=== PATIENT | male | born 1995 | race Hispanic/Latino ===

== ENCOUNTER 2017-11-24 17:28 | Inpatient (IN) | payer SELFPAY ==
[2017-11-24] MEDS ORDERED: ONDANSETRON 4 MG/2 ML VIAL ONE (18:11)
[2017-11-24] MEDS ORDERED: PANTOPRAZOLE 40 MG INJ ONE (18:11)
[2017-11-24] MEDS ORDERED: NA CHLORIDE 0.9% 1,000 ML ONE ×2 (18:11→19:49)
[2017-11-24 18:27] LABS: Absolute Lymphocytes (CBC) 1.6 K/uL (0.7-4.9); Absolute Monocytes 0.4 K/uL (0.1-1.3); Absolute Neutrophil 12.6 K/uL (1.8-8.0); Basophils % 0.6 % (0-1.3); Eosinophils % 0.2 % (0-4.4); Hematocrit 54.1 % (39.6-49.0); Lymphocytes % 10.9 % (15.3-44.8); MCH 31.4 pg (27.0-35.0); MCV 95.5 fL (80-100); MPV 8.4 fL (7.6-11.3); Monocytes % 2.6 % (3.3-12.3); RBC Red Blood Cell Count 5.66 M/uL (4.33-5.43)
[2017-11-24 18:34] LABS: Protime INR 1.03
--- NOTE | 2017-11-24 19:01 | RAD REPORT ---
EXAM DESCRIPTION: CT - Head C Spine Mpr Wo Con - 11/24/2017 6:38 pm CLINICAL HISTORY: Seizure. Head and neck injury status post fall. Head and neck pain COMPARISON: 2016 TECHNIQUE: Computed axial tomography of the head and cervical spine was obtained. Sagittal and coronal reconstruction was performed. All CT scans are performed using dose optimization technique as appropriate and may include automated exposure control or mA/KV adjustment according to patient size. FINDINGS: A left frontal scalp hematoma is present. An underlying skull fracture is not seen. An intracranial bleed is not seen. The ventricles are normal in caliber. An extra-axial fluid collect ion is not noted.Fluid within the visualized sinuses and mastoids is not seen A cervical fracture is not visualized. No dislocation is noted. IMPRESSION: No acute intracranial abnormality is seen. A cervical fracture is not visualized. If the patient continues to have symptoms to suggest intracra nial /spinal cord pathology then MRI would be recommended
[2017-11-24 19:08] LABS: ALT/SGPT 118 U/L (12-78); AST/SGOT 52 U/L (15-37); Albumin 4.8 g/dL (3.4-5.0); Alcohol Serum/Plasma 10 mg/dL (0-3); Alkaline Phosphatase 106 U/L (45-117); BUN Blood Urea Nitrogen 9 mg/dL (7-18); Bicarbonate 24 mmol/L (21-32); Bilirubin Direct 0.3 mg/dL (0-0.2); Bilirubin Total 1.3 mg/dL (0.2-1.0); Glucose Level 187 mg/dL (74-106); Lipase 157 U/L (73-393); Protein, Total 9.6 g/dL (6.4-8.2); Sodium Level 138 mmol/L (136-145)
[2017-11-24 19:34] LABS: Blood Morphology Comment NOT SEEN (NOT SEEN); Platelet Estimate ADEQ; Urine White Blood Cell Casts OK
[2017-11-24] MEDS ORDERED: MULTIVITAMINS 10 ML VIAL (INJ) IV ONE (19:48)
[2017-11-24] MEDS ORDERED: THIAMINE 200 MG/2 ML INJ ONE (19:48)
[2017-11-24] MEDS ORDERED: FOLIC ACID 5 MG/ML VIAL ONE (19:49)
[2017-11-24] MEDS ORDERED: LORazepam 2 MG/ML VIAL ONE (20:59)
--- NOTE | 2017-11-24 21:07 | EDPHYS ---
Physician Documentation [facility] Name: Roger Peralta Age: 22 yrs Sex: Male : 1995 Arrival Date: 11/24/2017 Time: 17:29 Bed 24 Private MD: None, None ED Physician Chandler Turner HPI: 11/24 18:00 This 22 yrs old Male presents to ER via Ambulatory with complaints of Head cp Injury With LOC-Adult, Alcohol Withdrawal. 18:00 The patient presents after having a single isolated seizure, that lasted an unknown cp period of time. 18:00 Character of seizure(s): Loss of consciousness: the patient experienced loss of cp consciousness, Motor activity: generalized, shaking all over, Incontinence: none. Seizure onset: at 16:30. Context: occurred at home, Contributing factors: recently quit drinking beer with last use 3 days ago. 18:00 Associated injury: Head/face: top of head and forehead, abrasion, contusion. cp 18:00 Current symptoms: Currently, the patient is not experiencing any symptoms. cp Historical: - Allergies: 17:32 No Known Allergies; sg - Home Meds: 17:32 None [Active]; sg - PMHx: 17:32 None; sg - PSHx: 17:32 None; sg - Immunization history:: Adult Immunizations up to date, Last tetanus immunization: unknown. - Immunization history: Last tetanus immunization: - up to date. - Social history:: Smoking status: Patient uses tobacco products, denies chronic smoking, but will smoke occasionally, Patient uses alcohol, on a daily basis. but has not had any alcohol in the last two days. - Ebola Screening: : Patient negative for fever greater than or equal to 101.5 degrees Fahrenheit, and additional compatible Ebola Virus Disease symptoms Patient denies exposure to infectious person Patient denies travel to an Ebola-affected area in the 21 days before illness onset No symptoms or risks identified at this time. ROS: 18:05 Constitutional: Negative for body aches, chills, fever, poor PO intake. cp 18:05 Eyes: Negative for injury, pain, redness, and discharge. cp 18:05 ENT: Negative for drainage from ear(s), ear pain, sore throat, difficulty swallowing, difficulty handling secretions. 18:05 Cardiovascular: Negative for chest pain, edema. 18:05 Respiratory: Negative for cough, shortness of breath, wheezing. 18:05 Abdomen/GI: Negative for abdominal pain, nausea, vomiting, and diarrhea, black/tarry stool, rectal bleeding. 18:05 Back: Negative for pain at rest, pain with movement. 18:05 Skin: Negative for cellulitis, rash. 18:05 Neuro: Positive for loss of consciousness, history of seizure, Negative for altered mental status, weakness. 18:05 All other systems are negative. Exam: 17:48 ECG was reviewed by the Attending Physician. cp 18:08 Constitutional: The patient appears in no acute distress, alert, awake, cp non-diaphoretic, non-toxic, well developed, well nourished. 18:08 Head/face: Noted is abrasion(s), that are moderate, of the left upper forehead, cp swelling, that is mild, tenderness, that is mild, Sinus tenderness, is not appreciated. 18:08 Eyes: Periorbital structures: appear normal, Pupils: equal, round, and reactive to light and accomodation, Extraocular movements: intact throughout, Conjunctiva: normal, no exudate, no injection, Sclera: no appreciated abnormality, Lids and lashes: appear normal, bilaterally. 18:08 ENT: External ear(s): are unremarkable, Ear canal(s): are normal, clear, TM's: dullness, bilaterally, Nose: is normal, Mouth: Lips: moist, Oral mucosa: pink and intact, moist, Tongue: superficial lacerations noted bilateral sides of tongue, Posterior pharynx: is normal, airway is patent, no erythema, no exudate, Dental exam: normal, Voice: is normal. 18:08 Neck: C-spine: C-collar placed in ED, vertebral tenderness, that is mild, crepitus, is not appreciated. 18:08 Chest/axilla: Inspection: normal, Palpation: is normal, no crepitus, no tenderness. 18:08 Cardiovascular: Rate: tachycardic, Rhythm: regular, Pulses: Pulses are 2+ in right radial artery and left radial artery. Edema: is not appreciated, JVD: is not appreciated. 18:08 Respiratory: the patient does not display signs of respiratory distress, Respirations: normal, no use of accessory muscles, no retractions, no splinting, no tachypnea, labored breathing, is not present, Breath sounds: are clear throughout, no decreased breath sounds, no stridor, no wheezing. 18:08 Abdomen/GI: Inspection: abdomen appears normal, Bowel sounds: active, all quadrants, Palpation: abdomen is soft and non-tender, in all quadrants, rebound tenderness, is not appreciated, voluntary guarding, is not appreciated, involuntary guarding, is not appreciated. 18:08 Back: pain, is absent, ROM is normal. Vital Signs: 17:32 BP 121 / 103; Pulse 120; Resp 17 S; Temp 97.7; Pulse Ox 98% on R/A; Pain 9/10; sg 19:00 BP 134 / 96; Pulse 104; Resp 16; Pulse Ox 97% on R/A; mb3 21:53 BP 136 / 95; Pulse 101; Resp 22; Pulse Ox 94% on R/A; mb3 [place] Coma Score: 17:32 Eye Response: spontaneous(4). Verbal Response: oriented(5). Motor Response: obeys sg commands(6). Total: 15. Trauma Score (Adult): 17:32 Eye Response: spontaneous(1); Verbal Response: oriented(1); Motor Response: obeys sg commands(2); Systolic BP: > 89 mm Hg(4); Respiratory Rate: 10 to 29 per min(4); [place] Score: 15; Trauma Score: 12 MDM: 17:37 Patient medically screened. 21:00 Data reviewed: vital signs, nurses notes, lab test result(s), EKG, radiologic studies, cp CT scan. Test interpretation: by ED physician or midlevel provider: ECG. 21:05 Physician consultation: Autumn Moore MD was contacted at 21:03, regarding admission, cp to the ICU, patient's condition. 11/24 18:03 Order name: Acetaminophen; Complete Time: 20:51 11/24 18: Order name: Basic Metabolic Panel; Complete Time: 20:51 11/24 20:52 Interpretation: Normal except: GLUC 187; CRE 1.70; GFR 50. 11/24 18:03 Order name: CBC with Diff; Complete Time: 20:51 11/24 20:52 Interpretation: Normal except: WBC 14.7; RBC 5.66; HCT 54.1; SHAYLEE% 85.7; LYM% 10.9; MN% cp 2.6; NEUT A 12.6. 11/24 18:03 Order name: ETOH Level; Complete Time: 20:51 cp 11/24 18:03 Order name: Hepatic Function; Complete Time: 20:51 11/24 20:52 Interpretation: Normal except: AST 52; ALT 118; BILIT 1.3; BILID 0.3; TP 9.6; GLOB 4.8; cp A/G 1.0. 11/24 18:03 Order name: PT-INR; Complete Time: 19:05 11/24 18:03 Order name: Ptt, Activated; Complete Time: 19:05 11/24 18:03 Order name: Salicylate; Complete Time: 19:05 11/24 18:03 Order name: Urine Drug Screen 11/24 18:03 Order name: Lipase; Complete Time: 20:51 11/24 18:03 Order name: CT Head C Spine; Complete Time: 19:05 11/24 18:31 Order name: CBC Smear Scan; Complete Time: 20:51 EDMS 11/24 23:00 Order name: Urine Dipstick--Ancillary (enter results) 11/24 17:38 Order name: Seizure Precautions; Complete Time: 17:44 11/24 17:38 Order name: EKG; Complete Time: 17:38 11/24 17:38 Order name: EKG - Nurse/Tech; Complete Time: 17:44 11/24 18:03 Order name: IV Saline Lock; Complete Time: 18:22 11/24 18:03 Order name: Labs collected and sent; Complete Time: 18:22 11/24 18:03 Order name: Urine Dipstick-Ancillary (obtain specimen) 11/24 20:57 Order name: Cath cp EC:48 Rate is 100 beats/min. Rhythm is regular. SD interval is normal. QRS interval is cp normal. QT interval is normal. No ST changes noted. Interpreted by me. Administered Medications: 18:15 Drug: NS 0.9% 1000 ml Route: IV; Rate: 1 bolus; Site: right antecubital; mb3 23:23 Follow up: Response: No adverse reaction; IV Status: Completed infusion; IV Intake: mb3 1000ml 18:15 Drug: Zofran 4 mg Route: IVP; Site: right antecubital; mb3 23:22 Follow up: Response: No adverse reaction mb3 18:15 Drug: ProTONIX 40 mg Route: IVP; Site: right antecubital; mb3 23:21 Follow up: Response: No adverse reaction mb3 23:22 Follow up: Response: No adverse reaction mb3 20:10 Drug: Banana Bag - (NS 0.9% 1000 ml, foLIC Acid 1 mg, Thiamine 100 mg, Multivitamin 1 mb3 amp) Route: IV; Rate: 250 ml/hr; Site: right antecubital; 23:20 Follow up: Response: No adverse reaction; IV Status: Infusion continued upon admission; mb3 IV Intake: 400ml 20:59 Drug: Ativan 1 mg Route: IVP; Site: right antecubital; kr2 23:19 Follow up: Response: No adverse reaction mb3 21:10 Drug: Ativan 1 mg Route: IVP; Site: right antecubital; mb3 23:19 Follow up: Response: No adverse reaction mb3 Disposition: 23:45 Chart complete. 11/25 07:02 Co-signature as Attending Physician, Chandler Turner MD. rn Disposition: 11/24/17 21:06 Hospitalization ordered by Autumn Moore for Inpatient Admission. Preliminary diagnosis are Seizure, Alcohol dependence with withdrawal. - Bed requested for Intensive Care Unit. - Status is Inpatient Admission. mb3 - Condition is Serious. - Problem is new. - Symptoms have improved. UTI on Admission? No Signatures: Dispatcher [employer] EDFlora Rubio RN RN kl Gay, Steven, RN RN sg Nieto, Roman, MD MD rn Page, Corey, PA PA Sadie Jones RN RN kr2 Mima Lange Mark, RN RN mb3 Corrections: (The following items were deleted from the chart) 11/24 21:08 21:06 Hospitalization Ordered by Autumn Moore MD for Inpatient Admission. Preliminary eb diagnosis is Seizure; Alcohol dependence with withdrawal. Bed requested for Telemetry/MedSurg (Inpatient). Status is Inpatient Admission. Condition is Serious. Problem is new. Symptoms have improved. UTI on Admission? No. cp 21:43 21:08 11/24/2017 21:06 Hospitalization Ordered by Autumn Moore MD for Inpatient kl Admission. Preliminary diagnosis is Seizure; Alcohol dependence with withdrawal. Bed requested for Telemetry/MedSurg (Inpatient). Status is Inpatient Admission. Condition is Serious. Problem is new. Symptoms have improved. UTI on Admission? No. eb 23:18 21:43 11/24/2017 21:06 Hospitalization Ordered by Autumn Moore MD for Inpatient mb3 Admission. Preliminary diagnosis is Seizure; Alcohol dependence with withdrawal. Bed requested for Intensive Care Unit. Status is Inpatient Admission. Condition is Serious. Problem is new. Symptoms have improved. UTI on Admission? No. kl 11/25 16:02 11/24 21:00 Physician consultation: Autumn Moore MD was called at 21:03, was cp contacted at 21:04, regarding admission, to the ICU, patient's condition, cp
--- NOTE | 2017-11-24 21:07 | ER ---
Nurse's Notes [facility] Name: Roger Peralta Age: 22 yrs Sex: Male : 1995 Arrival Date: 11/24/2017 Time: 17: Bed 24 Private MD: None, None Diagnosis: Seizure;Alcohol dependence with withdrawal Presentation: 11/24 17:34 Presenting complaint: Patient states: Radha stopped drinking for about 2 days now, i sg usually drink malt liqour every other day,but radha stopped drinking, I think that this is the same thing that happened to me last time when i stopped drinking, I just passed out while sitting down in the chair at my mom's house, and my body locked up and I dont really remember what happend. Care prior to arrival: None. Mechanism of Injury: No Mechanism of Injury. 17:34 Method Of Arrival: Ambulatory sg 17:34 Trauma event details: Injury occurred in the [facility]. sg 17:34 Presenting complaint: Patient states: report positive LOC, abraision noted to Left side sg of forehead, swelling noted. 17:34 Acuity: LAVON 2 sg 17:34 Transition of care: patient was not received from another setting of care. Onset of sg symptoms was November 24, 2017. Initial Sepsis Screen: Does the patient meet any 2 criteria? No. Patient's initial sepsis screen is negative. Does the patient have a suspected source of infection? No. Patient's initial sepsis screen is negative. 17:34 Risk Assessment: Do you want to hurt yourself or someone else? Patient reports no sg desire to harm self or others. Trauma Activation: Alert Physician: ED Physician; Name: ; Notified At: ; Arrived At: Physician: General Surgeon; Name: ; Notified At: ; Arrived At: Physician: Radiology; Name: ; Notified At: ; Arrived At: Physician: Respiratory; Name: ; Notified At: ; Arrived At: Physician: Lab; Name: ; Notified At: ; Arrived At: Historical: - Allergies: 17:32 No Known Allergies; sg - Home Meds: 17:32 None [Active]; sg - PMHx: 17:32 None; sg - PSHx: 17:32 None; sg - Immunization history:: Adult Immunizations up to date, Last tetanus immunization: unknown. - Immunization history: Last tetanus immunization: - up to date. - Social history:: Smoking status: Patient uses tobacco products, denies chronic smoking, but will smoke occasionally, Patient uses alcohol, on a daily basis. but has not had any alcohol in the last two days. - Ebola Screening: : Patient negative for fever greater than or equal to 101.5 degrees Fahrenheit, and additional compatible Ebola Virus Disease symptoms Patient denies exposure to infectious person Patient denies travel to an Ebola-affected area in the 21 days before illness onset No symptoms or risks identified at this time. Screenin:34 Abuse screen: Denies threats or abuse. Denies injuries from another. Tuberculosis sg screening: No symptoms or risk factors identified. Never had TB. 21:20 Fall Risk Fall in past 12 months (25 points). Secondary diagnosis (15 points) IV access mb3 (20 points). Ambulatory Aid- None/Bed Rest/Nurse Assist (0 pts). Gait- Normal/Bed Rest/Wheelchair (0 pts) Mental Status- Oriented to own ability (0 pts). Total [place] Fall Scale indicates High Risk Score (45 or more points). Fall prevention measures have been instituted. Side Rails Up X 2 Placed Close to Nursing Station Frequent Obs/Assessments Occuring As available patient and family educated on Fall Prevention Program and Strategies. 21:23 Nutritional screening: No deficits noted. mb3 Primary Survey: 17:43 A: Airway: patent. Breathing/Chest: Respiratory pattern: regular, Respiratory effort: sg spontaneous, unlabored, Breath sounds: clear, Chest inspection: symmetrical rise and fall of the chest. Circulation: Heart tones present. Pulses: palpable right radial artery, right brachial artery, left radial artery and left brachial artery. Skin temperature: warm. Disability Alert. 21:19 Reassessment Breathing/Chest Respiratory pattern Regular Respiratory effort Spontaneous mb3 Unlabored Breath sounds Clear. Secondary Survey: 17:44 HEENT: Head Other abrasion noted to left side of forehead, swelling noted Face No sg injury/deformity Eyes: No injury or deformity noted. Ears: clear Nose: clear Throat: No injury or deformity noted. is clear. Gastrointestinal: No deficits noted. : No signs and/or symptoms were reported regarding the genitourinary system. Musculoskeletal: Circulation, motion, and sensation intact. Range of motion: intact in all extremities, Swelling present in forehead. Injury Description: Abrasion sustained to forehead is bleeding, was sustained 30-60 minutes ago. Assessment: 17:34 General: Appears in no apparent distress. unkempt, well developed, well nourished, sg Behavior is cooperative, appropriate for age, quiet. Derm: Skin is moist, Skin is normal, Skin temperature is warm. 20:18 Reassessment: After starting banana bag at 250 ml/hr. Friend that was in the room was mb3 asking how long it would take to infuse, I told pt that it would take 4 hours to infuse bag. The friend that was in the room that keeps telling everyone that he is a neurologist, but never gives his name. The friend had made a comment about the IV won't take that long if he has anything to do with it as I left the room earlier. The iv pump was alarming, when I went into the room to check the pump the rate had been changed to 350 ml/hr and it was beeping because who ever had changed it did not hit the start button on the pump. I advised the friend that if he changed the pump again we would have to ask him to leave the patients room. 20:55 Neuro: seizure observed. Seizure activity Type of seizure: tonic-clonic seizure. mb3 Seizure lasted approximately 1 minutes. Patient is post-ictal at this time. Pt stiffened up for aprox 20 seconds, then started jerking lasted 23 seconds. Went still for about 10 seconds then opened eyes and looked panicked, reoriented and reassured pt. 21:15 Pain: Denies pain. mb3 21:53 Reassessment: Patient and/or family updated on plan of care and expected duration. Pain mb3 level reassessed. Patient is alert, oriented x 3, equal unlabored respirations, skin warm/dry/pink. Patient states symptoms have improved. Vital Signs: 17:32 BP 121 / 103; Pulse 120; Resp 17 S; Temp 97.7; Pulse Ox 98% on R/A; Pain 9/10; sg 19:00 BP 134 / 96; Pulse 104; Resp 16; Pulse Ox 97% on R/A; mb3 21:53 BP 136 / 95; Pulse 101; Resp 22; Pulse Ox 94% on R/A; mb3 [place] Coma Score: 17:32 Eye Response: spontaneous(4). Verbal Response: oriented(5). Motor Response: obeys sg commands(6). Total: 15. Trauma Score (Adult): 17:32 Eye Response: spontaneous(1); Verbal Response: oriented(1); Motor Response: obeys sg commands(2); Systolic BP: > 89 mm Hg(4); Respiratory Rate: 10 to 29 per min(4); [place] Score: 15; Trauma Score: 12 ED Course: 17:29 Patient arrived in ED. sb2 17:29 None, None is Private Physician. sb2 17:35 Triage completed. sg 17:37 Davey Luke PA is PHCP. cp 17:37 Chandler Turner MD is Attending Physician. cp 17:44 Valdemar Estevez, RONI is Primary Nurse. mb3 17:51 EKG done, by hemodialysis technician. reviewed by hCandler Turner MD. sm3 17:51 Patient has correct armband on for positive identification. electronic device monitor on. Pulse sg ox on. NIBP on. 18:15 Inserted saline lock: 20 gauge in right antecubital area, using aseptic technique. mb3 Blood collected. 18:[address] sj 18:38 CT completed. Patient moved back from CT. vm2 18:38 CT Head C Spine In Process Unspecified. EDMS 21:04 Autumn Moore MD is Hospitalizing Provider. cp 21:18 No provider procedures requiring assistance completed. mb3 21:23 Patient maintains SpO2 saturation greater than 95% on room air. mb3 21:23 Arm band placed on right wrist. mb3 21:24 Thermoregulation: warm blanket given to patient. mb3 22:45 Patient admitted, IV remains in place. mb3 Administered Medications: 18:15 Drug: NS 0.9% 1000 ml Route: IV; Rate: 1 bolus; Site: right antecubital; mb3 23:23 Follow up: Response: No adverse reaction; IV Status: Completed infusion; IV Intake: mb3 1000ml 18:15 Drug: Zofran 4 mg Route: IVP; Site: right antecubital; mb3 23:22 Follow up: Response: No adverse reaction mb3 18:15 Drug: ProTONIX 40 mg Route: IVP; Site: right antecubital; mb3 23:21 Follow up: Response: No adverse reaction mb3 23:22 Follow up: Response: No adverse reaction mb3 20:10 Drug: Banana Bag - (NS 0.9% 1000 ml, foLIC Acid 1 mg, Thiamine 100 mg, Multivitamin 1 mb3 amp) Route: IV; Rate: 250 ml/hr; Site: right antecubital; 23:20 Follow up: Response: No adverse reaction; IV Status: Infusion continued upon admission; mb3 IV Intake: 400ml 20:59 Drug: Ativan 1 mg Route: IVP; Site: right antecubital; kr2 23:19 Follow up: Response: No adverse reaction mb3 21:10 Drug: Ativan 1 mg Route: IVP; Site: right antecubital; mb3 23:19 Follow up: Response: No adverse reaction mb3 Intake: 21:22 IV: 1000ml (IV Fluid); Total: 1000ml. mb3 23:20 IV: 400ml; Total: 1400ml. mb3 23:23 IV: 1000ml; Total: 2400ml. mb3 Outcome: 21:06 Decision to Hospitalize by Provider. cp 22:43 Admitted to ICU accompanied by nurse, accompanied by tech, family with patient, via mb3 stretcher, room icu 2, on monitor, with chart, Report called to Gladys White RN 22:43 Condition: stable 22:43 Instructed on the need for admit. 22:43 Patient's length of stay was extended due to no available ICU beds in the hospital. 23:18 Patient left the ED. mb3 Signatures: Dispatcher [employer] EDMS Jonathan Linares RN RN sg Jones, Susan sj Page, Corey, PA PA cp McGuire, Victoria 2 Sadie Jones RN RN 2 Heide Huff2 Valdemar Estevez RN RN mb3 Rosalie He 3 Corrections: (The following items were deleted from the chart) 17:49 17:34 Acuity: LAVON 3 sg sg 21:53 19:00 BP 136 / 95; Pulse 101bpm; Resp 22bpm; Pulse Ox 94% RA; mb3 mb3
--- NOTE | 2017-11-24 21:42 | P.HP ---
Certification for Inpatient Patient admitted to: Inpatient With expected LOS: >2 Midnights Practitioner: I am a practitioner with admitting privileges, knowledge of patient current condition, hospital course, and medical plan of care. Services: Services provided to patient in accordance with Admission requirements found in Title 42 Section 412.3 of the Code of Federal Regulations Patient History Date of Service: 11/24/17 Reason for admission: seizure episodes History of Present Illness: Mr Peralta is a 22 years old male, with history of alcohol abuse, who has decided to stop drinking alcohol. Last time he drank was 2 days ago. Today, he was at home when suddenly had a seizure episode, around 16:30. The patient then was transferred to ED, where he had another seizure episode. He has bitten his tongue. He hit his head leading with a left forehead laceration. He denied any fever, chills, headache, chest pain or SOB prior the seizure. About 1 years ago , he had a similar episode, when he stop drinking for 1 week. At my encounter, he was alert and oriented in non-distress. Allergies No Known Allergies Allergy (Unverified 12/28/15 04:02) Home medications list reviewed: Yes - Past Medical/Surgical History -: alcohol abuse Past Surgical History: Reviewed- Non-Contributory - Family History Family History: Reviewed- Non-Contributory - Social History Smoking Status: Current every day smoker Counseled patient to stop smoking for: less than 10 minutes Alcohol use: Yes CD- Drugs: Yes Place of Residence: Home Review of Systems 10-point ROS is otherwise unremarkable Physical Examination - Physical Exam General: Alert, In no apparent distress HEENT: PERRLA, Mucous membr. moist/pink, Other (Head traumatic: left forehead superficial laceration.), EOMI, Sclerae nonicteric Neck: Supple, 2+ carotid pulse no bruit, No LAD, Without JVD or thyroid abnormality Respiratory: Clear to auscultation bilaterally, Normal air movement Cardiovascular: Regular rate/rhythm, Normal S1 S2 Gastrointestinal: Normal bowel sounds, No tenderness Musculoskeletal: No tenderness Integumentary: No rashes Neurological: Normal speech, Normal strength at 5/5 x4 extr, Normal tone, Normal affect Lymphatics: No axilla or inguinal lymphadenopathy - Studies Laboratory Data (last 24 hrs) 11/24/17 18:13: PT 12.2, INR 1.03, APTT 24.8 11/24/17 18:13: WBC 14.7 H, Hgb 17.8, Hct 54.1 H, Plt Count 366 11/24/17 18:13: Sodium 138, Potassium 4.0, BUN 9, Creatinine 1.70 H, Glucose 187 H, Total Bilirubin 1.3 H, AST 52 H, ALT 118 H, Alkaline Phosphatase 106, Lipase 157 Assessment and Plan - Problems (Diagnosis) (1) Alcohol abuse Current Visit: Yes Status: Acute (2) Alcohol withdrawal seizure Current Visit: Yes Status: Acute Qualifiers: Complication of substance-induced condition: uncomplicated Qualified Code(s ): F10.230 - Alcohol dependence with withdrawal, uncomplicated - Plan Mr Peralta will be admitted to the hospital due to seizure episode, most likely due to alcohol withdrawal. CT head shows no acute intracranial abnormalities. Will order brain MRI, EEG, consult Neurology. Will start librium, order lorazepam PRN, seizure precautions. - Advance Directives Does patient have a Living Will: No Does patient have a Durable POA for Healthcare: No - Code Status/Comfort Care Code Status Assessed: Yes Code Status: Full Code
[2017-11-24] MEDS ORDERED: ONDANSETRON 4 MG/2 ML VIAL IV PRN (22:38)
[2017-11-24] MEDS ORDERED: LORazepam 2 MG/ML VIAL IV PRN (22:38)
--- NOTE | 2017-11-24 23:00 | EKG ---
Test Date: 2017-11-24 Test Time: 17:42:31 Hand Stapler: ERIKA MEASUREMENT RESULTS: Intervals: Rate: 100 TN: 136 QRSD: 76 QT: 342 QTc: 441 [place]: P: 62 TN: 136 QRS: 60 T: 24 INTERPRETIVE STATEMENTS: Normal sinus rhythm Normal ECG Compared to ECG 12/28/2015 03:21:07 Sinus bradycardia no longer present Electronically Signed On 11-24-17 23:00:19 CDT by Tony Perry
[2017-11-24 23:36] LABS: Urine Blood TRACE (NEG); Urine Glucose NEGATIVE (NEG); Urine Protein 2+ (NEG); Urine pH 5.5 (5.0-7.0)
[2017-11-25] MEDS: chlordiazePOXIDE HCl 25 MG CAP PO SCH ×4 (00:49→17:34)
[2017-11-25 00:50] LABS: Barbiturates NEGATIVE (NEGATIVE); Benzodiazepines POSITIVE (NEGATIVE); Cocaine POSITIVE (NEGATIVE); METHAMPHETAM NEGATIVE (NEGATIVE); Methadone NEGATIVE (NEGATIVE); Opiates NEGATIVE (NEGATIVE); Phencyclidine NEGATIVE (NEGATIVE); THC Cannibis POSITIVE (NEGATIVE)
[2017-11-25 05:44] LABS: Absolute Lymphocytes (CBC) 3.1 K/uL (0.7-4.9); Absolute Neutrophil 11.3 K/uL (1.8-8.0); Basophils % 0.7 % (0-1.3); Lymphocytes % 19.8 % (15.3-44.8); MCH 31.5 pg (27.0-35.0); MCV 96.2 fL (80-100); MPV 8.4 fL (7.6-11.3); Monocytes % 6.2 % (3.3-12.3); RBC Red Blood Cell Count 4.68 M/uL (4.33-5.43)
[2017-11-25 06:17] LABS: Albumin 3.6 g/dL (3.4-5.0); Bilirubin Total 1.5 mg/dL (0.2-1.0); Magnesium 2.5 mg/dL (1.8-2.4); Potassium 3.4 mmol/L (3.5-5.1); Protein, Total 7.1 g/dL (6.4-8.2)
[2017-11-25] MEDS ORDERED: POTASSIUM CL SA 10 MEQ TAB PO ONE (08:11)
[2017-11-25] MEDS: FOLIC ACID 1 MG, MULTIVITAMINS INJ 10 ML, THIAMINE HCL 100 MG in NA CHLORIDE 0.9% 1,000 ML IV SCH (09:10)
--- NOTE | 2017-11-25 12:16 | PN ---
Date of Progress Note: 11/25/2017 Subjective: The patient is seen and examined. Chart reviewed and case discussed with RN. The patie nt states that he feels better. No active signs of withdrawal. Do not receive any Ativan p.r.n. las t night. No further seizure episodes. Review of Systems: Negative except as above. Medications: Reviewed. Physical Examination: Vital Signs: Temperature 99.1, heart rate 101, blood pressure 120/84, respirations 26, O2 100% on ro om air. General: Awake, alert, oriented x3. Some mild distress. CV: S1 and S2. Sinus tachycardia. No murmurs. Respiratory: Clear to auscultation bilaterally. No wheezing. No stridor. Gastrointestinal: Abdomen is soft, nontender, nondistended. Positive bowel sounds. Extremities: No clubbing, cyanosis, or edema. Neurologic: Nonfocal. Laboratory Data: Sodium 142, potassium 3.4, chloride 107, CO2 25, BUN 8, creatinine 1.3, glucose 91, calcium 8.3, magnesium 2.5, AST 38, ALT 81. WBC 15.7, H and H 14.7 and 45, platelets 281. Assessment And Plan: A 22-year-old male with: 1.Acute alcohol withdrawal seizure. 2.Seizure episode secondary to above. 3.Alcohol dependence. 4.Polysubstance abuse including cocaine, marijuana. 5.Hypokalemia. We will replace and monitor. 6.Acute kidney injury, resolved. 7.Elevated liver enzymes. 8.Gastrointestinal and deep venous thrombosis prophylaxis with PPI and Lovenox. Plan: Continue to monitor for signs of withdrawal seizure precautions. Continue CIWA protocol for w ithdrawal. We will continue with Librium taper. We will likely need AA or rehab upon discharge. SA/MODL Voice ID: [id number] Report ID: [id number]
--- NOTE | 2017-11-25 16:28 | CON ---
Date of Consultation: 11/25/2017 Time: 1410. Reason: Seizure. History: A 22-year-old gentleman with a history of ldjdmicw-cz-cshlc alcohol use. He admits to stormy olivo 6 pack daily. We suspect it may be a little more and smoking marijuana on a daily basis. State s he quit drinking Monday or Monday. Yesterday, he was in his usual state of health. He was outside . The patient had generalized tonic-clonic seizure, brought to the emergency department. Trauma dena l unremarkable. CT unremarkable. Given lorazepam and thiamine, and has had no further seizures. He is back to baseline presently. The patient had a similar episode a year ago also experiencing after abruptly stopping drinking. CT scan of the brain was normal. CT scan C-spine was normal. Consulta tion was requested. Past Medical History: None. Allergies: NONE. Social History: He is a student. Not currently working. Normally independent activities of daily l iving. Denies tobacco use. Admits to marijuana and alcohol use. Review of Systems: General: Good health. Eyes: Negative. Ears, nose, Throat: Negative. Cardiovascular: Negative. Pulmonary: Negative. GI: Negative. : Negative. Musculoskeletal: Arthralgias and some leg pain improving now. Neurologic: As noted. Psychiatric: Negative. Endocrine: Negative. Hematologic: Negative. Physical Examination: Vital Signs: On exam; 98.1, 83, 23, and 123/77. General: He is awake, alert, oriented to time, person, place, situation. Heart: Sinus rhythm. Lungs: Clear. HEENT: Pupils reactive. Ocular motion full. Ramirez full. Laceration on the left side of the tongu e. Neck: Supple. Neurologic: Face symmetric. Soft palate elevates bilaterally. Extremity strength full. Sensation intact. Reflexes 2/4 symmetric. Toes are downgoing. Cerebellar exam demonstrates no ataxia. Gait not tested. The patient does have a very slight tremor. Pertinent Laboratory Data: White count 15,000. Hemoglobin and hematocrit are normal. Platelets nor mal. Creatinine 1.7 down to 1.3. Sodium normal. ALT 81, AST 38. Alcohol level was 10 in the emerg ency department. Drug screen positive for benzodiazepines, cocaine and THC. Impression: Generalized seizure. Plan: Agree with a workup. Brain MRI and EEG. We would not empirically start an anticonvulsant, bu t we do need to determine if this is a situational seizure, i.e., simple alcohol withdrawal or if he is at risk for having additional events moving forward. We would continue the Librium for DT prevent ion and lorazepam as needed and I think he can safely come out of the intensive care unit later on th is afternoon. Thank you for the consult. We will continue to follow. JACQUI Voice ID: [id number] Report ID: [id number]
[2017-11-26] MEDS: chlordiazePOXIDE HCl 25 MG CAP PO SCH ×4 (00:18→17:35)
[2017-11-26 07:23] LABS: Absolute Lymphocytes (CBC) 3.4 K/uL (0.7-4.9); Absolute Monocytes 0.7 K/uL (0.1-1.3); Absolute Neutrophil 6.5 K/uL (1.8-8.0); Basophils % 0.7 % (0-1.3); Eosinophils % 3.4 % (0-4.4); Lymphocytes % 30.7 % (15.3-44.8); MCH 32.3 pg (27.0-35.0); MCV 94.9 fL (80-100); MPV 8.5 fL (7.6-11.3); Monocytes % 6.2 % (3.3-12.3); RBC Red Blood Cell Count 4.74 M/uL (4.33-5.43)
[2017-11-26 07:41] LABS: Albumin 3.6 g/dL (3.4-5.0); Bilirubin Total 1.3 mg/dL (0.2-1.0); Magnesium 2.6 mg/dL (1.8-2.4); Potassium 3.7 mmol/L (3.5-5.1); Protein, Total 7.4 g/dL (6.4-8.2)
[2017-11-26] MEDS ORDERED: POTASSIUM 25 MEQ EFFERV TAB PO ONE (09:00)
[2017-11-26] MEDS: FOLIC ACID 1 MG, MULTIVITAMINS INJ 10 ML, THIAMINE HCL 100 MG in NA CHLORIDE 0.9% 1,000 ML IV SCH (10:38)
--- NOTE | 2017-11-26 15:41 | PN ---
Date of Progress Note: 11/26/2017 History Of Present Illness: Patient seen and examined. Chart reviewed and case discussed with RN. The patient denies any acute events overnight. He was seen by Dr. Cerrato; will go for MRI of brain in the morning. Review of Systems: Negative except as above. Medications: List reviewed. Objective: Vital signs: Temperature 98.5, heart rate 82, blood pressure 140/82, respirations 18, O2 99% on room air. General: Awake, alert, oriented x3, not in any acute distress. Obese male. BMI 30. CV: S1, S2. No murmurs. Regular rate and rhythm. Peripheral pulses present. Respiratory: Clear to auscultation bilaterally. No wheezing. No stridor. Gastrointestinal: Abdomen is soft, nontender, nondistended. Positive bowel sounds. Extremities: No clubbing, cyanosis, or edema. Neurologic: Nonfocal. Laboratory Data: Sodium 140, potassium 3.7, chloride 105, CO2 30, BUN 6, creatinine 1.20, glucose 89 , calcium 8.9, magnesium 2.6, total bilirubin 1.3, AST 48, ALT 78. WBC 11, H and H 15.3 and 45, plat elets 250. Assessment: A 22-year-old male with: 1.Acute alcohol withdrawal seizure. We will continue to monitor. Continue seizure precautions. Ap preciate Dr. Cerrato's input. Not started on anticonvulsants due to the etiology of his seizure. 2.Alcohol dependence, on Librium detox protocol, and had some episodes of withdrawal symptoms. We w ill continue with Ativan p.r.n. Continue thiamine and folate. 3.Polysubstance abuse including cocaine, marijuana. Counseled. 4.Hypokalemia. Replace and monitor. 5.Acute kidney injury, resolved. 6.Elevated liver enzymes, may have some liver disease, improving. 7.Gastrointestinal and deep venous thrombosis prophylaxis with PPI and Lovenox. Plan: Continue to be on Librium. Follow up with MRI brain in a.m., unable to be done on the weekend . SA/MODL Voice ID: [id number] Report ID: [id number]
[2017-11-26] MEDS: THIAMINE HCL 100 MG TABLET PO SCH (17:36)
[2017-11-26] MEDS: FOLIC ACID 1 MG TABLET PO SCH (17:36)
[2017-11-26] MEDS: TRAMADOL HCL 50 MG TAB PO PRN (21:03)
[2017-11-27] MEDS: chlordiazePOXIDE HCl 25 MG CAP PO SCH ×2 (00:24→08:58)
[2017-11-27 04:41] LABS: Absolute Lymphocytes (CBC) 3.2 K/uL (0.7-4.9); Absolute Monocytes 0.7 K/uL (0.1-1.3); Absolute Neutrophil 8.7 K/uL (1.8-8.0); Basophils % 0.8 % (0-1.3); Hematocrit 45.7 % (39.6-49.0); Lymphocytes % 24.1 % (15.3-44.8); MCH 31.9 pg (27.0-35.0); MCV 96.1 fL (80-100); MPV 8.4 fL (7.6-11.3); Monocytes % 5.2 % (3.3-12.3); RBC Red Blood Cell Count 4.76 M/uL (4.33-5.43)
[2017-11-27 04:55] LABS: Albumin 3.7 g/dL (3.4-5.0); Potassium 3.7 mmol/L (3.5-5.1); Protein, Total 7.4 g/dL (6.4-8.2)
[2017-11-27] MEDS ORDERED: POTASSIUM 25 MEQ EFFERV TAB PO ONE (05:10)
[2017-11-27] MEDS: FOLIC ACID 1 MG TABLET PO SCH (08:57)
[2017-11-27] MEDS: THIAMINE HCL 100 MG TABLET PO SCH (08:58)
--- NOTE | 2017-11-27 09:08 | RAD REPORT ---
EXAM DESCRIPTION: MRI - Brain Wo Cont - 11/27/2017 8:32 am CLINICAL HISTORY: Seizure, syncope COMPARISON: CT head November 24 TECHNIQUE: Sagittal T1-weighted images were obtained along with axial PD, heavily T2-weighted and T2 -FLAIR images. Axial DWI and ADC mapping sequences were also obtained along with coronal heavily T2-w eighted images. FINDINGS: No intracranial hemorrhage, mass or acute infarction. There is no edema or shift of midlin e structures. No extra-axial fluid collections. Chauhan-matter/white matter junction is preserved. Signa l voids are seen as a normal finding in the major intracranial vessels. A 10 millimeter left-side cho roid plexus cyst present as an incidental finding. No sella or supra sella abnormality. No tonsillar ectopia. The no medial temporal lobe asymmetry appreciated on this examination. No globe or orbital c ontent abnormality. Mastoid air cells and paranasal sinuses are clear. Motion degrades the examination somewhat. Examination is still considered diagnostic. IMPRESSION: Negative non-contrast MRI of the Brain.
[2017-11-27] MEDS: TRAMADOL HCL 50 MG TAB PO PRN ×3 (10:05→22:36)
--- NOTE | 2017-11-27 17:57 | PN ---
Date of Progress Note: 11/27/2017 Subjective: The patient is seen and examined. Chart reviewed and case discussed with RN. The patie nt is doing well. No signs of alcohol withdrawal. The patient, otherwise does not have any complain ts, tolerating his diet. Review of Systems: Negative except as above. Medications: List reviewed. Physical Examination: Vital Signs: Temperature 98.3, heart rate 88, blood pressure 125/86, respirations 16, O2 99% on room air, General: Awake, alert, oriented x3, in no acute distress, obese male. BMI 30. CV: S1, S2. No murmurs. Regular rate and rhythm. Peripheral pulses present. Respiratory: Clear to auscultation bilaterally. No wheezing. Gastrointestinal: Abdomen is soft, nontender, nondistended. Positive bowel sounds. Extremities: No clubbing, cyanosis, edema. Neurologic: Nonfocal. Laboratory Data: Sodium 140, potassium 3.7, chloride 103, CO2 27, BUN 5, creatinine 1.2, glucose 88, calcium 8.8, AST 63, ALT 98. WBC 13.2, H and H 15.2 and 45.7, platelets 258. Brain MRI shows negat grecia noncontrast MRI of the brain. Assessment: A 22-year-old male with: 1.Acute alcohol withdrawal seizure. Continue seizure precautions. Dr. Cerrato on-board. No anticonv ulsants as seizures secondary to alcohol withdrawal. No further recurrence. 2.Alcohol dependence, on Librium detox protocol. Continue Ativan p.r.n., thiamine, and folate, swit ch to p.o. 3.Polysubstance abuse including cocaine, marijuana, counseled. 4.Hypokalemia. We will replace and monitor. 5.Elevated liver enzymes, likely secondary to liver disease from alcohol. 6.Acute kidney injury, resolved. 7.Gastrointestinal and deep venous thrombosis prophylaxis with PPI and Lovenox. Plan: Continue tapering Librium. Likely discharge in a.m. if does not have any further signs or sym ptoms of alcohol withdrawal. The patient does wish to go to AA Meetings in [place]. SA/MODL Voice ID: [id number] Report ID: [id number]
[2017-11-27] MEDS ORDERED: chlordiazePOXIDE HCl 25 MG CAP PO SCH (21:00)
[2017-11-28 04:45] LABS: Absolute Lymphocytes (CBC) 2.1 K/uL (0.7-4.9); Absolute Monocytes 0.7 K/uL (0.1-1.3); Absolute Neutrophil 9.3 K/uL (1.8-8.0); Basophils % 0.9 % (0-1.3); Eosinophils % 3.7 % (0-4.4); Hematocrit 47.1 % (39.6-49.0); Lymphocytes % 16.6 % (15.3-44.8); MCH 32.1 pg (27.0-35.0); MCV 94.6 fL (80-100); MPV 8.3 fL (7.6-11.3); Monocytes % 5.4 % (3.3-12.3); RBC Red Blood Cell Count 4.98 M/uL (4.33-5.43)
[2017-11-28 05:07] LABS: Albumin 3.8 g/dL (3.4-5.0); Bilirubin Total 1.1 mg/dL (0.2-1.0); Potassium 3.8 mmol/L (3.5-5.1); Protein, Total 7.9 g/dL (6.4-8.2)
[2017-11-28] MEDS ORDERED: POTASSIUM CL SA 10 MEQ TAB PO ONE (05:21)
--- NOTE | 2017-11-28 07:48 | EEG ---
CHART: [id number] TEST ID#: [id number] DATE OF STUDY: 11/27/2017 THE EEG WAS RECORDED PORTABLE IN THE PATIENTS ROOM ON A 17 CHANNEL MACHINE. ELECTRODES WERE APPLIED IN THE USUAL MANNER USING THE INTERNATIONAL 10-20 SYSTEM. THE WAKING BACKGROUND RHYTHM IN THIS RECORD CONSISTS OF VERY WELL DEVELOPED AND WELL ORGANIZED WAVES OF 10 HZ., MAXIMAL IN THE POSTERIOR HEAD REGIONS WHICH ATTENUATE NORMALLY WITH EYE OPENING. IN DROWSINESS THE BACKGROIUND DROPS TO 9 HZ. ABUNDANT LOW AMPLITUDE FAST ACTIVITY IF 25-30 HZ IS NOTED. THERE ARE NO FOCAL OR LATERALIZING FEATURES. NO EPILEPTIFORM ACTIVITY APPEARS. SLEEP DID NOT OCCUR. HYPERVENTILATION WAS NOT PERFORMED. PHOTIC STIMULATION PRODUCED FAIR DRIVING BILATERALLY. IMPRESSION: NORMAL EEG FOR THE AGE OF THE PATIENT IN WAKE AND DROWSINESS.
[2017-11-28] MEDS ORDERED: chlordiazePOXIDE HCl 25 MG CAP PO SCH (09:00)
[2017-11-28] MEDS: THIAMINE HCL 100 MG TABLET PO SCH (09:12)
[2017-11-28] MEDS: FOLIC ACID 1 MG TABLET PO SCH (09:13)
--- NOTE | 2017-11-29 04:32 | DS ---
Date of Discharge: 11/28/2017 Consultants: Dr. Cerrato with Neurology. Admitting Diagnoses: 1.Alcohol abuse. 2.Alcohol withdrawal seizure. Discharge Diagnoses: 1.Alcohol withdrawal seizure. 2.Alcohol dependence, status post Librium detox. 3.Polysubstance abuse including cocaine, marijuana. 4.Hypokalemia, replaced. 5.Elevated liver enzymes, likely secondary to liver disease from alcohol. 6.Acute kidney injury, resolved. Hospital Course: The patient is a 22-year-old male who has a history of alcohol abuse, comes in with a seizure-type episode. The patient has had a drink 2 days prior to the episode. He had some tongu e biting, forehead laceration due to fall. The patient was started on IV Ativan and Librium for his alcohol to prevent withdrawal. He was not started on any anticonvulsants as this was likely related to alcohol withdrawal seizure. The patient was also seen by Dr. Cerrato with Neurology. MRI of the br ain was done which did not show any acute CVA, did show a 10-mm left-sided choroid plexus cyst as an incidental finding. Upon admission, the patient did have traumagram with head CT and cervical spine, which did not show any acute fractures or changes other than a left frontal scalp hematoma. [facility] also had EEG done which was normal; therefore, no plans for anticonvulsants. The patient tolera pinky the Librium detox well. He had plans for attending AA once he was out of the hospital. Did not have any further seizure episodes. The patient's potassium was replaced. He was counseled regarding his substance abuse and alcohol abuse. He voiced understanding. The patient was then discharged in a stable condition to home. Activity: As tolerated. Medications: As per medication reconciliation list. Followup: Follow up with primary care physician in 2-3 days at an AA meeting. Return to ER for wors ening condition. Diet: Regular. Medications: As per medication reconciliation list. Physical Examination: General: Awake, alert, oriented, no acute distress. CV: S1, S2. No murmurs. Respiratory: Moving air well bilaterally. Abdomen: Abdomen is soft, nontender, nondistended. Positive bowel sounds. Extremities: No clubbing, cyanosis, edema. Neurologic: Nonfocal. Total time spent discharging the patient was 41 minutes. SA/MODL Voice ID: [id number] Report ID: [id number]
== END 2017-11-28 10:38 | disposition home or self-care (01) | DRG 897 ==
LOC: ER 17:28 → ERHOLD 21:14 → 3RD-ICU 22:31 → 4TH 11-25 20:30
PROVIDERS: ADMIT Internal Medicine; ATTEND Family Medicine
DX: F10.231 Alcohol dependence with withdrawal delirium (principal); N17.9 Acute kidney failure, unspecified; F14.10 Cocaine abuse, uncomplicated; F12.10 Cannabis abuse, uncomplicated; E87.6 Hypokalemia; K70.9 Alcoholic liver disease, unspecified; F17.200 Nicotine dependence, unspecified, uncomplicated; S01.512A Laceration without foreign body of oral cavity, initial encounter; S01.81XA Laceration without foreign body of other part of head, initial encounter; W18.30XA Fall on same level, unspecified, initial encounter; Y92.238 Other place in hospital as the place of occurrence of the external cause
CPT/HCPCS: 36415; 70450; 70551; 72125; 80048; 80053; 80076; 80307; 80320; 80329; 81003; 83690; 83735; 85025; 85610; 85730; 93005; 94760; 95816; 96361; 96365; 96366; 96375; 99285; C9113; J2405; J3411; J7030

== ENCOUNTER 2019-04-17 13:28 | Emergency (ER) | payer SELFPAY ==
--- OUTSIDE RECORDS SUMMARY | 2019-04-17 13:31 | XMS REPORT ---
:1995 [facility] [address] [place] [address] Care Team Providers Name Role Phone MRAY WINCHESTER Unavailable Unavailable Problems This patient has no known problems. Allergies, Adverse Reactions, Alerts This patient has no known allergies or adverse reactions. Medications This patient has no known medications. Results Test Description Test Time Test Comments Text Results Atomic Results Result Comments POCT-GLUCOSE METER 2018-02-19 12:43:00 Test Item Value Reference Range Comments POC-GLUCOSE METER (BEAKER) (test 88 mg/dL 70-110 TESTED AT [address] xdtp=1264) [facility] [address] BASIC METABOLIC [id number] 09:10:00 Test Item Value Reference Range Comments SODIUM (BEAKER) (test 139 meq/L 136-145 vsuq=311) POTASSIUM (BEAKER) (test 3.9 meq/L 3.5-5.1 bzwv=976) CHLORIDE (BEAKER) (test 105 meq/L 98-107 vcdz=193) CO2 (BEAKER) (test 24 meq/L 22-29 iyji=935) BLOOD UREA NITROGEN 7 mg/dL 7-21 (BEAKER) (test rzru=981) CREATININE (BEAKER) (test 1.07 mg/dL 0.57-1.25 bhvs=285) GLUCOSE RANDOM (BEAKER) 94 mg/dL 70-105 (test theu=547) CALCIUM (BEAKER) (test 9.4 mg/dL 8.4-10.2 evkq=981) EGFR (BEAKER) (test 85 mL/min/1.73 sq m ESTIMATED GFR IS NOT vyor=0621) ACCURATE CREATININE CLEARANCE IN PREDICTING GLOMERULAR FILTRATION RATE. ESTIMATED GFR IS NOT APPLICABLE FOR DIALYSIS PATIENTS. POCT-GLUCOSE [id number] 05:26:00 Test Item Value Reference Range Comments POC-GLUCOSE METER (BEAKER) 87 mg/dL 70-110 TESTED AT [facility] [employer] (test iqrp=3659) [facility] [address] [id number] 04:43:00 Test Item Value Reference Range Comments PHOSPHORUS (BEAKER) (test kzmp=615) 3.5 mg/dL 2.3-4.7 [id number] 04:43:00 Test Item Value Reference Range Comments MAGNESIUM (BEAKER) (test ywup=584) 2.1 mg/dL 1.6-2.6 CBC W/PLT COUNT & AUTO [id number] 04:13:00 Test Item Value Reference Range Comments WHITE BLOOD CELL COUNT (BEAKER) (test inyb=967) 9.7 K/ L 3.5-10.5 RED BLOOD CELL COUNT (BEAKER) (test dzwh=920) 4.57 M/ L 4.63-6.08 HEMOGLOBIN (BEAKER) (test atcd=321) 14.4 GM/DL 13.7-17.5 HEMATOCRIT (BEAKER) (test ljjl=919) 43.5 % 40.1-51.0 MEAN CORPUSCULAR VOLUME (BEAKER) (test izul=933) 95.2 fL 79.0-92.2 MEAN CORPUSCULAR HEMOGLOBIN (BEAKER) (test 31.5 pg 25.7-32.2 iurt=701) MEAN CORPUSCULAR HEMOGLOBIN CONC (BEAKER) (test 33.1 GM/DL 32.3-36.5 jiky=608) RED CELL DISTRIBUTION WIDTH (BEAKER) (test 13.2 % 11.6-14.4 mkeo=733) PLATELET COUNT (BEAKER) (test avxd=509) 248 K/CU MM 150-450 MEAN PLATELET VOLUME (BEAKER) (test wutm=425) 9.7 fL 9.4-12.4 NUCLEATED RED BLOOD CELLS (BEAKER) (test 0 /100 WBC 0-0 esyv=985) NEUTROPHILS RELATIVE PERCENT (BEAKER) (test 53 % mord=089) LYMPHOCYTES RELATIVE PERCENT (BEAKER) (test 36 % atkj=909) MONOCYTES RELATIVE PERCENT (BEAKER) (test 6 % dnjp=240) EOSINOPHILS RELATIVE PERCENT (BEAKER) (test 3 % uubo=537) BASOPHILS RELATIVE PERCENT (BEAKER) (test 1 % vycl=683) NEUTROPHILS ABSOLUTE COUNT (BEAKER) (test 5.11 K/ L 1.78-5.38 shik=846) LYMPHOCYTES ABSOLUTE COUNT (BEAKER) (test 3.52 K/ L 1.32-3.57 wttc=854) MONOCYTES ABSOLUTE COUNT (BEAKER) (test 0.60 K/ L 0.30-0.82 orgk=918) EOSINOPHILS ABSOLUTE COUNT (BEAKER) (test 0.33 K/ L 0.04-0.54 hzfr=247) BASOPHILS ABSOLUTE COUNT (BEAKER) (test 0.09 K/ L 0.01-0.08 gyuw=072) IMMATURE GRANULOCYTES-RELATIVE PERCENT (BEAKER) 0 % 0-1 (test ctvu=0926) POCT-GLUCOSE [id number] 01:04:00 Test Item Value Reference Range Comments POC-GLUCOSE METER (BEAKER) 94 mg/dL 70-110 TESTED AT [address] (test opco=7257) [place] [address] POCT-GLUCOSE [id number] 17:19:00 Test Item Value Reference Range Comments POC-GLUCOSE METER (BEAKER) 89 mg/dL 70-110 TESTED AT [address] (test rmbi=1239) [place] [address] [id number] 12:13:00 Test Item Value Reference Range Comments PHOSPHORUS (BEAKER) (test hmbz=368) 2.6 mg/dL 2.3-4.7 POCT-GLUCOSE [id number] 11:47:00 Test Item Value Reference Range Comments POC-GLUCOSE METER (BEAKER) 107 mg/dL 70-110 TESTED AT [address] (test icnu=6308) [place] [address] CBC W/PLT COUNT & AUTO [id number] 06:53:00 Test Item Value Reference Range Comments WHITE BLOOD CELL COUNT (BEAKER) (test hgbz=040) 13.2 K/ L 3.5-10.5 RED BLOOD CELL COUNT (BEAKER) (test ggei=614) 4.72 M/ L 4.63-6.08 HEMOGLOBIN (BEAKER) (test twcn=850) 14.9 GM/DL 13.7-17.5 HEMATOCRIT (BEAKER) (test urwe=797) 45.3 % 40.1-51.0 MEAN CORPUSCULAR VOLUME (BEAKER) (test eipk=671) 96.0 fL 79.0-92.2 MEAN CORPUSCULAR HEMOGLOBIN (BEAKER) (test 31.6 pg 25.7-32.2 gijm=806) MEAN CORPUSCULAR HEMOGLOBIN CONC (BEAKER) (test 32.9 GM/DL 32.3-36.5 vxhm=889) RED CELL DISTRIBUTION WIDTH (BEAKER) (test 13.5 % 11.6-14.4 ezlj=596) PLATELET COUNT (BEAKER) (test zzdf=738) 268 K/CU MM 150-450 MEAN PLATELET VOLUME (BEAKER) (test rjtk=812) 9.6 fL 9.4-12.4 NUCLEATED RED BLOOD CELLS (BEAKER) (test 0 /100 WBC 0-0 ewjw=415) NEUTROPHILS RELATIVE PERCENT (BEAKER) (test 69 % vsaf=613) LYMPHOCYTES RELATIVE PERCENT (BEAKER) (test 23 % ggck=000) MONOCYTES RELATIVE PERCENT (BEAKER) (test 6 % uadj=856) EOSINOPHILS RELATIVE PERCENT (BEAKER) (test 2 % ffxy=813) BASOPHILS RELATIVE PERCENT (BEAKER) (test 1 % xhwz=442) NEUTROPHILS ABSOLUTE COUNT (BEAKER) (test 9.01 K/ L 1.78-5.38 juxo=034) LYMPHOCYTES ABSOLUTE COUNT (BEAKER) (test 3.02 K/ L 1.32-3.57 pykk=078) MONOCYTES ABSOLUTE COUNT (BEAKER) (test 0.83 K/ L 0.30-0.82 kfuf=188) EOSINOPHILS ABSOLUTE COUNT (BEAKER) (test 0.20 K/ L 0.04-0.54 bbgu=043) BASOPHILS ABSOLUTE COUNT (BEAKER) (test 0.08 K/ L 0.01-0.08 lfjs=494) IMMATURE GRANULOCYTES-RELATIVE PERCENT (BEAKER) 0 % 0-1 (test cyen=4820) [id number] 06:49:00 Test Item Value Reference Range Comments PHOSPHORUS (BEAKER) (test uzql=723) 3.5 mg/dL 2.3-4.7 [id number] 06:49:00 Test Item Value Reference Range Comments MAGNESIUM (BEAKER) (test dmqw=234) 2.3 mg/dL 1.6-2.6 COMPREHENSIVE METABOLIC [id number] 06:49:00 Test Item Value Reference Range Comments TOTAL PROTEIN (BEAKER) 6.8 gm/dL 6.0-8.3 (test rsac=711) ALBUMIN (BEAKER) (test 3.8 g/dL 3.5-5.0 nnqd=6446) ALKALINE PHOSPHATASE 79 U/L 40-150 (BEAKER) (test hlwh=999) BILIRUBIN TOTAL (BEAKER) 1.4 mg/dL 0.2-1.2 (test rjaw=564) SODIUM (BEAKER) (test 138 meq/L 136-145 mind=316) POTASSIUM (BEAKER) (test 4.5 meq/L 3.5-5.1 lewq=200) CHLORIDE (BEAKER) (test 106 meq/L 98-107 chod=606) CO2 (BEAKER) (test 24 meq/L 22-29 xekn=680) BLOOD UREA NITROGEN 4 mg/dL 7-21 (BEAKER) (test pnph=124) CREATININE (BEAKER) (test 0.99 mg/dL 0.57-1.25 yjat=600) GLUCOSE RANDOM (BEAKER) 103 mg/dL 70-105 (test nwwa=412) CALCIUM (BEAKER) (test 9.0 mg/dL 8.4-10.2 exsg=517) AST (SGOT) (BEAKER) (test 60 U/L 5-34 ueea=845) ALT (SGPT) (BEAKER) (test 86 U/L 6-55 vczh=370) EGFR (BEAKER) (test 93 mL/min/1.73 sq m ESTIMATED GFR IS NOT waum=6429) ACCURATE CREATININE CLEARANCE IN PREDICTING GLOMERULAR FILTRATION RATE. ESTIMATED GFR IS NOT APPLICABLE FOR DIALYSIS PATIENTS. POCT-GLUCOSE [id number] 00:36:00 Test Item Value Reference Range Comments POC-GLUCOSE METER (BEAKER) 123 mg/dL 70-110 TESTED AT [facility] [address] [facility] (test shvf=0410) [facility] [address] CBC W/PLT COUNT & AUTO [id number] 00:14:00 Test Item Value Reference Range Comments WHITE BLOOD CELL COUNT (BEAKER) (test wrft=582) 16.1 K/ L 3.5-10.5 RED BLOOD CELL COUNT (BEAKER) (test dudm=767) 4.84 M/ L 4.63-6.08 HEMOGLOBIN (BEAKER) (test yktr=486) 15.3 GM/DL 13.7-17.5 HEMATOCRIT (BEAKER) (test jzvz=253) 46.1 % 40.1-51.0 MEAN CORPUSCULAR VOLUME (BEAKER) (test ucvw=921) 95.2 fL 79.0-92.2 MEAN CORPUSCULAR HEMOGLOBIN (BEAKER) (test 31.6 pg 25.7-32.2 udpl=263) MEAN CORPUSCULAR HEMOGLOBIN CONC (BEAKER) (test 33.2 GM/DL 32.3-36.5 xsul=872) RED CELL DISTRIBUTION WIDTH (BEAKER) (test 13.5 % 11.6-14.4 xoci=649) PLATELET COUNT (BEAKER) (test jrwq=012) 278 K/CU MM 150-450 MEAN PLATELET VOLUME (BEAKER) (test mhqo=120) 9.8 fL 9.4-12.4 NUCLEATED RED BLOOD CELLS (BEAKER) (test 0 /100 WBC 0-0 btoc=682) NEUTROPHILS RELATIVE PERCENT (BEAKER) (test 76 % kakw=961) LYMPHOCYTES RELATIVE PERCENT (BEAKER) (test 16 % sfop=291) MONOCYTES RELATIVE PERCENT (BEAKER) (test 7 % oiwc=702) EOSINOPHILS RELATIVE PERCENT (BEAKER) (test 0 % edvg=310) BASOPHILS RELATIVE PERCENT (BEAKER) (test 0 % jfde=611) NEUTROPHILS ABSOLUTE COUNT (BEAKER) (test 12.21 K/ L 1.78-5.38 voif=627) LYMPHOCYTES ABSOLUTE COUNT (BEAKER) (test 2.52 K/ L 1.32-3.57 nuej=993) MONOCYTES ABSOLUTE COUNT (BEAKER) (test 1.20 K/ L 0.30-0.82 aufw=599) EOSINOPHILS ABSOLUTE COUNT (BEAKER) (test 0.04 K/ L 0.04-0.54 tjve=746) BASOPHILS ABSOLUTE COUNT (BEAKER) (test 0.07 K/ L 0.01-0.08 sjye=613) IMMATURE GRANULOCYTES-RELATIVE PERCENT (BEAKER) 0 % 0-1 (test wswe=3672) [id number] 00:11:00 Test Item Value Reference Range Comments PHOSPHORUS (BEAKER) (test klnw=694) 1.8 mg/dL 2.3-4.7 [id number] 00:11:00 Test Item Value Reference Range Comments MAGNESIUM (BEAKER) (test xvig=120) 2.5 mg/dL 1.6-2.6 COMPREHENSIVE METABOLIC [id number] 00:11:00 Test Item Value Reference Range Comments TOTAL PROTEIN (BEAKER) 7.4 gm/dL 6.0-8.3 (test jzzi=087) ALBUMIN (BEAKER) (test 4.2 g/dL 3.5-5.0 vnev=8607) ALKALINE PHOSPHATASE 87 U/L 40-150 (BEAKER) (test ctzh=105) BILIRUBIN TOTAL (BEAKER) 1.2 mg/dL 0.2-1.2 (test jhzb=954) SODIUM (BEAKER) (test 141 meq/L 136-145 pakh=995) POTASSIUM (BEAKER) (test 3.2 meq/L 3.5-5.1 cayv=423) CHLORIDE (BEAKER) (test 108 meq/L 98-107 hofh=737) CO2 (BEAKER) (test 24 meq/L 22-29 aemi=319) BLOOD UREA NITROGEN 4 mg/dL 7-21 (BEAKER) (test nvsb=055) CREATININE (BEAKER) (test 1.09 mg/dL 0.57-1.25 ismn=756) GLUCOSE RANDOM (BEAKER) 118 mg/dL 70-105 (test tllw=837) CALCIUM (BEAKER) (test 9.0 mg/dL 8.4-10.2 ffkb=093) AST (SGOT) (BEAKER) (test 62 U/L 5-34 ebnq=631) ALT (SGPT) (BEAKER) (test 89 U/L 6-55 itup=377) EGFR (BEAKER) (test 83 mL/min/1.73 sq m ESTIMATED GFR IS NOT ofpu=3590) ACCURATE CREATININE CLEARANCE IN PREDICTING GLOMERULAR FILTRATION RATE. ESTIMATED GFR IS NOT APPLICABLE FOR DIALYSIS PATIENTS. CREATINE KINASE (CK)2018-02-18 00:11:00 Test Item Value Reference Range Comments CREATINE KINASE TOTAL (BEAKER) (test ummr=046) 235 U/L 29-200 PROTHROMBIN [id number] 23:57:00 Test Item Value Reference Range Comments PROTIME (BEAKER) (test dyiu=331) 14.5 seconds 11.7-14.7 INR (BEAKER) (test hcvm=676) 1.1 <=5.9 RECOMMENDED COUMADIN/WARFARIN INR THERAPY RANGESSTANDARD DOSE: 2.0 - 3.0 Includes: PROPHYLAXIS forvenous thrombosis, systemic embolization; TREATMENT for venous thrombosis and/or pulmonary embolus.HIGH RISK: Target INR is 2.5-3.5 for patients with mechanical heart valves.
[2019-04-17] MEDS ORDERED: DIAZEPAM 10 MG/2 ML INJ SYRINGE ONE (16:21)
[2019-04-17] MEDS ORDERED: ONDANSETRON 4 MG/2 ML VIAL ONE (16:21)
[2019-04-17] MEDS ORDERED: NA CHLORIDE 0.9% 1,000 ML ONE (16:21)
[2019-04-17 16:25] LABS: Absolute Lymphocytes (CBC) 1.9 K/uL (0.7-4.9); Hematocrit 52.9 % (39.6-49.0); MPV 7.9 fL (7.6-11.3); RBC Red Blood Cell Count 5.55 M/uL (4.33-5.43)
[2019-04-17 16:44] LABS: Albumin 4.8 g/dL (3.4-5.0); Bilirubin Direct 0.2 mg/dL (0-0.2); Bilirubin Total 0.8 mg/dL (0.2-1.0); Potassium 4.1 mmol/L (3.5-5.1); Protein, Total 9.3 g/dL (6.4-8.2)
[2019-04-17 16:49] LABS: Urine Blood NEGATIVE (NEG); Urine Glucose NEGATIVE (NEG); Urine Protein NEGATIVE (NEG); Urine Specific Gravity 1.015 (1.005-1.030)
--- NOTE | 2019-04-17 17:46 | ER ---
Nurse's Notes [facility] Name: Roger Peralta Age: 23 yrs Sex: Male : 1995 Arrival Date: 04/17/2019 Time: 13:30 Bed 18 Private MD: Diagnosis: Vomiting;Alcohol abuse Presentation: 04/17 13:48 Presenting complaint: Patient states: "The past couple days I've been drinking aj1 (alcohol) excessively and not eating or drinking. This morning I woke up really dehydrated" Patient states that he eats once a day at night, but he doesn't like to eat during the day when he's drinking. Reports drinking 6-8 beers per day. Patient also reports that he has been taking Benzos as well, but he has been trying to taper himself off. Patient reports chest pain. Transition of care: patient was not received from another setting of care. Onset of symptoms was April 17, 2019. Risk Assessment: Do you want to hurt yourself or someone else? Patient reports no desire to harm self or others. Initial Sepsis Screen: Does the patient meet any 2 criteria? HR > 90 bpm. No. Patient's initial sepsis screen is negative. Does the patient have a suspected source of infection? No. Patient's initial sepsis screen is negative. Care prior to arrival: None. 13:48 Method Of Arrival: Ambulatory aj1 13:48 Acuity: LAVON 3 aj1 Triage Assessment: 13:50 General: Appears in no apparent distress. uncomfortable, Behavior is calm, cooperative, aj1 appropriate for age. Neuro: Level of Consciousness is awake, alert, obeys commands. 13:51 Pain: Complains of pain in chest Pain currently is 5 out of 10 on a pain scale. Quality aj1 of pain is described as tightness. Cardiovascular: Patient's skin is warm and dry. Respiratory: Airway is patent Respiratory effort is even, unlabored, Respiratory pattern is regular, symmetrical. GI: Reports nausea, vomiting. Historical: - Allergies: 13:50 No Known Allergies; aj1 - Home Meds: 13:50 None [Active]; aj1 - PMHx: 13:50 None; aj1 - PSHx: 13:50 None; aj1 - Immunization history:: Flu vaccine is not up to date. - Social history:: Smoking status: Patient/guardian denies using tobacco, Patient uses alcohol, on a daily basis. street drugs, marijuana. - Ebola Screening: : Patient denies travel to an Ebola-affected area in the 21 days before illness onset. Screenin:00 Abuse screen: Denies threats or abuse. Denies injuries from another. Nutritional hb screening: No deficits noted. Tuberculosis screening: No symptoms or risk factors identified. Fall Risk None identified. Assessment: 15:30 General: Appears in no apparent distress. Behavior is calm, cooperative. Pain: Denies hb pain. Neuro: Level of Consciousness is awake, alert, obeys commands, Oriented to person, place, time, situation. Cardiovascular: Capillary refill < 3 seconds Patient's skin is warm and dry. Respiratory: Airway is patent Respiratory effort is even, unlabored, Respiratory pattern is regular, symmetrical, Breath sounds are clear bilaterally. GI: Reports nausea. GI: : No signs and/or symptoms were reported regarding the genitourinary system. EENT: No signs and/or symptoms were reported regarding the EENT system. Derm: Skin is pink, warm \\T\\ dry. Musculoskeletal: No signs and/or symptoms reported regarding the musculoskeletal system. 16:30 Reassessment: Patient appears in no apparent distress at this time. Patient and/or hb family updated on plan of care and expected duration. Pain level reassessed. Patient is alert, oriented x 3, equal unlabored respirations, skin warm/dry/pink. 17:30 Reassessment: Patient appears in no apparent distress at this time. Patient and/or hb family updated on plan of care and expected duration. Pain level reassessed. Patient is alert, oriented x 3, equal unlabored respirations, skin warm/dry/pink. Vital Signs: 13:51 BP 138 / 98; Pulse 124; Resp 20; Temp 97.7; Pulse Ox 98% on R/A; Weight 81.65 kg (R); aj1 Height 5 ft. 6 in. (167.64 cm) (R); 15:00 BP 132 / 88; Pulse 112; Resp 22; Pulse Ox 98% on R/A; hb 16:30 BP 135 / 97; Pulse 107; Resp 20; Pulse Ox 98% ; hb 17:30 BP 139 / 80; Pulse 100; Resp 17; Pulse Ox 100% on R/A; hb 13:51 Body Mass Index 29.05 (81.65 kg, 167.64 cm) aj1 ED Course: 13:30 Patient arrived in ED. as 13:50 Triage completed. aj1 13:51 Arm band placed on Patient placed in waiting room, Patient notified of wait time. EKG aj1 completed in triage. Results shown to MD. 15:07 Mukund Sofia PA is PHCP. [facility] 15:08 Antoine Ibrahim MD is Attending Physician. [facility] 15:27 Jaelyn Michaels, RN is Primary Nurse. hb 16:00 Patient has correct armband on for positive identification. Bed in low position. Call hb light in reach. Side rails up X 1. 16:08 Initial lab(s) drawn, by me, sent to lab. Inserted saline lock: 20 gauge in right dh3 antecubital area, using aseptic technique. Blood collected. 18:09 No provider procedures requiring assistance completed. IV discontinued, intact, hb bleeding controlled, No redness/swelling at site. Pressure dressing applied. Administered Medications: 16:22 Drug: NS 0.9% 1000 ml Route: IV; Rate: 1 bolus; Site: right antecubital; hb 16:22 Drug: Zofran 4 mg Route: IVP; Site: right antecubital; hb 16:22 Drug: Valium 5 mg Route: IVP; Site: right antecubital; hb Outcome: 17:46 Discharge ordered by MD. [facility] 18:09 Discharged to home ambulatory. hb 18:09 Condition: stable 18:09 Discharge instructions given to patient, Instructed on discharge instructions, follow up and referral plans. medication usage, Demonstrated understanding of instructions, follow-up care, medications, Prescriptions given X 2. 18:14 Patient left the ED. hb Signatures: Yojana Grayson RN RN aj1 Mukund Sofia PA PA jmm Martinez, Amelia as Jaelyn Michaels RN RN Janny Alonzo [facility] Corrections: (The following items were deleted from the chart) 13:51 13:48 Presenting complaint: Patient states: "The past couple days I've been drinking aj1 (alcohol) excessively and not eating or drinking. This morning I woke up really dehydrated" Patient states that he eats once a day at night, but he doesn't like to eat during the day when he's drinking. Reports drinking 6-8 beers per day aj1 16:32 16:22 Valium 5 mg IVP in right antecubital hb hb
--- NOTE | 2019-04-17 17:47 | EDPHYS ---
Physician Documentation [facility] Name: Roger Peralta Age: 23 yrs Sex: Male : 1995 Arrival Date: 04/17/2019 Time: 13:30 Bed 18 Private MD: ED Physician Antoine Ibrahim HPI: 04/17 15:30 This 23 yrs old Male presents to ER via Ambulatory with complaints of Nausea, jmm Dehydration. 15:30 The patient presents to the emergency department with nausea, vomiting. Onset: The jmm symptoms/episode began/occurred this morning. Possible causes: alcohol. The symptoms are aggravated by nothing. The symptoms are alleviated by nothing. Associated signs and symptoms: Pertinent negatives: abdominal pain. This is a 23 year old male with a history of alcoholism that presents to the ED with complaints of vomiting after heavy drinking last night. Patient denies abdominal pain currently. Denies recent seizure. . Historical: - Allergies: 13:50 No Known Allergies; aj1 - Home Meds: 13:50 None [Active]; aj1 - PMHx: 13:50 None; aj1 - PSHx: 13:50 None; aj1 - Immunization history:: Flu vaccine is not up to date. - Social history:: Smoking status: Patient/guardian denies using tobacco, Patient uses alcohol, on a daily basis. street drugs, marijuana. - Ebola Screening: : Patient denies travel to an Ebola-affected area in the 21 days before illness onset. ROS: 15:30 Constitutional: Negative for fever, chills, and weight loss, Cardiovascular: Negative jmm for chest pain, palpitations, and edema, Respiratory: Negative for shortness of breath, cough, wheezing, and pleuritic chest pain. 15:30 Abdomen/GI: Positive for vomiting. 15:30 All other systems are negative. Exam: 15:30 Head/Face: atraumatic. Eyes: EOMI, no conjunctival erythema appreciated ENT: Moist jmm Mucus Membranes Neck: Trachea midline, Supple Chest/axilla: Normal chest wall appearance and motion. 15:30 Constitutional: The patient appears in no acute distress, alert, awake. 15:30 Cardiovascular: Rate: normal, Rhythm: regular, Pulses: no pulse deficits are appreciated. 15:30 Respiratory: the patient does not display signs of respiratory distress, Respirations: normal, Breath sounds: are clear throughout. 15:30 Abdomen/GI: Inspection: abdomen appears normal, Bowel sounds: normal, Palpation: abdomen is soft and non-tender, in all quadrants. 15:30 Back: pain, is absent. 15:30 Musculoskeletal/extremity: ROM: intact in all extremities. 15:30 Skin: Appearance: Color: normal in color. 15:30 Neuro: Orientation: is normal, Mentation: is normal, Memory: is normal. 15:30 Psych: Behavior/mood is pleasant, cooperative. Vital Signs: 13:51 BP 138 / 98; Pulse 124; Resp 20; Temp 97.7; Pulse Ox 98% on R/A; Weight 81.65 kg (R); aj1 Height 5 ft. 6 in. (167.64 cm) (R); 15:00 BP 132 / 88; Pulse 112; Resp 22; Pulse Ox 98% on R/A; hb 16:30 BP 135 / 97; Pulse 107; Resp 20; Pulse Ox 98% ; hb 17:30 BP 139 / 80; Pulse 100; Resp 17; Pulse Ox 100% on R/A; hb 13:51 Body Mass Index 29.05 (81.65 kg, 167.64 cm) aj1 MDM: 15:27 Patient medically screened. [facility] 17:43 Data reviewed: vital signs, nurses notes. Counseling: I had a detailed discussion with garret the patient and/or guardian regarding: the historical points, exam findings, and any diagnostic results supporting the discharge/admit diagnosis, lab results, the need for outpatient follow up, to return to the emergency department if symptoms worsen or persist or if there are any questions or concerns that arise at home. ED course: Patient is alert and non toxic in appearance in the ED. Patient states feeling much better. No abdominal pain on reevaluation. I do not suspect an acute intraabdominal process. Patient states wanting to detox from ETOH. Patient is given f/u info. Patient otherwise given strict return precautions. Patient understood and agrees with the plan of care. . 04/17 15:27 Order name: Basic Metabolic Panel; Complete Time: 16:57 [facility] 04/17 15:27 Order name: CBC with Diff; Complete Time: 16:29 [facility] 04/17 15: Order name: Creatinine for Radiology; Complete Time: 16:43 [facility] 11/20 15:27 Order name: Hepatic Function; Complete Time: 16:57 [facility] 04/17 15:27 Order name: Lipase; Complete Time: 16:57 [facility] 04/17 15:27 Order name: ETOH Level; Complete Time: 16:57 [facility] 04/17 15:16 Order name: EKG Electrocardiogram; Complete Time: 16:10 [facility] 04/17 15:27 Order name: IV Saline Lock; Complete Time: 15:56 [facility] 04/17 15:27 Order name: Labs collected and sent; Complete Time: 16:13 [facility] 04/17 16:47 Order name: Urine Dipstick--Ancillary (enter results); Complete Time: 16:57 bd Administered Medications: 16:22 Drug: NS 0.9% 1000 ml Route: IV; Rate: 1 bolus; Site: right antecubital; hb 16:22 Drug: Zofran 4 mg Route: IVP; Site: right antecubital; hb 16:22 Drug: Valium 5 mg Route: IVP; Site: right antecubital; hb Disposition: 04/17/19 17:46 Discharged to Home. Impression: Vomiting, Alcohol abuse. - Condition is Stable. - Discharge Instructions: Nausea and Vomiting, Adult, Alcohol Abuse and Nutrition. - Prescriptions for Zofran ODT 4 mg Oral tablet,disintegrating - place 1 tablet by TRANSLINGUAL route every 4-6 hours; 20 tablet. Valium 5 mg Oral Tablet - take 1 tablet by ORAL route every 8 hours As needed; 20 tablet. - Medication Reconciliation Form, Thank You Letter, Antibiotic Education, Prescription Opioid Use form. - Follow up: Private Physician; When: 2 - 3 days; Reason: Recheck today's complaints, Continuance of care, Re-evaluation by your physician. Signatures: Dispatcher [employer] Yojana Castillo RN RN aj1 Mukund Sofia PA PA jmm Baxter, Heather, RN RN hb Corrections: (The following items were deleted from the chart) 18:14 17:46 04/17/2019 17:46 Discharged to Home. Impression: Vomiting; Alcohol abuse. hb Condition is Stable. Forms are Medication Reconciliation Form, Thank You Letter, Antibiotic Education, Prescription Opioid Use. Follow up: Private Physician; When: 2 - 3 days; Reason: Recheck today's complaints, Continuance of care, Re-evaluation by your physician. garret
--- NOTE | 2019-04-17 18:35 | EKG ---
Test Date: 2019-04-17 Test Time: 13:53:08 Business Specialist: EVARISTO MEASUREMENT RESULTS: Intervals: Rate: 119 TX: 134 QRSD: 74 QT: 304 QTc: 427 Mayer: P: 51 TX: 134 QRS: 68 T: 14 INTERPRETIVE STATEMENTS: Sinus tachycardia Otherwise normal ECG Compared to ECG 02/17/2018 17:11:46 No significant changes Electronically Signed On 04-17-19 18:33:19 FITNESS PROFESSIONAL by Jn Holt
[2019-04-17 19:12] VITALS: TEMP 97.7
[2019-04-17 19:19] VITALS: BP 139/80; O2SAT 100
== END 2019-04-17 18:14 | disposition home or self-care (01) ==
LOC: ER 13:28
DX: F10.10 Alcohol abuse, uncomplicated (principal)
CPT/HCPCS: 36415; 80048; 80076; 80320; 81003; 83690; 85025; 93005; 96374; 96375; 99284; J2405; J3360; J7030

== ENCOUNTER 2019-11-15 15:28 | Emergency (ER) | payer OTHER, SELFPAY ==
[2019-11-15] MEDS ORDERED: FENTANYL CITR 100 MCG/2 ML ONE (16:30)
[2019-11-15] MEDS ORDERED: ONDANSETRON 4 MG/2 ML VIAL ONE (16:30)
--- NOTE | 2019-11-15 16:36 | RAD REPORT ---
EXAM DESCRIPTION: RAD - Elbow Left 2 View - 11/15/2019 4:29 pm CLINICAL HISTORY: Pain;Deformity COMPARISON: No comparisons FINDINGS: Elbow dislocation is evident. Small bony fragment is seen adjacent to the olecranon.
--- OUTSIDE RECORDS SUMMARY | 2019-11-15 16:58 | XMS REPORT | Clinical Summary ---
:1995 Author Organization [facility] Address [address] [place] [address] Care Team Providers Name Role Phone Pcp, No Primary Care Provider Unavailable Allergies No Known Allergies Medications Medication Sig Dispensed Refills Start Date End Date Status folic acid (FOLVITE) 1 Take 1 tablet 30 tablet 2 02/20/2018 MG tablet (1 mg total) by mouth daily. multivitamin Take 1 tablet 30 tablet 2 02/20/2018 02/20/2019 E xpired (THERAGRAN) tablet by mouth daily. thiamine 100 MG tablet Take 1 tablet 30 tablet 2 02/19/2018 (100 mg total) by mouth daily. Active Problems Problem Noted Date Generalized seizure 02/18/2018 Benzodiazepine withdrawal with complication 02/18/2018 Alcohol withdrawal 02/17/2018 Social History Tobacco Use Types Packs/Day Years Used Date Never Smoker Smokeless Tobacco: Never Used Alcohol Use Drinks/Week oz/Week Comments Yes 56 Cans of beer 33.6 Sex Assigned at Date Recorded Not on file Job Start Date Occupation Industry Not on file Not on file Not on file Travel History Travel Start Travel End No recent travel history available. Last Filed Vital Signs Not on file Plan of Treatment Not on file Results Not on fileafter 11/14/2018 Insurance Payer Benefit Plan / Group Subscriber ID Type Phone Monty RODGERS xxxxxxxxxxx Advance Directives For more information, please contact:[place] [id number] [place], [place] [phone] Code Status Date Activated Date Inactivated Comments Full Code 02/17/2018 11:14 PM 02/19/2018 5:41 PM This code status was determined by: Patient
--- OUTSIDE RECORDS SUMMARY | 2019-11-15 16:59 | XMS REPORT | Continuity of Care Document ---
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 Social History Social Habit Start Date Stop Date Quantity Comments Source Sex Assigned At [facility] Smoking Status Start Date Stop Date Source Never smoker [facility] Medications Ordered Filled Start Stop Current Ordering Indication Dosage Frequency Signature Comments Components Source Medication Medication Date Date Medication? Clinician (SIG) Name Name folic acid 2019- No 1mg QD Take [address] [facility] (FOLVITE) 1 02-20 tablet (1 Ana kes - MG tablet 00:00: 23:59 mg total) Me dical 00 :00 by mouth Center daily. multivitami 2019- No 1{tbl} QD Take [address] [facility] 02-20 tablet [facility] - (THERAGRAN) 00:00: 23:59 mouth Medi bill tablet 00 :00 daily. Center thiamine 2019- No 100mg QD Take 1 [facility] 02-19 tablet [facility] - tablet 00:00: 23:59 (100 mg Medical 00 :00 total) by Center mouth daily. Procedures This patient has no known procedures. Results Test Description Test Time Test Comments Results Result Comments Source POCT-GLUCOSE METER 2018-02-19 12:43:00 Test Item Value Reference Range Interpretation Comme nts POC-GLUCOSE METER (BEAKER) (test 88 mg/dL 70-110 TESTED AT [facility] [address] code = 1538) [facility] 7703 0 BASIC METABOLIC [id number] 09:10:00 Test Item Value Reference Range Interpretation Comments SODIUM (BEAKER) 139 meq/L 136-145 (test code = 381) POTASSIUM (BEAKER) 3.9 meq/L 3.5-5.1 (test code = 379) CHLORIDE (BEAKER) 105 meq/L 98-107 (test code = 382) CO2 (BEAKER) (test 24 meq/L 22-29 code = 355) BLOOD UREA NITROGEN 7 mg/dL 7-21 (BEAKER) (test code = 354) CREATININE (BEAKER) 1.07 mg/dL 0.57-1.25 (test code = 358) GLUCOSE RANDOM 94 mg/dL 70-105 (BEAKER) (test code = 652) CALCIUM (BEAKER) 9.4 mg/dL 8.4-10.2 (test code = 697) EGFR (BEAKER) (test 85 mL/min/1.73 ESTIMA NANCY GFR IS code = 1092) sq m NOT ACCURATE CREATININE CLEARANCE IN PREDICTING GLOMERULAR FILTRATION RATE . ESTIMATED GFR I S NOT APPLICABLE FOR DIALYSIS PATIEN TS. POCT-GLUCOSE [id number] 05:26:00 Test Item Value Reference Range Interpretation Comments POC-GLUCOSE METER 87 mg/dL 70-110 TESTED AT [facility] [address] (BEAKER) (test code = [place] [facility] [address] 1538) [id number] 04:43:00 Test Item Value Reference Range Interpretation Comments PHOSPHORUS (BEAKER) (test code = 3.5 mg/dL 2.3-4.7 604) [id number] 04:43:00 Test Item Value Reference Range Interpretation Comments MAGNESIUM (BEAKER) (test code = 2.1 mg/dL 1.6-2.6 627) CBC W/PLT COUNT & AUTO [id number] 04:13:00 Test Item Value Reference Range Interpretation Comments WHITE BLOOD CELL COUNT (BEAKER) 9.7 K/ L 3.5-10.5 (test code = 775) RED BLOOD CELL COUNT (BEAKER) 4.57 M/ L 4.63-6.08 L (test code = 761) HEMOGLOBIN (BEAKER) (test code = 14.4 GM/DL 13.7-17.5 410) HEMATOCRIT (BEAKER) (test code = 43.5 % 40.1-51.0 411) MEAN CORPUSCULAR VOLUME (BEAKER) 95.2 fL 79.0-92.2 H (test code = 753) MEAN CORPUSCULAR HEMOGLOBIN 31.5 pg 25.7-32.2 (BEAKER) (test code = 751) MEAN CORPUSCULAR HEMOGLOBIN CONC 33.1 GM/DL 32.3-36.5 (BEAKER) (test code = 752) RED CELL DISTRIBUTION WIDTH 13.2 % 11.6-14.4 (BEAKER) (test code = 412) PLATELET COUNT (BEAKER) (test 248 K/CU MM 150-450 code = 756) MEAN PLATELET VOLUME (BEAKER) 9.7 fL 9.4-12.4 (test code = 754) NUCLEATED RED BLOOD CELLS 0 /100 WBC 0-0 (BEAKER) (test code = 413) NEUTROPHILS RELATIVE PERCENT 53 % (BEAKER) (test code = 429) LYMPHOCYTES RELATIVE PERCENT 36 % (BEAKER) (test code = 430) MONOCYTES RELATIVE PERCENT 6 % (BEAKER) (test code = 431) EOSINOPHILS RELATIVE PERCENT 3 % (BEAKER) (test code = 432) BASOPHILS RELATIVE PERCENT 1 % (BEAKER) (test code = 437) NEUTROPHILS ABSOLUTE COUNT 5.11 K/ L 1.78-5.38 (BEAKER) (test code = 670) LYMPHOCYTES ABSOLUTE COUNT 3.52 K/ L 1.32-3.57 (BEAKER) (test code = 414) MONOCYTES ABSOLUTE COUNT (BEAKER) 0.60 K/ L 0.30-0.82 (test code = 415) EOSINOPHILS ABSOLUTE COUNT 0.33 K/ L 0.04-0.54 (BEAKER) (test code = 416) BASOPHILS ABSOLUTE COUNT (BEAKER) 0.09 K/ L 0.01-0.08 H (test code = 417) IMMATURE GRANULOCYTES-RELATIVE 0 % 0-1 PERCENT (AKER) (test code = 2801) POCT-GLUCOSE [id number] 01:04:00 Test Item Value Reference Range Interpretation Comments POC-GLUCOSE METER 94 mg/dL 70-110 TESTED AT [place] [address] ([facility]) (test code = [place] [facility] [address] 1538) POCT-GLUCOSE [id number] 17:19:00 Test Item Value Reference Range Interpretation Comments POC-GLUCOSE METER 89 mg/dL 70-110 TESTED AT [place] [address] ([facility]) (test code = [facility] [address] 1538) [id number] 12:13:00 Test Item Value Reference Range Interpretation Comments PHOSPHORUS ([facility]) (test code = 2.6 mg/dL 2.3-4.7 604) POCT-GLUCOSE [id number] 11:47:00 Test Item Value Reference Range Interpretation Comments POC-GLUCOSE METER 107 mg/dL 70-110 TESTED AT [place] [address] ([facility]) (test code = [facility] 1538) [id number] CBC W/PLT COUNT & AUTO [id number] 06:53:00 Test Item Value Reference Range Interpretation Comments WHITE BLOOD CELL COUNT (BEAKER) 13.2 K/ L 3.5-10.5 H (test code = 775) RED BLOOD CELL COUNT (BEAKER) 4.72 M/ L 4.63-6.08 (test code = 761) HEMOGLOBIN (BEAKER) (test code = 14.9 GM/DL 13.7-17.5 410) HEMATOCRIT (BEAKER) (test code = 45.3 % 40.1-51.0 411) MEAN CORPUSCULAR VOLUME (BEAKER) 96.0 fL 79.0-92.2 H (test code = 753) MEAN CORPUSCULAR HEMOGLOBIN 31.6 pg 25.7-32.2 (BEAKER) (test code = 751) MEAN CORPUSCULAR HEMOGLOBIN CONC 32.9 GM/DL 32.3-36.5 (BEAKER) (test code = 752) RED CELL DISTRIBUTION WIDTH 13.5 % 11.6-14.4 (BEAKER) (test code = 412) PLATELET COUNT (BEAKER) (test 268 K/CU MM 150-450 code = 756) MEAN PLATELET VOLUME (BEAKER) 9.6 fL 9.4-12.4 (test code = 754) NUCLEATED RED BLOOD CELLS 0 /100 WBC 0-0 (BEAKER) (test code = 413) NEUTROPHILS RELATIVE PERCENT 69 % (BEAKER) (test code = 429) LYMPHOCYTES RELATIVE PERCENT 23 % (BEAKER) (test code = 430) MONOCYTES RELATIVE PERCENT 6 % (BEAKER) (test code = 431) EOSINOPHILS RELATIVE PERCENT 2 % (BEAKER) (test code = 432) BASOPHILS RELATIVE PERCENT 1 % (BEAKER) (test code = 437) NEUTROPHILS ABSOLUTE COUNT 9.01 K/ L 1.78-5.38 H (BEAKER) (test code = 670) LYMPHOCYTES ABSOLUTE COUNT 3.02 K/ L 1.32-3.57 (BEAKER) (test code = 414) MONOCYTES ABSOLUTE COUNT (BEAKER) 0.83 K/ L 0.30-0.82 H (test code = 415) EOSINOPHILS ABSOLUTE COUNT 0.20 K/ L 0.04-0.54 (BEAKER) (test code = 416) BASOPHILS ABSOLUTE COUNT (BEAKER) 0.08 K/ L 0.01-0.08 (test code = 417) IMMATURE GRANULOCYTES-RELATIVE 0 % 0-1 PERCENT (BEAKER) (test code = 2801) [id number] 06:49:00 Test Item Value Reference Range Interpretation Comments PHOSPHORUS (BEAKER) (test code = 3.5 mg/dL 2.3-4.7 604) [id number] 06:49:00 Test Item Value Reference Range Interpretation Comments MAGNESIUM (BEAKER) (test code = 2.3 mg/dL 1.6-2.6 627) COMPREHENSIVE METABOLIC [id number] 06:49:00 Test Item Value Reference Range Interpretation Comments TOTAL PROTEIN 6.8 gm/dL 6.0-8.3 (BEAKER) (test code = 770) ALBUMIN (BEAKER) 3.8 g/dL 3.5-5.0 (test code = 1145) ALKALINE PHOSPHATASE 79 U/L 40-150 (BEAKER) (test code = 346) BILIRUBIN TOTAL 1.4 mg/dL 0.2-1.2 H (BEAKER) (test code = 377) SODIUM (BEAKER) (test 138 meq/L 136-145 code = 381) POTASSIUM (BEAKER) 4.5 meq/L 3.5-5.1 (test code = 379) CHLORIDE (BEAKER) 106 meq/L 98-107 (test code = 382) CO2 (BEAKER) (test 24 meq/L 22-29 code = 355) BLOOD UREA NITROGEN 4 mg/dL 7-21 L (BEAKER) (test code = 354) CREATININE (BEAKER) 0.99 mg/dL 0.57-1.25 (test code = 358) GLUCOSE RANDOM 103 mg/dL 70-105 (BEAKER) (test code = 652) CALCIUM (BEAKER) 9.0 mg/dL 8.4-10.2 (test code = 697) AST (SGOT) (BEAKER) 60 U/L 5-34 H (test code = 353) ALT (SGPT) (BEAKER) 86 U/L 6-55 H (test code = 347) EGFR (BEAKER) (test 93 mL/min/1.73 ESTIMA NANCY GFR IS code = 1092) sq m NOT ACCURATE CREATININE CLEARANCE IN PREDICTING GLOMERULAR FILTRATION RATE . ESTIMATED GFR I S NOT APPLICABLE FOR DIALYSIS PATIEN TS. POCT-GLUCOSE [id number] 00:36:00 Test Item Value Reference Range Interpretation Comments POC-GLUCOSE METER 123 mg/dL 70-110 H TESTED AT [facility] 67[address] ([facility] (test code = [place] [address]) [address] CBC W/PLT COUNT & AUTO [id number] 00:14:00 Test Item Value Reference Range Interpretation Comments WHITE BLOOD CELL COUNT (BEAKER) 16.1 K/ L 3.5-10.5 H (test code = 775) RED BLOOD CELL COUNT (BEAKER) 4.84 M/ L 4.63-6.08 (test code = 761) HEMOGLOBIN (BEAKER) (test code = 15.3 GM/DL 13.7-17.5 410) HEMATOCRIT (BEAKER) (test code = 46.1 % 40.1-51.0 411) MEAN CORPUSCULAR VOLUME (BEAKER) 95.2 fL 79.0-92.2 H (test code = 753) MEAN CORPUSCULAR HEMOGLOBIN 31.6 pg 25.7-32.2 (BEAKER) (test code = 751) MEAN CORPUSCULAR HEMOGLOBIN CONC 33.2 GM/DL 32.3-36.5 (BEAKER) (test code = 752) RED CELL DISTRIBUTION WIDTH 13.5 % 11.6-14.4 (BEAKER) (test code = 412) PLATELET COUNT (BEAKER) (test 278 K/CU MM 150-450 code = 756) MEAN PLATELET VOLUME (BEAKER) 9.8 fL 9.4-12.4 (test code = 754) NUCLEATED RED BLOOD CELLS 0 /100 WBC 0-0 (BEAKER) (test code = 413) NEUTROPHILS RELATIVE PERCENT 76 % (BEAKER) (test code = 429) LYMPHOCYTES RELATIVE PERCENT 16 % (BEAKER) (test code = 430) MONOCYTES RELATIVE PERCENT 7 % (BEAKER) (test code = 431) EOSINOPHILS RELATIVE PERCENT 0 % (BEAKER) (test code = 432) BASOPHILS RELATIVE PERCENT 0 % (BEAKER) (test code = 437) NEUTROPHILS ABSOLUTE COUNT 12.21 K/ L 1.78-5.38 H (BEAKER) (test code = 670) LYMPHOCYTES ABSOLUTE COUNT 2.52 K/ L 1.32-3.57 (BEAKER) (test code = 414) MONOCYTES ABSOLUTE COUNT (BEAKER) 1.20 K/ L 0.30-0.82 H (test code = 415) EOSINOPHILS ABSOLUTE COUNT 0.04 K/ L 0.04-0.54 (BEAKER) (test code = 416) BASOPHILS ABSOLUTE COUNT (BEAKER) 0.07 K/ L 0.01-0.08 (test code = 417) IMMATURE GRANULOCYTES-RELATIVE 0 % 0-1 PERCENT (BEAKER) (test code = 2801) [id number] 00:11:00 Test Item Value Reference Range Interpretation Comments PHOSPHORUS (BEAKER) (test code = 1.8 mg/dL 2.3-4.7 L 604) [id number] 00:11:00 Test Item Value Reference Range Interpretation Comments MAGNESIUM (BEAKER) (test code = 2.5 mg/dL 1.6-2.6 627) COMPREHENSIVE METABOLIC [id number] 00:11:00 Test Item Value Reference Range Interpretation Comments TOTAL PROTEIN 7.4 gm/dL 6.0-8.3 (BEAKER) (test code = 770) ALBUMIN (BEAKER) 4.2 g/dL 3.5-5.0 (test code = 1145) ALKALINE PHOSPHATASE 87 U/L 40-150 (BEAKER) (test code = 346) BILIRUBIN TOTAL 1.2 mg/dL 0.2-1.2 (BEAKER) (test code = 377) SODIUM (BEAKER) (test 141 meq/L 136-145 code = 381) POTASSIUM (BEAKER) 3.2 meq/L 3.5-5.1 L (test code = 379) CHLORIDE (BEAKER) 108 meq/L 98-107 H (test code = 382) CO2 (BEAKER) (test 24 meq/L 22-29 code = 355) BLOOD UREA NITROGEN 4 mg/dL 7-21 L (BEAKER) (test code = 354) CREATININE (BEAKER) 1.09 mg/dL 0.57-1.25 (test code = 358) GLUCOSE RANDOM 118 mg/dL 70-105 H (BEAKER) (test code = 652) CALCIUM (BEAKER) 9.0 mg/dL 8.4-10.2 (test code = 697) AST (SGOT) (BEAKER) 62 U/L 5-34 H (test code = 353) ALT (SGPT) (BEAKER) 89 U/L 6-55 H (test code = 347) EGFR (BEAKER) (test 83 mL/min/1.73 ESTIMA NANCY GFR IS code = 1092) sq m NOT ACCURATE CREATININE CLEARANCE IN PREDICTING GLOMERULAR FILTRATION RATE . ESTIMATED GFR I S NOT APPLICABLE FOR DIALYSIS PATIEN TS. CREATINE KINASE (CK)2018-02-18 00:11:00 Test Item Value Reference Range Interpretation Comments CREATINE KINASE TOTAL (BEAKER) (test 235 U/L 29-200 H code = 380) PROTHROMBIN [id number] 23:57:00 Test Item Value Reference Range Interpretation Comments PROTIME (BEAKER) (test code = 14.5 seconds 11.7-14.7 759) INR (BEAKER) (test code = 370) 1.1 <=5.9 RECOMMENDED COUMADIN/WARFARIN INR THERAPY RANGESSTANDARD DOSE: 2.0 - 3.0 Includes: PROPHYLAXIS forvenous thrombosis, systemic embolization; TREATMENT for venous thrombosis and/or pulmonary embolus.HIGH RISK: Target INR is 2.5-3.5 for patients with mechanical heart valves.
[2019-11-15] MEDS ORDERED: propofoL 200 MG/20 ML VIAL IV ONE (17:22)
[2019-11-15] MEDS ORDERED: NA CHLORIDE 0.9% 1,000 ML ONE (17:22)
--- NOTE | 2019-11-15 18:27 | ER ---
Nurse's Notes [facility] Name: Roger Peralta Age: 24 yrs Sex: Male : 1995 Arrival Date: 11/15/2019 Time: 15:37 Bed 23 Private MD: Diagnosis: Dislocation and sprain of joints and ligaments of elbow Presentation: 11/14 15:39 Chief complaint: Patient states: Fell onto left elbow. + deformity. Coronavirus screen: ll1 Proceed with normal triage. Patient denies a cough. Patient denies shortness of breath or difficulty breathing. Patient denies measured and/or subjective temperature greater than 100.4F prior to today's visit. Patient denies travel on a cruise ship or to a country the [facility] currently lists as an affected area. Patient denies contact with known and/or suspected case of COVID-19. Ebola Screen: Patient denies travel to an Ebola-affected area in the 21 days before illness onset. Onset of symptoms was November 15, 2019. 15:39 Method Of Arrival: Ambulatory 1 15:39 Acuity: [place]AV[place] 2 ll1 16:05 Initial Sepsis Screen: Does the patient meet any 2 criteria? No. Patient's initial aa5 sepsis screen is negative. Does the patient have a suspected source of infection? No. Patient's initial sepsis screen is negative. Risk Assessment: Do you want to hurt yourself or someone else? Patient reports no desire to harm self or others. Triage Assessment: 16:06 Injury Description: Fall onto elbow. aa5 Historical: - Allergies: 15:40 No Known Allergies; ll1 - PMHx: 16:05 None; aa5 - PSHx: 15:40 None; ll1 - Immunization history:: Adult Immunizations up to date. - Social history:: Patient uses alcohol, only on a social basis. street drugs, marijuana, Smoking status: Patient denies any tobacco usage or history of. Screenin:50 Abuse screen: Denies threats or abuse. Denies injuries from another. Nutritional hb screening: No deficits noted. Tuberculosis screening: No symptoms or risk factors identified. Fall Risk None identified. Assessment: 15:50 General: Appears in no apparent distress. uncomfortable, Behavior is calm, cooperative. hb Pain: Pain currently is 9 out of 10 on a pain scale. Neuro: Level of Consciousness is awake, alert, obeys commands, Oriented to person, place, time, situation. Cardiovascular: Capillary refill < 3 seconds Patient's skin is warm and dry. left radial pulse 3+. Respiratory: Respiratory effort is even, unlabored, Respiratory pattern is regular, symmetrical. GI: No signs and/or symptoms were reported involving the gastrointestinal system. : No signs and/or symptoms were reported regarding the genitourinary system. EENT: No signs and/or symptoms were reported regarding the EENT system. Derm: Skin is pink, warm \T\ dry. Musculoskeletal: Reports left elbow pain. 16:05 Reassessment: Portable x-ray at bedside . aa5 16:07 Reassessment: Patient is alert, oriented x 3, equal unlabored respirations, skin aa5 warm/dry/pink. Deformity noted to left elbow, pt c/o pain to left elbow, provider notified. . 16:07 Pain: Pain currently is 10 out of 10 on a pain scale. aa5 17:27 Reassessment: Patient is alert, oriented x 3, equal unlabored respirations, skin aa5 warm/dry/pink. 17:27 Pain: Pain currently is 8 out of 10 on a pain scale. aa5 18:06 Reassessment: Patient is alert, oriented x 3, equal unlabored respirations, skin aa5 warm/dry/pink. Patient states feeling better. Pt reports pain to left elbow has improved. . 18:22 Reassessment: Patient is alert, oriented x 3, equal unlabored respirations, skin aa5 warm/dry/pink. 18:55 Reassessment: Patient is alert, oriented x 3, equal unlabored respirations, skin aa5 warm/dry/pink. Patient states feeling better. Vital Signs: 15:39 BP 156 / 108; Pulse 90; Resp 18; Temp 98.0; Pulse Ox 98% ; Pain 10/10; ll1 17:30 BP 149 / 99; Pulse 94; Resp 18 S; Temp 98.0(TE); Pulse Ox 98% on R/A; aa5 18:10 BP 136 / 97; Pulse 75; Resp 16 S; Pulse Ox 98% on R/A; aa5 18:10 aa5 18:30 BP 150 / 76; Pulse 95; Resp 16 S; Pulse Ox 99% on R/A; aa5 18:55 BP 135 / 94; Pulse 97; Resp 16 S; Pulse Ox 99% on R/A; aa5 18:10 see Conscious sedation flow sheet for intra-procedure and post-procedure VS. aa5 ED Course: 15:37 Patient arrived in ED. bp1 15:40 Triage completed. ll1 15:40 Arm band placed on Patient placed in an exam room, on a stretcher. ll1 15:48 Bubba Parrish PA is PHCP. jr8 15:48 Varun Neumann MD is Attending Physician. jr8 15:50 Patient has correct armband on for positive identification. Call light in reach. hb 16:04 Rebeka Oconnor, RONI is Primary Nurse. aa5 16:20 Inserted saline lock: 20 gauge in right antecubital area, using aseptic technique. aa5 16:29 Elbow Left 2 View In Process Unspecified. EDMS 17:55 Closed reduction of left elbow using manipulation by FRANKIE Layton. Using conscious aa5 sedation (see conscious sedation flow sheet). Consent form for conscious sedation signed by pt at 1727. 18:18 Sling applied to left arm. jp3 18:25 Jhonny Apodaca MD is Referral Physician. jr8 18:42 XRAY Elbow LEFT 2 view In Process Unspecified. EDMS 18:55 IV discontinued, intact, bleeding controlled, No redness/swelling at site. Pressure aa5 dressing applied. Administered Medications: 16:20 Drug: Zofran (Ondansetron) 4 mg Route: IVP; Site: right antecubital; aa5 16:25 Follow up: Response: No adverse reaction aa5 16:22 Drug: fentaNYL (PF) 75 mcg Route: IVP; Site: right antecubital; aa5 16:30 Follow up: Response: No adverse reaction aa5 17:50 Drug: NS 0.9% 500 ml {Note: VO received at 1725 to administer during concious aa5 sedation.} Route: IV; Rate: bolus; Site: right antecubital; 17:55 Drug: Propofol 160 mg Route: IVP; Site: right antecubital; aa5 18:00 Follow up: Response: No adverse reaction aa5 Outcome: 18:26 Discharge ordered by . jr8 18:55 Discharged to home ambulatory, with family. aa5 18:55 Condition: stable 18:55 Discharge instructions given to patient, Instructed on discharge instructions, follow up and referral plans. medication usage, Demonstrated understanding of instructions, follow-up care, medications, Prescriptions given X 2. 19:05 Patient left the ED. aa5 Signatures: Dispatcher [employer] EDMS Rebeka Oconnor, RN RN aa5 Bubba Parrish PA PA jr8 Jaelyn Michaels RN RN Armond Terrell jp3 Shereen Phelps RN RN ll1 Chiquis Gordon [facility] Corrections: (The following items were deleted from the chart) 18:26 18:18 resetting Left elbow dislocation jp3 aa5 19:21 18:55 Reassessment: Patient is alert, oriented x 3, equal unlabored respirations, skin aa5 warm/dry/pink. aa5
--- NOTE | 2019-11-15 18:28 | EDPHYS ---
Physician Documentation [facility] Name: Roger Peralta Age: 24 yrs Sex: Male : 1995 Arrival Date: 11/15/2019 Time: 15:37 Bed 23 Private MD: ED Physician Varun Neumann HPI: 11/14 16:57 This 24 yrs old Male presents to ER via Ambulatory with complaints of elbow jr8 pain. 16:58 The patient or guardian complains of decreased range of motion, deformity, injury, jr8 pain, swelling, tenderness. The complaints affect the left elbow. Context: The problem was sustained outdoors. Onset: The symptoms/episode began/occurred acutely, today. Treatment prior to arrival includes: no previous treatment. Associated signs and symptoms: The patient has no apparent associated signs or symptoms. Severity of symptoms: At their worst the symptoms were moderate, in the emergency department the symptoms are unchanged. The patient has not experienced similar symptoms in the past. The patient has not recently seen a physician. Patient stated that he was wrestling friend outside. Tripped in hole and landed on left elbow. Caused immediate pain with deformity which has continued. Came to ED at that point for further evaluation . Historical: - Allergies: 15:40 No Known Allergies; ll1 - PMHx: 16:05 None; aa5 - PSHx: 15:40 None; ll1 - Immunization history:: Adult Immunizations up to date. - Social history:: Patient uses alcohol, only on a social basis. street drugs, marijuana, Smoking status: Patient denies any tobacco usage or history of. ROS: 16:58 Eyes: Negative for injury, pain, redness, and discharge, ENT: Negative for injury, jr8 pain, and discharge, Neck: Negative for injury, pain, and swelling, Cardiovascular: Negative for chest pain, palpitations, and edema, Respiratory: Negative for shortness of breath, cough, wheezing, and pleuritic chest pain, Abdomen/GI: Negative for abdominal pain, nausea, vomiting, diarrhea, and constipation, Back: Negative for injury and pain, Skin: Negative for injury, rash, and discoloration, Neuro: Negative for headache, weakness, numbness, tingling, and seizure. 16:58 MS/extremity: Positive for decreased range of motion, deformity, pain, swelling, tenderness, of the left elbow. Exam: 16:58 Eyes: Pupils equal round and reactive to light, extra-ocular motions intact. Lids and jr8 lashes normal. Conjunctiva and sclera are non-icteric and not injected. Cornea within normal limits. Periorbital areas with no swelling, redness, or edema. ENT: Nares patent. No nasal discharge, no septal abnormalities noted. Tympanic membranes are normal and external auditory canals are clear. Oropharynx with no redness, swelling, or masses, exudates, or evidence of obstruction, uvula midline. Mucous membranes moist. Neck: Trachea midline, no thyromegaly or masses palpated, and no cervical lymphadenopathy. Supple, full range of motion without nuchal rigidity, or vertebral point tenderness. No Meningismus. Chest/axilla: Normal chest wall appearance and motion. Nontender with no deformity. No lesions are appreciated. Cardiovascular: Regular rate and rhythm with a normal S1 and S2. No gallops, murmurs, or rubs. Normal PMI, no JVD. No pulse deficits. Respiratory: Lungs have equal breath sounds bilaterally, clear to auscultation and percussion. No rales, rhonchi or wheezes noted. No increased work of breathing, no retractions or nasal flaring. Abdomen/GI: Soft, non-tender, with normal bowel sounds. No distension or tympany. No guarding or rebound. No evidence of tenderness throughout. Back: No spinal tenderness. No costovertebral tenderness. Full range of motion. Skin: Warm, dry with normal turgor. Normal color with no rashes, no lesions, and no evidence of cellulitis. Neuro: Awake and alert, GCS 15, oriented to person, place, time, and situation. Cranial nerves II-XII grossly intact. Motor strength 5/5 in all extremities. Sensory grossly intact. Cerebellar exam normal. Normal gait. 16:58 Musculoskeletal/extremity: Extremities: grossly normal except: noted in the left elbow: Patient has obvious deformity to left elbow with decreased ROM both passive and active. No laceration or skin tenting present. Normal sensation with 2+ pulses radial bilaterally. Rest of extremities unremarkable . Vital Signs: 15:39 BP 156 / 108; Pulse 90; Resp 18; Temp 98.0; Pulse Ox 98% ; Pain 10/10; ll1 17:30 BP 149 / 99; Pulse 94; Resp 18 S; Temp 98.0(TE); Pulse Ox 98% on R/A; aa5 18:10 BP 136 / 97; Pulse 75; Resp 16 S; Pulse Ox 98% on R/A; aa5 18:10 aa5 18:30 BP 150 / 76; Pulse 95; Resp 16 S; Pulse Ox 99% on R/A; aa5 18:55 BP 135 / 94; Pulse 97; Resp 16 S; Pulse Ox 99% on R/A; aa5 18:10 see Conscious sedation flow sheet for intra-procedure and post-procedure VS. aa5 Procedures: 18:22 Reduction: of the left elbow, using traction, manipulation, Immobilized with sling, jr8 Patient tolerated well. Post reduction film - reveals normal alignment. Moderate sedation: Pre-procedure assessment: the patient has been NPO 4 hour(s) prior to arrival, ASA physical classification: I - healthy, no underlying organic disease, Airway assessment: able to hyperextend neck, able to maintain airway, can open mouth without difficulty, Mallampati classification of tongue size: II - faucial pillars and soft palate can be visualized, but uvula is masked by the base of the tongue, Monitoring during procedure: manager monitoring, continuous pulse oximetry, nurse at bedside at all times, Medications employed: propofol, Post-procedure assessment: the patient is moderately sedated, Gandhi sedation score: 4 - brisk response to a light glabellar tap, Respiratory status: even and unlabored, a reversal agent was not used. MDM: 15:48 Patient medically screened. 8 18:22 Data reviewed: vital signs, nurses notes, radiologic studies, plain films. Data jr8 interpreted: Pulse oximetry: on room air is 98 %. Interpretation: normal. Counseling: I had a detailed discussion with the patient and/or guardian regarding: the historical points, exam findings, and any diagnostic results supporting the discharge/admit diagnosis, radiology results, the need for outpatient follow up, a orthopedic surgeon, to return to the emergency department if symptoms worsen or persist or if there are any questions or concerns that arise at home. Response to treatment: the patient's symptoms have markedly improved after treatment. 11/14 16:10 Order name: Elbow Left 2 View; Complete Time: 17:01 EDMS 11/14 18:02 Order name: XRAY Elbow LEFT 2 view jr8 11/14 16:15 Order name: IV; Complete Time: 18:19 jr8 11/14 16:40 Order name: Conscious Sedation; Complete Time: 18:19 jr8 11/14 18:21 Order name: Sling; Complete Time: 18:21 aa5 Administered Medications: 16:20 Drug: Zofran (Ondansetron) 4 mg Route: IVP; Site: right antecubital; aa5 16:25 Follow up: Response: No adverse reaction aa5 16:22 Drug: fentaNYL (PF) 75 mcg Route: IVP; Site: right antecubital; aa5 16:30 Follow up: Response: No adverse reaction aa5 17:50 Drug: NS 0.9% 500 ml {Note: VO received at 1725 to administer during concious aa5 sedation.} Route: IV; Rate: bolus; Site: right antecubital; 17:55 Drug: Propofol 160 mg Route: IVP; Site: right antecubital; aa5 18:00 Follow up: Response: No adverse reaction aa5 Disposition: 11/15 08:38 Co-signature as Attending Physician, Varun Neumann MD I agree with the assessment and kdr plan of care. Disposition: 11/15/19 18:26 Discharged to Home. Impression: Dislocation and sprain of joints and ligaments of elbow. - Condition is Stable. - Discharge Instructions: Elbow Dislocation. - Prescriptions for Ibuprofen 800 mg Oral Tablet - take 1 tablet by ORAL route every 12 hours As needed take with food; 20 tablet. Tylenol- Codeine #3 300-30 mg Oral Tablet - take 2 tablets by ORAL route every 6 hours As needed; 12 tablet. - Medication Reconciliation Form, Thank You Letter, Antibiotic Education, Prescription Opioid Use form. - Follow up: Jhonny Apodaca MD; When: 2 - 3 days; Reason: Recheck today's complaints, Continuance of care, Re-evaluation by your physician. - Problem is new. - Symptoms have improved. Signatures: Dispatcher [employer] EDMS Varun Neumann MD MD [facility] Rebeka Oconnor RN RN aa5 Bubba Parrish PA PA jr8 Jaelyn Michaels RN RN Shereen Phelps RN RN ll1 Corrections: (The following items were deleted from the chart) 11/14 16:10 15:43 Elbow Left 3 View+RAD.RAD.BRZ ordered. EDSD EDMS 19:05 18:26 11/15/2019 18:26 Discharged to Home. Impression: Dislocation and sprain of joints aa5 and ligaments of elbow. Condition is Stable. Forms are Medication Reconciliation Form, Thank You Letter, Antibiotic Education, Prescription Opioid Use. Follow up: Jhonny Apodaca; When: 2 - 3 days; Reason: Recheck today's complaints, Continuance of care, Re-evaluation by your physician. Problem is new. Symptoms have improved. jr8
--- NOTE | 2019-11-15 19:12 | RAD REPORT ---
EXAM DESCRIPTION: RAD - Elbow Left 2 View - 11/15/2019 6:42 pm CLINICAL HISTORY: post reduction Pain, postreduction COMPARISON: Elbow Left 2 View dated 11/15/2019 FINDINGS: The previously noted elbow dislocation has been reduced. No gross fracture appreciated on limited submitted views. Mild soft tissue swelling is evident.
[2019-11-15 19:37] VITALS: TEMP 98; O2SAT 98
[2019-11-15 19:40] VITALS: BP 136/97
== END 2019-11-15 19:05 | disposition home or self-care (01) ==
LOC: ER 15:28
PROC: 0RSMXZZ Reposition Left Elbow Joint, External Approach (ICD-10-PCS; principal; 2019-11-15)
DX: S53.105A Unspecified dislocation of left ulnohumeral joint, initial encounter (principal); S53.402A Unspecified sprain of left elbow, initial encounter; W01.0XXA Fall on same level from slipping, tripping and stumbling without subsequent striking against object, initial encounter; Y93.89 Activity, other specified; Y92.9 Unspecified place or not applicable
CPT/HCPCS: 73070 ×2; 96375; 96374; 99284; 24605; J2704; J3010; J7030; J2405

== ENCOUNTER 2021-04-22 13:43 | Emergency (ER) | payer OTHER ==
--- OUTSIDE RECORDS SUMMARY | 2021-04-22 13:46 | XMS REPORT | Continuity of Care Document ---
:1995 Author Organization [facility] t Address [address] [place] [address] Care Team Providers Name Role Phone Julianne Matson Attending Clinician Lab, [facility] Fam Pob I Attending Clinician Unavailable Doctor Unassigned, Name Attending Clinician Unavailable OMRANIAN Attending Clinician Unavailable OMRANIAN Admitting Clinician Unavailable Problems This patient has no known problems. Allergies, Adverse Reactions, Alerts Allergy Allergy Status Severity Reaction(s) Onset Inactive Treating Comm ents Source Name Type Date Date Clinician NO KNOWN Drug Active Univers ALLERGIE Class ity of [facility] Social History Social Habit Start Date Stop Date Quantity Comments [facility] to [facility] Smoking Status Start Date Stop Date Source Unknown if ever smoked Universit y [facility] Medications This patient has no known medications. Procedures This patient has no known procedures. Encounters Start End Encounter Admission Attending Care Care Encounter Source Date/Time Date/Time Type Type Clinicians Facility Department ID 2019-12-21 2019-12-21 Telephone AndriaPRAKASH rasmussen [id number] Univers 00:00:00 00:00:00 Julianne JOANIE [id number] [facility] [id number] Rian as [phone] [address] 2019-12-19 2019-12-19 Laboratory Lab, Adc Fam Pob I [facility] [id number] Univers 08:24:39 08:44:39 Only Julianne Shelley [id number] ity [facility] [id number] Rian as Profagustinio [phone] Az dical [facility] [address] 2019-12-19 2019-12-19 Outpatient R [facility] [id number] Univers 08:20:00 08:20:00 ity of [facility] 2019-12-19 2019-12-19 Letter Doctor PRAKASH [id number] Univers 00:00:00 00:00:00 (Out) Unassigned, JOANIE [id number] ity of [facility] [id number] Rian as [id number] [address] Results Test Description Test Time Test Comments Results Result Comments Source POCT-GLUCOSE METER 2018-02-19 12:43:00 Test Item Value Reference Range Interpretation Comme nts POC-GLUCOSE METER (BEAKER) (test 88 mg/dL 70-110 TESTED AT [facility] [address] [facility] 1538) [facility] 7703 0 BASIC METABOLIC [id number] 09:10:00 Test Item Value Reference Range Interpretation [...] NOT APPLICABLE FOR DIALYSIS PATIEN TS. POCT-GLUCOSE [id number] 05:26:00 Test Item Value Reference Range Interpretation Comments POC-GLUCOSE METER 87 mg/dL 70-110 [facility] (BEAKER) (test code = [place] [facility] [address] 1538) [id number] 04:43:00 Test Item Value Reference Range Interpretation Comments PHOSPHORUS (BEAKER) (test code = 3.5 mg/dL 2.3-4.7 604) [id number] 04:43:00 Test Item Value Reference Range Interpretation Comments MAGNESIUM (BEAKER) (test code = 2.1 mg/dL 1.6-2.6 627) CBC W/PLT COUNT & AUTO [id number] 04:13:00 Test Item Value Reference Range Interpretation [...] PERCENT (AKER) (test code = 2801) POCT-GLUCOSE [id number] 01:04:00 Test Item Value Reference Range Interpretation Comments POC-GLUCOSE METER 94 mg/dL 70-110 TESTED AT [place] [address] ([facility]) (test code = [facility] [address] 1538) POCT-GLUCOSE [id number] 17:19:00 Test Item Value Reference Range Interpretation Comments POC-GLUCOSE METER 89 mg/dL 70-110 TESTED AT [place] [address] ([facility]) (test code = [facility] [address] 1538) [id number] 12:13:00 Test Item Value Reference Range Interpretation Comments PHOSPHORUS (BEAKER) (test code = 2.6 mg/dL 2.3-4.7 604) POCT-GLUCOSE [id number] 11:47:00 Test Item Value Reference Range Interpretation Comments POC-GLUCOSE METER 107 mg/dL 70-110 TESTED AT [place] [address] ([facility]) (test code = [facility] 1538) [id number] CBC W/PLT COUNT & AUTO [id number] 06:53:00 Test Item Value Reference Range Interpretation Comments WHITE BLOOD CELL COUNT (BEAKER) 13.2 K/ L 3.5-10.5 H (test code = 775) RED BLOOD CELL COUNT (BEAKER) 4.72 M/ L 4.63-6.08 (test code = 761) HEMOGLOBIN (BEAKER) (test code = 14.9 GM/DL 13.7-17.5 410) HEMATOCRIT (BEAKER) (test code = 45.3 % 40.1-51.0 411) MEAN CORPUSCULAR VOLUME ([facility]) 96.0 fL 79.0-92.2 H (test code = [...] 0-1 PERCENT (BEAKER) (test code = 2801) [id number] 06:49:00 Test Item Value Reference Range Interpretation Comments PHOSPHORUS (BEAKER) (test code = 3.5 mg/dL 2.3-4.7 604) [id number] 06:49:00 Test Item Value Reference Range Interpretation Comments MAGNESIUM (BEAKER) (test code = 2.3 mg/dL 1.6-2.6 627) COMPREHENSIVE METABOLIC [id number] 06:49:00 Test Item Value Reference Range Interpretation [...] NOT APPLICABLE FOR DIALYSIS PATIEN TS. POCT-GLUCOSE [id number] 00:36:00 Test Item Value Reference Range Interpretation Comments POC-GLUCOSE METER 123 mg/dL 70-110 H TESTED AT [facility] 6720 (BEAKER) (test code = [place] 1538) [id number] CBC W/PLT COUNT & AUTO [id number] 00:14:00 Test Item Value Reference Range Interpretation [...] 0-1 PERCENT (BEAKER) (test code = 2801) [id number] 00:11:00 Test Item Value Reference Range Interpretation Comments PHOSPHORUS (BEAKER) (test code = 1.8 mg/dL 2.3-4.7 L 604) [id number] 00:11:00 Test Item Value Reference Range Interpretation Comments MAGNESIUM (BEAKER) (test code = 2.5 mg/dL 1.6-2.6 627) COMPREHENSIVE METABOLIC [id number] 00:11:00 Test Item Value Reference Range Interpretation [...] U/L 29-200 H code = 380) PROTHROMBIN [id number] 23:57:00 Test Item Value Reference Range Interpretation [...]
[2021-04-22] MEDS ORDERED: FAMOTIDINE 20 MG/2 ML VIAL IV ONE (14:29)
[2021-04-22] MEDS ORDERED: ONDANSETRON 4 MG/2 ML VIAL ONE (14:29)
[2021-04-22] MEDS ORDERED: NA CHLORIDE 0.9% 1,000 ML ONE ×2 (14:29→15:50)
[2021-04-22 14:39] LABS: Absolute Lymphocytes (CBC) 1.7 K/uL (0.7-4.9); Basophils % 0.9 % (0-1.3); Hematocrit 52.3 % (39.6-49.0); Lymphocytes % 15.4 % (15.3-44.8); MPV 7.2 fL (7.6-11.3); RBC Red Blood Cell Count 5.21 M/uL (4.33-5.43)
[2021-04-22 14:54] LABS: Albumin 3.5 g/dL (3.4-5.0); Bilirubin Direct 0.4 mg/dL (0-0.2); Potassium 3.8 mmol/L (3.5-5.1); Protein, Total 8.3 g/dL (6.4-8.2)
[2021-04-22 15:49] LABS: Urine Blood Negative (Negative); Urine Glucose Negative (Negative); Urine Protein Negative (Negative); Urine Specific Gravity 1.015 (1.005-1.030); Urine pH 8.5 (5.0-7.0)
[2021-04-22 16:22] LABS: Barbiturates NEGATIVE (NEGATIVE); Benzodiazepines POSITIVE (NEGATIVE); Cocaine NEGATIVE (NEGATIVE); METHAMPHETAM NEGATIVE (NEGATIVE); Methadone NEGATIVE (NEGATIVE); Opiates NEGATIVE (NEGATIVE); Phencyclidine NEGATIVE (NEGATIVE); THC Cannibis POSITIVE (NEGATIVE)
--- NOTE | 2021-04-22 16:45 | RAD REPORT ---
EXAM DESCRIPTION: CT - Abdomen Pelvis W Contrast - 04/22/2021 4:31 pm CLINICAL HISTORY: Abdominal pain/vomiting COMPARISON: none. TECHNIQUE: Computed axial tomography of the abdomen pelvis was obtained. 100 cc Isovue-300 was admin istered intravenously. Oral contrast was not requested which limits evaluation of bowel. All CT scans are performed using dose optimization technique as appropriate and may include automated exposure control or mA/KV adjustment according to patient size. FINDINGS: The liver is enlarged. Fatty infiltration is present. The spleen, pancreas, adrenals and kidneys are unremarkable There is no evidence of diverticulitis. Normal appendix The small to moderate left inguinal hernia contains fat IMPRESSION: Hepatomegaly with fatty infiltration
--- NOTE | 2021-04-22 17:13 | EDPHYS ---
Physician Documentation [facility] Name: Roger Peralta Age: 25 yrs Sex: Male : 1995 Arrival Date: 04/22/2021 Time: 13:45 Bed 8 Private MD: ED Physician Antoine Ibrahim HPI: 04/22 14:25 This 25 yrs old Male presents to ER via Ambulatory with complaints of cp Dehydration. 14:25 The patient presents to the emergency department with nausea, that is moderate, cp vomiting, that is intermittent, described as bilious. Onset: The symptoms/episode began/occurred this morning. Possible causes: admits to binge drinking over past 2 weeks and taking friend's benzodiazepine medication. 14:25 Associated signs and symptoms: Pertinent negatives: constipation, diarrhea, GI cp bleeding. Severity of symptoms: in the emergency department the symptoms are unchanged despite home interventions. Historical: - Allergies: 14:12 No Known Allergies; ll3 - Home Meds: 14:12 None [Active]; ll3 - PMHx: 14:12 None; ll3 - PSHx: 14:12 None; ll3 - Immunization history:: Client reports having NOT received the Covid vaccine. - Social history:: Smoking status: Patient denies any tobacco usage or history of. ROS: 14:30 Constitutional: Negative for body aches, chills, fever, poor PO intake. cp 14:30 Eyes: Negative for injury, pain, redness, and discharge. cp 14:30 Abdomen/GI: Positive for nausea and vomiting, Negative for diarrhea, constipation, cp hematemesis, black/tarry stool, rectal bleeding. 14:30 Cardiovascular: Negative for chest pain, palpitations. cp 14:30 Respiratory: Negative for cough, shortness of breath, wheezing. 14:30 Neuro: Negative for altered mental status, headache, weakness. 14:30 All other systems are negative. Exam: 14:15 ECG was reviewed by the Attending Physician. cp 14:35 Constitutional: The patient appears in no acute distress, alert, awake, non-toxic, well cp developed, well nourished. 14:35 Head/Face: Normocephalic, atraumatic. cp 14:35 Eyes: Periorbital structures: appear normal, Conjunctiva: normal, no exudate, no cp injection, Sclera: no appreciated abnormality, Lids and lashes: appear normal, bilaterally. 14:35 ENT: External ear(s): are unremarkable, Nose: is normal, Mouth: Lips: moist, Oral cp mucosa: moist, Posterior pharynx: Airway: no evidence of obstruction, patent. 14:35 Neck: ROM/movement: is normal, is supple, without pain, no range of motions limitations. 14:35 Chest/axilla: Inspection: normal, Palpation: is normal, no crepitus, no tenderness. 14:35 Cardiovascular: Rate: normal, Rhythm: regular. 14:35 Respiratory: the patient does not display signs of respiratory distress, Respirations: normal, no use of accessory muscles, no retractions, labored breathing, is not present, Breath sounds: are clear throughout, no decreased breath sounds, no stridor, no wheezing. 14:35 Abdomen/GI: Inspection: abdomen appears normal, Bowel sounds: active, all quadrants, Palpation: soft, in all quadrants, mild abdominal tenderness, in all quadrants, rebound tenderness, is not appreciated, voluntary guarding, is not appreciated, involuntary guarding, is not appreciated. 14:35 Back: pain, is absent, ROM is normal. 14:35 Neuro: Orientation: to person, place \T\ time. Mentation: is normal, Motor: moves all fours, strength is normal, Sensation: is normal. Vital Signs: 14:05 BP 141 / 112; Pulse 94; Resp 16; Temp 98.2(TE); Pulse Ox 100% ; Weight 77.11 kg; Height ll3 5 ft. 6 in. (167.64 cm); 14:59 BP 136 / 94; Pulse 94; Resp 16; Pulse Ox 100% ; ll3 15:57 BP 122 / 89; Pulse 98; Resp 14; Pulse Ox 100% ; ll3 16:49 BP 129 / 92; Pulse 87; Resp 14; Pulse Ox 100% on R/A; ll3 14:05 Body Mass Index 27.44 (77.11 kg, 167.64 cm) ll3 MDM: 14:19 Patient medically screened. cp 15:00 Differential diagnosis: gastritis, cholecystitis, pancreatitis, appendicitis, viral cp gastroenteritis, gastroenteritis. 17:12 Data reviewed: vital signs, nurses notes, lab test result(s), radiologic studies, CT cp scan. 17:12 Counseling: I had a detailed discussion with the patient and/or guardian regarding: the cp historical points, exam findings, and any diagnostic results supporting the discharge/admit diagnosis, lab results, radiology results, to return to the emergency department if symptoms worsen or persist or if there are any questions or concerns that arise at home. Response to treatment: the patient's symptoms have markedly improved after treatment, and as a result, I will discharge patient. 04/22 14:20 Order name: Basic Metabolic Panel 04/22 14:20 Order name: CBC with Diff; Complete Time: 15:28 04/22 15:29 Interpretation: Normal except: WBC 11.00; HCT 52.3; MCV 100.3; MPV 7.2; SHAYLEE% 77.6; NEUT cp A 8.5. 04/22 14:20 Order name: Hepatic Function; Complete Time: 15:28 04/22 15:29 Interpretation: Normal except: AST 188; ALK 149; BILID 0.4; TP 8.3; GLOB 4.8; A/G 0.7. 04/22 14:20 Order name: Lipase; Complete Time: 15:28 04/22 14:20 Order name: Magnesium; Complete Time: 15:28 04/22 14:20 Order name: UDS; Complete Time: 16:56 04/22 16:56 Interpretation: Normal except: BZO POSITIVE; THC POSITIVE. 04/22 14:20 Order name: IV Saline Lock; Complete Time: 14:23 04/22 14:21 Order name: Basic Metabolic Panel; Complete Time: 15:28 EDMS 04/22 15:29 Interpretation: Normal except: GLUC 130; BUN 2; GFR 79. 04/22 15:30 Order name: CT Abd/Pelvis - IV Contrast Only; Complete Time: 16:56 04/22 15:48 Order name: Urine Dipstick-Ancillary; Complete Time: 16:22 EDMS 04/22 16:22 Interpretation: Normal except: UPH 8.5. 04/22 14:20 Order name: Labs collected and sent; Complete Time: 14:30 04/22 14:20 Order name: Urine Dipstick-Ancillary (obtain specimen); Complete Time: 15:49 04/22 17:05 Order name: PO challenge; Complete Time: 17:18 cp EC:15 Rate is 92 beats/min. Rhythm is regular. VA interval is normal. QRS interval is normal. cp QT interval is normal. T waves are Inverted in lead aVR. Interpreted by me. Reviewed by me. Administered Medications: 14:35 Drug: NS 0.9% 1000 ml Route: IV; Rate: 1 bolus; Site: right antecubital; ll3 15:48 Follow up: Response: No adverse reaction; IV Status: Completed infusion; IV Intake: ll3 1000ml 14:38 Drug: Zofran (Ondansetron) 4 mg Route: IVP; Site: right antecubital; ll3 15:20 Follow up: Response: No adverse reaction ll3 14:42 Drug: Pepcid (famotidine) 20 mg Route: IVP; Site: right antecubital; ll3 15:20 Follow up: Response: No adverse reaction ll3 15:54 Drug: NS 0.9% 1000 ml Route: IV; Rate: 1 bolus; Site: right antecubital; ll3 17:18 Follow up: Response: No adverse reaction; IV Status: Completed infusion; IV Intake: ll3 1000ml Disposition Summary: 04/22/21 17:13 Discharge Ordered Location: Home cp Problem: new cp Symptoms: have improved cp Condition: Stable cp Diagnosis - Nausea with vomiting, unspecified cp - Chest pain, unspecified cp Followup: cp - With: Private Physician - When: 2 - 3 days - Reason: Recheck today's complaints Discharge Instructions: - Discharge Summary Sheet cp - Nonspecific Chest Pain, Adult cp - Nausea and Vomiting, Adult cp Forms: - Medication Reconciliation Form cp - Thank You Letter cp - Antibiotic Education cp - Prescription Opioid Use cp Prescriptions: - Zofran 4 mg Oral Tablet - take 1 tablet by ORAL route every 12 hours As needed; 20 tablet; Refills: 0, cp Product Selection Permitted - Pepcid 20 mg Oral Tablet - take 1 tablet by ORAL route once daily; 20 tablet; Refills: 0, Product cp Selection Permitted Signatures: Dispatcher [employer] EDMS Davey Luke PA PA cp Loubet, Lynsea, RN RN ll3
--- NOTE | 2021-04-22 17:13 | ER ---
Nurse's Notes [facility] Name: Roger Peralta Age: 25 yrs Sex: Male : 1995 Arrival Date: 04/22/2021 Time: 13:45 Bed 8 Private MD: Diagnosis: Nausea with vomiting, unspecified;Chest pain, unspecified Presentation: 04/22 14:05 Chief complaint: Patient states: " MY chest feels tight, I have nausea, and I feel ll3 weak, I have been drinking a lot of alcohol for the past 2 weeks.". Coronavirus screen: Vaccine status: Patient reports being unvaccinated. Client denies travel out of the [place] in the last 14 days. At this time, the client does not indicate any symptoms associated with coronavirus-19. Ebola Screen: No symptoms or risks identified at this time. Initial Sepsis Screen: Does the patient meet any 2 criteria? Systolic BP < 90 mmHg. HR > 90 bpm. Does the patient have a suspected source of infection? No. Patient's initial sepsis screen is negative. Risk Assessment: Do you want to hurt yourself or someone else? Patient reports no desire to harm self or others. Onset of symptoms was April 22, 2021 at 10:00. 14:05 Method Of Arrival: Ambulatory ll3 14:05 Acuity: LAVON 3 ll3 Triage Assessment: 14:13 General: Appears in no apparent distress. comfortable, Behavior is calm, cooperative. ll3 Pain: Complains of pain in anterior aspect of left upper chest Pain does not radiate. Pain currently is 5 out of 10 on a pain scale. Quality of pain is described as tight. Neuro: Level of Consciousness is awake, alert, obeys commands. Cardiovascular: Patient's skin is warm and dry. Respiratory: Airway is patent Trachea midline Respiratory effort is even, unlabored, Respiratory pattern is regular, symmetrical. Derm: Skin is pink, warm \\T\\ dry. Historical: - Allergies: 14:12 No Known Allergies; ll3 - Home Meds: 14:12 None [Active]; ll3 - PMHx: 14:12 None; ll3 - PSHx: 14:12 None; ll3 - Immunization history:: Client reports having NOT received the Covid vaccine. - Social history:: Smoking status: Patient denies any tobacco usage or history of. Screenin:44 Abuse screen: Denies threats or abuse. Nutritional screening: No deficits noted. ll3 Tuberculosis screening: No symptoms or risk factors identified. Fall Risk IV access (20 points). Assessment: 14:10 General: See triage. ll3 15:09 Reassessment: Instructed pt it give a urine sample, pt reports unable to give one at ll3 this time, will reassess after bolus of NS is complete. 15:55 Reassessment: Urine sample given, pt states chest tightness is starting to feel better. ll3 16:49 Reassessment: Patient appears in no apparent distress at this time. No changes from ll3 previously documented assessment. Patient and/or family updated on plan of care and expected duration. Pain level reassessed. Patient is alert, oriented x 3, equal unlabored respirations, skin warm/dry/pink. Patient states symptoms have improved. Vital Signs: 14:05 BP 141 / 112; Pulse 94; Resp 16; Temp 98.2(TE); Pulse Ox 100% ; Weight 77.11 kg; Height ll3 5 ft. 6 in. (167.64 cm); 14:59 BP 136 / 94; Pulse 94; Resp 16; Pulse Ox 100% ; ll3 15:57 BP 122 / 89; Pulse 98; Resp 14; Pulse Ox 100% ; ll3 16:49 BP 129 / 92; Pulse 87; Resp 14; Pulse Ox 100% on R/A; ll3 14:05 Body Mass Index 27.44 (77.11 kg, 167.64 cm) ll3 ED Course: 13:45 Patient arrived in ED. mr 13:57 Kandy He, RONI is Primary Nurse. kd3 13:59 Davey Luke PA is PHCP. cp 13:59 Antoine Ibrahim MD is Attending Physician. cp 14:12 Triage completed. ll3 14:15 Inserted saline lock: 20 gauge in right antecubital area, using aseptic technique. ll3 Blood collected. 14:45 Arm band placed on. ll3 14:45 Patient has correct armband on for positive identification. Placed in gown. Bed in low ll3 position. Call light in reach. Side rails up X 1. 15:04 Dayday Miguel, RONI is Primary Nurse. ll3 16:31 CT Abd/Pelvis - IV Contrast Only In Process Unspecified. EDIN 17:20 Basic Metabolic Panel Sent. ll3 17:28 No provider procedures requiring assistance completed. IV discontinued, intact, ll3 bleeding controlled, No redness/swelling at site. Pressure dressing applied. Administered Medications: 14:35 Drug: NS 0.9% 1000 ml Route: IV; Rate: 1 bolus; Site: right antecubital; ll3 15:48 Follow up: Response: No adverse reaction; IV Status: Completed infusion; IV Intake: ll3 1000ml 14:38 Drug: Zofran (Ondansetron) 4 mg Route: IVP; Site: right antecubital; ll3 15:20 Follow up: Response: No adverse reaction ll3 14:42 Drug: Pepcid (famotidine) 20 mg Route: IVP; Site: right antecubital; ll3 15:20 Follow up: Response: No adverse reaction ll3 15:54 Drug: NS 0.9% 1000 ml Route: IV; Rate: 1 bolus; Site: right antecubital; ll3 17:18 Follow up: Response: No adverse reaction; IV Status: Completed infusion; IV Intake: ll3 1000ml Intake: 15:48 IV: 1000ml; Total: 1000ml. ll3 17:18 IV: 1000ml; Total: 2000ml. ll3 Outcome: 17:13 Discharge ordered by MD. cp 17:28 Discharged to home ambulatory. ll3 17:28 Condition: stable 17:28 Discharge instructions given to patient, Instructed on discharge instructions, follow up and referral plans. medication usage, Demonstrated understanding of instructions, follow-up care, medications, Prescriptions given X 2. 17:29 Patient left the ED. 3 Signatures: Dispatcher [employer] EDIN Liliana Mulligan Corey, FRANKIE PA Dayday Rojo RN RN ll3 Kandy He RN RN kd3 Corrections: (The following items were deleted from the chart) 14:48 14:44 General: See triage. ll3 ll3
[2021-04-22 17:35] VITALS: TEMP 98.2; O2SAT 100
[2021-04-22 17:39] VITALS: BP 129/92
== END 2021-04-22 17:29 | disposition home or self-care (01) ==
LOC: ER 13:43
DX: R07.9 Chest pain, unspecified (principal)
CPT/HCPCS: 96361; 93005; 85025; 80048; 36415; 83735; 80076; 81003; 83690; 80307; 74177; 96375; 96374; 99284; Q9967; J7030 ×2; J2405

== ENCOUNTER 2022-01-09 10:13 | Emergency (ER) | payer OTHER ==
--- OUTSIDE RECORDS SUMMARY | 2022-01-09 10:17 | XMS REPORT | Continuity of Care Document ---
:1995 Author Organization [facility] t Address [address] [place] [address] Care Team Providers Name Role Phone Julianne Matson Attending Clinician Lab, Adc Fam Pob I Attending Clinician Unavailable Doctor Unassigned, [place] Attending Clinician Unavailable MARY WINCHESTER Attending Clinician Unavailable MARY WINCHESTER Admitting Clinician Unavailable Problems This patient has no known problems. Allergies, Adverse Reactions, Alerts Allergy Allergy Status Severity Reaction(s) Onset Inactive Treating Comm ents Source Name Type Date Date Clinician NO KNOWN Drug Active Univers ALLERGIE Class ity of [facility] Social History Social Habit Start Date Stop Date Quantity Comments [facility] to [facility] Smoking Status Start Date Stop Date Source Unknown if ever smoked [facility] Medications This patient has no known medications. Procedures This patient has no known procedures. Encounters Start End Encounter Admission Attending Care Care Encounter Source Date/Time Date/Time Type Type Clinicians Facility Department ID 2019-12-21 2019-12-21 Telephone AndriaPRAKASH rasmussen [id number] Univers 00:00:00 00:00:00 Julianne NAIR [id number] it y of [facility] [id number] Rian as [phone] [place] [address] [address] 2019-12-19 2019-12-19 Laboratory Lab, Adc Fam Pob I [facility] [id number] Univers 08:24:39 08:44:39 Only Andriavalery Julianne Yaquelin [id number] ity [facility] [id number] Rian as Kristel [phone] Me dical nal [address] 2019-12-19 2019-12-19 Outpatient R [facility] [id number] Univers 08:20:00 08:20:00 ity of [facility] 2019-12-19 2019-12-19 Letter Doctor PRAKASH [id number] Univers 00:00:00 00:00:00 (Out) Unassigned, JOANIE [id number] ity of [facility] [id number] Rian as [phone] [address] Results Test Description Test Time Test Comments Results Result Comments Source POCT-GLUCOSE METER 2018-02-19 12:43:00 Test Item Value Reference Range Interpretation Comme nts POC-GLUCOSE METER (BEAKER) (test 88 mg/dL 70-110 TESTED AT [facility] [address] [facility] = 1538) [facility] 7703 0 BASIC METABOLIC [id number] 09:10:00 Test Item Value Reference Range Interpretation [...] NOT APPLICABLE FOR DIALYSIS PATIEN TS. POCT-GLUCOSE [id number] 05:26:00 Test Item Value Reference Range Interpretation Comments POC-GLUCOSE METER 87 mg/dL 70-110 TESTED AT [facility] 6720 (BEAKER) (test code = [address] [facility] [address] 1538) [id number] 04:43:00 Test Item Value Reference Range Interpretation Comments PHOSPHORUS (BEAKER) (test code = 3.5 mg/dL 2.3-4.7 604) [id number] 04:43:00 Test Item Value Reference Range Interpretation Comments MAGNESIUM (BEAKER) (test code = 2.1 mg/dL 1.6-2.6 627) CBC W/PLT COUNT & AUTO [id number] 04:13:00 Test Item Value Reference Range Interpretation [...] PERCENT (AKER) (test code = 2801) POCT-GLUCOSE [id number] 01:04:00 Test Item Value Reference Range Interpretation Comments POC-GLUCOSE METER 94 mg/dL 70-110 TESTED AT [place] [address] ([facility]) (test code = [facility] [address] 1538) POCT-GLUCOSE [id number] 17:19:00 Test Item Value Reference Range Interpretation Comments POC-GLUCOSE METER 89 mg/dL 70-110 TESTED AT [place] [address] ([facility]) (test code = [facility] [address] 1538) [id number] 12:13:00 Test Item Value Reference Range Interpretation Comments PHOSPHORUS ([facility]) (test code = 2.6 mg/dL 2.3-4.7 604) POCT-GLUCOSE [id number] 11:47:00 Test Item Value Reference Range Interpretation Comments POC-GLUCOSE METER 107 mg/dL 70-110 TESTED AT [place] [address] ([facility]) (test code = [facility] 1538) [id number] CBC W/PLT COUNT & AUTO [id number] 06:53:00 Test Item Value Reference Range Interpretation Comments WHITE BLOOD CELL COUNT (BEAKER) 13.2 K/ L 3.5-10.5 H (test code = 775) RED BLOOD CELL COUNT (BEAKER) 4.72 M/ L 4.63-6.08 (test code = 761) HEMOGLOBIN (BEAKER) (test code = 14.9 GM/DL 13.7-17.5 410) HEMATOCRIT (BEAKER) (test code = 45.3 % 40.1-51.0 411) MEAN CORPUSCULAR VOLUME ([facility]) 96.0 fL 79.0-92.2 H (test code = [...] 0-1 PERCENT (BEAKER) (test code = 2801) [id number] 06:49:00 Test Item Value Reference Range Interpretation Comments PHOSPHORUS (BEAKER) (test code = 3.5 mg/dL 2.3-4.7 604) [id number] 06:49:00 Test Item Value Reference Range Interpretation Comments MAGNESIUM (BEAKER) (test code = 2.3 mg/dL 1.6-2.6 627) COMPREHENSIVE METABOLIC [id number] 06:49:00 Test Item Value Reference Range Interpretation [...] NOT APPLICABLE FOR DIALYSIS PATIEN TS. POCT-GLUCOSE [id number] 00:36:00 Test Item Value Reference Range Interpretation Comments POC-GLUCOSE METER 123 mg/dL 70-110 H TESTED AT [facility] 6720 (BEAKER) (test code = [address] [place] 1533) [address] CBC W/PLT COUNT & AUTO [id number] 00:14:00 Test Item Value Reference Range Interpretation [...] 0-1 PERCENT (BEAKER) (test code = 2801) [id number] 00:11:00 Test Item Value Reference Range Interpretation Comments PHOSPHORUS (BEAKER) (test code = 1.8 mg/dL 2.3-4.7 L 604) [id number] 00:11:00 Test Item Value Reference Range Interpretation Comments MAGNESIUM (BEAKER) (test code = 2.5 mg/dL 1.6-2.6 627) COMPREHENSIVE METABOLIC [id number] 00:11:00 Test Item Value Reference Range Interpretation [...] U/L 29-200 H code = 380) PROTHROMBIN [id number] 23:57:00 Test Item Value Reference Range Interpretation Comments PROTIME (BEAKER) (test code = 14.5 seconds 11.7-14.7 759) INR (DORISFIONA) (test code = 370) 1.1 <=5.9 RECOMMENDED COUMADIN/WARFARIN INR THERAPY RANGESSTANDARD DOSE: 2.0 - 3.0 Includes: PROPHYLAXIS for venous thrombosis, systemic embolization; TREATMENT for venous thrombosis and/or pulmonary embolus.HIGH RISK: Target INR is 2.5-3.5 for patients with mechanical heart valves.
--- NOTE | 2022-01-09 11:46 | ER ---
Nurse's Notes [facility] Name: Roger Peralta Age: 26 yrs Sex: Male : 1995 Arrival Date: 01/09/2022 Time: 10:16 Bed Waiting Private MD: Diagnosis: Assessment: 01/09 11:45 Reassessment: called number on file, family member states patient is being seen at another ER at this time for eval. ED Course: 10:16 Patient arrived in ED. mr Administered Medications: No medications were administered Outcome: 11:45 Eloped from waiting room. 11:45 Patient left the ED. Signatures: Liliana Mulligan Shelby, RN RN
== END 2022-01-09 11:45 | disposition left against medical advice (07) ==
LOC: ER 10:13
DX: Z02.9 Encounter for administrative examinations, unspecified (principal)

== ENCOUNTER 2022-09-21 19:58 | Emergency (ER) | payer OTHER ==
--- OUTSIDE RECORDS SUMMARY | 2022-09-21 20:03 | XMS REPORT | Continuity of Care Document ---
:1995 Author Organization [facility] t Address [address] [place] [address]. [address] [place] [address] Care Team Providers Name Role Phone Eyal Menezes Primary Care Physician KAYLENE MONTAÑO Attending Clinician Unavailable Kaylene Montaño DO Attending Clinician Doctor Unassigned, [place] Attending Clinician Unavailable Estrellita Campbell RN Attending Clinician FAWAD SANZ Attending Clinician Unavailable Shawn Rich MD Attending Clinician Francois Pelletier MD Attending Clinician Fawad Sanz MD Attending Clinician Julianne Matson Attending Clinician Lab, Adc Fam Pob I Attending Clinician Unavailable MARY WINCHESTER Attending Clinician Unavailable FAWAD SANZ Admitting Clinician Unavailable Fawad Sanz MD Admitting Clinician MARY WINCHESTER Admitting Clinician Unavailable Payers Payer Name Policy Type Policy Number Effective Date Expiration Date S [employer] [id number] 2021 NON-CONTRACT 00:00:00 GENERIC Problems Condition Condition Condition Status Onset Resolution Last Treating Co mments Source Name Details Category Date Date Treatment Clinician Date Seizure Seizure Disease Active Univers 8-16 ity of 00:00: [address] Nausea and Nausea and Disease Active U nivers vomiting, vomiting, 8-14 ity of intract[place] lity of 00 Medical vomiting vomiting Branch not not specified, specified, unspecifie unspecifie d vomiting d vomiting type type Generalize Generalize Disease Active [facility] seizure d seizure 02-18 [facility] 00[facility] Center 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 [facility] dical with with 00 Center complicati complicati on on Alcohol Alcohol Disease Active [facility] withdrawal 02-17 Ana kes 00:00: Medical 00 Center Allergies, Adverse Reactions, Alerts Allergy Allergy Status Severity Reaction(s) Onset Inactive Treating Comm ents Source Name Type Date Date Clinician NO KNOWN Drug Active Univers ALLERGIE Class ity of S [facility] Social History Social Habit Start Date Stop Date Quantity Comments Source History of Passive smoker [place] of tobacco use [facility] Exposure to 2022-09-11 2022-09-21 Not sure [facility] SARS-CoV-2 00:00:00 17:21:00 [facility] (event) [place] Tobacco use and 2022-01-09 2022-01-09 Smokeless tobacco Un iversity of exposure 00:00:00 00:00:00 non-user [facility] Alcohol intake 2018-02-17 2018-02-17 [facility]00 of [facility] (finding) Sex Assigned At [address] [facility]es 00:00:00 00:00:00 Medical [place] Smoking Status Start Date Stop Date Source Tobacco smoking consumption [facility] Medications Ordered Filled Start Stop Current Ordering Indication Dosage Frequency Signature Comments Components Source Medication Medication Date Date Medication? Clinician (SIG) Name Name iopamidol 2022- No [id number] 74mL 74 mL, U nivers (ISOVUE 4-26 04-26 Intravenou ity o f 370-500 mL) 23:30: 23:45 s, ONCE, 1 [place] injection 00 :00 dose, On Medica l 74 mL Wed Branch 09/21/22 at 1845, Routine NaCl 0.9% 2022- No 1000mL at 999 Uni vers (NS) bolus 09-21 04-27 mL/hr, ity of infusion 23:15: 00:32 1,000 mL, Rian as 1,000 mL 00 :00 IV Medical Infusion, Branch ONCE, 1 dose, On Mon09/21/22 at 1815, CELESTE ondansetron 2022- No 4mg 4 mg, Slow Univers (ZOFRAN - 04-26 IV Push, ity of (PF)) 22:30: 22:35 ONCE, 1 [place] injection 4 00 :00 dose, On Medi bill mg [facility] 09/21/22 at 1730, CELESTE ondansetron 0 Yes [id number] 4mg Take 1 Univers 4 mg 4-26 tablet by ity of disintegrat 00:00: mouth [place] ing tablet 00 every 8 Medica l (eight) Branch hours as needed for Nausea and Vomiting (N/V). levETIRAcet Yes [id number] 500mg Take 1 Univers am (KEPPRA) 4-26 tablet by ity of 500 mg 00:00: mouth in [place] tablet 00 the Medical morning Branch and 1 tablet in the evening. multivitami Yes [id number] 1{tbl} Take 1 Univers n tablet 8-19 tablet by ity of 00:00: mouth in [place] 00 the Medical morning. Branch multivitami Yes [id number] 1{tbl} Take 1 Univers n tablet 8-19 tablet by ity of 00:00: mouth in [place] 00 the Medical morning. Branch multivitami Yes [id number] 1{tbl} Take 1 Univers n tablet 8-19 tablet by ity of 00:00: mouth in [place] 00 the Medical morning. Branch multivitami Yes [id number] 1{tbl} Take 1 Univers n tablet 8-19 tablet by ity of 00:00: mouth in [place] 00 the Medical morning. Branch ergocalcife Yes [id number] 50,000 Un sheri rol 8-18 Units, ity of (vitamin 14:00: Oral, [place] d2) 00 QWEEKLY, Medical (CALCIFEROL First dose Br anch ) capsule on Kathy 50,000 01/13/22 at Units 0900, Until Discontinu ed, Routine levETIRAcet 0 Yes 500mg 500 mg, Un sheri am (KEPPRA) 8-18 Oral, BID, it y of tablet 500 01:00: First dose [place] mg 00 on Mon [facility] 01/12/22 at Branch 2000, Until Discontinu ed, Routine levETIRAcet 2021-0 Yes [id number] 500mg Take 1 Univers am 500 mg 8-18 tablet by ity o f tablet 00:00: mouth in [address] and 1 tablet in the evening. levETIRAcet 0 Yes [id number] 500mg Take 1 Univers am 500 mg 8-18 tablet by ity o f tablet 00:00: mouth in [address] and 1 tablet in the evening. levETIRAcet 2021-0 Yes [id number] 500mg Take 1 Univers am 500 mg 8-18 tablet by ity o f tablet 00:00: mouth in [address] and 1 tablet in the evening. levETIRAcet 2021-0 Yes [id number] 500mg Take 1 Univers am 500 mg 8-18 tablet by ity o f tablet 00:00: mouth in [address] and 1 tablet in the evening. LORazepam 0 Yes 1mg 1 mg, Slow Un sheri (ATIVAN) 17 IV Push, ity of injection 1 19:00: Q8H, First [place] mg 00 dose Medical (after Branch last modificati on) on Mon01/12/22 at 1400, Until Discontinu ed, Routine
Is the medication being used for status epilepticu s? No lidocaine 2021-0 Yes 15mL 15 mL, Univer s 2% viscous 01-12 Oral, ity of (LIDOCAINE 18:15: Q4HPRN, [place] VISCOUS) 2 17 Starting Medic al % solution on Mon Branch 15 mL 01/12/22 at 1315, Until Discontinu ed, Routine, Oral mucosal pain melatonin 2021-0 Yes 6mg 6 mg, Univers (MELATIN) 817 Oral, QHS, ity of tablet 6 mg 06:30: First dose [place] 00 on [facility] Medical 01/12/22 at Branch 0130, Until Discontinu ed, Routine potassium 15mmol 15 mmol, U nivers phosphate 01-12 IV ity of 15 mmol in 00:30: 05:23 [facility] [place] NaCl 0.9% 00 :00 ONCE, 1 Medical (NS) 150 mL dose, On piggyback [facility] 01/11/22 at 1930, 150 mL simethicone Yes 125mg 125 mg, Un sheri (MYLICON) 01-11 Oral, ity of chewable 19:30: QIDPRN, [place] tablet 125 03 Starting Medic al mg on [place] 01/11/22 at 1430, Until Discontinu ed, Routine, Gas NaCl 0.9% 2021- No 1000mL at 999 Uni vers (NS) bolus 01-11 mL/hr, ity of infusion 15:15: 15:47 1,000 mL, Rian as 1,000 mL 00 :00 IV Medical Infusion, [place] ONCE, 1 dose, On Mon01/11/22 at 1015, STAT levETIRAcet No 500mg 500 mg, IV Univers am (KEPPRA) 01-11 Piggyback, i ty of in NACL 13:00: 18:16 Q12H, [place] (ISO-OS) 00 :11 First dose Medic al 500 mg/100 on [facility] mL RTU 01/11/22 at 0800, Until Discontinu ed, Administer over 15 Minutes, 100 mL LORazepam No 1mg 1 mg, Slow U nivers (ATIVAN) 01-11 IV Push, ity of injection 1 11:00: 13:10 Q6H, First [place] mg 00 :40 dose on [facility] 01/11/22 at 0600, Until Discontinu ed, Routine
Is the medication being used for status epilepticu s? No LORazepam 2021- No 1mg 1 mg, Slow U nivers (ATIVAN) 01-11 IV Push, ity of injection 1 07:45: 06:25 ONCE, 1 [place] mg 00 :00 dose, On [facility] Branch 01/11/22 at 0245, Routine
Is the medication being used for status epilepticu s? Yes thiamine 2021- No IV Univers (VITAMIN 01-11 Infusion, ity o f B1) 100 mg, 07:30: 14:54 at 150 Rian as foLIC acid 00 :00 mL/hr, Medical (FOLATE) 1 ONCE, 1 Branch mg in D5W dose, On 0.45% NaCl e (1/2NS) IV 01/11/22 at Solution 0230, 1,000 mL LORazepam 2021- No 1mg 1 mg, Slow U nivers (ATIVAN) 01-11 IV Push, ity of injection 1 07:30: 07:06 ONCE, 1 [place] mg 00 :00 dose, On Medical [facility] Branch 01/11/22 at 0230, Routine
Is the medication being used for status epilepticu s? No NaCl 0.9% Yes 1000mL at 100 Univ ers (NS) IV 8 mL/hr, IV ity of infusion 06:30: Infusion, [place] 1,000 mL 00 CONTINUOUS Medic al , Starting Branch on Mon01/11/22 at 0130, Until Discontinu ed, Routine pantoprazol Yes 40mg 40 mg, Univ ers e 01-11 Slow IV ity of (PROTONIX) 06:30: Push, [place] injection 00 Q12H, Medical 40 mg First dose Branch on Mon01/11/22 at 0130, Until Discontinu ed LORazepam Yes 2mg 2 mg, Slow Un sheri (ATIVAN) 01-11 IV Push, ity of injection 2 06:27: Q4HPRN, [place] as mg 50 Starting Medical on [facility] Branch 01/11/22 at 0127, Until Discontinu ed, Routine, Seizures&l t;br>Is the medication being used for status epilepticu s? Yes melatonin 2021- No 6mg 6 mg, Univer s (MELATIN) 01-11 Oral, ity of tablet 6 mg 06:15: 05:23 ONCE, 1 [place] 00 :00 dose, On Medical [facility] Branch 01/11/22 at 0115, Routine proMETHazin Yes 25mg 25 mg, IV U nivers e 01-10 Piggyback, ity of (PHENERGAN) 14:46: Q6HPRN, [place]ian as 25 mg in 01 Starting Medical NaCl 0.9% on [facility] (NS) 50 mL 01/10/22 at IV 0946, piggyback Until Discontinu ed, Routine, N/V unresponsi ve to Ondansetro n guaiFENesin Yes 100mg 100 mg, Un sheri 100 mg/5 mL 01-10 Oral, ity of solution 14:44: Q6HPRN, [place] 100 mg 48 Starting Medical on [facility] 01/10/22 at 0944, Until Discontinu ed, Routine, Cough melatonin 2021- No 6mg 6 mg, Univer s (MELATIN) 01-10 Oral, QHS, ity of tablet 6 mg 04:45: 05:03 First dose [place] 00 :30 on [facility] 01/09/22 at Branch 2345, Until Discontinu ed, Routine magnesium No 2g 2 g, IV Univ ers sulfate in 01-09 Piggyback, it y of water 2 23:15: 23:20 Administer Rian as gram/50 mL 00 :00 over 60 Medica l (4 %) Minutes, [place] infusion 2 ONCE, 1 g dose, On [place] 01/09/22 at 1815, Routine enoxaparin Yes 40mg 40 mg, Unive rs (LOVENOX) 01-09 Subcutaneo ity of injection 22:00: us, DAILY, [place] 40 mg 00 First dose Medical on [facility] 01/09/22 at 1700, Until Discontinu ed, Routine benzocaine- Yes 1{lozen 1 Lozenge, [place] [facility] menthoL 01-09 ge} Oral, ity of (CEPACOL 21:48: Q4HPRN, [place] SORE THROAT 11 Starting Medi bill (CADENCE-MEN)) on [facility] lozenge 1 01/09/22 at Lozenge 1648, Until Discontinu ed, Routine, Sore throat foLIC acid Yes 1mg 1 mg, Univer s (FOLATE) 01-09 Oral, ity of tablet 1 mg 21:00: DAILY, [place] 00 First dose Medical on [facility] 01/09/22 at 1600, Until Discontinu ed, Routine thiamine Yes 100mg 100 mg, Unive rs (VITAMIN 01-09 Oral, ity of B1) tablet 21:00: DAILY, [place] 100 mg 00 First dose Medical on [facility] 01/09/22 at 1600, Until Discontinu ed, Routine NaCl 0.9% 2021- No 1000mL at 125 Uni vers (NS) IV 01-09 08-16 mL/hr, IV ity of infusion 21:00: 06:29 Infusion, [place]ian as 1,000 mL 00 :07 CONTINUOUS Medic al , Starting Branch on [place] 01/09/22 at 1600, Until Mon01/11/22 at 0129, Routine ondansetron Yes 4mg 4 mg, Slow Univers (ZOFRAN 01-09 IV Push, ity of (PF)) 20:53: Q6HPRN, [place] injection 4 51 Starting Medi bill mg on [facility] 01/09/22 at 1553, Until Discontinu ed, Routine, Nausea and Vomiting (N/V) morpHINE (4 2021- No 4mg 4 mg, Slow Univers mg/mL) 01-09 0815 IV Push, ity of injection 4 20:53: 20:52 Q4HPRN, [place] mg 48 :48 Starting Medical on [facility] 01/09/22 at 1553, Until 01/10/22 at 1552, Routine, Pain (scale 7-10) acetaminoph Yes 650mg 650 mg, Un sheri en 01-09 Oral, ity of (TYLENOL) 20:53: Q6HPRN, [place] tablet 650 39 Starting Medic al mg on [facility] 01/09/22 at 1553, Until Discontinu ed, Routine, Pain (scale 1-3), Temp > 38.5 C NaCl 0.9% 2021- No 1000mL at 999 Uni vers (NS) bolus 01-09 08-16 mL/hr, ity of infusion 20:00: 07:34 1,000 mL, Rian as 1,000 mL 00 :00 IV Medical Infusion, Branch ONCE, 1 dose, On [place] 8/14/22 at 1500, STAT NaCl 0.9% 2021- No 1000mL at 999 Uni vers (NS) bolus 01-09 mL/hr, ity of infusion 18:15: 19:24 1,000 mL, Rian as 1,000 mL 00 :00 IV Medical Infusion, Branch ONCE, 1 dose, On [place] 01/09/22 at 1315, STAT iopamidol 2021- No [id number] 60mL 60 mL, U nivers (ISOVUE 01-09 Intravenou ity o f 370-500 mL) 18:00: 18:00 s, ONCE, 1 [place] injection 00 :00 dose, On Medica l 60 mL [facility] 01/09/22 at 1300, Routine piperacilli No 3.375g 3.375 g, Univers n-tazobacta 01-09 IV ity of m (ZOSYN) 17:45: 18:22 [place], [place] 3.375 g in 00 :00 ONCE, 1 Medica l NaCl 0.9% dose, On Branch (NS) 50 mL [place] MINI-BAG 01/09/22 at 1245, Administer over 30 Minutes, 50 mL
R adalberto for Anti-Infec tive: Documented Infection< br>Documen nancy Infection Site: HEENT<br&g t;Duration of Therapy: Other (see Comments) ondansetron 2021- No 4mg 4 mg, Slow Univers (ZOFRAN 01-09 IV Push, ity of (PF)) 17:30: 16:59 ONCE, 1 [place] injection 4 00 :00 dose, On Medi bill mg [facility] 01/09/22 at 1230, CELESTE NaCl 0.9% 2021- No 1000mL at 999 Uni vers (NS) bolus 01-09 mL/hr, ity of infusion 17:30: 19:14 1,000 mL, [place]ian as 1,000 mL 00 :00 IV Medical Infusion, Branch ONCE, 1 dose, On [place] 01/09/22 at 1230, STAT Vital Signs Vital Name Observation Time Observation Value Comments Source Systolic blood 2022-09-22 00:00:00 106 mm[Hg] Univer sity of pressure [facility] Diastolic blood 2022-09-22 00:00:00 72 mm[Hg] Unive rsity of [facility] Heart rate 2022-09-22 00:00:00 90 /min Universi ty [facility] Respiratory rate 2022-09-22 00:00:00 21 /min [facility] Oxygen saturation in 2022-09-22 00:00:00 96 /min University of Arterial blood by [facility] Pulse oximetry Branch Body temperature 2022-09-21 22:20:00 37.44 [facility]ra [facility] Respiratory rate 2022-01-13 15:00:00 24 /min Univ [facility] Oxygen saturation in 2022-01-13 15:00:00 93 /min University of Arterial blood by [facility] Pulse oximetry Branch Systolic blood 2022-01-13 15:00:00 113 mm[Hg] Univer sity of [facility] Diastolic blood 2022-01-13 15:00:00 82 mm[Hg] Unive rsity of [facility] Heart rate 2022-01-13 15:00:00 56 /min [facility] Body temperature 2022-01-13 13:12:00 36.89 [facility]ra [facility] Body weight 2022-01-13 11:03:00 77.973 kg [facility] BMI 2022-01-13 11:03:00 26.92 kg/m2 [facility] Body height 2022-01-09 21:42:00 170.2 cm [facility] Procedures Procedure Date / Time Performing Clinician Source Performed LIPASE 2022-09-21 22:33:00 Kaylene Montaño [facility] MAGNESIUM 2022-09-21 22:33:00 Kaylene Monatño [facility] COMP. METABOLIC PANEL 2022-09-21 22:33:00 Kaylene Montaño [facility] ([id number]) [facility] CBC WITH DIFF 2022-09-21 22:33:00 Kaylene Montaño [facility] PROTHROMBIN TIME / INR 2022-09-21 22:33:00 [facility] ACTIV[facility] PARTIAL 2022-09-21 22:33:00 Kaylene Montaño [facility] URINALYSIS 2022-09-21 22:33:00 Kaylene Montaño [facility] CONSENT/REFUSAL FOR 2022-09-21 22:13:03 Doctor Unassigned, [facility] DIAGNOSIS AND TREATMENT [place] Medical Branch PHOSPHORUS 2022-01-12 09:29:00 Prabhu [facility] MAGNESIUM 2022-01-12 09:29:00 Prabhu [facility] COMP. METABOLIC PANEL 2022-01-12 09:29:00 Prabhu Francois [facility] ([id number]) [facility] CBC WITH DIFF 2022-01-12 09:29:00 Prabhu [facility] LACTIC ACID WHOLE BLOOD 2022-01-11 15:50:00 Yvon [facility] LACTIC ACID WHOLE BLOOD 2022-01-11 13:25:00 Yvon ana [facility] VITAMIN D, 25-OH 2022-01-11 13:24:[address] [facility] [address] HEAD WO CONTRAST 2022-01-11 07:22:56 Yvon ana [facility] XR CHEST 1 VW 2022-01-11 07:22:33 Yvon [facility] PHOSPHORUS 2022-01-11 06:58:00 Yvon ana [facility] MAGNESIUM 2022-01-11 06:58:00 Yvon ana [facility] FERRITIN SERUM 2022-01-11 06:58:00 Yvon [facility] PROLACTIN 2022-01-11 06:58:00 Yvon [facility] VITAMIN B12, LEVEL 2022-01-11 06:58:00 Yvon [facility] FOLATE 2022-01-11 06:58:00 Yvon [facility] C-REACTIVE PROTEIN 2022-01-11 06:58:00 Yvon [facility] HEPATIC FUNCTION PANEL 2022-01-11 06:58:00 [facility] ([id number] (ALB,T.PRO,BILI Medical Branch T,BU/BC,ALT,AST,ALK PHOS) BASIC METABOLIC PANEL 2022-01-11 06:58:00 [facility] (NA, K, CL, CO2, GLUCOSE, Medica l Branch BUN, CREATININE, CA) COMP. METABOLIC PANEL 2022-01-11 06:58:00 Yvon [facility] ([id number]) [facility] IRON PANEL 2022-01-11 06:58:00 Yvon [facility] ETHANOL 2022-01-11 06:58:00 Yvon [facility] SEDIMENTATION RATE 2022-01-11 06:58:00 Yvon [facility] PROTHROMBIN TIME / INR 2022-01-11 06:58:00 Yvon [facility] N-TERMINAL PRO-BNP 2022-01-11 06:58:00 Yvon [facility] PROCALCITONIN 2022-01-11 06:58:00 Yvon [facility] AC VBG + LACTIC ACID 2022-01-11 06:58:00 Yvon [facility] MAGNESIUM 2022-01-10 09:01:00 Prabhu [facility] COMP. METABOLIC PANEL 2022-01-10 09:01:00 Prabhu [facility] ([id number]) [facility] CBC WITH DIFF 2022-01-10 09:01:00 Prabhu [facility] LACTIC ACID WHOLE BLOOD 2022-01-10 09:01:00 Pancho Flores [facility] LACTIC ACID WHOLE BLOOD 2022-01-10 03:20:00 Prabhu [facility] LACTIC ACID WHOLE BLOOD 2022-01-10 01:05:00 Prabhu [facility] PHOSPHORUS 2022-01-09 22:32:00 Francois Pelletier [facility] LACTIC ACID WHOLE BLOOD 2022-01-09 22:32:00 Yahaira [facility] COVID-19 (ID NOW RAPID 2022-01-09 18:15:00 Shawn Rich [facility] TESTING) Medical Branch LAB ONLY COVID 2022-01-09 18:15:00 Shawn Rich [facility] INTERPRETATION [facility] BLOOD CULTURE SCREEN 2022-01-09 17:51:00 Shawn Rich [facility] LIPASE 2022-01-09 16:59:00 Shawn Rich [facility] MAGNESIUM 2022-01-09 16:59:00 Shawn Rich [facility] COMP. METABOLIC PANEL 2022-01-09 16:59:00 Shawn Rich [facility] ([id number]) Medical Branch ETHANOL 2022-01-09 16:59:00 Shawn Rich [facility] CT ABDOMEN PELVIS W 2022-01-09 16:49:00 Shawn Rich [facility] CONTRAST [facility] URINALYSIS 2022-01-09 16:27:00 Shawn Rich [facility] URINE DRUG (IMMUNOASSAY) 2022-01-09 16:27:00 Shawn Rich [facility] DRUG [facility] nc SCREEN W/O REFLEX AC PANEL 21 + LACTIC ACID 2022-01-09 16:24:00 [facility] CBC WITH DIFF 2022-01-09 16:23:00 Shawn Rich [facility] PROTHROMBIN TIME / INR 2022-01-09 16:23:00 Shawn Rich [facility] ACTIVATED PARTIAL 2022-01-09 16:23:00 Shawn Rich [facility] THRMPLAS [facility] THROAT CULTURE 2022-01-09 16:23:00 Shawn Rich [facility] RAPID STREP SCREEN FOR 2022-01-09 16:23:00 Shawn Rich [facility] GROUP A [facility] CONSENT/REFUSAL FOR 2022-01-09 15:51:23 Doctor UnassIsrrael blake [facility] DIAGNOSIS AND TREATMENT [place] [facility] Plan of Care Planned Activity Planned Date Details Comments Source Encounters Start End Encounter Admission Attending Care Care Encounter Source Date/Time Date/Time Type Type Clinicians Facility Department ID 2022-09-21 2022-09-21 Emergency X [facility] [id number] Univers 17:17:00 19:35:00 KAYLENE itradha [facility] 2022-09-21 2022-09-21 Emergency [facility] [id number] Univers 17:17:00 19:35:00 Kaylene SINGH [id number] ity of [place] [facility] [id number] [facility] 084 Branch 2022-09-21 2022-09-21 Orders Doctor RANDALL [id number] Univers 00:00:00 00:00:00 Only Unassigned, JOANIE [id number] ity of [place] [facility] 4.2.7.2.686 Rian as [id number] [facility] 009 Branch 2022-01-14 2022-01-14 Transition MARYJANE Campbell [id number] Univers 00:00:00 00:00:00 of Care Estrellita Hauser RAI [id number] i ty of [place] [id number] [facility] 403 Branch 2022-01-09 2022-01-13 Inpatient X YVON [facility] [id number] Univers 11:04:00 11:49:00 ADNAN itradha [facility] 2022-01-09 2022-01-13 Hospital Shawn Rich [facility] [id number] Univers 11:04:00 11:49:00 Encounter Francois Pelletier [id number] ity of Fawad Sanz 4.2.7.2.686 [facility] [id number] [facility] 080 Branch 2022-01-09 2022-01-09 Orders Doctor RANDALL [id number] Univers 00:00:00 00:00:00 Only Unassigned, JOANIE [id number] ity of [place] [facility] 4.2.7.2.686 Rian as [id number] [facility] 009 [place] 2019-12-21 2019-12-21 Telephone PRAKASH Shelley [id number] Univers 00:00:00 00:00:00 Julianne NAIR [id number] it y of HOSPITAL 4.2.7.2.686 Rian as [id number] [facility] 019 [place] 2019-12-19 2019-12-19 Laboratory Lab, Adc Fam Pob I [facility] [id number]. [id number] Univers 08:24:39 08:44:39 Only Julianne Shelley [id number] ity of [place] 4.2.7.2.686 Rian as Professio [id number] [address] Office Building [employer] 2019-12-19 2019-12-19 Outpatient R [facility] [id number] Univers 08:20:00 08:20:00 ity of [facility] 2019-12-19 2019-12-19 Letter Doctor PRAKASH [id number] Univers 00:00:00 00:00:00 (Out) UnassignedJOANIE [id number] ity of [place] [facility] 4.2.7.2.686 Rian as [id number] [address] Results Test Description Test Time Test Comments Results Result Comments Source ACTIVATED PARTIAL THRMPLAS VIVEK 2022-09-21 23:04:38 Test Item Value Reference Range Interpretation Comme nts APTT Patient (test code = 35 See_Comment [ Automated message] The 3173-2) system which ge nerated this result tra nsmitted reference range : 23 - 38 Seconds. The re ference range was not u sed to interpret this result as normal/abnormal . SHIN (test code = SHIN) The [facility] patient population mean normal value for aPTT is 30 seconds. Lab Interpretation (test Normal code = 41483-4) [facility] [id number] 23:02:33 Test Item Value Reference Range Interpretation Comments PROTIME PATIENT (test 15.5 See_Comment H [Auto mated message] code = 5964-2) The system MissingLINK generated this result transmitted ref erence range: 12.0 - 1 4.7 Seconds. The reference range was not used to int erpret this result as normal/abnormal . INR (test code = 6301-6) 1.3 Nor mal INR <1.1; Warfarin Therap eutic range 2.0 to 3. 0 or 2.5 to 3.5, dep ending upon the indica tions. Lab Interpretation (test Abnormal code = 06821-2) [facility] CenterProthrombin Time / [id number] 07:41:00 Test Item Value Reference Range Interpretation Comments PROTIME PATIENT (test See_Comment H [Auto mated message] code = 5964-2) The system MissingLINK generated this result transmitted ref erence range: 12.0 - 1 4.7 Seconds. The reference range was not used to int erpret this result as normal/abnormal . INR (test code = 6301-6) Nor mal INR <1.1; Warfarin Therap eutic range 2.0 to 3. 0 or 2.5 to 3.5, dep ending upon the indica tions. Lab Interpretation (test Abnormal code = 06731-2) [facility] 17:59:50 ALCOHOL<10mg/dL01/09/2022 12:59 PM [facility]<10 [id number] Toxic>100 Depression of LOBSTER CATCHER>400 Fatalities ReportedUnMem[facility] HospitalCOMP. METABOLIC PANEL (35935) 2022-01-09 17:59:30 Test Item Value Reference Range Interpretation Comments NA (test code = 142 mmol/L 135-145 6971304627) K (test code = 3.4 mmol/L 3.5-5 L 3548069138) CL (test code = 97 mmol/L 98-108 L 4519337969) CO2 TOTAL (test code = 22 mmol/L 23-31 L 3497436105) AGAP (test code = 2-16 H 6665032325) BUN (test code = 7-23 L 9582422414) GLUCOSE (test code = 159 mg/dL 70-110 H 1295539089) CREATININE (test code = 0.80 mg/dL 0.6-1.25 1915332859) TOTAL BILI (test code = 2.6 mg/dL 0.1-1.1 H 5083483303) CALCIUM (test code = 9.4 mg/dL 8.6-10.6 5236734683) T PROTEIN (test code = 8.0 g/dL 6.3-8.2 6965371371) ALBUMIN (test code = 4.3 g/dL 3.5-5 5945000212) ALK PHOS (test code = 195 U/L 34-122 H 1317539924) ALTv (test code = 52 U/L 5-50 H 1742-6) AST(SGOT) (test code = 130 U/L 13-40 H 6679536071) eGFR (test code = mL/min/1.73m2 0743054025) SHIN (test code = SHIN) Association of Glomerular Filtration Rate (GFR) and Staging of Kidney Disease* + --+ --+ ------+| GFR (mL/min/1.73 m2) ?| With Kidney Damage ?| ?Without Kidney Damage+ --------+ --------+ +| ?>90 ?| ?Stage one ?| ? Normal ?+ ---+ ---+ -------+| ?60-89 ?| ?Stage two ?| ? Decreased GFR ? + --+ --+ ------+| ?30-59 ?| ?Stage three ?| ? Stage three ? + --+ --+ ------+| ?15-29 ?| ?Stage four ? | ? Stage four ?+ ---+ ---+ -------+| ?<15 (or dialysis) ? ?| ?Stage five ? | ? Stage five ?+ ---+ ---+ -------+ *Each stage assumes the associated GFR level has been in effect for at least three months. ?Stages 1 to 5, with or without kidney disease, indicate chronic kidney disease. Notes: Determination of stages one and two (with eGFR >59mL/min/1.73 m2) requires estimation of kidney damage for at least three months as defined by structural or functional abnormalities of the kidney, manifested by either:Pathological abnormalities or Markers of kidney damage (including abnormalities in the composition of the blood or urine or abnormalities in imaging tests). Lab Interpretation Abnormal (test code = 88749-5) [facility] 17:42:36 Test Item Value Reference Range Interpretation Comments MAGNESIUM (test code = 1072142410) 1.5 mg/dL 1.7-2.4 L Lab Interpretation (test code = Abnormal 32072-8) [facility] 17:42:16 Test Item Value Reference Range Interpretation Comments LIPASE (test code = 0211017383) 117 U/L 0-220 Lab Interpretation (test code = Normal 74124-9) [facility] CenterCB WITH [id number] 17:38:24 Test Item Value Reference Range Interpretation Comments WBC (test code = See_Comment H [Automated 6690-2) message] The system which generated this result transmit nancy reference range : 4.20 - 10.70 10*3/?L. The reference range was not used to interpret this result as normal/abnormal . RBC (test code = See_Comment [Automated 789-8) message] The system which generated this result transmit nancy reference range : 4.26 - 5.52 10*6/?L. The reference range was not used to interpret this result as normal/abnormal . HGB (test code = 16.3 g/dL 12.2-16.4 718-7) HCT (test code = 48.2 % 38.4-49.3 4544-3) MCV (test code = 103.2 fL 81.7-95.6 H 787-2) MCH (test code = 34.9 pg 26.1-32.7 H 785-6) MCHC (test code = 33.8 g/dL 31.2-35 786-4) RDW-SD (test code = 54.8 fL 38.5-51.6 H 40506-4) RDW-CV (test code = 14.6 % 12.1-15.4 788-0) PLT (test code = See_Comment H [Automated 777-3) message] The system which generated this result transmit nancy reference range : 150 - 328 10*3/ ?L. The reference range was not u sed to interpret th is result as normal/abnormal . MPV (test code = 8.4 fL 9.8-13 L 80018-3) NRBC/100 WBC (test See_Comment [Automat ed code = 4759145154) message] The system which generated this result transmit nancy reference range : 0.0 - 10.0 /100 WBCs. The reference range was not used to interpret this result as normal/abnormal . NRBC x10^3 (test code See_Comment [Auto mated = 2627451888) message] The system which generated this result transmit nancy reference range : 10*3/?L. The reference range was not used to interpret this result as normal/abnormal . GRAN MAT (NEUT) % 91.7 % (test code = 770-8) IMM GRAN % (test code 0.40 % = 5564024166) LYMPH % (test code = 3.1 % 736-9) MONO % (test code = 4.4 % 5905-5) EOS % (test code = 0.0 % 713-8) BASO % (test code = 0.4 % 706-2) GRAN MAT x10^3(ANC) 23.92 10*3/uL 1.99-6.95 H (test code = 4193790729) IMM GRAN x10^3 (test 0.10 10*3/uL 0-0.06 H code = 2341341671) LYMPH x10^3 (test code 0.80 10*3/uL 1.09-3.23 L = 731-0) MONO x10^3 (test code 1.16 10*3/uL 0.36-1.02 H = 742-7) EOS x10^3 (test code = 0.06-0.53 L 711-2) BASO x10^3 (test code 0.10 10*3/uL 0.01-0.09 H = 704-7) BANDS (test code = Increased A 6208365153) GIANT PLATELETS (test Present See_Comment A [Auto mated code = 5908-9) message] The system which generated this result transmit nancy reference range : (none). The reference range was not used to interpret this result as normal/abnormal . Lab Interpretation Abnormal (test code = 95801-1) [facility] CenterACTIV[facility] PARTIAL THRMPLAS [id number] 16:54:32 Test Item Value Reference Range Interpretation Comments APTT Patient (test See_Comment [Automat ed code = 3173-2) message] The system which generated this result transmitted reference range : 23 - 38 Seconds . The reference range was not used to interpr et this result as normal/abnormal . SHIN (test code = SHIN) The [facility] patient population mean normal value for aPTT is 30 seconds. Lab Interpretation Normal (test code = 12951-2) [facility] CenterPROTHROMBIN TIME / [id number] 16:52:31 Test Item Value Reference Range Interpretation Comments PROTIME PATIENT (test See_Comment [Auto mated message] code = 5964-2) The system wh ich generated this result transmitted ref erence range: 12.0 - 1 4.7 Seconds. The re ference range was not u sed to interpret this result as normal/abnor mal. INR (test code = 6301-6) Nor mal INR <1.1; Warfarin Therap eutic range 2.0 to 3. 0 or 2.5 to 3.5, dep ending upon the indica tions. Lab Interpretation (test Normal code = 63078-5) [facility] CenterPO[facility] [id number] 12:43:00 Test Item Value Reference Range Interpretation Comments POC-GLUCOSE METER 88 mg/dL 70-110 TESTED AT [facility] ([facility]) (test code = [facility] [address] 1538) BASIC METABOLIC [id number] 09:10:00 Test Item Value Reference Range Interpretation [...] NOT APPLICABLE FOR DIALYSIS PATIEN TS. POCT-GLUCOSE [id number] 05:26:00 Test Item Value Reference Range Interpretation Comments POC-GLUCOSE METER 87 mg/dL 70-110 TESTED AT [facility] [address] (BEAKER) (test code = [place] [address] 1538) [id number] 04:43:00 Test Item Value Reference Range Interpretation Comments PHOSPHORUS (BEAKER) (test code = 3.5 mg/dL 2.3-4.7 604) [id number] 04:43:00 Test Item Value Reference Range Interpretation Comments MAGNESIUM (BEAKER) (test code = 2.1 mg/dL 1.6-2.6 627) CBC W/PLT COUNT & AUTO [id number] 04:13:00 Test Item Value Reference Range Interpretation [...] 0-1 PERCENT (BEAKER) (test code = 2801) POCT-GLUCOSE [id number] 01:04:00 Test Item Value Reference Range Interpretation Comments POC-GLUCOSE METER 94 mg/dL 70-110 TESTED AT [place] [address] ([facility]) (test code = [facility] [address] 1538) POCT-GLUCOSE [id number] 17:19:00 Test Item Value Reference Range Interpretation Comments POC-GLUCOSE METER 89 mg/dL 70-110 TESTED AT [place] [address] ([facility]) (test code = [facility] [address] 1538) [id number] 12:13:00 Test Item Value Reference Range Interpretation Comments PHOSPHORUS (BEAKER) (test code = 2.6 mg/dL 2.3-4.7 604) POCT-GLUCOSE [id number] 11:47:00 Test Item Value Reference Range Interpretation Comments POC-GLUCOSE METER 107 mg/dL 70-110 TESTED AT [place] [address] ([facility]) (test code = [facility] 1538) [address] CBC W/PLT COUNT & AUTO [id number] 06:53:00 Test Item Value Reference Range Interpretation [...] 0-1 PERCENT (BEAKER) (test code = 2801) [id number] 06:49:00 Test Item Value Reference Range Interpretation Comments PHOSPHORUS (BEAKER) (test code = 3.5 mg/dL 2.3-4.7 604) [id number] 06:49:00 Test Item Value Reference Range Interpretation Comments MAGNESIUM (BEAKER) (test code = 2.3 mg/dL 1.6-2.6 627) COMPREHENSIVE METABOLIC [id number] 06:49:00 Test Item Value Reference Range Interpretation [...] NOT APPLICABLE FOR DIALYSIS PATIEN TS. POCT-GLUCOSE [id number] 00:36:00 Test Item Value Reference Range Interpretation Comments POC-GLUCOSE METER 123 mg/dL 70-110 H TESTED AT [facility] (BEAKER) (test code = [place] 8218) [address] CBC W/PLT COUNT & AUTO [id number] 00:14:00 Test Item Value Reference Range Interpretation [...] 0-1 PERCENT (BEAKER) (test code = 2801) [id number] 00:11:00 Test Item Value Reference Range Interpretation Comments PHOSPHORUS (BEAKER) (test code = 1.8 mg/dL 2.3-4.7 L 604) [id number] 00:11:00 Test Item Value Reference Range Interpretation Comments MAGNESIUM (BEAKER) (test code = 2.5 mg/dL 1.6-2.6 627) COMPREHENSIVE METABOLIC [id number] 00:11:00 Test Item Value Reference Range Interpretation [...] U/L 29-200 H code = 380) PROTHROMBIN TIME/[id number] 23:57:00 Test Item Value Reference Range Interpretation Comments PROTIME (BEAKER) (test code = 14.5 seconds 11.7-14.7 759) INR (BEAKER) (test code = 370) 1.1 <=5.9 RECOMMENDED COUMADIN/WARFARIN INR THERAPY RANGESSTANDARD DOSE: 2.0 - 3.0 Includes: PROPHYLAXIS for venous thrombosis, systemic embolization; TREATMENT for venous thrombosis and/or pulmonary embolus.HIGH RISK: Target INR is 2.5-3.5 for patients with mechanical heart valves."
[2022-09-21 23:41] LABS: Protime INR 1.31
[2022-09-21 23:42] LABS: Absolute Lymphocytes (CBC) 1.8 K/uL (0.7-4.9); Hematocrit 39.5 % (39.6-49.0); Lymphocytes % 11.1 % (15.3-44.8); MCV 109.7 fL (80-100); MPV 7.2 fL (7.6-11.3)
[2022-09-21 23:44] LABS: Renal Epithelial <5 /HPF (None Seen); Specific Gravity 1.015 (1.005-1.030); Urine Bacteria <20 /HPF (<20); Urine Bilirubin NEGATIVE (Negative); Urine Blood Negative (Negative); Urine Clarity Clear (Clear); Urine Color Light-Yellow (Yellow); Urine Glucose NEGATIVE (Negative); Urine Protein NEGATIVE (Negative); Urine RBC None Seen /HPF (None Seen); Urine Urobilinogen Normal (Normal); Urine pH 6.5 (5.0-7.0)
[2022-09-21 23:57] LABS: ALT/SGPT 27 U/L (16-61); AST/SGOT 106 U/L (15-37); Albumin 3.4 g/dL (3.4-5.0); Alkaline Phosphatase 227 U/L (45-117); BUN Blood Urea Nitrogen 6 mg/dL (7-18); Barbiturates NEGATIVE (NEGATIVE); Benzodiazepines POSITIVE (NEGATIVE); Bicarbonate 30 mEq/L (21-32); Bilirubin Direct 1.8 mg/dL (0-0.2); Cocaine NEGATIVE (NEGATIVE); Creatine Phosphokinase 23 U/L (39-308); Glomerular Filtration Rate 114 ml/min (=/>90); Glucose Level 97 mg/dL (74-106); METHAMPHETAM NEGATIVE (NEGATIVE); Methadone NEGATIVE (NEGATIVE); Opiates NEGATIVE (NEGATIVE); Phencyclidine NEGATIVE (NEGATIVE); Potassium 3.8 mEq/L (3.5-5.1); Protein, Total 8.6 g/dL (6.4-8.2); Sodium Level 132 mEq/L (136-145); THC Cannibis POSITIVE (NEGATIVE)
[2022-09-22] MEDS ORDERED: THIAMINE 200 MG/2 ML INJ ONE (00:11)
[2022-09-22] MEDS ORDERED: LORazepam 2 MG/ML VIAL ONE (00:12)
[2022-09-22] MEDS ORDERED: NA CHLORIDE 0.9% 1,000 ML ONE (00:12)
[2022-09-22] MEDS ORDERED: MULTIVITAMINS 10 ML VIAL (INJ) IV ONE (00:12)
[2022-09-22 00:37] LABS: Blood Morphology Comment NOTED (NOT SEEN); Macrocytosis 1+; Platelet Estimate ADEQ; White Blood Cell Scan OK (OK)
[2022-09-22] MEDS ORDERED: CEFTRIAXONE 1000 MG/VIAL ONE (01:38)
[2022-09-22] MEDS ORDERED: PANTOPRAZOLE 40 MG INJ ONE (01:39)
--- NOTE | 2022-09-22 03:17 | EDPHYS ---
Physician Documentation [facility] Name: Roger Peralta Age: 27 yrs Sex: Male : 1995 Arrival Date: 09/21/2022 Time: 19:58 Bed 4 Private MD: Davey Smith HPI: 09/21 23:00 This 27 yrs old Male presents to ER via Ambulatory with complaints of Urinary cp Problem, DEHYDRATION. 23:00 The patient's problem is reported as weakness, that is generalized. cp 23:00 Onset: The symptoms/episode began/occurred today. Duration: The episode is continuous. cp Associated signs and symptoms: Pertinent positives: lightheadedness, nausea, vomiting. 23:00 Patient's baseline: Neuro: alert and fully oriented, Motor: no deficits, Ambulation: cp walks without assistance, Speech: normal. Patient reports history of daily drinking of alcohol, beer, but quit drinking cold turkey 2 days ago. Now having general weakness, N/V. Concerned about having a seizure and reports seizures in the past when he quit drinking. Historical: - Allergies: 20:30 No Known Allergies; kl - Home Meds: 20:30 None [Active]; kl - PMHx: 20:30 None; kl - PSHx: 20:30 None; kl - Immunization history:: Adult Immunizations not up to date. - Social history:: Smoking status: Patient denies any tobacco usage or history of. ROS: 23:05 Constitutional: Positive for poor PO intake, Negative for body aches, chills, fever. cp 23:05 Cardiovascular: Negative for chest pain, palpitations. cp 23:05 Respiratory: Negative for cough, shortness of breath, wheezing. 23:05 Abdomen/GI: Positive for nausea and vomiting, anorexia, Negative for abdominal pain, hematemesis, black/tarry stool, rectal bleeding. 23:05 ENT: Negative for drainage from ear(s), ear pain, sore throat, difficulty swallowing, cp difficulty handling secretions. 23:05 Back: Negative for pain at rest, pain with movement. 23:05 Neuro: Positive for weakness, Negative for altered mental status, seizure activity. 23:05 All other systems are negative. Exam: 22:30 ECG was reviewed by the Attending Physician. cp 23:10 Constitutional: The patient appears in no acute distress, alert, awake, cp non-diaphoretic, non-toxic, well developed, well nourished, uncomfortable. 23:10 Head/Face: Normocephalic, atraumatic. cp 23:10 Eyes: Periorbital structures: appear normal, Pupils: equal, round, and reactive to light and accomodation, Extraocular movements: intact throughout, Conjunctiva: normal, no exudate, no injection, Sclera: icterus, is present, Lids and lashes: appear normal, bilaterally. 23:10 ENT: External ear(s): are unremarkable, Nose: is normal, Mouth: Lips: moist, Oral mucosa: pink and intact, moist, Posterior pharynx: is normal, airway is patent, no erythema, no exudate. 23:10 Neck: ROM/movement: is normal, is supple, without pain, no range of motions limitations, nuchal rigidity, is not appreciated. 23:10 Chest/axilla: Inspection: normal. 23:10 Cardiovascular: Rate: normal, Rhythm: regular, Edema: is not appreciated, JVD: is not appreciated. 23:10 Respiratory: the patient does not display signs of respiratory distress, Respirations: normal, no use of accessory muscles, no retractions, labored breathing, is not present, Breath sounds: are clear throughout, no decreased breath sounds, no stridor, no wheezing. 23:10 Abdomen/GI: Inspection: abdomen appears normal, Bowel sounds: active, all quadrants, Palpation: soft, in all quadrants, mild abdominal tenderness, in all quadrants. 23:10 Back: pain, is absent, ROM is normal. 23:10 Skin: Appearance: Color: jaundiced. 23:10 Neuro: Orientation: to person, place \T\ time. Mentation: is normal, Motor: moves all fours, strength is normal, Gait: is steady. 09/22 03:00 Radiologist reports: no acute intracranial findings cp Vital Signs: 09/21 20:23 BP 123 / 81; Pulse 84; Resp 18; Temp 99.9(TE); Pulse Ox 97% on R/A; Weight 61.23 kg kl (R); Height 5 ft. 5 in. ; Pain 0/10; 09/22 00:19 BP 105 / 74; Pulse 83; Resp 17; Temp 97.9(O); Pulse Ox 99% on R/A; aa9 01:00 BP 104 / 70; Pulse 82; Resp 17; Pulse Ox 98% on R/A; aa9 02:15 BP 108 / 76; Pulse 84; Resp 17 S; Pulse Ox 97% on R/A; aa9 03:00 BP 102 / 73; Pulse 86; Resp 17 S; Pulse Ox 98% ; aa9 07:00 BP 106 / 68; Pulse 87; Resp 18; Temp 99; Pulse Ox 99% on R/A; ph 09/21 20:23 Body Mass Index 22.46 (61.23 kg, 165.1 cm) kl 09/21 20:23 Pain Scale: Adult kl MDM: 09/21 20:31 Patient medically screened. cp 23:00 Differential diagnosis: metabolic disorder, sepsis, dehydration. cp 09/22 02:21 ED course: consult with DR Dominguez, left message on voicemail. cp 03:14 ED course: consult with DR Dominguez, GI, recommends transfer for hepatology. cp 03:15 Data reviewed: vital signs, nurses notes, lab test result(s), EKG, radiologic studies, cp CT scan, plain films. 03:15 Management of patient was discussed with the following: Civil Engineer: DR Dominguez who cp recommends transfer for hepatology consult. I considered the following discharge prescriptions or medication management in the emergency department Medications were administered in the Emergency Department. See MAR. Counseling: I had a detailed discussion with the patient and/or guardian regarding: the historical points, exam findings, and any diagnostic results supporting the discharge/admit diagnosis, lab results, radiology results, the need to transfer to another facility, [facility] does not immediately have the required specialist. 03:55 Transition of care: After a detail discussion of the patient's case, care is cp transferred to Davey Anderson MD. 09/21 22:54 Order name: Acetaminophen; Complete Time: 00:37 cp 09/22 00:37 Interpretation: Reviewed. cp 09/21 22:54 Order name: Basic Metabolic Panel; Complete Time: 00:37 cp 09/22 00:37 Interpretation: Normal except: NA 132; BUN 6. cp 09/21 22:54 Order name: CBC with Diff; Complete Time: 00:53 cp 09/21 22:54 Order name: ETOH Level; Complete Time: 00:37 cp 09/21 22:54 Order name: Hepatic Function; Complete Time: 00:37 cp 09/22 00:37 Interpretation: Normal except: AST 106; ALK 227; BILIT 5.0; BILID 1.8; TP 8.6; GLOB cp 5.2; A/G 0.7. 09/21 22:54 Order name: PT-INR; Complete Time: 00:37 cp 09/21 22:54 Order name: Ptt, Activated; Complete Time: 00:37 cp 09/21 22:54 Order name: Salicylate; Complete Time: 00:37 cp 09/21 22:54 Order name: Urine Drug Screen; Complete Time: 00:37 cp 09/22 00:37 Interpretation: Normal except: BZO POSITIVE; THC POSITIVE. cp 09/21 22:54 Order name: CK; Complete Time: 00:37 cp 09/21 22:54 Order name: Urinalysis W/Microscopic; Complete Time: 00:37 cp 09/21 23:49 Order name: CBC Smear Scan; Complete Time: 00:53 EDMS 09/22 00:53 Order name: Lactate w/ 2H reflex if indic.; Complete Time: 02:58 cp 09/22 00:53 Order name: Blood Culture Adult (2) cp 09/22 01:45 Order name: AMMONIA; Complete Time: 02:58 cp 09/22 03:52 Order name: COVID-19 SARS RT PCR; Complete Time: 06:21 rv1 09/22 00:39 Order name: CT Abd/Pelvis - IV Contrast Only: nausea/vomiting cp 09/22 00:39 Order name: XRAY Chest (1 view) 09/22 00:41 Order name: CT Head Brain wo Cont cp 09/21 22:54 Order name: EKG; Complete Time: 22:55 cp 09/21 22:54 Order name: EKG - Nurse/Tech; Complete Time: 23:32 cp 09/21 22:54 Order name: IV Saline Lock; Complete Time: 23:21 cp 09/21 22:54 Order name: Labs collected and sent; Complete Time: 23:21 cp 09/21 22:54 Order name: Suicide Screening ([place]); Complete Time: 00:17 cp EC/26 22:30 Rate is 82 beats/min. Rhythm is regular. HI interval is normal. QRS interval is normal. cp QT interval is normal. T waves are Inverted in lead aVR. Interpreted by me. Reviewed by me. Administered Medications: 09/22 00:17 Drug: Ativan IVP 1 mg Route: IVP; Site: left antecubital; aa9 03:26 Follow up: Response: No adverse reaction aa9 00:17 Drug: Banana Bag - (NS 0.9% IV 1000 ml, foLIC Acid IVPB 1 mg, Thiamine IV 100 mg, aa9 Multivitamin IV 1 amp) Route: IV; Rate: 500 ml/hr; Site: left antecubital; 03:26 Follow up: Response: No adverse reaction; IV Status: Completed infusion; IV Intake: aa9 1000ml 02:11 Drug: Pantoprazole IVP 40 mg Route: IVP; Site: right antecubital; aa9 03:26 Follow up: Response: No adverse reaction aa9 02:11 Drug: Rocephin IV 1 grams Route: IV; Rate: calculated rate; Site: right antecubital; aa9 03:26 Follow up: Response: No adverse reaction; IV Status: Infusion continued; IV Intake: [id number] Disposition Summary: 09/22/22 03:17 Transfer Ordered Transfer Location: [facility] cp Reason: Higher level of care cp Condition: Stable cp Problem: new cp Symptoms: have improved cp Accepting Physician: Doctor(09/22/22 08:25) ss Diagnosis - Alcoholic cirrhosis of liver cp Forms: - Medication Reconciliation Form cp - SBAR form cp Signatures: Dispatcher [employer] Flora Knight RN RN kl Anderson, Corey, MD MD cha Smirch, Shelby RN RN Samir Garcia FNP-C [employer]CRETE [employer] OPERATOR-Cla1 Davey Luke PA PA cp Avalos, Aylin, RN RN aa9 Corrections: (The following items were deleted from the chart) 08:25 03:17 Doctor cp ss 09/23 04:44 09/22 02:30 Radiologist reports: no acute intracranial findings cp cp
--- NOTE | 2022-09-22 03:17 | ER ---
Nurse's Notes [facility] Name: Roger Peralta Age: 27 yrs Sex: Male : 1995 Arrival Date: 09/21/2022 Time: 19:58 Bed 4 Private MD: Diagnosis: Alcoholic cirrhosis of liver Presentation: 09/21 20:23 Chief complaint: Patient states: weakness and feels dehydrated nausea seen at [facility] and given medications for possible seizure no alcohol ingestion x 2 days. Coronavirus screen: Vaccine status: Patient reports being unvaccinated. Ebola Screen: Patient negative for fever greater than or equal to 101.5 degrees Fahrenheit, and additional compatible Ebola Virus Disease symptoms. Initial Sepsis Screen: Does the patient meet any 2 criteria? No. Patient's initial sepsis screen is negative. Does the patient have a suspected source of infection? No. Patient's initial sepsis screen is negative. Risk Assessment: Do you want to hurt yourself or someone else? Patient reports no desire to harm self or others. 20:23 Method Of Arrival: Ambulatory 20:23 Acuity: LAVON 2 Triage Assessment: 20:30 General: Appears in no apparent distress. comfortable, Behavior is calm, cooperative. Pain: Denies pain. Historical: - Allergies: 20:30 No Known Allergies; - Home Meds: 20:30 None [Active]; kl - PMHx: 20:30 None; kl - PSHx: 20:30 None; - Immunization history:: Adult Immunizations not up to date. - Social history:: Smoking status: Patient denies any tobacco usage or history of. Screenin/27 00:18 Clinical [facility] Withdrawal Assessment for Alcohol, revised (CIWA-Ar): aa9 Nausea/Vomitin - No nausea or vomiting Headache: 0 - Not present Paroxysmal Sweats: 0 - No sweats visible Anxiety: 4 - Moderately anxious, guarded Agitation: 0 - Normal actiivty Tremor: 0 - No tremor Auditory Disturbances: 0 - Not present Visual Disturbances: 0 - Not present Tactile Disturbances: 0 - None Orientation and Clouding of Sensorium: 0 - Oriented and can do serial additions Total Score: < 10 Very mild withdrawal. [facility] ED Fall Risk Assessment (Adult) History of falling in the last 3 months, including since admission No falls in past 3 months (0 pts) Confusion or Disorientation No (0 pts) Intoxicated or Sedated No (0 pts) Impaired Gait No (0 pts) Mobility Assist Device Used No (0 pt) Altered Elimination No (0 pt) Score/Fall Risk Level 0 - 2 = Low Risk Oriented to surroundings. Abuse screen: Denies threats or abuse. Denies injuries from another. Nutritional screening: No deficits noted. Tuberculosis screening: No symptoms or risk factors identified. Assessment: 00:18 General: Appears uncomfortable, unkempt, Behavior is cooperative, anxious. General: I aa9 am trying to quit drinking, I haven't drank anything all day, I am worried I'll get a seizure and I feel really dehydrated. I usually drink about 10 beers a day. . Neuro: Level of Consciousness is awake, alert, obeys commands, Oriented to person, place, time, situation. Cardiovascular: Patient's skin is warm and dry. Rhythm is regular. Respiratory: Airway is patent Respiratory effort is even, unlabored. GI: No signs and/or symptoms were reported involving the gastrointestinal system. 01:20 Reassessment: Patient appears in no apparent distress at this time. Patient and/or aa9 family updated on plan of care and expected duration. Pain level reassessed. Patient is alert, oriented x 3, equal unlabored respirations, skin warm/dry/pink. 02:12 Reassessment: Patient appears in no apparent distress at this time. Patient and/or aa9 family updated on plan of care and expected duration. Pain level reassessed. Patient is alert, oriented x 3, equal unlabored respirations, skin warm/dry/pink. Patient denies pain at this time. 03:26 Reassessment: Patient appears in no apparent distress at this time. Patient and/or aa9 family updated on plan of care and expected duration. Pain level reassessed. Patient is alert, oriented x 3, equal unlabored respirations, skin warm/dry/pink. Patient denies pain at this time. 07:11 Reassessment: attempted to call report. 07:16 Reassessment: attempted to call report. aa9 08:00 Reassessment: Report called to Mike TAMAYO at [facility], [facility] at bedside for ph transport. Vital Signs: 09/21 20:23 BP 123 / 81; Pulse 84; Resp 18; Temp 99.9(TE); Pulse Ox 97% on R/A; Weight 61.23 kg kl (R); Height 5 ft. 5 in. ; Pain 0/10; 09/22 00:19 BP 105 / 74; Pulse 83; Resp 17; Temp 97.9(O); Pulse Ox 99% on R/A; aa9 01:00 BP 104 / 70; Pulse 82; Resp 17; Pulse Ox 98% on R/A; aa9 02:15 BP 108 / 76; Pulse 84; Resp 17 S; Pulse Ox 97% on R/A; aa9 03:00 BP 102 / 73; Pulse 86; Resp 17 S; Pulse Ox 98% ; aa9 07:00 BP 106 / 68; Pulse 87; Resp 18; Temp 99; Pulse Ox 99% on R/A; ph 09/21 20:23 Body Mass Index 22.46 (61.23 kg, 165.1 cm) 09/21 20:23 Pain Scale: Adult ED Course: 09/21 20:04 Patient arrived in ED. ja2 20:15 Davey Luke PA is PHCP. cp 20:15 Davey Anderson MD is Attending Physician. cp 20:30 Triage completed. kl 23:21 Urinalysis W/Microscopic Sent. bc6 23:21 CK Sent. bc6 23:21 Acetaminophen Sent. bc6 23:21 Basic Metabolic Panel Sent. bc6 23:21 CBC with Diff Sent. bc6 23:21 ETOH Level Sent. bc6 23:21 Hepatic Function Sent. bc6 23:21 PT-INR Sent. bc6 23:21 Ptt, Activated Sent. bc6 23:21 Salicylate Sent. bc6 23:21 Urine Drug Screen Sent. bc6 23:21 Inserted saline lock: 20 gauge in left antecubital area, using aseptic technique. bc6 09/22 00:59 XRAY Chest (1 view) In Process Unspecified. EDMS 01:32 Yoselin Bar, RN is Primary Nurse. aa9 01:47 CT Head Brain wo Cont In Process Unspecified. EDMS 01:52 CT Abd/Pelvis - IV Contrast Only: nausea/vomiting In Process Unspecified. EDMS 02:11 Blood Culture Adult (2) Sent. aa9 02:11 Lactate w/ 2H reflex if indic. Sent. aa9 02:11 AMMONIA Sent. aa9 02:11 Inserted saline lock: 22 gauge in right antecubital area, using aseptic technique. aa9 02:12 Patient has correct armband on for positive identification. Bed in low position. Call aa9 light in reach. Side rails up X2. Adult w/ patient. Client placed on continuous cardiac and pulse oximetry monitoring. NIBP monitoring applied. 05:12 COVID-19 SARS RT PCR Sent. rv1 Administered Medications: 00:17 Drug: Ativan IVP 1 mg Route: IVP; Site: left antecubital; aa9 03:26 Follow up: Response: No adverse reaction aa9 00:17 Drug: Banana Bag - (NS 0.9% IV 1000 ml, foLIC Acid IVPB 1 mg, Thiamine IV 100 mg, aa9 Multivitamin IV 1 amp) Route: IV; Rate: 500 ml/hr; Site: left antecubital; 03:26 Follow up: Response: No adverse reaction; IV Status: Completed infusion; IV Intake: aa9 1000ml 02:11 Drug: Pantoprazole IVP 40 mg Route: IVP; Site: right antecubital; aa9 03:26 Follow up: Response: No adverse reaction aa9 02:11 Drug: Rocephin IV 1 grams Route: IV; Rate: calculated rate; Site: right antecubital; aa9 03:26 Follow up: Response: No adverse reaction; IV Status: Infusion continued; IV Intake: [id number] Intake: 03:26 IV: 1000ml; Total: 1000ml. aa9 03:26 IV: 10ml; Total: 1010ml. aa9 Outcome: 03:17 ER care complete, transfer ordered by . cp 08:25 Patient left the ED. Signatures: Dispatcher [employer] Flora Knight RN RN kl Smirch, Shelby, RN RN ss Kristin Shen RN RN ph Page, Corey, PA PA Bronwyn Perez Aylin, RN RN aa9 Dory Waite rv1 Maura Oliva 6
[2022-09-22 08:55] VITALS: TEMP 97.9
[2022-09-22 08:58] VITALS: BP 102/73; O2SAT 98
--- NOTE | 2022-09-22 16:30 | RAD REPORT ---
EXAM DESCRIPTION: CT scan of the abdomen and pelvis CLINICAL HISTORY: Abdominal pain. TECHNIQUE: CT scan of the abdomen and pelvis was performed with intravenous contrast. 5 mm axial kristina ges were obtained along with coronal and sagittal reformatted images. COMPARISON: 04/22/2021. DOSE OPTIMIZATION: This facility uses dose optimization techniques as appropriate to perform exams, i ncluding at least one of the following techniques: 1. Automated exposure control. 2. Adjustment of the mA and/or kV according to patient size (this includes techniques or standardized protocols for targeted exams where dose is matched to the indication/reason for exam, i.e. extremiti es or head). 3. Use of iterative reconstructive technique. FINDINGS: Lung Bases: No active disease. Liver: There is severe hepatomegaly with diffuse fatty liver infiltration. Spleen: There is mild splenomegaly. Pancreas: Normal. Gallbladder: Normal. Adrenal Glands: Normal. Kidneys: Normal. Retroperitoneal Structures: Normal. Bowel Survey: The stomach is nondistended. There are multiple mildly distended small bowel loops with air-fluid levels. The appendix is unremarkable. Prostate Gland: Normal size. Urinary Bladder: Normal. Peritoneal Cavity: Normal. Mesenteric Structures: Normal. Abdominal Wall: There is a small left inguinal hernia containing fat. Bony Structures: No suspicious lesions. IMPRESSION: 1. Findings suggestive of enteritis. 2. Severe hepatomegaly with diffuse fatty liver infiltration. 3. Mild splenomegaly. Electronically signed by: Ronen Garrett MD 09/22/2022 2:06 AM CDT Due to temporary technical issues with the PACS/Fluency reporting system, reports are being signed by the in house radiologists without review as a courtesy to insure prompt reporting. The interpreting radiologist is fully responsible for the content of the report.
--- NOTE | 2022-09-22 16:32 | RAD REPORT ---
EXAM DESCRIPTION: AP portable chest x-ray CLINICAL HISTORY: Nausea and vomiting.. TECHNIQUE: AP portable chest x-ray upright on 09/22/2022, at 00: 51.. COM COMPARISON: None. FINDINGS: Heart: Normal size and configuration. Mediastinal Structures: Normal and midline.. Lung Ramirez: No active disease. Pulmonary Vascularity: Normal. Pleural Space: No active disease. Bony Structures: Normal. IMPRESSION: Normal study. Electronically signed by: Ronen Garrett MD 09/22/2022 1:05 AM CDT Due to temporary technical issues with the PACS/Fluency reporting system, reports are being signed by the in house radiologists without review as a courtesy to insure prompt reporting. The interpreting radiologist is fully responsible for the content of the report.
--- NOTE | 2022-09-22 16:35 | RAD REPORT ---
EXAM DESCRIPTION: CT Head Brain WO Contrast CLINICAL HISTORY: Seizure. TECHNIQUE: 5 mm axial images of the intracranial structures were obtained without intravenous contra st. Coronal and sagittal reformatted images were obtained. COMPARISON: None.. DOSE OPTIMIZATION: This facility uses dose optimization techniques as appropriate to perform exams, i ncluding at least one of the following techniques: 1. Automated exposure control. 2. Adjustment of the mA and/or kV according to patient size (this includes techniques or standardized protocols for targeted exams where dose is matched to the indication/reason for exam, i.e. extremiti es or head). 3. Use of iterative reconstructive technique. FINDINGS: No abnormal acute extracerebral fluid collections are demonstrated. The cortical sulci, ventricles, and cisterns are within normal limits. There are no areas of altered attenuation to suggest acute hemorrhage, acute infarct, or mass lesio n. The visualized portions of the paranasal sinuses and mastoid air cells are clear. IMPRESSION: Normal study. Electronically signed by: Ronen Garrett MD 09/22/2022 1:55 AM CDT Due to temporary technical issues with the PACS/Fluency reporting system, reports are being signed by the in house radiologists without review as a courtesy to insure prompt reporting. The interpreting radiologist is fully responsible for the content of the report.
--- NOTE | 2022-09-23 07:04 | EKG ---
Test Date: 2022-09-21 Test Time: 23:24:00 Staff Radiation Therapist: IRENE MEASUREMENT RESULTS: Intervals: Rate: 82 CT: 128 QRSD: 78 QT: 406 QTc: 474 [place]: P: 57 CT: 128 QRS: 88 T: 33 INTERPRETIVE STATEMENTS: Normal sinus rhythm Normal ECG Compared to ECG 04/22/2021 14:09:13 No significant changes Electronically Signed On 09-23-22 07:00:14 CDT by Jn Holt
== END 2022-09-22 08:25 | disposition short-term general hospital (02) ==
LOC: ER 19:58
DX: K70.30 Alcoholic cirrhosis of liver without ascites (principal)
CPT/HCPCS: 85025; 81001; 80048; 36415; 82550; 85610; 80076; 85730; 80307; G0480 ×3; 70450; 71045; 74177; 82140; 83605; 87040; 93005; 99284; C9113; J0696; J3411; J7030; Q9967; U0003

== ENCOUNTER 2022-11-14 22:36 | Emergency (ER) | payer OTHER ==
--- OUTSIDE RECORDS SUMMARY | 2022-11-14 22:42 | XMS REPORT | Continuity of Care Document ---
:1995 Author Organization [facility] t Address [address] [facility] [address] [place] [address] Care Team Providers Name Role Phone No, Pcp [facility] Primary Care Physician Unavailable Danna Conley PA-C Attending Clinician [phone] DANNA CONLEY Attending Clinician Unavailable MARIANO PIERSON Attending Clinician Unavailable Mariano Pierson MD Attending Clinician [phone] Zach Grady MD Attending Clinician Noemy Crowell MD Attending Clinician NOEMY CROWELL Attending Clinician Unavailable KAYLENE MONTAÑO Attending Clinician Unavailable Kaylene Montaño DO Attending Clinician Doctor Unassigned, [place] Attending Clinician Unavailable Estrellita Campbell RN Attending Clinician FAWAD SANZ Attending Clinician Unavailable Shawn Rich MD Attending Clinician Francois Pelletier MD Attending Clinician Fawad Sanz MD Attending Clinician Julianne Matson Attending Clinician Lab, Adc Fam Pob I Attending Clinician Unavailable MARY WINCHESTER Attending Clinician Unavailable NOEMY CROWELL Admitting Clinician Unavailable KAYLENE MONTAÑO Admitting Clinician Unavailable FAWAD SANZ Admitting Clinician Unavailable Fawad Sanz MD Admitting Clinician MARY WINCHESTER Admitting Clinician Unavailable Payers Payer Name Policy Type Policy Number Effective Date Expiration Date Gin RODGERS [id number] 2022 00:00:00 COMMERCIAL [id number] 2021 NON-CONTRACT 00:00:00 GENERIC Problems Condition Condition Condition Status Onset Resolution Last Treating Co mments Source Name Details Category Date Date Treatment Clinician Date Alcoholic Alcoholic Disease Active [facility] hepatitis 4-28 [facility] 00:00: Medical 00 Center Seizure Seizure Disease Active Univers 8-16 ity of 00:00: [address] Nausea and Nausea and Disease Active U nivers vomiting, vomiting, 8-14 ity of intractabi [place] of lity of 00 Medical vomiting vomiting Branch not not specified, specified, unspecifie unspecifie d vomiting d vomiting type type Generalize Generalize Disease Active [facility] seizure d seizure - Luke s 00:00: Medical 00 Center 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 00:00: Me dical with with 00 Center complicati complicati on on Alcohol Alcohol Disease Active [facility] withdrawal withdrawal - Ana kes 00:00: Medical 00 Center Allergies, Adverse Reactions, Alerts Allergy Allergy Status Severity Reaction(s) Onset Inactive Treating Comm ents Source Name Type Date Date Clinician NO KNOWN Drug Active Univers ALLERGIE Class ity of S [facility] NO KNOWN Allergy Active [facility] ALLERGIE S Social History Social Habit Start Date Stop Date Quantity Comments Source History of Passive smoker University of tobacco use [facility] History SDOH [facility]-Med Medical [facility] History SDOH [facility] Housing Places Medical Ce nter Lived Tobacco use and 2022-10-13 2022-10-13 Smokeless tobacco [facility] exposure 00:[facility]00 00:00:00 non-user Medical Center Alcohol intake 2022-10-13 2022-10-13 Current drinker GULSHAN [facility] 00:[facility]:00 00:00:00 of alcohol Medical Center (finding) History SDOH 2022-09-22 2022-09-[address] [facility] Housing Unable to 00:00:00 00:00:00 Medical Center Pay History SDOH 2022-09-22 2022-09-[address] [facility] Housing Homeless 00:00:00 00:00:00 Medical Center Last Year History SDOH 2022-09-22 2022-09-[address] [facility] Transport Med 00:00:00 00:00:[address] Exposure to 2022-09-11 2022-09-21 Not sure University SARS-CoV-2 00:00:00 17:21:00 [facility] (event) Branch Sex Assigned At [address] [address] [facility] em[facility] 00:00:00 00:00:00 Medical Center Smoking Status Start Date Stop Date Source Tobacco smoking consumption [facility] [place] Medical unknown Branch Never smoked tobacco [facility] Medications Ordered Filled Start Stop Current Ordering Indication Dosage Frequency Signature Comments Components Source Medication Medication Date Date Medication? Clinician (SIG) Name Name chlordiazeP 2022- No Take [address] [facility] OXIDE 09-23 capsule [facility] (LIBRIUM) 00:00: 23:59 (25 mg Medic al 25 MG 00 :00 total) by Center capsule mouth 2 (two) times daily for 1 day, THEN 1 capsule (25 mg total) nightly for 1 day. Max Daily Amount: 50 mg. levETIRAcet 2022- No 750mg 750 mg, U nivers am (KEPPRA) 09-22 Oral, ONCE i ty of tablet 750 01:15: 00:24 NOW, 1 [place] mg 00 :00 dose, On Medical Wed Branch 09/21/22 at 2015, CELESTE magnesium 2022- No 2g 2 g, IV Univ ers sulfate in 09-22 Piggyback, it y of water 2 00:00: 00:32 Administer Rian as gram/50 mL 00 :00 over 60 Medica l (4 %) Minutes, Branch infusion 2 ONCE, 1 g dose, On Mon09/21/22 at 1900, Routine iopamidol 2022- No [id number] 74mL 74 mL, U nivers (ISOVUE 09-21 Intravenou ity o f 370-500 mL) 23:30: 23:45 s, ONCE, 1 [place] injection 00 :00 dose, On Medica l 74 mL Wed Branch 09/21/22 at 1845, Routine NaCl 0.9% 2022- No 1000mL at 999 Uni vers (NS) bolus 09-21- mL/hr, ity of infusion 23:15: 00:32 1,000 mL, Rian as 1,000 mL 00 :00 IV Medical Infusion, Branch ONCE, 1 dose, On Mon09/21/22 at 1815, CELESTE ondansetron 2022- No 4mg 4 mg, Slow Univers (ZOFRAN 09-21 IV Push, ity of (PF)) 22:30: 22:35 ONCE, 1 [place] injection 4 00 :00 dose, On Medi bill mg Wed Branch 09/21/22 at 1730, CELESTE ondansetron 0 Yes [id number] 4mg Take 1 Univers 4 mg 4-26 tablet by ity of disintegrat 00:00: mouth [place] ing tablet 00 every 8 Medica l (eight) Branch hours as needed for Nausea and Vomiting (N/V). levETIRAcet Yes [id number] 500mg Take 1 Univers am (KEPPRA) 4-26 tablet by ity of 500 mg 00:00: mouth in [place] tablet 00 the Medical morning Branch and 1 tablet in the evening. multivitami Yes [id number] 1{tbl} Take 1 Univers n tablet 8-19 tablet by ity of 00:00: mouth in [place] 00 the Medical morning. Branch multivitami Yes [id number] 1{tbl} Take 1 Univers n tablet 8-19 tablet by ity of 00:00: mouth in [place] 00 the Medical morning. Branch multivitami Yes [id number] 1{tbl} Take 1 Univers n tablet 8-19 tablet by ity of 00:00: mouth in [place] 00 the Medical morning. [place] multivitami 2021-0 Yes [id number] 1{tbl} Take 1 Univers n tablet 8-19 tablet by ity of 00:00: mouth in [place] 00 the Medical morning. Branch ergocalcife 0 Yes [id number] 50,000 Un sheri rol 8-18 Units, ity of (vitamin 14:00: Oral, [place] d2) 00 QWEEKLY, Medical (CALCIFEROL First dose Br anch ) capsule on Kathy 50,000 01/13/22 at Units 0900, Until Discontinu ed, Routine levETIRAcet 0 Yes 500mg 500 mg, Un sheri am (KEPPRA) 8-18 Oral, BID, it y of tablet 500 01:00: First dose [place] mg 00 on Mon01/12/22 at Branch 2000, Until Discontinu ed, Routine levETIRAcet 2021-0 Yes [id number] 500mg Take 1 Univers am 500 mg 8-18 tablet by ity o f tablet 00:00: mouth in [place] the [facility] morning [place] and 1 tablet in the evening. levETIRAcet 2021-0 Yes [id number] 500mg Take 1 Univers am 500 mg 8-18 tablet by ity o f tablet 00:00: mouth in [place] [facility] and 1 tablet in the evening. levETIRAcet 2021-0 Yes [id number] 500mg Take 1 Univers am 500 mg 8-18 tablet by ity o f tablet 00:00: mouth in [place] [facility] and 1 tablet in the evening. levETIRAcet 2021-0 Yes [id number] 500mg Take 1 Univers am 500 mg 8-18 tablet by ity o f tablet 00:00: mouth in [address] and 1 tablet in the evening. LORazepam 0 Yes 1mg 1 mg, Slow Un sheri (ATIVAN) 8-17 IV Push, ity of injection 1 19:00: Q8H, First [place] mg 00 dose Medical (after [place] last modificati on) on Mon01/12/22 at 1400, Until Discontinu ed, Routine
Is the medication being used for status epilepticu s? No lidocaine 2021-0 Yes 15mL 15 mL, Univer s 2% viscous 01-12 Oral, ity of (LIDOCAINE 18:15: Q4HPRN, [place] VISCOUS) 2 17 Starting Medic al % solution on Mon 15 mL 01/12/22 at 1315, Until Discontinu ed, Routine, Oral mucosal pain melatonin Yes 6mg 6 mg, Univers (MELATIN) 01-12 Oral, QHS, ity of tablet 6 mg 06:30: First dose [place] [address] [facility] Medical 01/12/22 at Branch 0130, Until Discontinu ed, Routine potassium 2021- No 15mmol 15 mmol, U nivers phosphate 01-12 IV ity of 15 mmol in 00:30: 05:23 Piggyback, [place] NaCl 0.9% 00 :00 ONCE, 1 Medical (NS) 150 mL dose, On piggyback 01/11/22 at 1930, 150 mL simethicone Yes 125mg 125 mg, Un sheri (MYLICON) 01-11 Oral, ity of chewable 19:30: QIDPRN, [place] tablet 125 03 Starting Medic al mg on Mon Branch 01/11/22 at 1430, Until Discontinu ed, Routine, Gas NaCl 0.9% 2021- No 1000mL at 999 Uni vers (NS) bolus 01-11 mL/hr, ity of infusion 15:15: 15:47 1,000 mL, Rian as 1,000 mL 00 :00 IV Medical Infusion, [place] ONCE, 1 dose, On Mon01/11/22 at 1015, STAT levETIRAcet 2021- No 500mg 500 mg, IV Univers am (KEPPRA) 01-11 Piggyback, i ty of in NACL 13:00: 18:16 Q12H, [place] (ISO-OS) 00 :11 First dose Medic al 500 mg/100 on Mon [place] mL RTU 01/11/22 at 0800, Until Discontinu ed, Administer over 15 Minutes, 100 mL LORazepam 2021- No 1mg 1 mg, Slow U nivers (ATIVAN) 01-11 IV Push, ity of injection 1 11:00: 13:10 Q6H, First [place] mg 00 :40 dose on Medical [facility] Branch 01/11/22 at 0600, Until Discontinu ed, Routine
Is the medication being used for status epilepticu s? No LORazepam 2021- No 1mg 1 mg, Slow U nivers (ATIVAN) 01-11 IV Push, ity of injection 1 07:45: 06:25 ONCE, 1 [place] mg 00 :00 dose, On [facility] Branch 01/11/22 at 0245, Routine
Is the medication being used for status epilepticu s? Yes thiamine 2021- No IV Univers (VITAMIN 01-11 Infusion, ity o f B1) 100 mg, 07:30: 14:54 at 150 [place]ian as foLIC acid 00 :00 mL/hr, Medical (FOLATE) 1 ONCE, 1 Branch mg in D5W dose, On 0.45% NaCl Tue (1/2NS) IV 01/11/22 at Solution 0230, 1,000 mL LORazepam 2021- No 1mg 1 mg, Slow U nivers (ATIVAN) 01-11 IV Push, ity of injection 1 07:30: 07:06 ONCE, 1 [place] mg 00 :00 dose, On [facility] Branch 01/11/22 at 0230, Routine
Is the medication being used for status epilepticu s? No NaCl 0.9% Yes 1000mL at 100 Univ ers (NS) IV 816 mL/hr, IV ity of infusion 06:30: Infusion, [place] 1,000 mL 00 CONTINUOUS Medic al , Starting Branch on Mon01/11/22 at 0130, Until Discontinu ed, Routine pantoprazol Yes 40mg 40 mg, Univ ers e 01-11 Slow IV ity of (PROTONIX) 06:30: Push, [place] injection 00 Q12H, Medical 40 mg First dose Branch on Mon01/11/22 at 0130, Until Discontinu ed LORazepam 0 Yes 2mg 2 mg, Slow Un sheri (ATIVAN) 01-11 IV Push, ity of injection 2 06:27: Q4HPRN, [place] mg 50 Starting Medical on [facility] Branch 01/11/22 at 0127, Until Discontinu ed, Routine, Seizures&l t;br>Is the medication being used for status epilepticu s? Yes melatonin 2021- No 6mg 6 mg, Univer s (MELATIN) 01-11 Oral, ity of tablet 6 mg 06:15: 05:23 ONCE, 1 [place] 00 :00 dose, On Medical [facility] 01/11/22 at 0115, Routine proMETHazin Yes 25mg 25 mg, IV U nivers e 01-10 Piggyback, ity of (PHENERGAN) 14:46: Q6HPRN, [place] 25 mg in Starting Medical NaCl 0.9% on [facility] (NS) 50 mL 01/10/22 at IV 0946, piggyback Until Discontinu ed, Routine, N/V unresponsi ve to Ondansetro n guaiFENesin Yes 100mg 100 mg, Un sheri 100 mg/5 mL 01-10 Oral, ity of solution 14:44: Q6HPRN, [place] 100 mg 48 Starting Medical on [facility] 01/10/22 at 0944, Until Discontinu ed, Routine, Cough melatonin 2021- No 6mg 6 mg, Univer s (MELATIN) 01-10 Oral, QHS, ity of tablet 6 mg 04:45: 05:03 First dose [place] 00 :30 on [facility] 01/09/22 at Branch 2345, Until Discontinu ed, Routine magnesium 2021- No 2g 2 g, IV Univ ers sulfate in 01-09 Piggyback, it y of water 2 23:15: 23:20 Administer Rian as gram/50 mL 00 :00 over 60 Medica l (4 %) Minutes, Branch infusion 2 ONCE, 1 g dose, On [place] 01/09/22 at 1815, Routine enoxaparin Yes 40mg 40 mg, Unive rs (LOVENOX) 01-09 Subcutaneo ity of injection 22:00: us, DAILY, [place] 40 mg 00 First dose Medical on [facility] 01/09/22 at 1700, Until Discontinu ed, Routine benzocaine- Yes 1{lozen 1 Lozenge, Univers menthoL 01-09 ge} Oral, ity of (CEPACOL 21:48: Q4HPRN, [place] SORE THROAT 11 Starting Medi bill (CADENCE-MEN)) on [facility] lozenge 1 01/09/22 at Lozenge 1648, Until Discontinu ed, Routine, Sore throat foLIC acid 2021-0 Yes 1mg 1 mg, Univer s (FOLATE) 01-09 Oral, ity of tablet 1 mg 21:00: DAILY, [place] 00 First dose Medical on [facility] 01/09/22 at 1600, Until Discontinu ed, Routine thiamine 2021-0 Yes 100mg 100 mg, Unive rs (VITAMIN 01-09 Oral, ity of B1) tablet 21:00: DAILY, [place] 100 mg 00 First dose Medical on [facility] 01/09/22 at 1600, Until Discontinu ed, Routine NaCl 0.9% 0 2021- No 1000mL at 125 Uni vers (NS) IV 01-09 08-16 mL/hr, IV ity of infusion 21:00: 06:29 Infusion, Rian as 1,000 mL 00 :07 CONTINUOUS Medic al , Starting Branch on [place] 01/09/22 at 1600, Until Mon01/11/22 at 0129, Routine ondansetron 2021-0 Yes 4mg 4 mg, Slow Univers (ZOFRAN 01-09 IV Push, ity of (PF)) 20:53: Q6HPRN, [place] injection 4 51 Starting Medi bill mg on [facility] 01/09/22 at 1553, Until Discontinu ed, Routine, Nausea and Vomiting (N/V) morpHINE (4 2021- No 4mg 4 mg, Slow Univers mg/mL) 01-09 08-15 IV Push, ity of injection 4 20:53: 20:52 Q4HPRN, [place] mg 48 :48 Starting Medical on [facility] 01/09/22 at 1553, Until 01/10/22 at 1552, Routine, Pain (scale 7-10) acetaminoph 2021-0 Yes 650mg 650 mg, Un sheri en 01-09 Oral, ity of (TYLENOL) 20:53: Q6HPRN, [place] tablet 650 39 Starting Medic al mg on [facility] 01/09/22 at 1553, Until Discontinu ed, Routine, Pain (scale 1-3), Temp > 38.5 C NaCl 0.9% 2021- No 1000mL at 999 Uni vers (NS) bolus 01-09 08-16 mL/hr, ity of infusion 20:00: 07:34 1,000 mL, [place]ian as 1,000 mL 00 :00 IV Medical Infusion, Branch ONCE, 1 dose, On 01/09/22 at 1500, STAT NaCl 0.9% 2021- No 1000mL at 999 Uni vers (NS) bolus 01-09 mL/hr, ity of infusion 18:15: 19:24 1,000 mL, [place]ian as 1,000 mL 00 :00 IV Medical Infusion, Branch ONCE, 1 dose, On [place] 01/09/22 at 1315, STAT iopamidol 2021- No [id number] 60mL 60 mL, U nivers (ISOVUE 01-09 Intravenou ity o f 370-500 mL) 18:00: 18:00 s, ONCE, 1 [place] injection 00 :00 dose, On Medica l 60 mL [facility] 01/09/22 at 1300, Routine piperacilli 2021- No 3.375g 3.375 g, Univers n-tazobacta 01-09 IV ity of m (ZOSYN) 17:45: 18:22 [place]gyback, [place] 3.375 g in 00 :00 ONCE, 1 Medica l NaCl 0.9% dose, On Branch (NS) 50 mL [place] MINI-BAG 01/09/22 at 1245, Administer over 30 Minutes, 50 mL
R adalberto for Anti-Infec tive: Documented Infection< br>Documen pinky Infection Site: HEENT<br&g t;Duration of Therapy: Other (see Comments) ondansetron 2021- No 4mg 4 mg, Slow Univers (ZOFRAN 01-09 IV Push, ity of (PF)) 17:30: 16:59 ONCE, 1 [place] injection 4 00 :00 dose, On Medi bill mg [place] 01/09/22 at 1230, CELESTE NaCl 0.9% 2021- No 1000mL at 999 Uni vers (NS) bolus 8-14 08-14 mL/hr, ity of infusion 17:30: 19:14 1,000 mL, [place]ian as 1,000 mL 00 :00 IV Medical Infusion, Branch ONCE, 1 dose, On 01/09/22 at 1230, STAT Vital Signs Vital Name Observation Time Observation Value Comments Source HEIGHT 2022-10-13 10:15:00 167.6 cm WEIGHT 2022-10-13 10:15:00 69.854 kg HEIGHT 2022-10-13 10:15:00 167.6 cm WEIGHT 2022-10-13 10:15:00 69.854 kg HEIGHT 2022-10-13 10:15:00 167.6 cm WEIGHT 2022-10-13 10:15:00 69.854 kg WEIGHT 2022-09-22 09:25:00 67.314 kg WEIGHT 2022-09-22 09:25:00 67.314 kg WEIGHT 2022-09-22 09:25:00 67.314 kg Systolic blood 2022-09-22 00:00:00 106 mm[Hg] Univer sity of pressure [place] Medical [facility] Diastolic blood 2022-09-22 00:00:00 72 mm[Hg] Unive rsity of [facility] Medical Branch Heart rate 2022-09-22 00:00:00 90 /min Universi [facility] Medical Branch Respiratory rate 2022-09-22 00:00:00 21 /min Univ ersity of [place] Medical Branch Oxygen saturation in 2022-09-22 00:00:00 96 /min University of Arterial blood by [facility] Pulse oximetry Branch Body temperature 2022-09-21 22:20:00 37.44 Mayra Univ ersity of [place] Medical Branch Respiratory rate 2022-01-13 15:00:00 24 /min Univ ersity of [place] Medical Branch Oxygen saturation in 2022-01-13 15:00:00 93 /min University of Arterial blood by [facility] Pulse oximetry Branch Systolic blood 2022-01-13 15:00:00 113 mm[Hg] Univer sity of pressure [place] Medical [facility] Diastolic blood 2022-01-13 15:00:00 82 mm[Hg] Unive rsity of [facility] Medical Branch Heart rate 2022-01-13 15:00:00 56 /min Universi [facility] Branch Body temperature 2022-01-13 13:12:[address] [facility] Body weight 2022-01-13 11:03:00 77.973 kg [facility] BMI 2022-01-13 11:03:00 26.92 kg/m2 [facility] Body height 2022-01-09 21:42:00 170.2 cm [facility] Systolic blood 2022-10-13 10:15:00 121 mm[Hg] [facility] Diastolic blood 2022-10-13 10:15:00 79 mm[Hg] [facility] Heart rate 2022-10-13 10:15:00 96 /min [facility] Body temperature 2022-10-13 10:15:00 36.72 Mayra [facility] Respiratory rate 2022-10-13 10:15:00 18 /min [facility] Body height 2022-10-13 10:15:00 167.6 cm [facility] Body weight 2022-10-13 10:15:00 69.854 kg [facility] BMI 2022-10-13 10:15:00 24.86 kg/m2 [facility] Oxygen saturation in 2022-10-13 10:15:00 99 /min [facility] Arterial blood by Medical Ce nter Pulse oximetry Procedures Procedure Date / Time Performing Clinician Source Performed BASIC METABOLIC PANEL 2022-10-13 11:06:[place] [facility] HEPATIC FUNCTION PANEL 2022-10-13 11:06:00 [place] Cynthia [facility] CBC W/PLT COUNT & AUTO 2022-10-13 11:06:00 [place] [facility] PROTHROMBIN TIME/INR 2022-10-13 11:06:00 [place]irJonas [facility] PHOSPHATIDYLETHANOL, 2022-10-13 11:06:00 Marcell[facility]ri [facility] LIVER-KIDNEY MICROSOME AB 2022-10-13 11:06:00 Jonas Dawson I [facility] SOLUBLE LIVER ANTIGEN 2022-10-13 11:06:00 [facility] W/PLT COUNT & AUTO 2022-10-13 11:06:00 Jonas Dawson [facility] DIFFERENTIAL Center CBC W/PLT COUNT & AUTO 2022-09-23 03:53:[address] [facility] DIFFERENTIAL Center COMPREHENSIVE METABOLIC 2022-09-23 03:53:[address] [facility] PANEL Center PHOSPHORUS 2022-09-23 03:53:00 Miguel A [facility] MAGNESIUM 2022-09-23 03:53:00 Miguel A [facility] CBC W/PLT COUNT & AUTO 2022-09-23 03:53:[address] [facility] DIFFERENTIAL Center US ABDOMEN LIMITED 2022-09-23 01:22:00 [facility] (SMOOTH MUSCLE) 2022-09-22 13:40:00 Anseb [facility] ANTIBODY, IGG [facility] ANTI-NUCLEAR ANTIBODY 2022-09-22 13:40:00 Harjinder [facility] (TAMMI) [facility] CERULOPLASMIN 2022-09-22 13:40:00 Anseb [facility] HEPATITIS A ANTIBODY, IGG 2022-09-22 13:40:00 Erna [place] I [facility] HEPATITIS B SURFACE 2022-09-22 13:40:00 [facility] ANTIGEN [facility] HEPATITIS B SURFACE 2022-09-22 13:40:00 [facility] ANTIBODY [facility] HEPATITIS B CORE 2022-09-22 13:40:00 [facility] ANTIBODY, TOTAL [facility] HEPATITIS C ANTIBODY 2022-09-22 13:40:00 [facility] FERRITIN 2022-09-22 13:40[facility], TIBC, % SAT. 2022-09-22 13:40:00 [facility] (WITHOUT FERRITIN) [facility] IMMUNOGLOBULIN G (IGG) 2022-09-22 13:40:00 [facility] [id number]\\, 2022-09-22 13:40:00 [facility] TAMMI TITER AND PATTERN 2022-09-22 13:40:00 [facility] MITOCHONDRIAL AB SCREEN 2022-09-22 13:40:00 [facility] MITOCHONDRIAL AB TITER 2022-09-22 13:40:00 [facility] LIPASE 2022-09-21 22:33:00 Kaylene Montaño [facility] MAGNESIUM 2022-09-21 22:33:00 Kaylene Montaño [facility] COMP. METABOLIC PANEL 2022-09-21 22:33:00 Kaylene Montaño [facility] ([id number]) [facility] CBC WITH DIFF 2022-09-21 22:33:00 Kaylene Montaño [facility] PROTHROMBIN TIME / INR 2022-09-21 22:33:00 [facility] 2022-09-21 22:33:00 Kaylene Montaño [facility]RFormerly [facility] URINALYSIS 2022-09-21 22:33:00 Kaylene Montaño [facility] CONSENT/REFUSAL FOR 2022-09-21 22:13:03 Doctor Unassigned, [facility] DIAGNOSIS AND TREATMENT [place] Medical [facility] PHOSPHORUS 2022-01-12 09:29:00 Prabhu [facility] MAGNESIUM 2022-01-12 09:29:00 Prabhu [facility] COMP. METABOLIC PANEL 2022-01-12 09:29:00 [place], [facility] ([id number] CBC WITH DIFF 2022-01-12 09:29:00 Prabhu [facility] LACTIC ACID WHOLE BLOOD 2022-01-11 15:50:00 Franc [facility] LACTIC ACID WHOLE BLOOD 2022-01-11 13:25:00 Franc [facility] VITAMIN D, 25-OH 2022-01-11 13:24:00 Franc [facility] CT HEAD WO CONTRAST 2022-01-11 07:22:56 Franc [facility] XR CHEST 1 VW 2022-01-11 07:22:33 Franc [facility] PHOSPHORUS 2022-01-11 06:58:00 Franc [facility] MAGNESIUM 2022-01-11 06:58:00 Franc [facility] FERRITIN SERUM 2022-01-11 06:58:00 Franc [facility] PROLACTIN 2022-01-11 06:58:00 Franc [facility] VITAMIN B12, LEVEL 2022-01-11 06:58:00 Franc [facility] FOLATE 2022-01-11 06:58:00 Franc [facility] C-REACTIVE PROTEIN 2022-01-11 06:58:00 Franc [facility] HEPATIC FUNCTION PANEL 2022-01-11 06:58:00 Prabhu [facility] ([id number]) (ALB,T.PRO,BILI [facility] Branch T,BU/BC,ALT,AST,ALK PHOS) BASIC METABOLIC PANEL 2022-01-11 06:58:00 Prabhu [facility] (NA, K, CL, CO2, GLUCOSE, Medica l Branch BUN, CREATININE, CA) COMP. METABOLIC PANEL 2022-01-11 06:58:00 Franc [facility] ([id number]) Medical Branch IRON PANEL 2022-01-11 06:58:00 Franc [facility] ETHANOL 2022-01-11 06:58:00 Franc [facility] SEDIMENTATION RATE 2022-01-11 06:58:00 Franc [facility] PROTHROMBIN TIME / INR 2022-01-11 06:58:00 [facility] N-TERMINAL PRO-BNP 2022-01-11 06:58:00 Franc [facility] PROCALCITONIN 2022-01-11 06:58:00 Franc [facility] AC VBG + LACTIC ACID 2022-01-11 06:58:00 Franc [facility] MAGNESIUM 2022-01-10 09:01:00 Prabhu [facility] COMP. METABOLIC PANEL 2022-01-10 09:01:00 Francois Pelletier [facility] ([id number]) [facility] CBC WITH DIFF 2022-01-10 09:01:00 Prabhu [facility] LACTIC ACID WHOLE BLOOD 2022-01-10 09:01:[address] [facility] LACTIC ACID WHOLE BLOOD 2022-01-10 03:20:00 Prabhu [facility] LACTIC ACID WHOLE BLOOD 2022-01-10 01:05:00 Prabhu [facility] PHOSPHORUS 2022-01-09 22:32:00 Prabhu [facility] LACTIC ACID WHOLE BLOOD 2022-01-09 22:32:00 Yahaira Harris [facility] COVID-19 (ID NOW RAPID 2022-01-09 18:15:00 Shawn Rich [facility] TESTING) [facility] LAB ONLY COVID 2022-01-09 18:15:00 Shawn Rich [facility] BLOOD CULTURE SCREEN 2022-01-09 17:51:00 Shawn Rich [facility] LIPASE 2022-01-09 16:59:00 Shawn Rich [facility] MAGNESIUM 2022-01-09 16:59:00 Shawn Rich [facility] COMP. METABOLIC PANEL 2022-01-09 16:59:00 Shawn Rich [facility] ([id number]) Medical Branch ETHANOL 2022-01-09 16:59:00 Shawn Rich [facility] CT ABDOMEN PELVIS W 2022-01-09 16:49:00 Shawn Rich [facility] CONTRAST [facility] URINALYSIS 2022-01-09 16:27:00 Shawn Rich [facility] URINE DRUG (IMMUNOASSAY) 2022-01-09 16:27:00 Shawn Rich [facility] DRUG Medical [facility] nch SCREEN W/O REFLEX AC PANEL 21 + LACTIC ACID 2022-01-09 16:24:00 [facility]FF 2022-01-09 16:23:00 Shawn Rich [facility] PROTHROMBIN TIME / INR 2022-01-09 16:23:00 Shawn Rich [facility] ACTIVATED PARTIAL 2022-01-09 16:23:00 Shawn Rich [facility] THRMPLAS [facility] THROAT CULTURE 2022-01-09 16:23:00 Shawn Rich [facility] RAPID STREP SCREEN FOR 2022-01-09 16:23:00 Shawn Rich [facility] GROUP A [facility] CONSENT/REFUSAL FOR 2022-01-09 15:51:23 Doctor Unassigned, [facility] DIAGNOSIS AND TREATMENT [facility] Plan of Care Planned Activity Planned Date Details Comments Source Future Scheduled 2023-10-[address] [facility] Test 00:00:00 [facility] Cent[facility] r Screening (12+) [code = Tobacco Cessation Counseling and Screening (12+)] Future Scheduled 2023-01-[address] [facility] Test 00:00:00 (Season Ended) [code = Medic al Center Influenza Vaccine (Season Ended)] Future Scheduled 2022-05-[address] [facility] Test 00:00:00 (12+) [code = Medical Center DEPRESSION SCREENING (12+)] Future Scheduled 2012 DTAP/TDAP/TD VACCINES [facility] Test 00:00:00 (1 - Tdap) [code = Medical C enter DTAP/TDAP/TD VACCINES (1 - Tdap)] Future Scheduled 1999-08-26 Pneumococcal Vaccine: [facility] 00:00:00 0-64 Years (1 - PCV) [facility] [code = Pneumococcal Vaccine: 0-64 Years (1 - PCV)] Future Scheduled 1994-02-25 COVID-19 VACCINE (#1) [facility] 00:00:00 [code = COVID-[address] VACCINE (#1)] Encounters Start End Encounter Admission Attending Care Care Encounter Source Date/Time Date/Time Type Type Clinicians Facility Department ID 2022-11-10 2022-11-10 Outpatient [facility] [id number] [facility] 00:00:00 00:00:00 2022-10-13 2022-10-[address] [facility] [id number] [facility] [address] 10:00:00 11:00:00 Visit [facility] 2022-10-13 2022-10-13 [id number] [facility] 10:06:39 10:06:39 [facility] 2022-09-22 2022-09-23 [facility] Mariano Pierson [facility] [id number] [facility] 09:21:00 10:58:00 Encounter [facility] 2022-09-22 2022-09-23 Outpatient ER TELLO [facility] 2 [id number] [facility] 09:21:00 10:58:00 [facility] 2022-09-22 2022-09-22 Travel [facility] [id number] [facility] 00:[facility]00 00:00:00 [facility] 2022-09-21 2022-09-21 Emergency X SABRA MTRJ ERT [id number] [facility] 17:17:00 19:35:[address] [facility] 2022-09-21 2022-09-21 Emergency Sabra MTRJ [id number] Univers 17:17:00 19:35:00 Kaylene SINGH 350.1.13.10 ity [facility] [place] [id number] [facility] 084 Branch 2022-09-21 2022-09-21 Orders Doctor PRAKASH 1.2.840.114 [id number] Univers 00:00:00 00:00:00 Only Unassigned, JOANIE 350.1.13.10 ity of [place] [facility] 4.2.7.2.686 Rian as [phone] [facility] 009 Branch 2022-01-14 2022-01-14 Transition Adrian LIZZYAnthony 1.2.840.114 [id number] Univers 00:00:00 00:00:00 of Care Estrellita ATWOOD 350.1.13.10 i ty of [place] [phone] [facility] 403 Branch 2022-01-09 2022-01-13 Inpatient X [facility] [id number] Univers 11:04:00 11:49:00 ADNAN ity of [facility] 2022-01-09 2022-01-13 Hospital Shawn Rich [facility] 1.2.840.1 [id number] Univers 11:04:00 11:49:00 Encounter Francois Pelletier 350.1.13.10 ity of [place] Sanz 4.2.7.2.686 [facility] [id number] [facility] 080 Branch 2022-01-09 2022-01-09 Orders Doctor RANDALL 1.2.840.114 [id number] Univers 00:00:00 00:00:00 Only Unassigned, JOANIE 350.1.13.10 ity of [facility] 4.2.7.2.686 Rian as [id number] [facility] 009 Branch 2019-12-21 2019-12-21 Telephone PRAKASH Shelley [id number] Univers 00:00:00 00:00:00 Julianne NAIR 350.1.13.10 it y of HOSPITAL 4.2.7.2.686 [place]ian as [id number] [facility] 019 Branch 2019-12-19 2019-12-19 Laboratory Lab, Adc Fam Pob I [facility] 1.2. 840.114 [id number] Univers 08:24:39 08:44:39 Only Julianne Shelley 350.1.13.10 ity of [place] 4.2.7.2.686 Rian as Kristel [phone] De dical nal 044 Branch Office [address] One 2019-12-19 2019-12-19 Outpatient R [facility] [id number] Univers 08:20:00 08:20:00 ity of [facility] 2019-12-19 2019-12-19 Letter Doctor PRAKASH 1.2.840.114 [id number] Univers 00:00:00 00:00:00 (Out) Unassigned, JOANIE 350.1.13.10 ity of [place] [facility] 4.2.7.2.[phone] [facility] bill 044 [place] Results Test Description Test Time Test Comments Results Result Comments Source BASIC METABOLIC PANEL 2022-10-13 13:21:47 Test Item Value Reference Range Interpretation Comme nts SODIUM (BEAKER) (test 140 meq/L 136-145 code = 381) POTASSIUM (BEAKER) 3.7 meq/L 3.5-5.1 (test code = 379) CHLORIDE (BEAKER) (test 100 meq/L 98-107 code = 382) CO2 (BEAKER) (test code 31 meq/L 22-29 H = 355) BLOOD UREA NITROGEN < mg/dL 7-21 L (BEAKER) (test code = 354) CREATININE (BEAKER) 0.82 mg/dL 0.57-1.25 (test code = 358) GLUCOSE RANDOM (BEAKER) 102 mg/dL 70-105 (test code = 652) CALCIUM (BEAKER) (test 9.2 mg/dL 8.4-10.2 code = 697) EGFR (BEAKER) (test 123 mL/min/1.73 sq I nterpretation of eGFR values code = 1092) m Stage Descripti on Result G1 Normal or high >=90 G2 Mildly decreased 60-89 G3a Mildly to moderately 45-5 9 G3b Moderately to severely 30- 44 G4 Severly decreased 15-29 G5 Kidney failure <15Repo rted eGFR is based on the CK D-EPI 2020 equation that d oes not use a race coefficien tEstimated GFR is not as accurate as Creatinine Clearance in pr edicting glomerular filt ration rate. Estimated GFR i s not applicable for dialysis lay chun Imaging Assistant ID - ADMINHEPATIC FUNCTION [id number] 13:09:39 Test Item Value Reference Range Interpretation Comments TOTAL PROTEIN (BEAKER) (test code = 8.4 gm/dL 6.0-8.3 H 770) ALBUMIN (BEAKER) (test code = 1145) 3.8 g/dL 3.5-5.0 BILIRUBIN TOTAL (BEAKER) (test code 1.5 mg/dL 0.2-1.2 H = 377) BILIRUBIN DIRECT (BEAKER) (test 0.7 mg/dL 0.1-0.5 H code = 706) ALKALINE PHOSPHATASE (BEAKER) (test 233 U/L 40-150 H code = 346) AST (SGOT) (BEAKER) (test code = 109 U/L 5-34 H 353) ALT (SGPT) (BEAKER) (test code = 30 U/L 6-55 347) Imaging Assistant ID - ADMINPROTHROMBIN TIME/[id number] 12:40:51 Test Item Value Reference Range Interpretation Comments PROTIME (BEAKER) (test code = 15.8 seconds 11.9-14.2 H 759) INR (BEAKER) (test code = 370) 1.35 <=5.90 RECOMMENDED COUMADIN/WARFARIN INR THERAPY RANGESSTANDARD DOSE: 2.0 - 3.0 Includes: PROPHYLAXIS for venous thrombosis, systemic embolization; TREATMENT for venous thrombosis and/or pulmonary embolus.HIGH RISK: Target INR is 2.5-3.5 for patients with mechanical heart valves.CBC W/PLT COUNT & AUTO [id number] 12:32:47 Test Item Value Reference Range Interpretation Comments WHITE BLOOD CELL COUNT (BEAKER) 12.5 K/ L 3.5-10.5 H (test code = 775) RED BLOOD CELL COUNT (BEAKER) 3.81 M/ L 4.63-6.08 L (test code = 761) HEMOGLOBIN (BEAKER) (test code = 13.4 GM/DL 13.7-17.5 L 410) HEMATOCRIT (BEAKER) (test code = 40.4 % 40.1-51.0 411) MEAN CORPUSCULAR VOLUME (BEAKER) 106 fL 79-92 H (test code = 753) MEAN CORPUSCULAR HEMOGLOBIN 35.2 pg 25.7-32.2 H (BEAKER) (test code = 751) MEAN CORPUSCULAR HEMOGLOBIN CONC 33.2 GM/DL 32.3-36.5 (BEAKER) (test code = 752) RED CELL DISTRIBUTION WIDTH 14.6 % 11.6-14.4 H (BEAKER) (test code = 412) PLATELET COUNT (BEAKER) (test 198 K/CU MM 150-450 code = 756) MEAN PLATELET VOLUME (BEAKER) 9.1 fL 9.4-12.4 L (test code = 754) NUCLEATED RED BLOOD CELLS 0 /100 WBC 0-0 (BEAKER) (test code = 413) NEUTROPHILS RELATIVE PERCENT 81 % (BEAKER) (test code = 429) LYMPHOCYTES RELATIVE PERCENT 12 % (BEAKER) (test code = 430) MONOCYTES RELATIVE PERCENT 4 % (BEAKER) (test code = 431) EOSINOPHILS RELATIVE PERCENT 1 % (BEAKER) (test code = 432) BASOPHILS RELATIVE PERCENT 1 % (BEAKER) (test code = 437) NEUTROPHILS ABSOLUTE COUNT 10.03 K/ L 1.78-5.38 H (BEAKER) (test code = 670) LYMPHOCYTES ABSOLUTE COUNT 1.50 K/ L 1.32-3.57 (BEAKER) (test code = 414) MONOCYTES ABSOLUTE COUNT (BEAKER) 0.55 K/ L 0.30-0.82 (test code = 415) EOSINOPHILS ABSOLUTE COUNT 0.18 K/ L 0.04-0.54 (BEAKER) (test code = 416) BASOPHILS ABSOLUTE COUNT (BEAKER) 0.15 K/ L 0.01-0.08 H (test code = 417) IMMATURE GRANULOCYTES-RELATIVE 0.30 % 0.00-1.00 PERCENT (BEAKER) (test code = 2801) TAMMI TITER AND [id number] 12:47:50 Test Item Value Reference Range Interpretation Comments TAMMI TITER :640 (BEAKER) (test code = 1541) TAMMI PATTERN Cytoplasmic/Anti-mi Cytoplas ana (BEAKER) (test tochondrial staining is p resent code = 1783) antibodies - see suggestive of comment Anti-mitochondr ial antibodies. If clinically indicated, recommend testi ng for Anti-mitochondr ial antibodies. ANTI-NUCLEAR ANTIBODY (TAMMI)2022-09-23 12:47:29 Test Item Value Reference Range Interpretation Comments ANTI-NUCLEAR ANTIBODY (TAMMI) (DORISAKER) Negative Negative (test code = 418) Test performed by IFA method.U/S, ABDOMINAL, [id number] 10:28:00Abdomen limited area? Add comment if clarification is needed.->LiverReason for exam:- >etoh hepatitis [facility] 1995 Sex: MFINAL REPORT Right Upper Quadrant Ultrasound History: Alcoholic hepatitis Comparison: noneFindings:Liver is echogenic. Unremarkable hepatic contour. No hepatic mass or intrahepatic biliary dilation. Gallbladder without shadowing gallstones, wall thickening, or pericholecystic fluid. No sonographic Medina's sign. Common bile duct measures 3.5mm. The main portal vein appears patent, with expected hepatopedal flow. The main portal vein rtgvbuiz90.6mm in diameter. Pancreas not well seen due to overlying bowel gas. Right kidney demonstrates no hydronephrosis, shadowing calculus, or mass lesion. Right kidney measures 10.8 x 3.9 x 4.9cm. Impression:Diffuse hepatic steatosis. Signed: Brandon Pearsonort Verified Date/Time: 09/23/2022 10:28:23 [id number] 05:30:41 Test Item Value Reference Range Interpretation Comments PHOSPHORUS (BEAKER) (test code = 2.9 mg/dL 2.3-4.7 604) Imaging Assistant ID - ADMINCOMPREHENSIVE METABOLIC [id number] 05:30:41 Test Item Value Reference Range Interpretation Comments TOTAL PROTEIN 7.1 gm/dL 6.0-8.3 (BEAKER) (test code = 770) ALBUMIN (BEAKER) 3.2 g/dL 3.5-5.0 L (test code = 1145) ALKALINE 159 U/L 40-150 H PHOSPHATASE (BEAKER) (test code = 346) BILIRUBIN TOTAL 2.4 mg/dL 0.2-1.2 H (BEAKER) (test code = 377) SODIUM (BEAKER) 135 meq/L 136-145 L (test code = 381) POTASSIUM (BEAKER) 3.6 meq/L 3.5-5.1 (test code = 379) CHLORIDE (BEAKER) 105 meq/L 98-107 (test code = 382) CO2 (BEAKER) (test 24 meq/L 22-29 code = 355) BLOOD UREA 5 mg/dL 7-21 L NITROGEN (BEAKER) (test code = 354) CREATININE 0.78 mg/dL 0.57-1.25 (BEAKER) (test code = 358) GLUCOSE RANDOM 83 mg/dL 70-105 (BEAKER) (test code = 652) CALCIUM (BEAKER) 8.7 mg/dL 8.4-10.2 (test code = 697) AST (SGOT) 53 U/L 5-34 H (BEAKER) (test code = 353) ALT (SGPT) 13 U/L 6-55 (BEAKER) (test code = 347) EGFR (BEAKER) 124 Interpretatio n of eGFR (test code = 1092) mL/min/1.[address] age Description sq m Result G1 Nan l or high >=90 G2 Mildly decreased 60-89 G3a Mildl y to moderately 45-5 9 G3b Moderately to s everely 30-44 G4 Severl y decreased 15-29 G5 Kidney failure <15Reported eGF R is based on the CKD-EPI 2021 equation that d oes not use a race coefficientEsti mated GFR is not as accur ate as Creatinine Nat shayla in predicting glom erular filtration rate . Estimated GFR is not appl icable for dialysis patien ts Imaging Assistant ID - ADMINSpecimen slightly [id number] 05:30:40 Test Item Value Reference Range Interpretation Comments MAGNESIUM (BEAKER) (test code = 2.0 mg/dL 1.6-2.6 627) Imaging Assistant ID - ADMINCBC W/PLT COUNT & AUTO [id number] 05:11:17 Test Item Value Reference Range Interpretation Comments WHITE BLOOD CELL COUNT (BEAKER) 11.8 K/ L 3.5-10.5 H (test code = 775) RED BLOOD CELL COUNT (BEAKER) 3.18 M/ L 4.63-6.08 L (test code = 761) HEMOGLOBIN (BEAKER) (test code = 11.7 GM/DL 13.7-17.5 L 410) HEMATOCRIT (BEAKER) (test code = 35.4 % 40.1-51.0 L 411) MEAN CORPUSCULAR VOLUME (BEAKER) 111 fL 79-92 H (test code = 753) MEAN CORPUSCULAR HEMOGLOBIN 36.8 pg 25.7-32.2 H (BEAKER) (test code = 751) MEAN CORPUSCULAR HEMOGLOBIN CONC 33.1 GM/DL 32.3-36.5 (BEAKER) (test code = 752) RED CELL DISTRIBUTION WIDTH 14.7 % 11.6-14.4 H (BEAKER) (test code = 412) PLATELET COUNT (BEAKER) (test 133 K/CU MM 150-450 L code = 756) MEAN PLATELET VOLUME (BEAKER) 9.4 fL 9.4-12.4 (test code = 754) NUCLEATED RED BLOOD CELLS 0 /100 WBC 0-0 (BEAKER) (test code = 413) NEUTROPHILS RELATIVE PERCENT 70 % (BEAKER) (test code = 429) LYMPHOCYTES RELATIVE PERCENT 21 % (BEAKER) (test code = 430) MONOCYTES RELATIVE PERCENT 5 % (BEAKER) (test code = 431) EOSINOPHILS RELATIVE PERCENT 3 % (BEAKER) (test code = 432) BASOPHILS RELATIVE PERCENT 1 % (BEAKER) (test code = 437) NEUTROPHILS ABSOLUTE COUNT 8.27 K/ L 1.78-5.38 H (BEAKER) (test code = 670) LYMPHOCYTES ABSOLUTE COUNT 2.49 K/ L 1.32-3.57 (BEAKER) (test code = 414) MONOCYTES ABSOLUTE COUNT (BEAKER) 0.55 K/ L 0.30-0.82 (test code = 415) EOSINOPHILS ABSOLUTE COUNT 0.34 K/ L 0.04-0.54 (BEAKER) (test code = 416) BASOPHILS ABSOLUTE COUNT (BEAKER) 0.09 K/ L 0.01-0.08 H (test code = 417) IMMATURE GRANULOCYTES-RELATIVE 0.30 % 0.00-1.00 PERCENT (BEAKER) (test code = 2801) [id number] 16:05:26 Test Item Value Reference Range Interpretation Comments FERRITIN (BEAKER) (test code = 420.05 ng/mL 5.00-275.00 H 361) Imaging Assistant ID - BSIRON, TIBC, % SAT. (WITHOUT FERRITIN)2022-09-22 15:43:01 Test Item Value Reference Range Interpretation Comments IRON (BEAKER) (test code = 547) 58.0 ug/dL 40.0-160.0 TOTAL IRON BINDING CAPACITY 166 ug/dL 250-450 L (BEAKER) (test code = 769) IRON % SATURATION (2) (BEAKER) 35 % 20-55 (test code = 2590) Imaging Assistant ID - ADMINIMMUNOGLOBULIN G (IGG)2022-09-22 15:43:00 Test Item Value Reference Range Interpretation Comments IMMUNOGLOBULIN G (IGG) (BEAKER) 1780 mg/dL 540-1822 (test code = 427) Imaging Assistant ID - ADMINHEPATITIS B SURFACE [id number] 14:45:04 Test Item Value Reference Range Interpretation Comments HEPATITIS B SURFACE ANTIBODY < mIU/mL <8.0 (BEAKER) (test code = 647) Imaging Assistant ID - ADMINHEPATITIS A ANTIBODY, [id number] 14:44:36 Test Item Value Reference Range Interpretation Comments HEPATITIS A IGG ANTIBODY (BEAKER) Reactive Nonreactive A (test code = 2797) Imaging Assistant ID - ADMINHEPATITIS C [id number] 14:39:41 Test Item Value Reference Range Interpretation Comments HEPATITIS C ANTIBODY (BEAKER) Nonreactive Nonreactive (test code = 367) Imaging Assistant ID - ADMINHEPATITIS B CORE ANTIBODY, [id number] 14:39:41 Test Item Value Reference Range Interpretation Comments HEPATITIS B CORE TOTAL ANTIBODY Nonreactive Nonreactive (BEAKER) (test code = 497) Imaging Assistant ID - ADMINHEPATITIS B SURFACE [id number] 14:39:36 Test Item Value Reference Range Interpretation Comments HEPATITIS B SURFACE ANTIGEN (2) Nonreactive Nonreactive (BEAKER) (test code = 2585) Specimen is considered negative for HBsAg.[id number] 14:18:11 Test Item Value Reference Range Interpretation Comments ALPHA-1 ANTITRYPSIN (BEAKER) 215.00 mg/dL 90.00-200.00 H (test code = 502) Imaging Assistant ID - ADMINACTIVATED PARTIAL THRMPLAS [id number] 23:04:38 Test Item Value Reference Range Interpretation Comments APTT Patient (test 35 See_Comment [Automat ed code = 3173-2) message] The system which generated this result transmitted reference range : 23 - 38 Seconds . The reference range was not used to interpr et this result as normal/abnormal . SHIN (test code = SHIN) The [facility] patient population mean normal value for aPTT is 30 seconds. Lab Interpretation Normal (test code = 15409-7) [facility] / [id number] 23:02:33 Test Item Value Reference Range Interpretation Comments PROTIME PATIENT (test 15.5 See_Comment H [Auto mated message] code = 5964-2) The system i[employer] generated this result transmitted ref erence range: 12.0 - 1 4.7 Seconds. The reference range was not used to int erpret this result as normal/abnormal . INR (test code = 6301-6) 1.3 Nor mal INR <1.1; Warfarin Therap eutic range 2.0 to 3. 0 or 2.5 to 3.5, dep ending upon the indica tions. Lab Interpretation (test Abnormal code = 91984-4) [facility] HospitalProthrombin Time / [id number] 07:41:00 Test Item Value Reference Range Interpretation Comments PROTIME PATIENT (test See_Comment H [Auto mated message] code = 5964-2) The system [employer] generated this result transmitted ref erence range: 12.0 - 1 4.7 Seconds. The reference range was not used to int erpret this result as normal/abnormal . INR (test code = 6301-6) Nor mal INR <1.1; Warfarin Therap eutic range 2.0 to 3. 0 or 2.5 to 3.5, dep ending upon the indica tions. Lab Interpretation (test Abnormal code = 24495-9) [facility]ETHANOL2022-[facility] 17:59:50 ALCOHOL<10mg/dL01/09/2022 12:[address] [facility]<10 Izlmqgli68-178 Toxic>100 Depression of MEDICAL INSURANCE CODING SPECIALIST>400 Fatalities [facility]ortedUnEn[facility] CenterCOM. METABOLIC PANEL (16699) 2022-01-09 17:59:30 Test Item Value Reference Range Interpretation Comments NA (test code = 142 mmol/L 135-145 3267009225) K (test code = 3.4 mmol/L 3.5-5 L 1401093334) CL (test code = 97 mmol/L 98-108 L 1929428543) CO2 TOTAL (test code = 22 mmol/L 23-31 L 2263233782) AGAP (test code = 2-16 H 2758396715) BUN (test code = 7-23 L 1057265982) GLUCOSE (test code = 159 mg/dL 70-110 H 1738236763) CREATININE (test code = 0.80 mg/dL 0.6-1.25 7489864376) TOTAL BILI (test code = 2.6 mg/dL 0.1-1.1 H 1110652327) CALCIUM (test code = 9.4 mg/dL 8.6-10.6 1663695704) T PROTEIN (test code = 8.0 g/dL 6.3-8.2 9626312236) ALBUMIN (test code = 4.3 g/dL 3.5-5 3767049198) ALK PHOS (test code = 195 U/L 34-122 H 1858326089) ALTv (test code = 52 U/L 5-50 H 1742-6) AST(SGOT) (test code = 130 U/L 13-40 H 8832471111) eGFR (test code = mL/min/1.73m2 8295022107) SHIN (test code = SHIN) Association of [...] tests). Lab Interpretation Abnormal (test code = 37125-0) [facility]MAGNESIUM2022-[facility]-14 17:42:36 Test Item Value Reference Range Interpretation Comments MAGNESIUM (test code = 2683476323) 1.5 mg/dL 1.7-2.4 L Lab Interpretation (test code = Abnormal 20365-6) [facility]LIPASE[facility]22-[facility] 17:42:16 Test Item Value Reference Range Interpretation Comments LIPASE (test code = 6396739680) 117 U/L 0-220 Lab Interpretation (test code = Normal 47296-5) [facility] HospitalCB WITH [id number] 17:38:24 Test Item Value Reference Range Interpretation Comments WBC (test code = See_Comment H [Automated 3195-2) message] The system which generated this result transmit pinky reference range : 4.20 - 10.70 10*3/?L. The reference range was not used to interpret this result as normal/abnormal . RBC (test code = See_Comment [Automated 007-8) message] The system which generated this result transmit pinky reference range : 4.26 - 5.52 10*6/?L. [...] (test code = 54.8 fL 38.5-51.6 H 35975-7) RDW-CV (test code = 14.6 % 12.1-15.4 788-0) PLT (test code = See_Comment H [Automated 777-3) message] The system which generated this result transmit pinky reference range : 150 - 328 10*3/ ?L. The reference range was not u sed to interpret th is result as normal/abnormal . MPV (test code = 8.4 fL 9.8-13 L 81366-2) NRBC/100 WBC (test See_Comment [Automat ed code = 2955479955) message] The system which generated this result transmit pinky reference range : 0.0 - 10.0 /100 WBCs. The reference range was not used to interpret this result as normal/abnormal . NRBC x10^3 (test code See_Comment [Auto mated = 1733783619) message] The system which generated this result transmit pinky reference range : 10*3/?L. The reference range was not used to interpret this result as normal/abnormal . GRAN MAT (NEUT) % 91.7 % (test code = 770-8) IMM GRAN % (test code 0.40 % = 6143056229) LYMPH % (test code = 3.1 % 736-9) MONO % (test code = 4.4 % 5905-5) EOS % (test code = 0.0 % 713-8) BASO % (test code = 0.4 % 706-2) GRAN MAT x10^3(ANC) 23.92 10*3/uL 1.99-6.95 H (test code = 0373573955) IMM GRAN x10^3 (test 0.10 10*3/uL 0-0.06 H code = 8012598287) LYMPH x10^3 (test code 0.80 10*3/uL 1.09-3.23 L = 731-0) MONO x10^3 (test code 1.16 10*3/uL 0.36-1.02 H = 742-7) EOS x10^3 (test code = 0.06-0.53 L 711-2) BASO x10^3 (test code 0.10 10*3/uL 0.01-0.09 H = 704-7) BANDS (test code = Increased A 9803386422) GIANT PLATELETS (test Present See_Comment A [Auto mated code = 5908-9) message] The system which generated this result transmit pinky reference range : (none). The reference range was not used to interpret this result as normal/abnormal . Lab Interpretation Abnormal (test code = 15976-5) [facility] HospitalACTIVATED PARTIAL THRMPLAS [id number] 16:54:32 Test Item Value Reference Range Interpretation Comments APTT Patient (test See_Comment [Automat ed code = 3173-2) message] The system which generated this result transmitted reference range : 23 - 38 Seconds . The reference range was not used to interpr et this result as normal/abnormal . SHIN (test code = SHIN) The [facility] patient population mean normal value for aPTT is 30 seconds. Lab Interpretation Normal (test code = 01561-6) [facility] / [id number] 16:52:31 Test Item Value Reference Range Interpretation [...] tions. Lab Interpretation (test Normal code = 89812-4) [facility] [id number] 12:43:00 Test Item Value Reference Range Interpretation Comments POC-GLUCOSE METER 88 mg/dL 70-110 TESTED AT [facility] [address] ([facility]) (test code = DANK Maxwell [facility] [address] 1538) BASIC METABOLIC [id number] 09:10:00 Test Item Value Reference Range Interpretation [...] 697) EGFR (BEAKER) (test 85 mL/min/1.73 ESTIMA PINKY GFR IS code = 1092) sq m NOT ACCURATE CREATININE CLEARANCE IN PREDICTING GLOMERULAR FILTRATION RATE . ESTIMATED GFR I S NOT APPLICABLE FOR DIALYSIS PATIEN TS. POCT-GLUCOSE [id number] 05:26:00 Test Item Value Reference Range Interpretation Comments POC-GLUCOSE METER 87 mg/dL 70-110 TESTED AT [facility] [address] [facility] (test code = DANK Maxwell [facility] [address] 1538) [id number] 04:43:00 Test Item Value Reference Range Interpretation Comments PHOSPHORUS (BEAKER) (test code = 3.5 mg/dL 2.3-4.7 604) [id number] 04:43:00 Test Item Value Reference Range Interpretation Comments MAGNESIUM (BEAKER) (test code = 2.1 mg/dL 1.6-2.6 627) CBC W/PLT COUNT & AUTO [id number] 04:13:00 Test Item Value Reference Range Interpretation [...] PERCENT (BEAKER) (test code = 2801) POCT-GLUCOSE [id number] 01:04:00 Test Item Value Reference Range Interpretation Comments POC-GLUCOSE METER 94 mg/dL 70-110 TESTED AT [place] [address] ([facility]) (test code = DANK Maxwell [facility] [address] 1538) POCT-GLUCOSE [id number] 17:19:00 Test Item Value Reference Range Interpretation Comments POC-GLUCOSE METER 89 mg/dL 70-110 TESTED AT [place] [address] ([facility]) (test code = DANK Maxwell [facility] [address] 1538) [id number] 12:13:00 Test Item Value Reference Range Interpretation Comments PHOSPHORUS (BEAKER) (test code = 2.6 mg/dL 2.3-4.7 604) POCT-GLUCOSE [id number] 11:47:00 Test Item Value Reference Range Interpretation Comments POC-GLUCOSE METER 107 mg/dL 70-110 TESTED AT [place] [address] ([facility]) (test code = DANK Maxwell [facility] 1538) [id number] CBC W/PLT COUNT & AUTO [id number] 06:53:00 Test Item Value Reference Range Interpretation [...] 0-1 PERCENT (BEAKER) (test code = 2801) [id number] 06:49:00 Test Item Value Reference Range Interpretation Comments PHOSPHORUS (BEAKER) (test code = 3.5 mg/dL 2.3-4.7 604) [id number] 06:49:00 Test Item Value Reference Range Interpretation Comments MAGNESIUM (BEAKER) (test code = 2.3 mg/dL 1.6-2.6 627) COMPREHENSIVE METABOLIC [id number] 06:49:00 Test Item Value Reference Range Interpretation [...] 347) EGFR (BEAKER) (test 93 mL/min/1.73 ESTIMA PINKY GFR IS code = 1092) sq m NOT ACCURATE CREATININE CLEARANCE IN PREDICTING GLOMERULAR FILTRATION RATE . ESTIMATED GFR I S NOT APPLICABLE FOR DIALYSIS PATIEN TS. POCT-GLUCOSE [id number] 00:36:00 Test Item Value Reference Range Interpretation Comments POC-GLUCOSE METER 123 mg/dL 70-110 H TESTED AT [facility] [address] ([facility]) (test code = DANK Maxwell [facility] 1538) [id number] CBC W/PLT COUNT & AUTO [id number] 00:14:00 Test Item Value Reference Range Interpretation [...] 0-1 PERCENT (BEAKER) (test code = 2801) [id number] 00:11:00 Test Item Value Reference Range Interpretation Comments PHOSPHORUS (BEAKER) (test code = 1.8 mg/dL 2.3-4.7 L 604) [id number] 00:11:00 Test Item Value Reference Range Interpretation Comments MAGNESIUM (BEAKER) (test code = 2.5 mg/dL 1.6-2.6 627) COMPREHENSIVE METABOLIC [id number] 00:11:00 Test Item Value Reference Range Interpretation [...] 347) EGFR (BEAKER) (test 83 mL/min/1.73 ESTIMA PINKY GFR IS code = 1092) sq m NOT ACCURATE CREATININE CLEARANCE IN PREDICTING GLOMERULAR FILTRATION RATE . ESTIMATED GFR I S NOT APPLICABLE FOR DIALYSIS PATIEN TS. CREATINE KINASE (CK)2018-02-18 00:11:00 Test Item Value Reference Range Interpretation Comments CREATINE KINASE TOTAL (BEAKER) (test 235 U/L 29-200 H code = 380) PROTHROMBIN [id number] 23:57:00 Test Item Value Reference Range Interpretation [...]
[2022-11-14] MEDS ORDERED: ONDANSETRON 4 MG/2 ML VIAL ONE (23:16)
[2022-11-14] MEDS ORDERED: NA CHLORIDE 0.9% 1,000 ML ONE (23:16)
[2022-11-14] MEDS ORDERED: DIAZEPAM 10 MG/2 ML INJ SYRINGE ONE (23:16)
[2022-11-14 23:40] LABS: Absolute Lymphocytes (CBC) 2.3 K/uL (0.7-4.9); Lymphocytes % 17.9 % (15.3-44.8); MCV 106.8 fL (80-100); MPV 6.9 fL (7.6-11.3); RBC Red Blood Cell Count 3.84 M/uL (4.33-5.43)
[2022-11-15 00:35] LABS: ALT/SGPT 25 U/L (16-61); AST/SGOT 121 U/L (15-37); Albumin 3.2 g/dL (3.4-5.0); Alkaline Phosphatase 217 U/L (45-117); Bicarbonate 33 mEq/L (21-32); Bilirubin Total 2.3 mg/dL (0.2-1.0); Glomerular Filtration Rate 123 ml/min (=/>90); Glucose Level 111 mg/dL (74-106); Potassium 2.8 mEq/L (3.5-5.1); Sodium Level 133 mEq/L (136-145)
[2022-11-15 00:36] LABS: BUN Blood Urea Nitrogen < 1 mg/dL (7-18)
--- NOTE | 2022-11-15 00:53 | ER ---
Nurse's Notes [facility] Name: Roger Peralta Age: 27 yrs Sex: Male : 1995 Arrival Date: 11/14/2022 Time: 22:36 Bed 15 Private MD: Diagnosis: Heat exhaustion, unspecified;Alcohol dependence with withdrawal, unspecified Presentation: 11/14 22:55 Chief complaint: Patient states: I drank an alcoholic beverage after work today and jb4 could not keep it down. I am having chest pain, feeling dizzy, nauseous and can't keep anything down. Coronavirus screen: At this time, the client does not indicate any symptoms associated with coronavirus-19. Ebola Screen: No symptoms or risks identified at this time. Initial Sepsis Screen: Does the patient meet any 2 criteria? No. Patient's initial sepsis screen is negative. Does the patient have a suspected source of infection? No. Patient's initial sepsis screen is negative. Risk Assessment: Do you want to hurt yourself or someone else? Patient reports no desire to harm self or others. Onset of symptoms was November 14, 2022. Transition of care: patient was not received from another setting of care. 22:55 Method Of Arrival: Ambulatory jb4 22:55 Acuity: LAVON 3 jb4 Historical: - Allergies: 22:57 No Known Allergies; jb4 - Home Meds: 22:57 librium [Active]; jb4 - PMHx: 22:57 Seizure; fatty liver; jb4 - PSHx: 22:57 None; jb4 - Immunization history:: Adult Immunizations up to date. - Social history:: Smoking status: Patient denies any tobacco usage or history of. Patient uses alcohol, every other day. street drugs, marijuana. - Family history:: not pertinent. - Hospitalizations: : Patient was recently seen at. Screenin:59 [facility] ED Fall Risk Assessment (Adult) History of falling in the last 3 months, jb4 including since admission No falls in past 3 months (0 pts) Confusion or Disorientation No (0 pts). Abuse screen: Denies threats or abuse. Nutritional screening: No deficits noted. Tuberculosis screening: No symptoms or risk factors identified. Assessment: 22:59 General: Appears in no apparent distress. comfortable, Behavior is cooperative, jb4 anxious. Pain: Complains of pain in chest Pain does not radiate. Pain currently is 6 out of 10 on a pain scale. Quality of pain is described as sharp. Neuro: Level of Consciousness is awake, alert, obeys commands, Oriented to person, place, time, situation. Cardiovascular: Patient's skin is warm and dry. Respiratory: Airway is patent Respiratory effort is even, unlabored, Respiratory pattern is regular, symmetrical. GI: No signs and/or symptoms were reported involving the gastrointestinal system. : No signs and/or symptoms were reported regarding the genitourinary system. EENT: No signs and/or symptoms were reported regarding the EENT system. Derm: Skin is intact, Skin is pink, warm \T\ dry. Musculoskeletal: Circulation, motion, and sensation intact. Range of motion: intact in all extremities. 11/15 00:07 Reassessment: Patient appears in no apparent distress at this time. Patient and/or jb4 family updated on plan of care and expected duration. Pain level reassessed. Patient is alert, oriented x 3, equal unlabored respirations, skin warm/dry/pink. 01:08 Reassessment: Patient appears in no apparent distress at this time. Patient and/or jb4 family updated on plan of care and expected duration. Pain level reassessed. Patient is alert, oriented x 3, equal unlabored respirations, skin warm/dry/pink. Patient states feeling better. Vital Signs: 11/14 22:55 BP 129 / 90; Pulse 75; Resp 16; Temp 98.1(O); Pulse Ox 96% on R/A; Weight 68.04 kg (R); jb4 Height 5 ft. 6 in. ; 11/15 00:07 BP 119 / 74; Pulse 81; Resp 16; Pulse Ox 100% on R/A; jb4 11/14 22:55 Body Mass Index 24.21 (68.04 kg, 167.64 cm) jb4 ED Course: 11/14 22:44 Patient arrived in ED. kl 22:45 Chandler Turner MD is Attending Physician. rn 22:55 Kanu Bradford, RONI is Primary Nurse. jb4 22:57 Triage completed. jb4 22:57 Arm band placed on right wrist. jb4 22:59 Patient has correct armband on for positive identification. Placed in gown. Bed in low jb4 position. Call light in reach. Side rails up X 1. Client placed on continuous cardiac and pulse oximetry monitoring. NIBP monitoring applied. 23:12 Initial lab(s) drawn, by me, sent to lab. Inserted saline lock: 18 gauge in right jb4 antecubital area, using aseptic technique. Blood collected. 11/15 01:08 No provider procedures requiring assistance completed. IV discontinued, intact, jb4 bleeding controlled, No redness/swelling at site. Pressure dressing applied. Administered Medications: 11/14 23:17 Drug: NS 0.9% IV 1000 ml Route: IV; Rate: 1000 ml; Site: right antecubital; jb4 11/15 00:00 Follow up: Response: No adverse reaction; IV Status: Completed infusion; IV Intake: jb4 1000ml 11/14 23:17 Drug: Ondansetron IVP 4 mg Route: IVP; Site: right antecubital; jb4 11/15 00:00 Follow up: Response: No adverse reaction; Marked relief of symptoms jb4 11/14 23:18 Drug: Diazepam IVP 5 mg Route: IVP; Site: right antecubital; jb4 11/15 00:00 Follow up: Response: No adverse reaction; Marked relief of symptoms jb4 Medication: 11/14 22:59 VIS not applicable for this client. jb4 Intake: 11/15 00:00 IV: 1000ml; Total: 1000ml. jb4 Outcome: 00:53 Discharge ordered by . rn 01:09 Discharged to home ambulatory, with family. jb4 01:09 Condition: stable 01:09 Discharge instructions given to patient, Instructed on discharge instructions, follow up and referral plans. Demonstrated understanding of instructions, follow-up care. 01:09 Patient left the ED. jb4 Signatures: Flora Phelps RN RN kl Nieto, Roman, MD MD rn Bryson, James, RN RN jbLata
--- NOTE | 2022-11-15 00:53 | EDPHYS ---
Physician Documentation [facility] Name: Roger Peralta Age: 27 yrs Sex: Male : 1995 Arrival Date: 11/14/2022 Time: 22:36 Bed 15 Private MD: ED Physician Chandler Turner HPI: 11/14 23:09 This 27 yrs old Male presents to ER via Ambulatory with complaints of rn weakness, feels like is going to have a seizure. 23:09 Pt reports was working outside today, drank after work, got home and didn't feel well, rn threw up twice, feels weak all over, and "feels like going to have a seizure". Pt is known alcoholic, with recent transfer to [place], to be told they dont think is cirrhosis, maybe just fatty liver and labs were improving. Pt not drinking as much as he was before, but trying not to quit cold turkey. . Onset: The symptoms/episode began/occurred today. Severity of symptoms: At their worst the symptoms were moderate in the emergency department the symptoms are unchanged. The patient has experienced similar episodes in the past. The patient has been recently seen by a physician:. Historical: - Allergies: 22:57 No Known Allergies; jb4 - Home Meds: 22:57 librium [Active]; jb4 - PMHx: 22:57 Seizure; fatty liver; jb4 - PSHx: 22:57 None; jb4 - Immunization history:: Adult Immunizations up to date. - Social history:: Smoking status: Patient denies any tobacco usage or history of. Patient uses alcohol, every other day. street drugs, marijuana. - Family history:: not pertinent. - Hospitalizations: : Patient was recently seen at. ROS: 23:09 Constitutional: Negative for fever, chills, and weight loss, Eyes: Negative for injury, rn pain, redness, and discharge, Neck: Negative for injury, pain, and swelling, Cardiovascular: Negative for chest pain, palpitations, and edema, Respiratory: Negative for shortness of breath, cough, wheezing, and pleuritic chest pain, Abdomen/GI: Negative for abdominal pain, diarrhea, and constipation, Back: Negative for injury and pain, : Negative for injury, bleeding, discharge, and swelling, MS/Extremity: Negative for injury and deformity, Skin: Negative for injury, rash, and discoloration, Neuro: Negative for headache, numbness, tingling, and seizure. Exam: 23:09 Constitutional: This is a well developed, well nourished patient who is awake, alert, rn and in no acute distress. Head/Face: Normocephalic, atraumatic. ENT: dry MM Cardiovascular: Regular rate and rhythm. No pulse deficits. Respiratory: No increased work of breathing, no retractions or nasal flaring. Abdomen/GI: Soft, non-tender Skin: Warm, dry MS/ Extremity: Pulses equal, no cyanosis. Neuro: Awake and alert, GCS 15, oriented to person, place, time, and situation. Cranial nerves II-XII grossly intact. Motor strength 5/5 in all extremities. Sensory grossly intact. Cerebellar exam normal. 23:27 ECG was reviewed by the Attending Physician. rn Vital Signs: 22:55 BP 129 / 90; Pulse 75; Resp 16; Temp 98.1(O); Pulse Ox 96% on R/A; Weight 68.04 kg (R); jb4 Height 5 ft. 6 in. ; 11/15 00:07 BP 119 / 74; Pulse 81; Resp 16; Pulse Ox 100% on R/A; jb4 11/14 22:55 Body Mass Index 24.21 (68.04 kg, 167.64 cm) [facility] MDM: 11/14 22:45 Patient medically screened. rn 11/15 00:51 Differential Diagnosis heat exhaustion, fatty liver, ETOH withdrawal. Data reviewed: rn vital signs, nurses notes, lab test result(s), EKG, and as a result, I will discharge patient. Care significantly affected by the following chronic conditions: Liver Disease, Alcoholism. Counseling: I had a detailed discussion with the patient and/or guardian regarding: the historical points, exam findings, and any diagnostic results supporting the discharge/admit diagnosis, lab results, the need for outpatient follow up, to return to the emergency department if symptoms worsen or persist or if there are any questions or concerns that arise at home. Response to treatment: the patient's symptoms have markedly improved after treatment, sleeping comfortably, no complaints, feels better, and as a result, I will discharge patient. Special discussion: I discussed with the patient/guardian in detail that at this point there is no indication for admission to the hospital. It is understood, however, that if the symptoms persist or worsen the patient needs to return immediately for re-evaluation. Based on the history and exam findings, there is no indication for further emergent testing or inpatient evaluation. I discussed with the patient/guardian the need to see the primary care provider for further evaluation of the symptoms. detox. 11/14 23: Order name: CBC with Diff rn 11/14 23: Order name: CMP; Complete Time: 00:38 rn 11/14 23:45 Order name: CBC Smear Scan EDMS 11/14 22: Order name: EKG; Complete Time: 23: rn 11/14 22: Order name: IV Start; Complete Time: : rn 11/14 22: Order name: EKG - Nurse/Tech; Complete Time: : rn EC11/14 22:27 Rate is 77 beats/min. Rhythm is regular. QRS [place] is Normal. [place] interval is normal. QRS rn interval is normal. No Q waves. T waves are Normal. No ST changes noted. Clinical impression: NSR w/ Non-specific ST/T Changes. Interpreted by me. Reviewed by me. Administered Medications: : Drug: NS 0.9% IV 1000 ml Route: IV; Rate: 1000 ml; Site: right antecubital; 4 11/15 00:00 Follow up: Response: No adverse reaction; IV Status: Completed infusion; IV Intake: jb4 1000ml 11/14 23:17 Drug: Ondansetron IVP 4 mg Route: IVP; Site: right antecubital; jb4 11/15 00:00 Follow up: Response: No adverse reaction; Marked relief of symptoms 4 11/14 23:18 Drug: Diazepam IVP 5 mg Route: IVP; Site: right antecubital; jb4 11/15 00:00 Follow up: Response: No adverse reaction; Marked relief of symptoms jb4 Disposition Summary: 11/15/22 00:53 Discharge Ordered Location: Home rn Problem: an ongoing problem rn Symptoms: have improved rn Condition: Stable rn Diagnosis - Heat exhaustion, unspecified rn - Alcohol dependence with withdrawal, unspecified rn Followup: rn - With: Private Physician - When: As needed - Reason: Recheck today's complaints, Re-evaluation by your physician Discharge Instructions: - Discharge Summary Sheet rn - Alcohol Withdrawal Syndrome rn - Alcohol Use Disorder rn - Alcohol Abuse and Nutrition rn - Heat Exhaustion rn Forms: - Medication Reconciliation Form rn - Thank You Letter rn - Antibiotic internetworking technician - Prescription Opioid Use rn Signatures: Dispatcher [employer] Chandler Stanford MD MD rn Bryson, James, RN RN jb4
[2022-11-15 01:19] VITALS: TEMP 98.1
[2022-11-15 01:22] LABS: Blood Morphology Comment NOTED (NOT SEEN); Macrocytosis 1+; Platelet Estimate ADEQ; Teardrop Cell 1+; White Blood Cell Scan OK (OK)
[2022-11-15 01:25] VITALS: BP 119/74; O2SAT 100
--- NOTE | 2022-11-16 19:14 | EKG ---
Test Date: 2022-11-14 Test Time: 23:08:47 Equipment Maint Tech: IRENE MEASUREMENT RESULTS: Intervals: Rate: 77 RI: 138 QRSD: 84 QT: 464 QTc: 525 [place]: P: 47 RI: 138 QRS: 59 T: 26 INTERPRETIVE STATEMENTS: Normal sinus rhythm Prolonged QT Abnormal ECG Compared to ECG 09/21/2022 23:24:00 Prolonged QT interval now present Electronically Signed On 11-16-22 19:10:40 CDT by Ken Donahue
== END 2022-11-15 01:09 | disposition home or self-care (01) ==
LOC: ER 22:36
DX: T67.5XXA Heat exhaustion, unspecified, initial encounter (principal); F10.239 Alcohol dependence with withdrawal, unspecified
CPT/HCPCS: 93005; 85025; 36415; 80053; J3360; J2405; J7030

== ENCOUNTER 2022-11-25 01:01 | Emergency (ER) | payer OTHER ==
--- OUTSIDE RECORDS SUMMARY | 2022-11-25 01:08 | XMS REPORT | Continuity of Care Document ---
:1995 Author Organization [facility] t Address [address] [facility] [address] [place] [address] Care Team Providers Name Role Phone Eyal Menezes Primary Care Physician MICHAEL NIEVES Attending Clinician Unavailable Michael Nieves MD Attending Clinician Danna Conley PA-C Attending Clinician [phone] DANNA CONLEY Attending Clinician Unavailable Antonio Jaime MD Attending Clinician [phone] Zach Grady MD Attending Clinician Noemy Crowell MD Attending Clinician NOEMY CROWELL Attending Clinician Unavailable KAYLENE MONTAÑO Attending Clinician Unavailable Kaylene Montaño DO Attending Clinician Doctor Unassigned, [place] Attending Clinician Unavailable Adrian TAMAYO, Estrellita Hauser Attending Clinician FAWAD SANZ Attending Clinician Unavailable Shawn Rich MD Attending Clinician Francois Pelletier MD Attending Clinician Fawad Sanz MD Attending Clinician Julianne Matson Attending Clinician Lab, [facility] Pob I Attending Clinician Unavailable MARY WINCHESTER Attending Clinician Unavailable NOEMY CROWELL Admitting Clinician Unavailable KAYLENE MONTAÑO Admitting Clinician Unavailable FAWAD SANZ Admitting Clinician Unavailable Fawad Sanz MD Admitting Clinician MARY WINCHESTER Admitting Clinician Unavailable Payers Payer Name Policy Type Policy Number Effective Date Expiration Date S [id number] [address] [id number] 2022 00:00:00 COMMERCIAL [id number] 2021 NON-CONTRACT 00:00:00 GENERIC Problems Condition Condition Condition Status Onset Resolution Last Treating Co mments Source Name Details Category Date Date Treatment Clinician Date Alcoholic Alcoholic Disease Active [facility] 4-28 [facility] s 00:00: Medical [facility] [place] Seizure Seizure Disease Active Univers 8-16 ity of 00:00: [address] Branch Nausea and Nausea and Disease Active U [...] Active Univers ALLERGIE Class ity of S [facility] NO KNOWN Allergy Active SLE ALLERGIE S Social History Social Habit Start Date Stop Date Quantity Comments Source History of Passive smoker University of tobacco use [facility] History SDOH [facility]-Med Medical [facility] History SDOH [facility] Housing Places Medical Ce nter Lived Alcohol intake 2022-10-13 2022-10-13 Current drinker [facility]00 of alcohol Medical Center (finding) History SDOH 2022-09-22 2022-09-[address] [facility] Housing Unable to 00:00:00 00:00:00 Medical Center Pay History SDOH 2022-09-22 2022-09-[address] [facility] Housing Homeless 00:00:00 00:00:00 Medical Center Last Year History SDOH 2022-09-22 2022-09-[address] [facility] Transport Med 00:00:00 00:00:[address] Exposure to 2022-09-11 2022-09-21 Not sure [facility] SARS-CoV-2 00:00:00 17:21:00 [facility] (event) Branch Tobacco use and 2022-01-09 2022-01-09 Smokeless tobacco Un iversity of exposure 00:00:00 00:00:00 non-user [facility] Sex Assigned At [birth year] M GULSHAN Goodman 00:00:00 00:00:00 Medical Center Smoking Status Start Date Stop Date Source Tobacco smoking consumption Univ [facility] Branch Never smoked tobacco [facility] Medications Ordered Filled Start Stop Current Ordering Indication Dosage Frequency Signature Comments Components Source Medication Medication Date Date Medication? Clinician (SIG) Name Name NaCl 0.9% 2022- Yes 1000mL at 999 Uni vers (NS) IV 11-25-30 mL/hr, ity of infusion 05:30: 17:29 [place]venou [place] 1,000 mL 00 :00 s, ONCE, 1 Medic al dose, On Branch Mon11/25/22 at 0030, CELESTE famotidine 2022- No 20mg 20 mg, Univ ers (PEPCID 11-25 0630 Slow IV ity of (PF)) 05:15: 05:16 Push, [place] injection 00 :00 ONCE, 1 Medical 20 mg dose, On Branch Mon11/25/22 at 0015, CELESTE KCL No 20meq 20 mEq, Univers (KLOR-CON 11-25 0630 Oral, ity of M20) tablet 05:15: 05:16 ONCE, 1 [place] 20 mEq 00 :00 dose, On Mon Branch 11/25/22 at 0015, CELESTE ondansetron 2022-0 Yes [id number] 4mg Take 1 Univers (ZOFRAN) 4 11-25 tablet by ity of mg tablet 00:00: mouth [place] 00 every 8 Medical (eight) Branch hours as needed for Nausea and Vomiting (N/V). chlordiazeP 2022- No Take [address] [facility] OXIDE 09-23 capsule [facility] (LIBRIUM) 00:00: 23:59 (25 mg Medic al 25 MG 00 :00 total) by Center capsule mouth 2 (two) times daily for 1 day, THEN 1 capsule (25 mg total) nightly for 1 day. Max Daily Amount: 50 mg. chlordiazeP No Take [address] [facility] OXIDE 09-23 capsule [facility] (LIBRIUM) 00:00: 23:59 (25 mg Medic al 25 MG 00 :00 total) by Center capsule mouth 2 (two) times daily for 1 day, THEN 1 capsule (25 mg total) nightly for 1 day. Max Daily Amount: 50 mg. levETIRAcet No 750mg 750 mg, U nivers am (KEPPRA) 09-22 Oral, ONCE i ty of tablet 750 01:15: 00:24 NOW, 1 [place] mg 00 :00 dose, On Mon Branch 09/21/22 at 2015, CELESTE magnesium No 2g 2 g, IV Univ ers sulfate in 09-22 Piggyback, it y of water 2 00:00: 00:32 Administer Rian as gram/50 mL 00 :00 over 60 Medica l (4 %) Minutes, Branch infusion 2 ONCE, 1 g dose, On Mon09/21/22 at 1900, Routine iopamidol 2022- No [id number] 74mL 74 mL, U nivers (ISOVUE 09-21 [...] dose, On Mon09/21/22 at 1815, CELESTE ondansetron 0 2022- No 4mg 4 mg, Slow Univers (ZOFRAN 09-21 04-26 IV Push, ity of (PF)) 22:30: 22:35 ONCE, 1 [place] injection 4 00 :00 dose, On Medi bill mg Wed Branch 09/21/22 at 1730, CELESTE ondansetron 0 Yes [id number] 4mg Take 1 Univers 4 mg 4-26 tablet by ity of disintegrat 00:00: mouth [place] ing tablet 00 every 8 Medica l (eight) Branch hours as needed for Nausea and Vomiting (N/V). levETIRAcet 2022-0 Yes [id number] 500mg Take 1 Univers am (KEPPRA) 4-26 tablet by ity of 500 mg 00:00: mouth in [place] tablet 00 the Medical morning Branch and 1 tablet in the evening. ondansetron 2022-0 Yes [id number] 4mg Take 1 Univers 4 mg 4-26 tablet by ity of disintegrat 00:00: mouth [place] ing tablet 00 every 8 Medica l (eight) Branch hours as needed for Nausea and Vomiting (N/V). levETIRAcet 2022-0 Yes [id number] 500mg Take 1 Univers am (KEPPRA) 4-26 tablet by ity of 500 mg 00:00: mouth in [place] tablet 00 the Medical morning Branch and 1 tablet in the evening. multivitami Yes [id number] 1{tbl} Take 1 Univers n tablet 8-19 tablet by ity of 00:00: mouth in [place] 00 the Medical morning. Branch multivitami 2021-0 Yes [id number] 1{tbl} Take 1 Univers n tablet 8-19 tablet by ity of 00:00: mouth in [place] 00 the morning. Branch multivitami 2021-0 Yes [id number] 1{tbl} Take 1 Univers n tablet 8-19 tablet by ity of 00:00: mouth in [place] the morning. Branch multivitami 2021-0 Yes [id number] 1{tbl} Take 1 Univers n tablet 8-19 tablet by ity of 00:00: mouth in [place] the morning. Branch multivitami 2021-0 Yes [id number] 1{tbl} Take 1 Univers n tablet 8-19 tablet by ity of 00:00: mouth in [place] the morning. [place] ergocalcife 0 Yes [id number] 50,000 Un sheri rol 8-18 Units, ity of (vitamin 14:00: Oral, [place] d2) 00 QWEEKLY, Medical (CALCIFEROL First dose Br anch ) capsule on Kathy 50,000 01/13/22 at Units 0900, Until Discontinu ed, Routine levETIRAcet 2021-0 Yes 500mg 500 mg, Un sheri am (KEPPRA) 8-18 Oral, BID, it y of tablet 500 01:00: First dose [place] mg 00 on Mon Medical 01/12/22 at Branch 2000, Until Discontinu ed, Routine levETIRAcet 2021-0 Yes [id number] 500mg Take 1 Univers am 500 mg 8-18 tablet by ity o f tablet 00:00: mouth in [place] the morning [place] and 1 tablet in the evening. levETIRAcet 2021-0 Yes [id number] 500mg Take 1 Univers am 500 mg 8-18 tablet by ity o f tablet 00:00: mouth in [place] the [facility] morning Branch and 1 tablet in the evening. levETIRAcet 2021-0 Yes [id number] 500mg Take 1 Univers am 500 mg 8-18 tablet by ity o f tablet 00:00: mouth in [place] the morning Branch and 1 tablet in the evening. levETIRAcet 2021-0 Yes [id number] 500mg Take 1 Univers am 500 mg 8-18 tablet by ity o f tablet 00:00: mouth in [place] the morning [place] and 1 tablet in the evening. levETIRAcet 2021-0 Yes [id number] 500mg Take 1 Univers am 500 mg 8-18 tablet by ity o f tablet 00:00: mouth in [place] 00 the Medical morning Branch and 1 tablet in the evening. LORazepam Yes 1mg 1 mg, Slow Un sheri (ATIVAN) 01-12 IV Push, ity of injection 1 19:00: Q8H, First [place] mg 00 dose Medical (after [place] last modificati on) on Mon01/12/22 at 1400, Until Discontinu ed, Routine
Is the medication being used for status epilepticu s? No lidocaine Yes 15mL 15 mL, Univer s 2% viscous 01-12 Oral, ity of (LIDOCAINE 18:15: Q4HPRN, [place] VISCOUS) 2 17 Starting Medic al % solution on Mon 15 mL 01/12/22 at 1315, Until Discontinu ed, Routine, Oral mucosal pain melatonin Yes 6mg 6 mg, Univers (MELATIN) 01-12 Oral, QHS, ity of tablet 6 mg 06:30: First dose 00 on Mon01/12/22 at Branch 0130, Until Discontinu ed, Routine potassium 2021- No 15mmol 15 mmol, U nivers phosphate 01-12 IV ity of 15 mmol in 00:30: 05:23 Piggyback, [place] NaCl 0.9% 00 :00 ONCE, 1 Medical (NS) 150 mL dose, On piggyback Mon01/11/22 at 1930, 150 mL simethicone Yes 125mg 125 mg, Un sheri (MYLICON) 01-11 Oral, ity of chewable 19:30: QIDPRN, [place] tablet 125 03 Starting Medic al mg on Mon01/11/22 at 1430, Until Discontinu ed, Routine, Gas NaCl 0.9% 2021- No 1000mL at 999 Uni vers (NS) bolus 01-11 mL/hr, ity of infusion 15:15: 15:47 1,000 mL, Rian as 1,000 mL 00 :00 IV Medical Infusion, [place] ONCE, 1 dose, On Mon01/11/22 at 1015, STAT levETIRAcet 2021- No 500mg 500 mg, IV Univers am (KEPPRA) 01-11 Piggyback, i ty of in NACL 13:00: 18:16 Q12H, [place] (ISO-OS) 00 :11 First dose Medic al 500 mg/100 on Tue Branch mL RTU 01/11/22 at 0800, Until Discontinu ed, Administer over 15 Minutes, 100 mL LORazepam No 1mg 1 mg, Slow U nivers (ATIVAN) 01-11 IV Push, ity of injection 1 11:00: 13:10 Q6H, First [place] mg 00 :40 dose on Medical Tue Branch 01/11/22 at 0600, Until Discontinu ed, Routine
Is the medication being used for status epilepticu s? No LORazepam 2021- No 1mg 1 mg, Slow U nivers (ATIVAN) 01-11 IV Push, ity of injection 1 07:45: 06:25 ONCE, 1 [place] mg 00 :00 dose, On Medical Tue Branch 01/11/22 at 0245, Routine
Is the [...] [place] mg 00 :00 dose, On Medical Tue Branch 01/11/22 at 0230, Routine
Is the medication being used for status epilepticu s? No NaCl 0.9% Yes 1000mL at 100 Univ ers (NS) IV 816 mL/hr, IV ity of infusion 06:30: Infusion, [place] 1,000 mL 00 CONTINUOUS Medic al , Starting Branch on 01/11/22 at 0130, Until Discontinu ed, Routine pantoprazol [...] Rian as mg 50 Starting Medical on Mon01/11/22 at 0127, Until Discontinu ed, Routine, Seizures&l t;br>Is the medication being used for status epilepticu s? Yes melatonin 2021-2021- No 6mg 6 mg, Univer s (MELATIN) 01-11 Oral, ity of tablet 6 mg 06:15: 05:23 ONCE, 1 [place] 00 :00 dose, On Medical Mon01/11/22 at 0115, Routine proMETHazin Yes 25mg 25 mg, IV U nivers e 01-10 Piggyback, ity of (PHENERGAN) 14:46: Q6HPRN, [place] as 25 mg in 01 Starting Medical NaCl 0.9% on Mon (NS) 50 mL 01/10/22 at IV 0946, piggyback Until Discontinu ed, Routine, N/V unresponsi ve to Ondansetro n guaiFENesin Yes 100mg 100 mg, Un sheri 100 mg/5 mL 01-10 Oral, ity of solution 14:44: Q6HPRN, [place] 100 mg 48 Starting Medical on Mon Branch 01/10/22 at 0944, Until Discontinu ed, Routine, Cough melatonin 2021- No 6mg 6 mg, Univer s (MELATIN) 01-10 Oral, QHS, ity of tablet 6 mg 04:45: 05:03 First dose [place] 00 :30 on Sun Medical 01/09/22 at Branch 2345, Until Discontinu ed, Routine magnesium 2021- No 2g 2 g, IV Univ ers sulfate in 01-09 Piggyback, it y of water 2 23:15: 23:20 Administer Rian as gram/50 mL 00 :00 over 60 Medica l (4 %) Minutes, Branch infusion 2 ONCE, 1 g dose, On [place] 01/09/22 at 1815, Routine enoxaparin 0 Yes 40mg 40 mg, Unive rs (LOVENOX) 01-09 Subcutaneo ity of injection 22:00: us, DAILY, [place] 40 mg 00 First dose Medical on [facility] 01/09/22 at 1700, Until Discontinu ed, Routine benzocaine- 0 Yes 1{lozen 1 Lozenge, Univers menthoL 01-09 ge} Oral, ity of (CEPACOL 21:48: Q4HPRN, [place] SORE THROAT 11 Starting Medi bill (CADENCE-MEN)) on [facility] lozenge 1 01/09/22 at Lozenge 1648, Until Discontinu ed, Routine, Sore throat foLIC acid 0 Yes 1mg 1 mg, Univer s (FOLATE) 01-09 Oral, ity of tablet 1 mg 21:00: DAILY, [place] 00 First dose Medical on [facility] 01/09/22 at 1600, Until Discontinu ed, Routine thiamine 0 Yes 100mg 100 mg, Unive rs (VITAMIN 01-09 Oral, ity of B1) tablet 21:00: DAILY, [place] 100 mg 00 First dose Medical on [facility] 01/09/22 at 1600, Until Discontinu ed, Routine NaCl 0.9% 2021- No 1000mL at 125 Uni vers (NS) IV 01-09 08-16 mL/hr, IV ity of infusion 21:00: 06:29 Infusion, Rian as 1,000 mL 00 :07 CONTINUOUS Medic al , Starting Branch on [place] 01/09/22 at 1600, Until Mon01/11/22 at 0129, Routine ondansetron 0 Yes 4mg 4 mg, Slow Univers (ZOFRAN 01-09 IV Push, ity of (PF)) 20:53: Q6HPRN, [place] injection 4 51 Starting Medi bill mg on [facility] 01/09/22 at 1553, Until Discontinu ed, Routine, Nausea and Vomiting (N/V) morpHINE (4 0 2021- No 4mg 4 mg, Slow Univers mg/mL) 01-09 08-15 IV Push, ity of injection 4 20:53: 20:52 Q4HPRN, [place] mg 48 :48 Starting Medical on [place] Branch 01/09/22 at 1553, Until 01/10/22 at 1552, Routine, Pain (scale 7-10) acetaminoph Yes 650mg 650 mg, Un sheri en 01-09 Oral, ity of (TYLENOL) 20:53: Q6HPRN, [place] tablet 650 39 Starting Medic al mg on [facility] 01/09/22 at 1553, Until Discontinu ed, Routine, Pain (scale 1-3), Temp > 38.5 C NaCl 0.9% 2021- No 1000mL at 999 Uni vers (NS) bolus 01-09 08-16 mL/hr, ity of infusion 20:00: 07:34 1,000 mL, Rian as 1,000 mL 00 :00 IV Medical Infusion, Branch ONCE, 1 dose, On [place] 01/09/22 at 1500, STAT NaCl 0.9% 2021- No 1000mL at 999 Uni vers (NS) bolus 01-0914 mL/hr, ity of infusion 18:15: 19:24 1,000 mL, Rian as 1,000 mL 00 :00 IV Medical Infusion, Branch ONCE, 1 dose, On [place] 01/09/22 at 1315, STAT iopamidol 2021- No [id number] 60mL 60 mL, U nivers (ISOVUE 01-09 Intravenou ity o f 370-500 mL) 18:00: 18:00 s, ONCE, 1 [place] injection 00 :00 dose, On Medica l 60 mL [facility] 01/09/22 at 1300, Routine piperacilli 2021- No 3.375g 3.375 g, Univers n-tazobacta 01-09 IV ity of m (ZOSYN) 17:45: 18:22 Piggyback, [place] 3.375 g in 00 :00 ONCE, 1 Medica l NaCl 0.9% dose, On Branch (NS) 50 mL [place] MINI-BAG 01/09/22 at 1245, Administer over 30 Minutes, 50 mL
R adalberto for Anti-Infec tive: Documented Infection< br>Documen pinky Infection Site: HEENT<br&g t;Duration of Therapy: Other (see Comments) ondansetron No 4mg 4 mg, Slow Univers (ZOFRAN 01-09 IV Push, ity of (PF)) 17:30: 16:59 ONCE, 1 [place] injection 4 00 :00 dose, On Medi bill mg Sun Branch 01/09/22 at 1230, CELESTE NaCl 0.9% No 1000mL at 999 Uni vers (NS) bolus 01-09 mL/hr, ity of infusion 17:30: 19:14 1,000 mL, Rian as 1,000 mL 00 :00 IV Medical Infusion, Branch ONCE, 1 dose, On [place] 01/09/22 at 1230, STAT Vital Signs Vital Name Observation Time Observation Value Comments Source Systolic blood 2022-11-25 05:00:00 108 mm[Hg] Univer sity of pressure [facility] Diastolic blood 2022-11-25 05:00:00 73 mm[Hg] [facility] Heart rate 2022-11-25 05:00:00 82 /min [facility] Respiratory rate 2022-11-25 05:00:00 14 /min [facility] Oxygen saturation in 2022-11-25 05:00:00 99 /min [facility] Arterial blood by [place] Medi bill Pulse oximetry [place] Body temperature 2022-11-25 04:06:00 37.22 Mayra [facility] height 2022-11-25 04:06:00 167.6 cm [facility] Body weight 2022-11-25 04:06:00 66.497 kg [facility] BMI 2022-11-25 04:06:00 23.66 kg/m2 [facility] HEIGHT 2022-10-13 10:15:00 167.6 cm WEIGHT 2022-10-13 10:15:00 69.854 kg HEIGHT 2022-10-13 10:15:00 167.6 cm WEIGHT 2022-10-13 10:15:00 69.854 kg HEIGHT 2022-10-13 10:15:00 167.6 cm WEIGHT 2022-10-13 10:15:00 69.854 kg WEIGHT 2022-09-22 09:25:00 67.314 kg WEIGHT 2022-09-22 09:25:00 67.314 kg WEIGHT 2022-09-22 09:25:00 67.314 kg Systolic blood 2022-09-22 00:00:00 106 mm[Hg] Univer sity of pressure [facility] Diastolic blood 2022-09-22 00:00:00 72 mm[Hg] Unive rsity of pressure [facility] Heart rate 2022-09-22 00:00:00 90 /min Universi ty of [facility] Respiratory rate 2022-09-22 00:00:00 21 /min Univ ersity of [facility] Branch Oxygen saturation in 2022-09-22 00:00:00 96 /min University of Arterial blood by [facility] Pulse oximetry Branch Body temperature 2022-09-21 22:20:00 37.44 Mayra Univ ersity of [facility] Respiratory rate 2022-01-13 15:00:00 24 /min Univ ersity of [place] [facility] Oxygen saturation in 2022-01-13 15:00:00 93 /min University of Arterial blood by [facility] Pulse oximetry Branch Systolic blood 2022-01-13 15:00:00 113 mm[Hg] Univer sity of pressure [facility] Diastolic blood 2022-01-13 15:00:00 82 mm[Hg] Unive rsity of pressure [facility] Heart rate 2022-01-13 15:00:00 56 /min Universi ty of [place] [facility] [place] Body temperature 2022-01-13 13:12:00 36.89 Mayra [facility] [place] [facility] Body weight 2022-01-13 11:03:00 77.973 kg [facility]i ty [facility] [place] [facility] BMI 2022-01-13 11:03:00 26.92 kg/m2 Universi ty of [facility] Branch Body height 2022-01-09 21:42:00 170.2 cm Universi ty of [facility] Systolic blood 2022-10-13 10:15:00 121 mm[Hg] [facility] Diastolic blood 2022-10-13 10:15:00 79 mm[Hg] [facility] Heart rate 2022-10-13 10:15:00 96 /min [facility] Body temperature 2022-10-13 10:15:00 36.72 Mayra [facility] Respiratory rate 2022-10-13 10:15:00 18 /min [facility] Body height 2022-10-13 10:15:00 167.6 cm [facility] Body weight 2022-10-13 10:15:00 69.854 kg [facility] BMI 2022-10-13 10:15:00 24.86 kg/m2 [facility] Oxygen saturation in 2022-10-13 10:15:00 99 /min [facility] Arterial blood by Medical Ce nter Pulse oximetry Procedures Procedure Date / Time Performing Clinician Source Performed LIPASE 2022-11-25 04:24:00 Michael Nieves [facility] MAGNESIUM 2022-11-25 04:24:00 Michael Nieves [facility] COMP. METABOLIC PANEL 2022-11-25 04:24:00 Michael Nieves [facility] ([id number]) [facility] Branch ETHANOL 2022-11-25 04:24:00 Michael Nieves [facility] CBC WITH DIFF 2022-11-25 04:24:00 Michael Nieves [facility] URINALYSIS 2022-11-25 04:24:00 Michael Nieves [facility] CONSENT/REFUSAL FOR 2022-11-25 03:56:25 Doctor Unassigned, [facility] DIAGNOSIS AND TREATMENT Kaloko [facility] BASIC METABOLIC PANEL 2022-10-13 11:06:00 Jonas Dawson [facility] HEPATIC FUNCTION PANEL 2022-10-13 11:06:00 Duck Cynthia [facility] CBC W/PLT COUNT & AUTO 2022-10-13 11:06:00 Jonas Dawson [facility] [place] [facility] PROTHROMBIN TIME/INR 2022-10-13 11:06:00 [facility] PHOSPHATIDYLETHANOL, 2022-10-13 11:06:00 [facility] [place] LIVER-KIDNEY MICROSOME AB 2022-10-13 11:06:00 Jonas Dawson [facility] SOLUBLE LIVER ANTIGEN 2022-10-13 11:06:00 Jonas Dawson [facility] CBC W/PLT COUNT & AUTO 2022-10-13 11:06:00 Jonas Dawson [facility] DIFFERENTIAL Center CBC W/PLT COUNT & AUTO 2022-09-23 03:53:00 Miguel A [facility] DIFFERENTIAL Center COMPREHENSIVE METABOLIC 2022-09-23 03:53:00 Miguel A [facility] PANEL Center PHOSPHORUS 2022-09-23 03:53:00 Miguel A [facility] MAGNESIUM 2022-09-23 03:53:00 Miguel A [facility] CBC W/PLT COUNT & AUTO 2022-09-23 03:53:00 Miguel A [facility] Center US ABDOMEN LIMITED 2022-09-23 01:22:00 Miguel A [facility] ACTIN (SMOOTH MUSCLE) 2022-09-22 13:40:00 Anseb [facility] ANTIBODY, IGG [facility] ANTI-NUCLEAR ANTIBODY 2022-09-22 13:40:00 [facility] CERULOPLASMIN 2022-09-22 13:40:00 [facility] HE[facility]IS A ANTIBODY, IGG 2022-09-22 13:40:00 AnErna grigsby I [facility] HEPATITIS B SURFACE 2022-09-22 13:40:00 [facility] ANTIGEN [facility] HEPATITIS B SURFACE 2022-09-22 13:40:00 [facility] ANTIBODY [facility] HEPATITIS B CORE 2022-09-22 13:40:00 AnuduEldonUC [facility] ANTIBODY, TOTAL [facility] HEPATITIS C ANTIBODY 2022-09-22 13:40:00 Anudu, [facility] FERRITIN 2022-09-22 13:40:00 Marilu [facility]nick [facility] IRON, TIBC, % SAT. 2022-09-22 13:40:00 [facility] (WITHOUT FERRITIN) [facility] IMMUNOGLOBULIN G (IGG) 2022-09-22 13:40:00 [facility] [id number]\\, 2022-09-22 13:40:00 [facility] Resnick [facility] SERUM [facility] TAMMI TITER AND PATTERN 2022-09-22 13:40:00 [facility] MITOCHONDRIAL AB SCREEN 2022-09-22 13:40:00 [facility] MITOCHONDRIAL AB TITER 2022-09-22 13:40:00 Marilu [facility] LIPASE 2022-09-21 22:33:00 Kaylene Montaño [facility] MAGNESIUM 2022-09-21 22:33:00 Kaylene Montaño [facility] COMP. METABOLIC PANEL 2022-09-21 22:33:00 Kaylene Montaño [facility] ([id number]) [facility] CBC WITH DIFF 2022-09-21 22:33:00 Kaylene Montaño [facility] PROTHROMBIN TIME / INR 2022-09-21 22:33:00 [facility] ACTIVATED PARTIAL 2022-09-21 22:33:00 Kaylene Montaño [facility] THRFormerly [facility] URINALYSIS 2022-09-21 22:33:00 Kaylene Montaño [facility] CONSENT/REFUSAL FOR 2022-09-21 22:13:03 Doctor Unassigned, [facility] DIAGNOSIS AND TREATMENT [place] Medical Branch PHOSPHORUS 2022-01-12 09:29:00 saulo [facility] o f [facility] MAGNESIUM 2022-01-12 09:29:00 Prabhu [facility] COMP. METABOLIC PANEL 2022-01-12 09:29:[id number] CBC WITH DIFF 2022-01-12 09:29:00 Prabhu [facility] LACTIC ACID WHOLE BLOOD 2022-01-11 15:50:00 Franc [facility] LACTIC ACID WHOLE BLOOD 2022-01-11 13:25:00 Franc [facility] VITAMIN D, 25-OH 2022-01-11 13:24:00 Franc [facility] CT HEAD WO CONTRAST 2022-01-11 07:22:56 Franc [facility] XR CHEST 1 VW 2022-01-11 07:22:33 Franc [facility] PHOSPHORUS 2022-01-11 06:58:00 Franc [facility] MAGNESIUM 2022-01-11 06:58:00 [place] [facility] FERRITIN SERUM 2022-01-11 06:58:00 Franc [facility] PROLACTIN 2022-01-11 06:58:00 Franc [facility] VITAMIN B12, LEVEL 2022-01-11 06:58:00 Franc [facility] FOLATE 2022-01-11 06:58:00 Franc [facility] C-REACTIVE PROTEIN 2022-01-11 06:58:00 Franc [facility] HEPATIC FUNCTION PANEL 2022-01-11 06:58:00 [id number] (ALB,T.PRO,BILI Medical Branch T,BU/BC,ALT,AST,ALK PHOS) BASIC METABOLIC PANEL 2022-01-11 06:58:00 Prabhu [facility] (NA, K, CL, CO2, GLUCOSE, Medica l Branch BUN, CREATININE, CA) COMP. METABOLIC PANEL 2022-01-11 06:58:00 Franc [facility] ([id number]) [facility] IRON PANEL 2022-01-11 06:58:00 Franc [facility] ETHANOL 2022-01-11 06:58:00 Franc [facility] SEDIMENTATION RATE 2022-01-11 06:58:00 Franc [facility] PROTHROMBIN TIME / INR 2022-01-11 06:58:00 Franc ana [facility] N-TERMINAL PRO-BNP 2022-01-11 06:58:00 Franc [facility] PROCALCITONIN 2022-01-11 06:58:00 Franc [facility] AC VBG + LACTIC ACID 2022-01-11 06:58:[address] [facility] MAGNESIUM 2022-01-10 09:01:00 Prabhu [facility] COMP. METABOLIC PANEL 2022-01-10 09:01:00 [id number] CBC WITH DIFF 2022-01-10 09:01:00 Prabhu [facility] LACTIC ACID WHOLE BLOOD 2022-01-10 09:01:[address] [facility] LACTIC ACID WHOLE BLOOD 2022-01-10 03:20:00 Prabhu [facility] LACTIC ACID WHOLE BLOOD 2022-01-10 01:05:00 Prabhu [facility] PHOSPHORUS 2022-01-09 22:32:00 Prabhu [facility] LACTIC ACID WHOLE BLOOD 2022-01-09 22:32:00 Yahaira Harris [facility] COVID-19 (ID NOW RAPID 2022-01-09 18:15:00 Shawn Rich [facility] TESTING) [facility] LAB ONLY COVID 2022-01-09 18:15:00 Shawn Rich [facility] INTERPRETATION [facility] BLOOD CULTURE SCREEN 2022-01-09 17:51:[address] [facility] LIPASE 2022-01-09 16:59:00 Shawn Rich [facility] MAGNESIUM 2022-01-09 16:59:00 Shawn Rich [facility] COMP. METABOLIC PANEL 2022-01-09 16:59:00 Shawn Rich [facility] ([id number]) Medical Branch ETHANOL 2022-01-09 16:59:00 Shawn Rich [facility] CT ABDOMEN PELVIS W 2022-01-09 16:49:00 [facility] URINALYSIS 2022-01-09 16:27:00 Shawn Rich [facility] URINE DRUG (IMMUNOASSAY) 2022-01-09 16:27:00 Shawn Rich [facility] DRUG [facility] n[facility] SCREEN W/O REFLEX AC PANEL 21 + LACTIC ACID 2022-01-09 16:24:00 [facility] WITH DIFF 2022-01-09 16:23:00 Shawn Rich [facility] PROTHROMBIN TIME / INR 2022-01-09 16:23:00 Shawn Rich [facility] ACTIVATED PARTIAL 2022-01-09 16:23:00 Shawn Rich [facility] THRMPLAS [facility] THROAT CULTURE 2022-01-09 16:23:00 Shawn Rich [facility] RAPID STREP SCREEN FOR 2022-01-09 16:23:00 Shawn Rich [facility] GROUP A [facility] CONSENT/REFUSAL FOR 2022-01-09 15:51:23 Doctor Unasshayden [facility] DIAGNOSIS AND TREATMENT [place] [facility] Plan of Care Planned Activity Planned Date Details Comments Source Future Scheduled 2023-10-[address] [facility] 00:00:00 [facility] Screening (12+) [code = Tobacco Cessation Counseling and Screening (12+)] Future Scheduled 2023-10-[address] [facility] Test 00:00:00 [facility] Cent[facility] r Screening (12+) [code = Tobacco Cessation Counseling and Screening (12+)] Future Scheduled 2023-01-[address] [facility] Test 00:00:00 (Season Ended) [code = Medic al Center Influenza Vaccine (Season Ended)] Future Scheduled 2023-01-[address] [facility] Test 00:00:00 (Season Ended) [code = Medic al Center Influenza Vaccine (Season Ended)] Future Scheduled 2022-05-[address] [facility] Test 00:00:00 (12+) [code = Medical Center DEPRESSION SCREENING (12+)] Future Scheduled 2022-05-[address] [facility] Test 00:00:00 (12+) [code = Medical Center DEPRESSION SCREENING (12+)] Future Scheduled 2012 DTAP/TDAP/TD VACCINES [facility] 00:00:00 (1 - Tdap) [code = Medical C enter DTAP/TDAP/TD VACCINES (1 - Tdap)] Future Scheduled 2012 DTAP/TDAP/TD VACCINES [facility] 00:00:00 (1 - Tdap) [code = Medical C enter DTAP/TDAP/TD VACCINES (1 - Tdap)] Future Scheduled 1999-08-26 Pneumococcal Vaccine: [facility] 00:00:00 0-64 Years (1 - PCV) Medical Center [code = Pneumococcal Vaccine: 0-64 Years (1 - PCV)] Future Scheduled 1999-08-26 Pneumococcal Vaccine: [facility] 00:00:00 0-64 Years (1 - PCV) Medical Center [code = Pneumococcal Vaccine: 0-64 Years (1 - PCV)] Future Scheduled 1994-02-25 COVID-19 VACCINE (#1) [facility] 00:00:00 [code = COVID-[address] VACCINE (#1)] Future Scheduled 1994-02-25 COVID-19 VACCINE (#1) [facility] 00:[facility]:00 [code = COVID-[address] VACCINE (#1)] Encounters Start End Encounter Admission Attending Care Care Encounter Source Date/Time Date/Time Type Type Clinicians Facility Department ID 2022-11-24 2022-11-25 Emergency X EZEQUIEL, [facility] ERT [id number] Univers 23:11:00 00:43:00 MICHAEL leroy [facility] 2022-11-24 2022-11-25 Emergency Ezequiel, [facility] [id number] Univers 23:11:00 00:43:00 Michael SINGH [id number] [facility] cydney BOLES 4.2.7.2.686 [facility] [phone] [facility] 084 Branch 2022-11-10 2022-11-[address] [facility] [id number] SLE 00:00:00 00:00:00 2022-10-13 2022-10-13 [facility] [id number] 10:00:00 11:00:00 Visit [facility] 2022-10-13 2022-10-13 Office [facility] [id number] 10:00:00 11:00:00 Visit [facility] 2022-10-13 2022-10-[address] [facility] [id number] SLE 10:06:39 10:06:39 [facility] 2022-09-22 2022-09-23 [facility] [id number] [facility] 09:21:00 10:58:00 Encounter Miguel A olayinka Noemy Stein [facility] 2022-09-22 2022-09-23 [facility] [id number] [facility] 09:21:00 10:58:00 Encounter Miguel A olayinka Noemy Stein [facility] 2022-09-22 2022-09-23 [facility] General [facility] 2 [id number] SLE 09:21:00 10:58:00 [facility] 2022-09-22 2022-09-22 Travel [facility] [id number] [facility] 00:[facility]00 00:00:00 [facility] 2022-09-22 2022-09-22 Travel [facility] [id number] [facility] 00:[facility]00 00:00:00 [facility] 2022-09-21 2022-09-21 Emergency X [facility] ERT [id number] Univers 17:17:00 19:35:00 KAYLENE ity of [facility] 2022-09-21 2022-09-21 Emergency [facility] [id number] Univers 17:17:00 19:35:00 Kaylene SINGH [id number] [place] [id number] [facility] 084 Branch 2022-09-21 2022-09-21 Orders Doctor PRAKASH [id number] Univers 00:00:00 00:00:00 Only Unassigned, JOANIE [id number] ity of [place] [facility] 4.2.7.2.686 Rian as [phone] [facility] 009 Branch 2022-01-14 2022-01-14 Transition MARYJANE Campbell [id number] Univers 00:00:00 00:00:00 of Care Estrellita Analisa ATWOOD 350.1.13.10 [place] [id number] [facility] 403 Branch 2022-01-09 2022-01-13 Inpatient X FRANC [facility] VALENTINE [id number] Univers 11:04:00 11:49:00 ADNAN ity of [facility] 2022-01-09 2022-01-13 [facility] Shawn Rich [facility] [id number] Univers 11:04:00 11:49:00 Encounter Francois Pelletier [id number] ity of [place] 4.2.7.2.686 [facility] [phone] [facility] 080 Branch 2022-01-09 2022-01-09 Orders Doctor PRAKASH [id number] Univers 00:00:00 00:00:00 Only Unassigned, JOANIE 350.1.13.10 ity of [place] [facility] 4.2.7.2.686 Rian as [phone] [facility] 009 Branch 2019-12-21 2019-12-21 Telephone PRAKASH Shelley [id number] Univers 00:00:00 00:00:00 Julianne NAIR 350.1.13.10 it y of [facility] 4.2.7.2.686 Rian as [phone] [address] 2019-12-19 2019-12-19 Laboratory Lab, Adc Fam Pob I [facility] 1.2. [id number] Univers 08:24:39 08:44:39 Only Julianne Shelley 350.1.13.10 ity [facility] 4.2.7.2.686 Rian as Professio [phone] Mt dical [facility] [address] 2019-12-19 2019-12-[address] [facility] [id number] Univers 08:20:00 08:20:00 ity of [facility] 2019-12-19 2019-12-19 Letter Doctor PRAKASH 1.2.840.114 [id number] Univers 00:00:00 00:00:00 (Out) UnassignedJOANIE 350.1.13.10 ity of [place] [facility] 4.2.7.2.686 Rian as [phone] [address] Results Test Description Test Time Test Comments Results Result Comments Source COMP. METABOLIC PANEL ([id number]) 2022-11-25 04:56:35 Test Item Value Reference Range Interpretation Comme nts NA (test code = 1050964850) 137 mmol/L 135-145 K (test code = 8522637295) 3.4 mmol/L 3.5-5.0 L CL (test code = 8001318982) 91 mmol/L 98-108 L CO2 TOTAL (test code = 7048094438) 31 mmol/L 23-31 AGAP (test code = 7613560850) 15 2-16 BUN (test code = 5703967024) 7-23 L GLUCOSE (test code = 8366274004) 117 mg/dL 70-110 H CREATININE (test code = 0.60 mg/dL 0.60-1.25 9985079984) TOTAL BILI (test code = 2.1 mg/dL 0.1-1.1 H 5095896997) CALCIUM (test code = 7801521425) 8.6 mg/dL 8.6-10.6 T PROTEIN (test code = 3318852531) 8.3 g/dL 6.3-8.2 H ALBUMIN (test code = 4059522192) 4.0 g/dL 3.5-5.0 ALK PHOS (test code = 5502711764) 217 U/L 34-122 H ALTv (test code = 1742-6) 23 U/L 5-50 AST(SGOT) (test code = 4749685253) 128 U/L 13-40 H eGFR (test code = 4904506846) 159.3 mL/min/1.73m2 SHIN (test code = SHIN) Association of Glomerular Filtration Rate (GFR) and Staging of Kidney Disease* + +-------- + ------+| GFR (mL/min/1.73 m2) ?| With Kidney Damage ?| ?Without Kidney Damage+ +-- + +| ?>90 ?| ?Stage one ?| ? Normal ?+ +------- + -------+| ?60-89 ?| ?Stage two ?| ? Decreased GFR ? + +-------- + ------+| ?30-59 ?| ?Stage three ?| ? Stage three ? + +-------- + ------+| ?15-29 ?| ?Stage four ? | ? Stage four ?+ +------- + -------+| ?<15 (or dialysis) ? ?| ?Stage five ? | ? Stage five ?+ +------- + -------+ *Each stage assumes the associated GFR [...] or abnormalities in imaging tests). Lab Interpretation (test code = Abnormal 04094-9) [facility]04 Test Item Value Reference Range Interpretation Comments ALCOHOL (test code = 237 mg/dL 6205513854) SHIN (test code = SHIN) <10 Qugqjivq07-617 Toxic>100 Depression of KAIAWHINA KURA KAUPAPA MAORI>400 Fatalities Reported [facility] 04:49:44 Test Item Value Reference Range Interpretation Comments MAGNESIUM (test code = 2292314188) 1.9 mg/dL 1.7-2.4 Lab Interpretation (test code = Normal 26338-6) [facility] 04:49:08 Test Item Value Reference Range Interpretation Comments LIPASE (test code = 3484286531) 219 U/L 0-220 Lab Interpretation (test code = Normal 47769-3) [facility] WITH [id number] 04:38:25 Test Item Value Reference Range Interpretation Comments WBC (test code = 14.53 See_Comment H [Automated 6690-2) message] The system which generated this result transmit pinky reference range : 4.20 - 10.70 10*3/?L. The reference range was not used to interpret this result as normal/abnormal . RBC (test code = 3.88 See_Comment L [Automated 789-8) message] The system which generated this result transmit pinky reference range : 4.26 - 5.52 10*6/?L. The reference range was not used to interpret this result as normal/abnormal . HGB (test code = 14.1 g/dL 12.2-16.4 718-7) HCT (test code = 40.2 % 38.4-49.3 4544-3) MCV (test code = 103.6 fL 81.7-95.6 H 787-2) MCH (test code = 36.3 pg 26.1-32.7 H 785-6) MCHC (test code = 35.1 g/dL 31.2-35.0 H 786-4) RDW-SD (test code = 58.7 fL 38.5-51.6 H 30188-7) RDW-CV (test code = 15.4 % 12.1-15.4 788-0) PLT (test code = 185 See_Comment [Automated 777-3) message] The system which generated this result transmit pinky reference range : 150 - 328 10*3/ ?L. The reference range was not u sed to interpret th is result as normal/abnormal . MPV (test code = 8.5 fL 9.8-13.0 L 70652-3) NRBC/100 WBC (test 0.0 See_Comment [Automat ed code = 6105133629) message] The system which generated this result transmit pinky reference range : 0.0 - 10.0 /100 WBCs. The reference range was not used to interpret this result as normal/abnormal . NRBC x10^3 (test code See_Comment [Auto mated = 8416072731) message] The system which generated this result transmit pinky reference range : 10*3/?L. The reference range was not used to interpret this result as normal/abnormal . GRAN MAT (NEUT) % 70.4 % (test code = 770-8) IMM GRAN % (test code 0.30 % = 4926190455) LYMPH % (test code = 21.0 % 736-9) MONO % (test code = 4.9 % 5905-5) EOS % (test code = 2.3 % 713-8) BASO % (test code = 1.1 % 706-2) GRAN MAT x10^3(ANC) 10.24 10*3/uL 1.99-6.95 H (test code = 0177400053) IMM GRAN x10^3 (test 0.04 10*3/uL 0.00-0.06 code = 6679715786) LYMPH x10^3 (test code 3.05 10*3/uL 1.09-3.23 = 731-0) MONO x10^3 (test code 0.71 10*3/uL 0.36-1.02 = 742-7) EOS x10^3 (test code = 0.33 10*3/uL 0.06-0.53 711-2) BASO x10^3 (test code 0.16 10*3/uL 0.01-0.09 H = 704-7) Lab Interpretation Abnormal (test code = 30961-5) [facility] MET[facility]OLIC [id number] 13:21:47 Test Item Value Reference Range Interpretation Comments SODIUM (BEAKER) 140 meq/L 136-145 (test code = 381) POTASSIUM 3.7 meq/L 3.5-5.1 (BEAKER) (test code = 379) CHLORIDE (BEAKER) 100 meq/L 98-107 (test code = 382) CO2 (BEAKER) 31 meq/L 22-29 H (test code = 355) BLOOD UREA < mg/dL 7-21 L NITROGEN (BEAKER) (test code = 354) CREATININE 0.82 mg/dL 0.57-1.25 (BEAKER) (test code = 358) GLUCOSE RANDOM 102 mg/dL 70-105 (BEAKER) (test code = 652) CALCIUM (BEAKER) 9.2 mg/dL 8.4-10.2 (test code = 697) EGFR (BEAKER) 123 Interpretatio n of eGFR (test code = mL/min/1.73 values Stage De scription 1092) sq m Result G1 Nan l or high >=90 G2 Mildly decreased 60-89 G3a Mildl y to moderately 45-5 9 G3b Moderately to s everely 30-44 G4 Severl y decreased 15-29 G5 Kidney failure <15Reported eGF R is based on the CKD-EPI 2020 equation that d oes not use a race coefficientEsti mated GFR is not as accur ate as Creatinine Nat shayla in predicting glom erular filtration rate . Estimated GFR is not appl icable for dialysis patien ts Substitute Bus Driver ID - ADMINHEPATIC FUNCTION [id number] 13:09:39 Test Item Value Reference Range Interpretation [...] (test code = 30 U/L 6-55 347) Substitute Bus Driver ID - ADMINPROTHROMBIN TIME/[id number] 12:40:51 Test Item Value Reference Range Interpretation [...] mechanical heart valves.CBC W/PLT COUNT & AUTO [id number] 12:32:47 Test Item Value Reference Range Interpretation [...] (test code = 2801) TAMMI TITER AND [id number] 12:47:50 Test Item Value Reference Range Interpretation Comments TAMMI TITER :640 (BEAKER) (test code = 1541) TAMMI PATTERN Cytoplasmic/Anti-mi Cytoplas ana (BEAKER) (test tochondrial staining is p resent code = 1781) antibodies - see suggestive of comment Anti-mitochondr ial antibodies. If clinically indicated, recommend testi ng for Anti-mitochondr ial antibodies. ANTI-NUCLEAR ANTIBODY (TAMMI)2022-09-23 12:47:29 Test Item Value Reference Range Interpretation Comments ANTI-NUCLEAR ANTIBODY (TAMMI) (BEAKER) Negative Negative (test code = 418) Test performed by IFA method.U/S, ABDOMINAL, [id number] 10:28:00Abdomen limited area? Add comment if clarification is needed.->LiverReason for exam:- >etoh hepatitis [facility] 1995 Sex: MFINAL REPORT Right Upper Quadrant Ultrasound History: Alcoholic hepatitis Comparison: none Findings:Liver is echogenic. Unremarkable hepatic contour. No hepatic mass or intrahepatic biliary dilation. Gallbladder without shadowing gallstones, wall thickening, or pericholecystic fluid. No sonographic Medina's sign. Common bile duct measures 3.5mm. The main portal vein appears patent, with expected hepatopedal flow. The main portal vein kokzctsv19.6mm in diameter. Pancreas not well seen due tooverlying bowel gas. Right kidney demonstrates no hydronephrosis, shadowing calculus, or mass lesion. Right kidney measures 10.8 x 3.9 x 4.9cm. Impression:Diffuse hepatic steatosis. Signed: Brandon Pearson MDReport Verified Date/Time: 09/23/2022 10:28:23 Electronically signed by: BRANDON PEARSON MD on09/23/2022 10:28 [id number] 05:30:41 Test Item Value Reference Range Interpretation Comments PHOSPHORUS (BEAKER) (test code = 2.9 mg/dL 2.3-4.7 604) Substitute Bus Driver ID - ADMINCOMPREHENSIVE METABOLIC [id number] 05:30:41 Test Item Value Reference Range Interpretation [...] St age Description sq m Result G1 Norm al or high >=90 G2 Mildly decreased 60-89 G3a Mildl y to moderately 45-5 9 G3b Moderately to s everely 30-44 G4 Severl y decreased 15-29 G5 Kidney failure <15Reported eGF R is based on the CKD-EPI 2020 equation that d oes not use a race coefficientEsti mated GFR is not as accur ate as Creatinine Nat shayla in predicting glom erular filtration rate . Estimated GFR is not appl icable for dialysis patien ts Substitute Bus Driver ID - ADMINSpecimen slightly [id number] 05:30:40 Test Item Value Reference Range Interpretation Comments MAGNESIUM (BEAKER) (test code = 2.0 mg/dL 1.6-2.6 627) Substitute Bus Driver ID - ADMINCBC W/PLT COUNT & AUTO [id number] 05:11:17 Test Item Value Reference Range Interpretation [...] 0.00-1.00 PERCENT (BEAKER) (test code = 2801) [id number] 16:05:26 Test Item Value Reference Range Interpretation Comments FERRITIN (BEAKER) (test code = 420.05 ng/mL 5.00-275.00 H 361) Substitute Bus Driver ID - BSIRON, TIBC, % SAT. (WITHOUT FERRITIN)2022-09-22 15:43:01 Test Item Value Reference Range Interpretation Comments IRON (BEAKER) (test code = 547) 58.0 ug/dL 40.0-160.0 TOTAL IRON BINDING CAPACITY 166 ug/dL 250-450 L (BEAKER) (test code = 769) IRON % SATURATION (2) (BEAKER) 35 % 20-55 (test code = 2590) Substitute Bus Driver ID - ADMINIMMUNOGLOBULIN G (IGG)2022-09-22 15:43:00 Test Item Value Reference Range Interpretation Comments IMMUNOGLOBULIN G (IGG) (BEAKER) 1780 mg/dL 540-1822 (test code = 427) Substitute Bus Driver ID - ADMINHEPATITIS B SURFACE [id number] 14:45:04 Test Item Value Reference Range Interpretation Comments HEPATITIS B SURFACE ANTIBODY < mIU/mL <8.0 (BEAKER) (test code = 647) Substitute Bus Driver ID - ADMINHEPATITIS A ANTIBODY, [id number] 14:44:36 Test Item Value Reference Range Interpretation Comments HEPATITIS A IGG ANTIBODY (BEAKER) Reactive Nonreactive A (test code = 2797) Substitute Bus Driver ID - ADMINHEPATITIS C [id number] 14:39:41 Test Item Value Reference Range Interpretation Comments HEPATITIS C ANTIBODY (BEAKER) Nonreactive Nonreactive (test code = 367) Substitute Bus Driver ID - ADMINHEPATITIS B CORE ANTIBODY, [id number] 14:39:41 Test Item Value Reference Range Interpretation Comments HEPATITIS B CORE TOTAL ANTIBODY Nonreactive Nonreactive (BEAKER) (test code = 497) Substitute Bus Driver ID - ADMINHEPATITIS B SURFACE [id number] 14:39:36 Test Item Value Reference Range Interpretation Comments HEPATITIS B SURFACE ANTIGEN (2) Nonreactive Nonreactive (BEAKER) (test code = 2585) Specimen is considered negative for HBsAg.[id number] 14:18:11 Test Item Value Reference Range Interpretation Comments ALPHA-1 ANTITRYPSIN (BEAKER) 215.00 mg/dL 90.00-200.00 H (test code = 502) Substitute Bus Driver ID - ADMINACTIVATED PARTIAL THRMPLAS [id number] 23:04:38 Test Item Value Reference Range Interpretation Comments APTT Patient (test 35 See_Comment [Automat ed code = 3173-2) message] The system which generated this result transmitted reference range : 23 - 38 Seconds . The reference range was not used to interpr et this result as normal/abnormal . SHIN (test code = SHIN) The [facility] patient population mean normal value for aPTT is 30 seconds. Lab Interpretation Normal (test code = 78746-8) [facility] / [id number] 23:02:33 Test Item Value Reference Range Interpretation [...] tions. Lab Interpretation (test Abnormal code = 44326-8) [facility]th[facility] Time / [id number] 07:41:00 Test Item Value Reference Range Interpretation Comments PROTIME PATIENT (test See_Comment H [Auto mated message] code = 5964-2) The system [employer] generated this result transmitted ref erence range: 12.0 - 1 4.7 Seconds. The reference range was not used to int erpret this result as normal/abnormal . INR (test code = 6301-6) Nor mal INR <1.1; Warfarin Therap eutic range 2.0 to 3. 0 or 2.5 to 3.5, dep ending upon the indica tions. Lab Interpretation (test Abnormal code = 71137-5) [facility]22[facility] 17:59:50 ALCOHOL<10mg/dL01/09/2022 12:59 [facility]10 Lgqoyebe77-657 Toxic>100 Depression of KAIAWHINA KURA KAUPAPA MAORI>400 Fatalities ReportedUnB[facility] McKinneyCOMP. METABOLIC PANEL (92110) 2022-01-09 17:59:30 Test Item Value Reference Range Interpretation Comments NA (test code = 142 mmol/L 135-145 2487956248) K (test code = 3.4 mmol/L 3.5-5 L 0985900033) CL (test code = 97 mmol/L 98-108 L 9130428220) CO2 TOTAL (test code = 22 mmol/L 23-31 L 3697156877) AGAP (test code = 2-16 H 5282345060) BUN (test code = 7-23 L 8117261425) GLUCOSE (test code = 159 mg/dL 70-110 H 4261707845) CREATININE (test code = 0.80 mg/dL 0.6-1.25 4403641543) TOTAL BILI (test code = 2.6 mg/dL 0.1-1.1 H 9471322149) CALCIUM (test code = 9.4 mg/dL 8.6-10.6 4511641702) T PROTEIN (test code = 8.0 g/dL 6.3-8.2 6231017268) ALBUMIN (test code = 4.3 g/dL 3.5-5 6249148271) ALK PHOS (test code = 195 U/L 34-122 H 5005051050) ALTv (test code = 52 U/L 5-50 H 1742-6) AST(SGOT) (test code = 130 U/L 13-40 H 5690686820) eGFR (test code = mL/min/1.73m2 9737029953) SHIN (test code = SHIN) Association of [...] tests). Lab Interpretation Abnormal (test code = 99074-0) [facility] Test Item Value Reference Range Interpretation Comments MAGNESIUM (test code = 1882944253) 1.5 mg/dL 1.7-2.4 L Lab Interpretation (test code = Abnormal 61550-5) [facility] 17:42:16 Test Item Value Reference Range Interpretation Comments LIPASE (test code = 4974870822) 117 U/L 0-220 Lab Interpretation (test code = Normal 22475-5) [facility] WITH [id number] 17:38:24 Test Item Value Reference Range Interpretation [...] (test code = 54.8 fL 38.5-51.6 H 46663-8) RDW-CV (test code = 14.6 % 12.1-15.4 788-0) PLT (test code = See_Comment H [Automated 777-3) message] The system which generated this result transmit pinky reference range : 150 - 328 10*3/ ?L. The reference range was not u sed to interpret th is result as normal/abnormal . MPV (test code = 8.4 fL 9.8-13 L 90585-6) NRBC/100 WBC (test See_Comment [Automat ed code = 1920866561) message] The system which generated this result transmit pinky reference range : 0.0 - 10.0 /100 WBCs. The reference range was not used to interpret this result as normal/abnormal . NRBC x10^3 (test code See_Comment [Auto mated = [id number]) message] The system which generated this result transmit pinky reference range : 10*3/?L. The reference range was not used to interpret this result as normal/abnormal . GRAN MAT (NEUT) % 91.7 % (test code = 770-8) IMM GRAN % (test code 0.40 % = 3522920541) LYMPH % (test code = 3.1 % 736-9) MONO % (test code = 4.4 % 5905-5) EOS % (test code = 0.0 % 713-8) BASO % (test code = 0.4 % 706-2) GRAN MAT x10^3(ANC) 23.92 10*3/uL 1.99-6.95 H (test code = 5839004602) IMM GRAN x10^3 (test 0.10 10*3/uL 0-0.06 H code = 0099072723) LYMPH x10^3 (test code 0.80 10*3/uL 1.09-3.23 L = 731-0) MONO x10^3 (test code 1.16 10*3/uL 0.36-1.02 H = 742-7) EOS x10^3 (test code = 0.06-0.53 L 711-2) BASO x10^3 (test code 0.10 10*3/uL 0.01-0.09 H = 704-7) BANDS (test code = Increased A 8609621247) GIANT PLATELETS (test Present See_Comment A [Auto mated code = 5908-9) message] The system which generated this result transmit pinky reference range : (none). The reference range was not used to interpret this result as normal/abnormal . Lab Interpretation Abnormal (test code = 99949-4) [facility] [id number] 16:54:32 Test Item Value Reference Range Interpretation Comments APTT Patient (test See_Comment [Automat ed code = 3173-2) message] The system which generated this result transmitted reference range : 23 - 38 Seconds . The reference range was not used to interpr et this result as normal/abnormal . SHIN (test code = SHIN) The [facility] patient population mean normal value for aPTT is 30 seconds. Lab Interpretation Normal (test code = 42630-9) [facility] / [id number] 16:52:31 Test Item Value Reference Range Interpretation Comments PROTIME PATIENT (test See_Comment [Auto mated message] code = 5964-2) The system ich generated this result transmitted ref erence range: 12.0 - 1 4.7 Seconds. The re ference range was not u sed to interpret this result as normal/abnor mal. INR (test code = 6301-6) Nor mal INR <1.1; Warfarin Therap eutic range 2.0 to 3. 0 or 2.5 to 3.5, dep ending upon the indica tions. Lab Interpretation (test Normal code = 89270-8) [facility] [id number] 12:43:00 Test Item Value Reference Range Interpretation Comments POC-GLUCOSE METER 88 mg/dL 70-[address] [facility] [address] (BEAKER) (test code = [facility] [address] 1538) BASIC METABOLIC [id number] 09:10:00 Test Item Value Reference Range Interpretation [...] NOT APPLICABLE FOR DIALYSIS PATIEN TS. POCT-GLUCOSE [id number] 05:26:00 Test Item Value Reference Range Interpretation Comments POC-GLUCOSE METER 87 mg/dL 70-[address] [facility] [address] (BEAKER) (test code = [place] [address] 1538) [id number] 04:43:00 Test Item Value Reference Range Interpretation Comments PHOSPHORUS (BEAKER) (test code = 3.5 mg/dL 2.3-4.7 604) [id number] 04:43:00 Test Item Value Reference Range Interpretation Comments MAGNESIUM (BEAKER) (test code = 2.1 mg/dL 1.6-2.6 627) CBC W/PLT COUNT & AUTO [id number] 04:13:00 Test Item Value Reference Range Interpretation [...] PERCENT (BEAKER) (test code = 2801) POCT-GLUCOSE [id number] 01:04:00 Test Item Value Reference Range Interpretation Comments POC-GLUCOSE METER 94 mg/dL 70-110 TESTED AT [place] [address] ([facility]) (test code = [facility] [address] 1538) POCT-GLUCOSE [id number] 17:19:00 Test Item Value Reference Range Interpretation Comments POC-GLUCOSE METER 89 mg/dL 70-110 TESTED AT [place] [address] ([facility]) (test code = [facility] [address] 1538) [id number] 12:13:00 Test Item Value Reference Range Interpretation Comments PHOSPHORUS ([facility]) (test code = 2.6 mg/dL 2.3-4.7 604) POCT-GLUCOSE [id number] 11:47:00 Test Item Value Reference Range Interpretation Comments POC-GLUCOSE METER 107 mg/dL 70-110 TESTED AT [place] [address] ([facility]) (test code = [facility] 1538) [address] CBC W/PLT COUNT & AUTO [id number] 06:53:00 Test Item Value Reference Range Interpretation Comments WHITE BLOOD CELL COUNT ([facility]) 13.2 K/ L 3.5-10.5 H (test code = 775) RED BLOOD CELL COUNT (AKER) 4.72 M/ L 4.63-6.08 (test code = [...] 0-1 PERCENT (BEAKER) (test code = 2801) [id number] 06:49:00 Test Item Value Reference Range Interpretation Comments PHOSPHORUS (BEAKER) (test code = 3.5 mg/dL 2.3-4.7 604) [id number] 06:49:00 Test Item Value Reference Range Interpretation Comments MAGNESIUM (BEAKER) (test code = 2.3 mg/dL 1.6-2.6 627) COMPREHENSIVE METABOLIC [id number] 06:49:00 Test Item Value Reference Range Interpretation [...] NOT APPLICABLE FOR DIALYSIS PATIEN TS. POCT-GLUCOSE [id number] 00:36:00 Test Item Value Reference Range Interpretation Comments POC-GLUCOSE METER 123 mg/dL 70-[address] [facility] [address] (BEAKER) (test code = [place] 9315) [address] CBC W/PLT COUNT & AUTO [id number] 00:14:00 Test Item Value Reference Range Interpretation [...] 0-1 PERCENT (BEAKER) (test code = 2801) [id number] 00:11:00 Test Item Value Reference Range Interpretation Comments PHOSPHORUS (BEAKER) (test code = 1.8 mg/dL 2.3-4.7 L 604) [id number] 00:11:00 Test Item Value Reference Range Interpretation Comments MAGNESIUM (BEAKER) (test code = 2.5 mg/dL 1.6-2.6 627) COMPREHENSIVE METABOLIC [id number] 00:11:00 Test Item Value Reference Range Interpretation [...] U/L 29-200 H code = 380) PROTHROMBIN [id number] 23:57:00 Test Item Value Reference Range Interpretation [...]
[2022-11-25 01:33] LABS: Specific Gravity < 1.005 (1.005-1.030); Urine Bilirubin NEGATIVE (Negative); Urine Blood Negative (Negative); Urine Clarity Clear (Clear); Urine Color Colorless (Yellow); Urine Glucose NEGATIVE (Negative); Urine Protein NEGATIVE (Negative); Urine Urobilinogen Normal (Normal); Urine pH 7.5 (5.0-7.0)
[2022-11-25 01:35] LABS: Absolute Lymphocytes (CBC) 2.3 K/uL (0.7-4.9); MPV 6.3 fL (7.6-11.3); RBC Red Blood Cell Count 3.74 M/uL (4.33-5.43)
[2022-11-25] MEDS ORDERED: FAMOTIDINE 20 MG TAB ONE (01:40)
[2022-11-25] MEDS ORDERED: ONDANSETRON 4 MG/2 ML VIAL ONE (01:40)
[2022-11-25] MEDS ORDERED: NA CHLORIDE 0.9% 1,000 ML ONE (01:41)
[2022-11-25 01:50] LABS: ALT/SGPT 25 U/L (16-61); AST/SGOT 123 U/L (15-37); Albumin 3.2 g/dL (3.4-5.0); Alkaline Phosphatase 225 U/L (45-117); Bicarbonate 31 mEq/L (21-32); Bilirubin Total 1.7 mg/dL (0.2-1.0); Glomerular Filtration Rate 127 ml/min (=/>90); Glucose Level 120 mg/dL (74-106); Lipase 65 U/L (13-75); Protein, Total 8.3 g/dL (6.4-8.2); Sodium Level 135 mEq/L (136-145)
[2022-11-25 01:56] LABS: BUN Blood Urea Nitrogen < 1 mg/dL (7-18)
--- NOTE | 2022-11-25 02:04 | EDPHYS ---
Physician Documentation [facility] Name: Roger Peralta Age: 27 yrs Sex: Male : 1995 Arrival Date: 11/25/2022 Time: 01:01 Bed 8 Private MD: ED Physician Pola Harris HPI: 11/25 01:18 This 27 yrs old Male presents to ER via Ambulatory with complaints of kb Nausea/Vomiting, General Weakness, Dizziness. 01:18 The patient presents to the emergency department with nausea, vomiting. Onset: The kb symptoms/episode began/occurred today. Possible causes: unknown. The symptoms are aggravated by nothing. The symptoms are alleviated by nothing. Associated signs and symptoms: Pertinent positives: nausea, vomiting, Pertinent negatives: abdominal pain, fever. Severity of symptoms: At their worst the symptoms were moderate in the emergency department the symptoms have improved. The patient has not experienced similar symptoms in the past. The patient has not recently seen a physician. Pt states he has been trying to stop drinking alcohol, but drank a six pack today and didn't eat anything. States he tried to eat and ended up having nausea and vomiting. reports his muscles were tightening up and he was afraid he was having withdrawals so he told his girlfriend to bring him in. . Historical: - Allergies: 01:18 No Known Allergies; as6 - PMHx: 01:18 Seizure; fatty liver; Alcohol dependence; as6 - PSHx: 01:18 None; as6 - Immunization history:: Client reports having NOT received the Covid vaccine. - Social history:: Smoking status: Patient denies any tobacco usage or history of. Patient uses alcohol, street drugs, marijuana. ROS: 01:20 Constitutional: Negative for fever, chills, and weight loss. kb 01:20 Abdomen/GI: Positive for nausea and vomiting, Negative for abdominal pain. 01:20 Neuro: Positive for weakness. 01:20 All other systems are negative. Exam: 01:20 Constitutional: This is a well developed, well nourished patient who is awake, alert, kb and in no acute distress. Head/Face: Normocephalic, atraumatic. ENT: Moist Mucous membranes Cardiovascular: Regular rate and rhythm with a normal S1 and S2. No gallops, murmurs, or rubs. No pulse deficits. Respiratory: Respirations even and unlabored. No increased work of breathing. Talking in full sentences Abdomen/GI: Soft, non-tender. No distention Skin: Warm, dry with normal turgor. Normal color. MS/ Extremity: Pulses equal, no cyanosis. Neurovascular intact. Full, normal range of motion. Neuro: Awake and alert, GCS 15, oriented to person, place, time, and situation. Moves all extremities. Normal gait. Vital Signs: 01:14 BP 120 / 79; Pulse 86; Resp 18 S; Temp 97.8(O); Pulse Ox 100% on R/A; Weight 66.22 kg as6 (R); Height 5 ft. 5 in. (R); Pain 0/10; 01:42 BP 109 / 76; Pulse 78; Pulse Ox 100% on R/A; kl 02:28 BP 107 / 58; Pulse 84; Resp 18; Pulse Ox 99% on R/A; kd3 01:14 Body Mass Index 24.30 (66.22 kg, 165.1 cm) as6 01:14 Pain Scale: Adult as6 MDM: 01:03 Patient medically screened. kb 01:20 Data reviewed: vital signs, nurses notes. kb 01:58 Differential diagnosis: gastritis, pancreatitis, cirrhosis. 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 02:04 Test considered but Not performed: Ultrasound US abd considered, but pt has no abd kb tenderness, afebrile and nontoxic in appearance. 02:05 ED course: Pt tolerating po intake. kb 11/25 01:04 Order name: CBC with Diff; Complete Time: 01:50 kb 11/25 01:04 Order name: CMP; Complete Time: 01:57 kb 11/25 01:04 Order name: Lipase; Complete Time: 01:57 kb 11/25 01:04 Order name: Urinalysis w/ reflexes; Complete Time: 01:50 kb 11/25 01:04 Order name: IV Saline Lock; Complete Time: 01:30 kb 11/25 01:04 Order name: Labs collected and sent; Complete Time: :30 kb Administered Medications: 01:40 Drug: NS 0.9% IV 1000 ml Route: IV; Rate: 1 bolus; Site: right forearm; kl 02:29 Follow up: IV Status: Completed infusion; IV Intake: 1000ml kd3 01:40 Drug: Famotidine IVP 20 mg Route: IVP; Site: right antecubital; kl 02:29 Follow up: Response: No adverse reaction kd3 01:41 Drug: Ondansetron IVP 4 mg Route: IVP; Site: right forearm; kl 02:29 Follow up: Response: No adverse reaction; Nausea is decreased kd3 02:28 Drug: Potassium Chloride PO 40 mEq Route: PO; kd3 02:29 Follow up: Response: No adverse reaction kd3 Disposition: 05:12 Co-signature as Attending Physician, Pola Harris MD I agree with the assessment sp4 and plan of care. I reviewed the patient's care provided by the Advanced Practice Provider and agree with the diagnosis and treatment plan. Disposition Summary: 11/25/22 02:04 Discharge Ordered Location: Home kb Condition: Stable kb Diagnosis - Nausea with vomiting, unspecified kb - Alcohol abuse kb Followup: kb - With: Emergency Department - When: As needed - Reason: Worsening of condition Followup: kb - With: Private Physician - When: 2 - 3 days - Reason: Recheck today's complaints, Continuance of care, Re-evaluation by your physician Discharge Instructions: - Discharge Summary Sheet kb - Nausea and Vomiting, Adult, [id number] kb - Alcohol Abuse and Dependence Information, Adult kb Forms: - Medication Reconciliation Form kb - Thank You Letter kb - Antibiotic Education kb - Prescription Opioid Use kb - [email or web address].htm kb Signatures: Dispatcher [employer] Cassandra Mcdonough FNP-C FNP-Flora Allan RN Virgilio Bay RN RN as6 Doucette, Kyli, RN RN kd3 Pola Harris MD MD sp4
--- NOTE | 2022-11-25 02:04 | ER ---
Nurse's Notes [facility] Name: Roger Peralta Age: 27 yrs Sex: Male : 1995 Arrival Date: 11/25/2022 Time: 01:01 Bed 8 Private MD: Diagnosis: Nausea with vomiting, unspecified;Alcohol abuse Presentation: 11/25 01:14 Chief complaint: Patient states: pt is an alcoholic and has been trying to get sober as6 and had a relapse tonight by drinking a 6 pack and is now c/o n/v. Coronavirus screen: At this time, the client does not indicate any symptoms associated with coronavirus-19. Ebola Screen: No symptoms or risks identified at this time. Initial Sepsis Screen: Does the patient meet any 2 criteria? No. Patient's initial sepsis screen is negative. Does the patient have a suspected source of infection? No. Patient's initial sepsis screen is negative. Risk Assessment: Do you want to hurt yourself or someone else? Patient reports no desire to harm self or others. Onset of symptoms was November 25, 2022. 01:14 Method Of Arrival: Ambulatory as6 01:14 Acuity: LAVON 3 as6 Triage Assessment: 02:29 General: Appears in no apparent distress. Behavior is calm, cooperative. GI: Bowel kd3 sounds present X 4 quads. Historical: - Allergies: 01:18 No Known Allergies; as6 - PMHx: 01:18 Seizure; fatty liver; Alcohol dependence; as6 - PSHx: 01:18 None; as6 - Immunization history:: Client reports having NOT received the Covid vaccine. - Social history:: Smoking status: Patient denies any tobacco usage or history of. Patient uses alcohol, street drugs, marijuana. Screenin:42 [facility] ED Fall Risk Assessment (Adult) History of falling in the last 3 months, kl including since admission No falls in past 3 months (0 pts) Confusion or Disorientation No (0 pts) Intoxicated or Sedated No (0 pts) Impaired Gait No (0 pts) Mobility Assist Device Used No (0 pt) Altered Elimination No (0 pt) Score/Fall Risk Level 0 - 2 = Low Risk Oriented to surroundings, Maintained a safe environment. Abuse screen: Denies threats or abuse. Nutritional screening: No deficits noted. Tuberculosis screening: No symptoms or risk factors identified. Assessment: 01:41 Reassessment: Patient appears in no apparent distress at this time. Patient is alert, kl oriented x 3, equal unlabored respirations, skin warm/dry/pink. Pain: Complains of pain in abdomen. GI: Abdomen is flat, distended, Reports nausea. : No deficits noted. No signs and/or symptoms were reported regarding the genitourinary system. Vital Signs: 01:14 BP 120 / 79; Pulse 86; Resp 18 S; Temp 97.8(O); Pulse Ox 100% on R/A; Weight 66.22 kg as6 (R); Height 5 ft. 5 in. (R); Pain 0/10; 01:42 BP 109 / 76; Pulse 78; Pulse Ox 100% on R/A; kl 02:28 BP 107 / 58; Pulse 84; Resp 18; Pulse Ox 99% on R/A; kd3 01:14 Body Mass Index 24.30 (66.22 kg, 165.1 cm) as6 01:14 Pain Scale: Adult as6 ED Course: 01:02 Patient arrived in ED. jj6 01:03 Cassandra Hoover FNP-C is PHCP. kb 01:03 Pola Harris MD is Attending Physician. kb 01:14 Arm band placed on. as6 01:18 Triage completed. as6 01:25 Inserted saline lock: 20 gauge in right forearm, using aseptic technique. Blood kl collected. 01:26 Kandy He, RN is Primary Nurse. kd3 01:30 CBC with Diff Sent. as6 01:30 CMP Sent. as6 01:30 Lipase Sent. as6 01:30 Urinalysis w/ reflexes Sent. as6 01:43 Patient has correct armband on for positive identification. Bed in low position. Call kl light in reach. Side rails up X2. Door closed. Noise minimized. Lights dimmed. Warm blanket given. 02:30 No provider procedures requiring assistance completed. kd3 02:48 IV discontinued, intact, bleeding controlled, No redness/swelling at site. Pressure kd3 dressing applied. Administered Medications: 01:40 Drug: NS 0.9% IV 1000 ml Route: IV; Rate: 1 bolus; Site: right forearm; kl 02:29 Follow up: IV Status: Completed infusion; IV Intake: 1000ml kd3 01:40 Drug: Famotidine IVP 20 mg Route: IVP; Site: right antecubital; kl 02:29 Follow up: Response: No adverse reaction kd3 01:41 Drug: Ondansetron IVP 4 mg Route: IVP; Site: right forearm; kl 02:29 Follow up: Response: No adverse reaction; Nausea is decreased kd3 02:28 Drug: Potassium Chloride PO 40 mEq Route: PO; kd3 02:29 Follow up: Response: No adverse reaction kd3 Medication: 02:30 VIS not applicable for this client. kd3 Intake: 02:29 IV: 1000ml; Total: 1000ml. kd3 Outcome: 02:04 Discharge ordered by . kb 02:30 Discharged to home ambulatory, with family. kd3 02:30 Condition: stable 02:30 Discharge instructions given to patient, family, Instructed on discharge instructions, follow up and referral plans. Demonstrated understanding of instructions, follow-up care. 02:48 Patient left the ED. kd3 Signatures: Cassandra Hoover, APPRENTICE EMBALMER-C APPRENTICE EMBALMER-Flora Allan, RN RN Gabrielle Gordon Ashby, RN RN as6 Kandy He RN RN kd3
[2022-11-25] MEDS ORDERED: POTASSIUM CL SA 10 MEQ TAB PO ONE (02:12)
[2022-11-25 03:09] VITALS: TEMP 97.8
[2022-11-25 03:19] VITALS: BP 107/58; O2SAT 99
== END 2022-11-25 02:48 | disposition home or self-care (01) ==
LOC: ER 01:01 → SUPCPDRO 01:01 → ER 02:48
DX: F10.20 Alcohol dependence, uncomplicated (principal)
CPT/HCPCS: 85025; 36415; 81003; 83690; 80053; 99284; J2405; J7030

== ENCOUNTER 2022-12-14 00:14 | Emergency (ER) | payer OTHER ==
--- OUTSIDE RECORDS SUMMARY | 2022-12-14 00:23 | XMS REPORT | Continuity of Care Document ---
:1995 Author Organization [facility] t Address [address] [facility] [address] [place] [address] Care Team Providers Name Role Phone No, Pcp [facility] Primary Care Physician Unavailable MICHAEL NIEVES Attending Clinician Unavailable Michael Nieves MD Attending Clinician Danna Conley PA-C Attending Clinician [phone] DANNA CONLEY Attending Clinician Unavailable Antonio Jaime MD Attending Clinician [phone] Zach Grady MD Attending Clinician Noemy Crowell MD Attending Clinician NOEMY CROWELL Attending Clinician Unavailable KAYLENE MONTAÑO Attending Clinician Unavailable Kaylene Montaño DO Attending Clinician Doctor Unassigned, [place] Attending Clinician Unavailable Estrellita Campbell RN Attending [...] Number Effective Date Expiration Date S angie [facility] FROM [id number] 2022 [facility] 00:00:00 AM[facility]ETTER [place] [id number] 2022 00:00:00 Problems Condition Condition Condition Status Onset Resolution Last Treating Co mments Source Name Details Category Date Date Treatment Clinician Date Alcoholic Alcoholic Disease Active [facility] 4-28 [facility] s 00:00: Medical 00 [place] Seizure Seizure Disease Active Univers 8-16 ity of 00:00: [address] Branch Nausea and Nausea and Disease [...] Name Type Date Date Clinician NO KNOWN Allergy Active [facility] ALLERGIE S NO KNOWN Drug Active Univers ALLERGIE Class ity of S [facility] Social History Social Habit Start Date Stop Date Quantity Comments Source History of Passive smoker University of tobacco use [facility] History SDOH [facility] History SDMN [facility] Housing Places Medical Ce [...] 2022-09-21 Not sure University SARS-CoV-2 00:00:00 17:21:00 [facility] (event) [place] Tobacco use and 2022-01-09 2022-01-09 Smokeless tobacco Un iversity of exposure 00:00:00 00:00:00 non-user [facility] Sex Assigned At [birth year] M GULSHAN Goodman 00:00:00 [facility]:00:00 [facility] Smoking Status Start Date Stop Date Source Tobacco smoking consumption Univ [facility] Branch Never smoked tobacco [facility] Medications Ordered Filled Start Stop Current Ordering Indication Dosage Frequency Signature Comments Components Source Medication Medication Date Date Medication? Clinician (SIG) Name Name NaCl 0.9% 2022- Yes 1000mL at 999 Uni vers (NS) IV 11-25 mL/hr, ity of infusion 05:30: 17:29 [place]venou [place] 1,000 mL 00 :00 s, ONCE, 1 Medic al dose, On Branch 11/25/22 at 0030, CELESTE famotidine 2022- No 20mg 20 mg, Univ ers (PEPCID 11-25 Slow IV ity of (PF)) 05:15: 05:16 Push, [place] injection 00 :00 ONCE, 1 Medical 20 mg dose, On Branch 11/25/22 at 0015, CELESTE KCL 2022- No 20meq 20 mEq, Univers (KLOR-CON 6-30 06-30 Oral, ity of M20) tablet 05:15: 05:16 ONCE, 1 [place] 20 mEq 00 :00 dose, On Mon Branch 11/25/22 at 0015, CELESTE ondansetron Yes [id number] 4mg Take 1 Univers (ZOFRAN) 4 11-25 tablet by ity of mg tablet 00:00: mouth [place] 00 every 8 Medical (eight) Branch hours as needed for Nausea and Vomiting (N/V). chlordiazeP No Take [address] [facility] [address] OXIDE [...] Mon09/21/22 at 1900, Routine iopamidol 2022- No [id number] 74mL 74 mL, U nivers (ISOVUE 09-21 Intravenou ity o f 370-500 mL) 23:30: 23:45 s, ONCE, 1 [place] injection 00 :00 dose, On Medica l 74 mL Wed Branch 09/21/22 at 1845, Routine NaCl 0.9% 2022- No 1000mL at 999 Uni vers (NS) bolus 09-21 mL/hr, ity of infusion 23:15: 00:32 1,000 [...] 09/21/22 at 1730, CELESTE ondansetron 0 Yes [id number] 4mg Take 1 Univers 4 mg 4-26 tablet by ity of disintegrat 00:00: mouth [place] ing tablet 00 every 8 Medica l (eight) Branch hours as needed for Nausea and Vomiting (N/V). levETIRAcet 0 Yes [id number] 500mg Take 1 Univers am (KEPPRA) 4-26 tablet by ity of 500 mg 00:00: mouth in [place] tablet 00 the Medical morning Branch and 1 tablet in the evening. ondansetron 2022-0 Yes [id number] 4mg Take 1 Univers 4 mg 4-26 tablet by ity of disintegrat 00:00: mouth [place] ing tablet 00 every 8 Medica l (eight) Branch hours as needed for Nausea and Vomiting (N/V). levETIRAcet 2022-0 Yes [id number] 500mg Take 1 Univers am (KEPPRA) 4-26 tablet by ity of 500 mg 00:00: mouth in [place] tablet 00 the Medical morning Branch and 1 tablet in the evening. multivitami 0 Yes [id number] 1{tbl} Take 1 Univers n tablet 8-19 tablet by ity of 00:00: mouth in [place] 00 the morning. Union multivitami 2021-0 Yes [id number] 1{tbl} Take 1 Univers n tablet 8-19 tablet by ity of 00:00: mouth in [place] the morning. Union multivitami 2021-0 Yes [id number] 1{tbl} Take 1 Univers n tablet 8-19 tablet by ity of 00:00: mouth in [place] the morning. Union multivitami 2021-0 Yes [id number] 1{tbl} Take 1 Univers n tablet 8-19 tablet by ity of 00:00: mouth in [place] the morning. Union multivitami 0 Yes [id number] 1{tbl} Take 1 Univers n tablet 8-19 tablet by ity of 00:00: mouth in [place] the morning. Union ergocalcife 0 Yes [id number] 50,000 Un sheri rol 8-18 Units, ity [...] Until Discontinu ed, Routine levETIRAcet 2021-0 Yes [id number] 500mg Take 1 Univers am 500 mg 8-18 tablet by ity o f tablet 00:00: mouth in [place] the morning Branch and 1 tablet in the evening. levETIRAcet 2021-0 Yes [id number] 500mg Take 1 Univers am 500 mg 8-18 tablet by ity o f tablet 00:00: mouth in [place] the morning Branch and 1 tablet in the evening. levETIRAcet 2021-0 Yes [id number] 500mg Take 1 Univers am 500 mg 8-18 tablet by ity o f tablet 00:00: mouth in [place] the morning Branch and 1 tablet in the evening. levETIRAcet 2021-0 Yes [id number] 500mg Take 1 Univers am 500 mg 8-18 tablet by ity o f tablet 00:00: mouth in [place] the morning Branch and 1 tablet in the evening. levETIRAcet Yes [id number] 500mg Take 1 Univers am 500 mg 8-18 tablet by ity o f tablet 00:00: mouth in [place] the morning Branch and 1 tablet in [...] No 15mmol 15 mmol, U nivers phosphate 01-1217 IV ity of 15 mmol in 00:30: 05:23 Piggyback, [place] NaCl 0.9% 00 :00 ONCE, 1 Medical (NS) 150 mL dose, On ch piggyback Mon01/11/22 at 1930, 150 mL simethicone Yes 125mg 125 mg, Un sheri (MYLICON) 01-11 Oral, ity of chewable 19:30: QIDPRN, [place] tablet 125 03 Starting Medic al mg on Mon01/11/22 at 1430, Until Discontinu ed, Routine, Gas NaCl 0.9% 2021- No 1000mL at 999 Uni vers (NS) bolus 01-11 08-16 mL/hr, ity of infusion 15:15: 15:47 1,000 mL, Rian as 1,000 mL 00 :00 IV Medical Infusion, Branch ONCE, 1 dose, On 01/11/22 at 1015, STAT levETIRAcet 2021- No 500mg 500 mg, IV Univers am (KEPPRA) 01-11 Piggyback, i ty of in NACL 13:00: 18:16 Q12H, [place] (ISO-OS) 00 :11 First dose Medic al 500 mg/100 on Tu Branch mL RTU 01/11/22 at 0800, Until [...] 1000mL at 100 Univ ers (NS) IV 8-16 mL/hr, IV ity of infusion 06:30: Infusion, [...] [place] 00 :00 dose, On Medical Mon Branch 01/11/22 at 0115, Routine proMETHazin Yes [...] 0944, Until Discontinu ed, Routine, Cough melatonin 2021-0 202- No 6mg 6 mg, Univer s (MELATIN) 01-10-16 Oral, QHS, ity of tablet 6 mg 04:45: 05:03 First dose [place] 00 :30 on [facility] 01/09/22 at Branch 2345, Until Discontinu ed, Routine magnesium 2022-0 2021- No 2g 2 g, IV Univ ers sulfate in 01-09 Piggyback, it y of water 2 23:15: 23:20 Administer Rian as gram/50 mL 00 :00 over 60 Medica l (4 %) Minutes, Branch infusion 2 ONCE, 1 g dose, On [place] 01/09/22 at 1815, Routine enoxaparin 2021-0 Yes 40mg 40 mg, Unive rs (LOVENOX) 01-09 Subcutaneo ity of injection 22:00: [place], DAILY, [place] 40 mg 00 First dose Medical on [facility] 01/09/22 at 1700, Until Discontinu ed, Routine benzocaine- 0 Yes 1{lozen 1 Lozenge, [facility] menthoL 01-09 ge} Oral, ity of (CEPACOL 21:48: Q4HPRN, [place] SORE THROAT 11 Starting Medi bill (CADENCE-MEN)) [...] CONTINUOUS Medic al , Starting Branch on [place] 01/09/22 at 1600, Until Mon01/11/22 at 0129, Routine ondansetron 0 Yes 4mg 4 mg, Slow Univers (ZOFRAN 01-09 IV Push, ity of (PF)) 20:53: Q6HPRN, [place] injection 4 51 Starting Medi bill mg on [facility] 01/09/22 at 1553, Until Discontinu ed, Routine, Nausea and Vomiting (N/V) morpHINE (4 2021- No 4mg 4 mg, Slow Univers mg/mL) 01-09 IV Push, ity of injection 4 20:53: [...] Medical Infusion, Branch ONCE, 1 dose, On [place] 01/09/22 at 1500, STAT NaCl 0.9% 2021- No 1000mL at 999 Uni vers (NS) bolus 01-09-14 mL/hr, ity of infusion 18:15: 19:24 1,000 mL, Rian as 1,000 mL 00 :00 IV Medical Infusion, Branch ONCE, 1 dose, On [place] 01/09/22 at 1315, STAT iopamidol 2021- No [id number] 60mL 60 mL, U nivers (ISOVUE 01-09 Intravenou ity o f 370-500 mL) 18:00: 18:00 s, ONCE, 1 [place] injection 00 :00 dose, On Medica l 60 mL [facility] 01/09/22 at 1300, Routine piperacilli 2021- No 3.375g 3.375 g, Univers n-tazobacta 01-09 IV ity of m (ZOSYN) 17:45: 18:22 [place]back, [place] 3.375 g in 00 :00 ONCE, 1 Medica l NaCl 0.9% dose, On Branch (NS) 50 mL Sun MINI-BAG 01/09/22 at 1245, Administer over 30 [...] blood 2022-11-25 05:00:00 108 mm[Hg] Univer sity pressure [facility] Diastolic blood 2022-11-25 05:00:00 73 mm[Hg] [facility] Heart rate 2022-11-25 05:00:00 82 /min [facility] Respiratory rate 2022-11-25 05:00:00 14 /min [facility] Oxygen saturation in 2022-11-25 05:00:00 99 /min [facility] Arterial blood by [place] Medi bill Pulse oximetry [place] Body temperature 2022-11-25 04:06:00 37.22 Mayra [facility] Body height 2022-11-25 04:06:00 167.6 cm [facility] Body weight 2022-11-25 04:06:00 66.497 kg [facility] BMI 2022-11-25 04:06:00 23.66 kg/m2 [facility] HEIGHT 2022-10-13 10:15:00 167.6 cm WEIGHT 2022-10-13 10:15:00 69.854 kg HEIGHT 2022-10-13 10:15:00 167.6 cm WEIGHT 2022-10-13 10:15:00 69.854 kg HEIGHT 2022-10-13 10:15:00 167.6 cm WEIGHT 2022-10-13 10:15:00 69.854 kg WEIGHT 2022-09-22 09:25:00 67.314 kg WEIGHT 2022-09-22 09:25:00 67.314 kg WEIGHT 2022-09-22 09:25:00 67.314 kg Systolic blood 2022-09-22 00:00:00 106 mm[Hg] Univer sity of pressure [place] [facility] Diastolic blood 2022-09-22 00:00:00 72 mm[Hg] Unive rsity of pressure [facility] Branch Heart rate 2022-09-22 00:00:00 90 /min Universi ty [facility] [place] [facility] Respiratory rate 2022-09-22 00:00:00 21 /min Univ ersity of [facility] Branch Oxygen saturation in 2022-09-22 00:00:00 96 /min University of Arterial blood by [facility] Pulse oximetry Branch Body temperature 2022-09-21 22:20:00 37.44 Mayra Univ ersity of [place] [facility] Respiratory rate 2022-01-13 15:00:00 24 /min Univ ersity of [place] [facility] Oxygen saturation in 2022-01-13 15:00:00 93 /min University of Arterial blood by [facility] Pulse oximetry Branch Systolic blood 2022-01-13 15:00:00 113 mm[Hg] Univer sity of pressure [place] [facility] Diastolic blood 2022-01-13 15:00:00 82 mm[Hg] Unive rsity of pressure [place] [facility] Heart rate 2022-01-13 15:00:00 56 /min [facility] [place] [facility] Body temperature 2022-01-13 13:12:00 36.89 Mayra Univ ers[facility] [place] [facility] Body weight 2022-01-13 11:03:00 77.973 kg [facility] [place] [facility] BMI 2022-01-13 11:03:00 26.92 kg/m2 [facility] [place] [facility] Body height 2022-01-09 21:42:00 170.2 cm [facility] [place] [facility] Systolic blood 2022-10-13 10:15:00 121 mm[Hg] [facility] Diastolic blood 2022-10-13 10:15:00 79 mm[Hg] [facility] Heart rate 2022-10-13 10:15:00 96 /min [facility] Body temperature 2022-10-13 10:15:00 36.72 Mayra [facility] Respiratory rate 2022-10-13 10:15:00 18 /min [facility] Body height 2022-10-13 10:15:00 167.6 cm [facility] Body weight 2022-10-13 10:15:00 69.854 kg [facility] BMI 2022-10-13 10:15:00 24.86 kg/m2 [facility] Oxygen saturation in 2022-10-13 10:15:00 99 /min [facility] Arterial blood by Medical Ce nter Pulse oximetry Procedures Procedure Date / Time Performing Clinician Source Performed LIPASE 2022-11-25 04:24:00 Michael Nieves [facility] MAGNESIUM 2022-11-25 04:24:00 Michael Nieves [facility] COMP. METABOLIC PANEL 2022-11-25 04:24:[address] [facility] ([id number]) [facility] Branch ETHANOL 2022-11-25 04:24:00 Michael Nieves [facility] CBC WITH DIFF 2022-11-25 04:24:00 Michael Nieves [facility] URINALYSIS 2022-11-25 04:24:00 Michael Nieves [facility] CONSENT/REFUSAL FOR 2022-11-25 03:56:25 Doctor Unassigned, [facility] DIAGNOSIS AND TREATMENT [place] [facility] BASIC METABOLIC PANEL 2022-10-13 11:06:00 Jonas Dawson [facility] HEPATIC FUNCTION PANEL 2022-10-13 11:06:00 Jonas Dawson [facility] CBC W/PLT COUNT & AUTO 2022-10-13 11:06:00 Jonas Dawson [facility] PROTHROMBIN TIME/INR 2022-10-13 11:06:00 [facility], 2022-10-13 11:06:00 [facility] [place] LIVER-KIDNEY MICROSOME AB 2022-10-13 11:06:00 [facility] SOLUBLE LIVER ANTIGEN 2022-10-13 11:06:00 [facility] CBC W/PLT COUNT & AUTO 2022-10-13 11:06:00 Samri [facility] DIFFERENTIAL Center CBC W/PLT COUNT & AUTO 2022-09-23 03:53:00 Miguel A [facility] COMPREHENSIVE METABOLIC 2022-09-23 03:53:00 Miguel A [facility] PANEL Center PHOSPHORUS 2022-09-23 03:53:00 Miguel A [facility] MAGNESIUM 2022-09-23 03:53:00 Miguel A [facility] CBC W/PLT COUNT & AUTO 2022-09-23 03:53:00 Miguel A [facility] US ABDOMEN LIMITED 2022-09-23 01:22:00 Miguel A [facility] ACTIN (SMOOTH MUSCLE) 2022-09-22 13:40:00 Marilu [facility] ANTIBODY, IGG [facility] ANTI-NUCLEAR ANTIBODY 2022-09-22 13:40:00 Harjinder [facility] (TAMMI) [facility] CERULOPLASMIN 2022-09-22 13:40:00 Anuddc [facility] HEPATITIS A ANTIBODY, IGG 2022-09-22 13:40:00 [facility] HEPATITIS B SURFACE 2022-09-22 13:40:00 Anseb [facility] ANTIGEN [facility] HEPATITIS B SURFACE 2022-09-22 13:40:00 Anseb [facility] ANTIBODY [facility] HEPATITIS B CORE 2022-09-22 13:40:00 Anuddc [facility] ANTIBODY, TOTAL [facility] HEPATITIS C ANTIBODY 2022-09-22 13:40:00 Anseb [facility] FERRITIN 2022-09-22 13:40:00 Harjinder [facility] IRON, TIBC, % SAT. 2022-09-22 13:40:00 Harjinder [facility] (WITHOUT FERRITIN) [facility] IMMUNOGLOBULIN G (IGG) 2022-09-22 13:40:00 Anseb [facility] YIOSD-[id number]\\, 2022-09-22 13:40:00 Harjinder [facility] SERUM [facility] TAMMI TITER AND PATTERN 2022-09-22 13:40:00 Anseb [facility] MITOCHONDRIAL AB SCREEN 2022-09-22 13:40:00 Harjinder [facility] MITOCHONDRIAL AB TITER 2022-09-22 13:40:00 Harjinder [facility] LIPASE 2022-09-21 22:33:[address] [facility] MAGNESIUM 2022-09-21 22:33:[address] [facility] COMP. METABOLIC PANEL 2022-09-21 22:33:00 Kaylene Montaño [facility] ([id number]) [facility] CBC WITH DIFF 2022-09-21 22:33:[address] [facility] PROTHROMBIN TIME / INR 2022-09-21 22:33:00 [facility] ACTIV[facility] PARTIAL 2022-09-21 22:33:00 Kaylene Montaño [facility] URINALYSIS 2022-09-21 22:33:[address] [facility] CONSENT/REFUSAL FOR 2022-09-21 22:13:03 Doctor Unassigned, [facility] DIAGNOSIS AND TREATMENT [place] [facility] PHOSPHORUS 2022-01-12 09:29:00 Prabhu [facility] MAGNESIUM 2022-01-12 09:29:00 Prabhu [facility] COMP. METABOLIC PANEL 2022-01-12 09:29:00 Prabhu Francois [facility] ([id number]) Medical [facility] CBC WITH DIFF 2022-01-12 09:29:00 Prabhu [facility] LACTIC ACID WHOLE BLOOD 2022-01-11 15:50:00 Franc [facility] LACTIC ACID WHOLE BLOOD 2022-01-11 13:25:00 Franc [facility] VITAMIN D, 25-OH 2022-01-11 13:24:00 Franc [facility] CT HEAD WO CONTRAST 2022-01-11 07:22:56 Franc [facility] XR CHEST 1 VW 2022-01-11 07:22:33 Franc [facility] PHOSPHORUS 2022-01-11 06:58:00 Franc [facility] MAGNESIUM 2022-01-11 06:58:00 Franc [facility] FERRITIN SERUM 2022-01-11 06:58:00 Franc [facility] PROLACTIN 2022-01-11 06:58:00 Franc [facility] VITAMIN B12, LEVEL 2022-01-11 06:58:00 Farnc [facility] FOLATE 2022-01-11 06:58:00 Franc [facility] C-REACTIVE PROTEIN 2022-01-11 06:58:00 Franc [facility] HEPATIC FUNCTION PANEL 2022-01-11 06:58:[address] [facility] ([id number]) (ALB,T.PRO,BILI Medical Branch T,BU/BC,ALT,AST,ALK PHOS) BASIC METABOLIC PANEL 2022-01-11 06:58:00 Prabhu [facility] (NA, K, CL, CO2, GLUCOSE, Medica l Branch BUN, CREATININE, CA) COMP. METABOLIC PANEL 2022-01-11 06:58:00 Franc [facility] ([id number]) [facility] IRON PANEL 2022-01-11 06:58:00 Franc [facility] ETHANOL 2022-01-11 06:58:00 Franc [facility] SEDIMENTATION RATE 2022-01-11 06:58:00 Franc [facility] PROTHROMBIN TIME / INR 2022-01-11 06:58:00 Franc [facility] N-TERMINAL PRO-BNP 2022-01-11 06:58:00 Franc [facility] PROCALCITONIN 2022-01-11 06:58:00 Franc [facility] AC VBG + LACTIC ACID 2022-01-11 06:58:00 Franc [facility] MAGNESIUM 2022-01-10 09:01:00 Prabhu [facility] COMP. METABOLIC PANEL 2022-01-10 09:01:00 Prabhu [facility] ([id number]) [facility] CBC WITH DIFF 2022-01-10 09:01:00 Prabhu [facility] LACTIC ACID WHOLE BLOOD 2022-01-10 09:01:00 Pancho Flores [facility] LACTIC ACID WHOLE BLOOD 2022-01-10 03:20:00 Prabhu [facility] LACTIC ACID WHOLE BLOOD 2022-01-10 01:05:00 Prabhu [facility] PHOSPHORUS 2022-01-09 22:32:00 Prabhu [facility] LACTIC ACID WHOLE BLOOD 2022-01-09 22:32:00 Yahaira Harris [facility] COVID-19 (ID NOW RAPID 2022-01-09 18:15:00 Shawn Rich [facility] TESTING) [facility] LAB ONLY COVID 2022-01-09 18:15:[address] [facility] INTERPRETATION [facility] BLOOD CULTURE SCREEN 2022-01-09 17:51:00 Shawn Rich [facility] ity [facility] LIPASE 2022-01-09 16:59:00 Shawn Rich [facility] MAGNESIUM 2022-01-09 16:59:00 Sahwn Rich [facility] COMP. METABOLIC PANEL 2022-01-09 16:59:00 Shawn Rich [facility] ([id number]) Medical Branch ETHANOL 2022-01-09 16:59:00 Shawn Rich [facility] CT ABDOMEN PELVIS W 2022-01-09 16:49:[address] [facility] CONTRAST [facility] URINALYSIS 2022-01-09 16:27:00 Shawn Rich [facility] URINE DRUG (IMMUNOASSAY) 2022-01-09 16:27:00 Shawn Rich [facility] DRUG [facility] nch SCREEN W/O REFLEX AC PANEL 21 + LACTIC ACID 2022-01-09 16:24:00 [facility] WITH DIFF 2022-01-09 16:23:00 Shawn Rich [facility] PROTHROMBIN TIME / INR 2022-01-09 16:23:00 Shawn Rich [facility] ACTIVATED PARTIAL 2022-01-09 16:23:[address] [facility] THRMPLAS VIVEK [facility] THROAT CULTURE 2022-01-09 16:23:00 Shawn Rich [facility] RAPID STREP SCREEN FOR 2022-01-09 16:23:[address] [facility] GROUP A [facility] CONSENT/REFUSAL FOR 2022-01-09 15:51:23 Doctor UnassIsrrael blake [facility] DIAGNOSIS AND TREATMENT [place] [facility] Plan of Care Planned Activity Planned Date Details Comments Source Future Scheduled 2023-10-[address] [facility] Test 00:00:00 Counseling and Screening [facility] (12+) [code = Tobacco Cessation Counseling and Screening (12+)] Future Scheduled 2023-10-[address] [facility] Test 00:00:00 Counseling and Screening Med ical Center (12+) [code = Tobacco Cessation Counseling and Screening (12+)] Future Scheduled 2023-10-[address] [facility] Test 00:00:00 Counseling and Screening Med ical Center (12+) [code = Tobacco Cessation Counseling and Screening (12+)] Future Scheduled 2023-01-27 Influenza Vaccine (Season [facility] Test 00:00:00 Ended) [code = Influenza Med ical Center Vaccine (Season Ended)] Future Scheduled 2023-01-27 Influenza Vaccine (Season [facility] Test 00:00:00 Ended) [code = Influenza Med ical Center Vaccine (Season Ended)] Future Scheduled 2023-01-27 Influenza Vaccine (#1) [facility] 00:00[facility]00 [code = Influenza Vaccine [facility] (#1)] Future Scheduled 2022-05-[address] [facility] Test 00:00:00 (12+) [code = DEPRESSION Med ical Center SCREENING (12+)] Future Scheduled 2022-05-[address] [facility] Test 00:00:00 (12+) [code = DEPRESSION Med ical Center SCREENING (12+)] Future Scheduled 2022-05-[address] [facility] Test 00:00:00 (12+) [code = DEPRESSION Med ical Center SCREENING (12+)] Future Scheduled 2012 DTAP/TDAP/TD VACCINES ([address] [facility] Test 00:00:00 - Tdap) [code = Medical Cent er DTAP/TDAP/TD VACCINES (1 - Tdap)] Future Scheduled 2012 DTAP/TDAP/TD VACCINES ([address] [facility] Test 00:00:00 - Tdap) [code = Medical Cent er DTAP/TDAP/TD VACCINES (1 - Tdap)] Future Scheduled 2012 DTAP/TDAP/TD VACCINES ([address] [facility] Test 00:00:00 - Tdap) [code = Medical Cent er DTAP/TDAP/TD VACCINES (1 - Tdap)] Future Scheduled [address] [facility] 00:00:00 virus screening Medical Cent er (procedure) [code = 224431882] Future Scheduled 1999-08-26 Pneumococcal Vaccine: [facility] [code = COVID-19 VACCINE Med ical Center (#1)] Future Scheduled 1994-02-25 COVID-19 VACCINE (#1) [facility] 00:00[facility]00 [code = COVID-19 VACCINE Med ical Center (#1)] Future Scheduled 1994-02-25 COVID-19 VACCINE (#1) [facility] 00:00:00 [code = COVID-19 VACCINE Med ical Center (#1)] Encounters Start End Encounter Admission Attending Care Care Encounter Source Date/Time Date/Time Type Type Clinicians Facility Department ID 2022-11-24 2022-11-25 Emergency X [facility] ERT [id number] Univers 23:11:00 00:43:00 MICHAEL leroy [facility] 2022-11-24 2022-11-25 Emergency [facility] [id number] Univers 23:11:00 00:43:00 Michael SINGH [id number] rad [facility] [id number] [facility] [id number] [address] 2022-11-10 2022-11-10 Outpatient [facility] SLE [id number] SLE 00:00:00 00:00:00 2022-10-13 2022-10-[address] [facility] [place] [id number] [facility] 10:00:00 11:00:00 Visit [facility] 2022-10-13 2022-10-13 Office Henny [facility] [id number] 10:00:00 11:00:00 Visit [facility] 2022-10-13 2022-10-13 Outpatient KAVITHA [facility] [id number] [facility] 10:06:39 10:06:39 [facility] 2022-09-22 2022-09-23 [facility] [id number] [facility] 09:21:00 10:58:00 Encounter Miguel A olayinka Noemy Stein [facility] 2022-09-22 2022-09-23 [facility] [id number] [facility] 09:21[facility]00 10:58:[address] [facility] 2022-09-22 2022-09-23 Outpatient TELLO [facility] Med [id number] [facility] 09:21:00 10:58:00 [facility] 2022-09-22 2022-09-22 Travel [facility] [id number] [facility] 00:[facility]:00 [facility] 2022-09-22 2022-09-22 Travel [facility] [id number] [facility] 00:[facility] 00:00:00 [facility] 2022-09-21 2022-09-21 Emergency X SABRA [facility] ERT [id number] Univers 17:17:00 19:35:00 KAYLENE leroy [facility] 2022-09-21 2022-09-21 Emergency Sabra ARRJ 1.2.840.114 10 [id number] Univers 17:17:00 19:35:00 Kaylene SINGH 350.1.13.10 rad [facility] 4.2.7.2.686 [facility] [id number] [place] [address] Branch 2022-09-21 2022-09-21 Orders Doctor RANDALL 1.2.840.114 [id number] Univers 00:00:00 00:00:00 Only Unassigned, JOANIE 350.1.13.10 ity of [place] [facility] 4.2.7.2.686 Rian as [phone] [facility] 009 Branch 2022-01-14 2022-01-14 Transition MARYJANE Campbell 1.2.840.114 [id number] Univers 00:00:00 00:00:00 of Care Estrellita ATWOOD 350.1.13.10 i [place] [phone] [facility] 403 Branch 2022-01-09 2022-01-13 Inpatient X FRANC [facility] [id number] Univers 11:04:00 11:49:00 ADNAN ity of [facility] 2022-01-09 2022-01-13 Hospital Shawn Rich [facility] 1.2.840.1 14 [id number] Univers 11:04:00 11:49:00 Encounter Francois Pelletier 350.1.13.10 ity of [place] 4.2.7.2[address]686 [facility] [id number] [facility] 080 Branch 2022-01-09 2022-01-09 Orders Doctor PRAKASH 1.2.840.114 [id number] Univers 00:00:00 00:00:00 Only Unassigned, JOANIE 350.1.13.10 ity of [place] [facility] 4.2.7.2.686 Rian as [phone] [facility] 009 Branch 2019-12-21 2019-12-21 Telephone PRAKASH Shelley 1.2.106.500 [id number] Univers 00:00:00 00:00:00 Julianne JOANIE 350.1.13.10 it y of HOSPITAL 4.2.7.2.686 Rian as [phone] [facility] 019 Branch 2019-12-19 2019-12-19 Laboratory Lab, Adc Fam Pob I [facility] 1.2. 840.114 [id number] Univers 08:24:39 08:44:39 Only Julianne Shelley 350.1.13.10 ity of [place] 4.2.7.2.686 Rian as Kristel [phone] Az dical nal 044 Branch Office [address] One 2019-12-19 2019-12-19 Outpatient R [facility] [id number] Univers 08:20:00 08:20:00 ity of [facility] 2019-12-19 2019-12-19 Letter Doctor PRAKASH 1.2.840.114 [id number] Univers 00:00:00 00:00:00 (Out) Unassigned, JOANIE 350.1.13.10 ity of [place] [facility] 4.2.7.2.686 Rian as [phone] [facility] 044 [place] Results Test Description Test Time Test Comments Results Result Comments Source COMP. METABOLIC PANEL (59693) 2022-11-25 04:56:35 Test Item Value Reference Range Interpretation Comme nts NA (test code = 2947931028) 137 mmol/L 135-145 K (test code = 6404273922) 3.4 mmol/L 3.5-5.0 L CL (test code = 8404976926) 91 mmol/L 98-108 L CO2 TOTAL (test code = 6838032796) 31 mmol/L 23-31 AGAP (test code = 6950288294) 15 2-16 BUN (test code = 4561431921) 7-23 L GLUCOSE (test code = 9062252201) 117 mg/dL 70-110 H CREATININE (test code = 0.60 mg/dL 0.60-1.25 4694316524) TOTAL BILI (test code = 2.1 mg/dL 0.1-1.1 H 8910981198) CALCIUM (test code = 3431233536) 8.6 mg/dL 8.6-10.6 T PROTEIN (test code = 5314474451) 8.3 g/dL 6.3-8.2 H ALBUMIN (test code = 5422881635) 4.0 g/dL 3.5-5.0 ALK PHOS (test code = 2605923206) 217 U/L 34-122 H ALTv (test code = 1742-6) 23 U/L 5-50 AST(SGOT) (test code = 6944672873) 128 U/L 13-40 H eGFR (test code = 2691303665) 159.3 mL/min/1.73m2 SHIN (test code = SHIN) [...] tests). 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>400 Fatalities Reported [facility] 04:49:44 Test Item Value Reference Range Interpretation Comments MAGNESIUM (test code = 7755072699) 1.9 mg/dL 1.7-2.4 Lab Interpretation (test code = Normal 39291-9) [facility] 04:49:08 Test Item Value Reference Range Interpretation Comments LIPASE (test code = 9992688082) 219 U/L 0-220 Lab Interpretation (test code = Normal 54865-6) [facility] WITH [id number] 04:38:25 Test Item Value Reference Range Interpretation [...] (test code = 58.7 fL 38.5-51.6 H 60706-2) RDW-CV (test code = 15.4 % 12.1-15.4 788-0) PLT (test code = 185 See_Comment [Automated 777-3) message] The system which generated this result transmit pinky reference range : 150 - 328 10*3/ ?L. The reference range was not u sed to interpret th is result as normal/abnormal . MPV (test code = 8.5 fL 9.8-13.0 L 56995-3) NRBC/100 WBC (test 0.0 See_Comment [Automat ed code = 6144468611) message] The system which generated this result transmit pinky reference range : 0.0 - 10.0 /100 WBCs. The reference range was not used to interpret this result as normal/abnormal . NRBC x10^3 (test code See_Comment [Auto mated = 4672388454) message] The system which generated this result transmit pinky reference range : 10*3/?L. The reference range was not used to interpret this result as normal/abnormal . GRAN MAT (NEUT) % 70.4 % (test code = 770-8) IMM GRAN % (test code 0.30 % = 7027534647) LYMPH % (test code = 21.0 % 736-9) MONO % (test code = 4.9 % 5905-5) EOS % (test code = 2.3 % 713-8) BASO % (test code = 1.1 % 706-2) GRAN MAT x10^3(ANC) 10.24 10*3/uL 1.99-6.95 H (test code = 8335494426) IMM GRAN x10^3 (test 0.04 10*3/uL 0.00-0.06 code = 8549360955) LYMPH x10^3 (test code 3.05 10*3/uL 1.09-3.23 = 731-0) MONO x10^3 (test code 0.71 10*3/uL 0.36-1.02 = 742-7) EOS x10^3 (test code = 0.33 10*3/uL 0.06-0.53 711-2) BASO x10^3 (test code 0.16 10*3/uL 0.01-0.09 H = 704-7) Lab Interpretation Abnormal (test code = 31332-0) [facility] METABOLIC [id number] 13:21:47 Test Item Value Reference Range Interpretation [...] not appl icable for dialysis patien ts Box Blank Machine Operator Helper ID - ADMINHEPATIC FUNCTION [id number] 13:09:39 Test Item Value Reference Range Interpretation [...] (test code = 30 U/L 6-55 347) Box Blank Machine Operator Helper ID - ADMINPROTHROMBIN TIME/[id number] 12:40:51 Test Item Value Reference Range Interpretation [...] mechanical heart valves.CBC W/PLT COUNT & AUTO [id number] 12:32:47 Test Item Value Reference Range Interpretation [...] (test code = 2801) TAMMI TITER AND [id number] 12:47:50 Test Item Value Reference Range Interpretation [...] 418) Test performed by IFA method.U/S, ABDOMINAL, [id number] 10:28:00Abdomen limited area? Add comment if clarification is needed.->LiverReason for exam:- >etoh hepatitis [facility] 1995 Sex: MFINAL REPORT Right Upper Quadrant Ultrasound History: Alcoholic hepatitis Comparison: none Findings:Liver is echogenic. Unremarkable hepatic contour. No hepatic mass or intrahepatic biliary dilation. Gallbladder without shadowing gallstones, wall thickening, or pericholecystic fluid. No sonographic Medina's sign. Common bile duct measures 3.5mm. The main portal vein appears patent, with expected hepatopedal flow. The main portal vein ckzuvpge00.6mm in diameter. Pancreas not well seen due tooverlying bowel gas. Right kidney demonstrates no hydronephrosis, shadowing calculus, or mass lesion. Right kidney measures 10.8 x 3.9 x 4.9cm. Impression:Diffuse hepatic steatosis. Signed: Fernando, Brandon MDReport Verified Date/Time: 09/23/2022 10:28:23 Electronically signed by: BRANDON PEARSON MD on09/23/2022 10:28 [id number] 05:30:41 Test Item Value Reference Range Interpretation Comments PHOSPHORUS (BEAKER) (test code = 2.9 mg/dL 2.3-4.7 604) Box Blank Machine Operator Helper ID - ADMINCOMPREHENSIVE METABOLIC [id number] 05:30:41 Test Item Value Reference Range Interpretation [...] not appl icable for dialysis patien ts Box Blank Machine Operator Helper ID - ADMINSpecimen slightly [id number] 05:30:40 Test Item Value Reference Range Interpretation Comments MAGNESIUM (BEAKER) (test code = 2.0 mg/dL 1.6-2.6 627) Box Blank Machine Operator Helper ID - ADMINCBC W/PLT COUNT & AUTO [id number] 05:11:17 Test Item Value Reference Range Interpretation [...] 0.00-1.00 PERCENT (BEAKER) (test code = 2801) [id number] 16:05:26 Test Item Value Reference Range Interpretation Comments FERRITIN (BEAKER) (test code = 420.05 ng/mL 5.00-275.00 H 361) Box Blank Machine Operator Helper ID - BSIRON, TIBC, % SAT. (WITHOUT FERRITIN)2022-09-22 15:43:01 Test Item Value Reference Range Interpretation Comments IRON (BEAKER) (test code = 547) 58.0 ug/dL 40.0-160.0 TOTAL IRON BINDING CAPACITY 166 ug/dL 250-450 L (BEAKER) (test code = 769) IRON % SATURATION (2) (BEAKER) 35 % 20-55 (test code = 2590) Box Blank Machine Operator Helper ID - ADMINIMMUNOGLOBULIN G (IGG)2022-09-22 15:43:00 Test Item Value Reference Range Interpretation Comments IMMUNOGLOBULIN G (IGG) (BEAKER) 1780 mg/dL 540-1822 (test code = 427) Box Blank Machine Operator Helper ID - ADMINHEPATITIS B SURFACE [id number] 14:45:04 Test Item Value Reference Range Interpretation Comments HEPATITIS B SURFACE ANTIBODY < mIU/mL <8.0 (BEAKER) (test code = 647) Box Blank Machine Operator Helper ID - ADMINHEPATITIS A ANTIBODY, [id number] 14:44:36 Test Item Value Reference Range Interpretation Comments HEPATITIS A IGG ANTIBODY (BEAKER) Reactive Nonreactive A (test code = 2797) Box Blank Machine Operator Helper ID - ADMINHEPATITIS C [id number] 14:39:41 Test Item Value Reference Range Interpretation Comments HEPATITIS C ANTIBODY (BEAKER) Nonreactive Nonreactive (test code = 367) Box Blank Machine Operator Helper ID - ADMINHEPATITIS B CORE ANTIBODY, [id number] 14:39:41 Test Item Value Reference Range Interpretation Comments HEPATITIS B CORE TOTAL ANTIBODY Nonreactive Nonreactive (BEAKER) (test code = 497) Box Blank Machine Operator Helper ID - ADMINHEPATITIS B SURFACE [id number] 14:39:36 Test Item Value Reference Range Interpretation Comments HEPATITIS B SURFACE ANTIGEN (2) Nonreactive Nonreactive (BEAKER) (test code = 2585) Specimen is considered negative for HBsAg.GHFKJ-2-MCFKRVVMTAW3995-04-27 14:18:11 Test Item Value Reference Range Interpretation Comments ALPHA-1 ANTITRYPSIN (BEAKER) 215.00 mg/dL 90.00-200.00 H (test code = 502) Box Blank Machine Operator Helper ID - ADMINACTIVATED PARTIAL THRMPLAS [id number] 23:04:38 Test Item Value Reference Range Interpretation Comments APTT Patient (test 35 See_Comment [Automat ed code = 3173-2) message] The system which generated this result transmitted reference range : 23 - 38 Seconds . The reference range was not used to interpr et this result as normal/abnormal . SHIN (test code = SHIN) The [facility] patient population mean normal value for aPTT is 30 seconds. Lab Interpretation Normal (test code = 80352-1) [facility] / [id number] 23:02:33 Test Item Value Reference Range Interpretation [...] tions. Lab Interpretation (test Abnormal code = 96663-5) [facility] Hospital[facility]th[facility] Time / [id number] 07:41:00 Test Item Value Reference Range Interpretation Comments PROTIME PATIENT (test See_Comment H [Auto mated message] code = 5964-2) The system Qumu generated this result transmitted ref erence range: 12.0 - 1 4.7 Seconds. The reference range was not used to int erpret this result as normal/abnormal . INR (test code = 6301-6) Nor mal INR <1.1; Warfarin Therap eutic range 2.0 to 3. 0 or 2.5 to 3.5, dep ending upon the indica tions. Lab Interpretation (test Abnormal code = 67944-3) [facility]22-[facility]14 17:59:50 ALCOHOL<10mg/dL01/09/2022 12:59 [facility] Eosnmzxi66-830 Toxic>100 Depression of LOG CARRIER OPERATOR>400 Fatalities ReportedUnCook Children's Medical CenterCOMP. METABOLIC PANEL (82788) 2022-01-09 17:59:30 Test Item Value Reference Range Interpretation Comments NA (test code = 142 mmol/L 135-145 3514291891) K (test code = 3.4 mmol/L 3.5-5 L 4050519528) CL (test code = 97 mmol/L 98-108 L 3894627780) CO2 TOTAL (test code = 22 mmol/L 23-31 L 4128462924) AGAP (test code = 2-16 H 9857861193) BUN (test code = 7-23 L 9093815993) GLUCOSE (test code = 159 mg/dL 70-110 H 6217099605) CREATININE (test code = 0.80 mg/dL 0.6-1.25 7196586473) TOTAL BILI (test code = 2.6 mg/dL 0.1-1.1 H 2760043070) CALCIUM (test code = 9.4 mg/dL 8.6-10.6 2224511586) T PROTEIN (test code = 8.0 g/dL 6.3-8.2 5673835717) ALBUMIN (test code = 4.3 g/dL 3.5-5 6965487156) ALK PHOS (test code = 195 U/L 34-122 H 6542712350) ALTv (test code = 52 U/L 5-50 H 1742-6) AST(SGOT) (test code = 130 U/L 13-40 H 9245538657) eGFR (test code = mL/min/1.73m2 2689408725) SHIN (test code = SHIN) Association of [...] tests). Lab Interpretation Abnormal (test code = 90919-3) [facility]2022-[facility]-14 17:42:36 Test Item Value Reference Range Interpretation Comments MAGNESIUM (test code = 0544535267) 1.5 mg/dL 1.7-2.4 L Lab Interpretation (test code = Abnormal 20858-3) [facility]2022-[facility]-14 17:42:16 Test Item Value Reference Range Interpretation Comments LIPASE (test code = 5505295744) 117 U/L 0-220 Lab Interpretation (test code = Normal 01402-0) [facility] Hospital[facility] WITH [id number] 17:38:24 Test Item Value Reference Range Interpretation [...] (test code = 54.8 fL 38.5-51.6 H 84749-4) RDW-CV (test code = 14.6 % 12.1-15.4 788-0) PLT (test code = See_Comment H [Automated 777-3) message] The system which generated this result transmit pinky reference range : 150 - 328 10*3/ ?L. The reference range was not u sed to interpret th is result as normal/abnormal . MPV (test code = 8.4 fL 9.8-13 L 22075-3) NRBC/100 WBC (test See_Comment [Automat ed code = 1773306085) message] The system which generated this result transmit pinky reference range : 0.0 - 10.0 /100 WBCs. The reference range was not used to interpret this result as normal/abnormal . NRBC x10^3 (test code See_Comment [Auto mated = 9753380177) message] The system which generated this result transmit pinky reference range : 10*3/?L. The reference range was not used to interpret this result as normal/abnormal . GRAN MAT (NEUT) % 91.7 % (test code = 770-8) IMM GRAN % (test code 0.40 % = 1417985453) LYMPH % (test code = 3.1 % 736-9) MONO % (test code = 4.4 % 5905-5) EOS % (test code = 0.0 % 713-8) BASO % (test code = 0.4 % 706-2) GRAN MAT x10^3(ANC) 23.92 10*3/uL 1.99-6.95 H (test code = 2262137713) IMM GRAN x10^3 (test 0.10 10*3/uL 0-0.06 H code = 3411274797) LYMPH x10^3 (test code 0.80 10*3/uL 1.09-3.23 L = 731-0) MONO x10^3 (test code 1.16 10*3/uL 0.36-1.02 H = 742-7) EOS x10^3 (test code = 0.06-0.53 L 711-2) BASO x10^3 (test code 0.10 10*3/uL 0.01-0.09 H = 704-7) BANDS (test code = Increased A 1879555217) GIANT PLATELETS (test Present See_Comment A [Auto mated code = 5908-9) message] The system which generated this result transmit pinky reference range : (none). The reference range was not used to interpret this result as normal/abnormal . Lab Interpretation Abnormal (test code = 83769-9) [facility] HospitalACTIVATED PARTIAL THRMPLAS [id number] 16:54:32 Test Item Value Reference Range Interpretation Comments APTT Patient (test See_Comment [Automat ed code = 3173-2) message] The system which generated this result transmitted reference range : 23 - 38 Seconds . The reference range was not used to interpr et this result as normal/abnormal . SHIN (test code = SHIN) The [facility] patient population mean normal value for aPTT is 30 seconds. Lab Interpretation Normal (test code = 85573-1) [facility] HospitalPROTHROMBIN TIME / [id number] 16:52:31 Test Item Value Reference Range Interpretation [...] tions. Lab Interpretation (test Normal code = 09378-4) [facility] HospitalPOCT-GLUCO[facility] [id number] 12:43:00 Test Item Value Reference Range Interpretation Comments POC-GLUCOSE METER 88 mg/dL 70-110 TESTED AT [place] [address] (BEAKER) (test code = [facility] [address] 1538) BASIC METABOLIC [id number] 09:10:00 Test Item Value Reference Range Interpretation [...] NOT APPLICABLE FOR DIALYSIS PATIEN TS. POCT-GLUCOSE [id number] 05:26:00 Test Item Value Reference Range Interpretation Comments POC-GLUCOSE METER 87 mg/dL 70-110 TESTED AT [facility] (BEAKER) (test code = [facility] [address] 1538) [id number] 04:43:00 Test Item Value Reference Range Interpretation Comments PHOSPHORUS (BEAKER) (test code = 3.5 mg/dL 2.3-4.7 604) [id number] 04:43:00 Test Item Value Reference Range Interpretation Comments MAGNESIUM (BEAKER) (test code = 2.1 mg/dL 1.6-2.6 627) CBC W/PLT COUNT & AUTO [id number] 04:13:00 Test Item Value Reference Range Interpretation [...] (test code = 416) BASOPHILS ABSOLUTE COUNT (AKER) 0.09 K/ L 0.01-0.08 H (test code = 417) IMMATURE GRANULOCYTES-RELATIVE 0 % 0-1 PERCENT (AKER) (test code = 2801) POCT-GLUCOSE [id number] 01:04:00 Test Item Value Reference Range Interpretation Comments POC-GLUCOSE METER 94 mg/dL 70-110 TESTED AT [place] [address] ([facility]) (test code = [facility] [address] 1538) POCT-GLUCOSE [id number] 17:19:00 Test Item Value Reference Range Interpretation Comments POC-GLUCOSE METER 89 mg/dL 70-110 TESTED AT [place] [address] ([facility]) (test code = [facility] [address] 1538) [id number] 12:13:00 Test Item Value Reference Range Interpretation Comments PHOSPHORUS ([facility]) (test code = 2.6 mg/dL 2.3-4.7 604) POCT-GLUCOSE [id number] 11:47:00 Test Item Value Reference Range Interpretation Comments POC-GLUCOSE METER 107 mg/dL 70-110 TESTED AT [place] [address] ([facility]) (test code = [facility] 1538) [address] CBC W/PLT COUNT & AUTO [id number] 06:53:00 Test Item Value Reference Range Interpretation Comments WHITE BLOOD CELL COUNT (AKER) 13.2 K/ L 3.5-10.5 H (test code [...] 0-1 PERCENT (BEAKER) (test code = 2801) [id number] 06:49:00 Test Item Value Reference Range Interpretation Comments PHOSPHORUS (BEAKER) (test code = 3.5 mg/dL 2.3-4.7 604) [id number] 06:49:00 Test Item Value Reference Range Interpretation Comments MAGNESIUM (BEAKER) (test code = 2.3 mg/dL 1.6-2.6 627) COMPREHENSIVE METABOLIC [id number] 06:49:00 Test Item Value Reference Range Interpretation [...] NOT APPLICABLE FOR DIALYSIS PATIEN TS. POCT-GLUCOSE [id number] 00:36:00 Test Item Value Reference Range Interpretation Comments POC-GLUCOSE METER 123 mg/dL 70-110 H TESTED AT [facility] ([facility]) (test code = [facility] 3472) [address] CBC W/PLT COUNT & AUTO [id number] 00:14:00 Test Item Value Reference Range Interpretation [...] 0-1 PERCENT (BEAKER) (test code = 2801) [id number] 00:11:00 Test Item Value Reference Range Interpretation Comments PHOSPHORUS (BEAKER) (test code = 1.8 mg/dL 2.3-4.7 L 604) [id number] 00:11:00 Test Item Value Reference Range Interpretation Comments MAGNESIUM (BEAKER) (test code = 2.5 mg/dL 1.6-2.6 627) COMPREHENSIVE METABOLIC [id number] 00:11:00 Test Item Value Reference Range Interpretation [...] U/L 29-200 H code = 380) PROTHROMBIN TIME/[id number] 23:57:00 Test Item Value Reference Range Interpretation [...]
[2022-12-14] MEDS ORDERED: THIAMINE 200 MG/2 ML INJ ONE (01:11)
[2022-12-14] MEDS ORDERED: MULTIVITAMINS 10 ML VIAL (INJ) IV ONE ×3 (01:11→01:24)
[2022-12-14] MEDS ORDERED: FOLIC ACID 5 MG/ML VIAL ONE (01:14)
[2022-12-14 01:15] LABS: Barbiturates NEGATIVE (NEGATIVE); Benzodiazepines POSITIVE (NEGATIVE); Cocaine NEGATIVE (NEGATIVE); METHAMPHETAM NEGATIVE (NEGATIVE); Methadone NEGATIVE (NEGATIVE); Opiates NEGATIVE (NEGATIVE); Phencyclidine NEGATIVE (NEGATIVE); Renal Epithelial <5 /HPF (None Seen); Specific Gravity < 1.005 (1.005-1.030); THC Cannibis POSITIVE (NEGATIVE); Urine Bacteria <20 /HPF (<20); Urine Bilirubin NEGATIVE (Negative); Urine Blood Negative (Negative); Urine Clarity Turbid (Clear); Urine Color Light-Yellow (Yellow); Urine Glucose NEGATIVE (Negative); Urine Protein NEGATIVE (Negative); Urine RBC None Seen /HPF (None Seen); Urine Urobilinogen Normal (Normal); Urine pH 5.5 (5.0-7.0)
[2022-12-14] MEDS ORDERED: NA CHLORIDE 0.9% 2,000 ML ONE (01:16)
[2022-12-14 01:18] LABS: Absolute Lymphocytes (CBC) 2.2 K/uL (0.7-4.9); Hematocrit 35.1 % (39.6-49.0); Lymphocytes % 15.2 % (15.3-44.8); MCV 109.3 fL (80-100); MPV 6.9 fL (7.6-11.3); RBC Red Blood Cell Count 3.21 M/uL (4.33-5.43)
[2022-12-14 01:21] LABS: Protime INR 1.53
[2022-12-14 01:42] LABS: ALT/SGPT 48 U/L (16-61); AST/SGOT 233 U/L (15-37); Alkaline Phosphatase 281 U/L (45-117); BUN Blood Urea Nitrogen < 3 mg/dL (7-18); Bicarbonate 29 mEq/L (21-32); Bilirubin Direct 1.2 mg/dL (0-0.2); Bilirubin Indirect, Calculated 1.2 mg/dL (0.2-0.8); Bilirubin Total 2.4 mg/dL (0.2-1.0); Creatine Phosphokinase 24 U/L (39-308); Glomerular Filtration Rate 125 ml/min (=/>90); Glucose Level 92 mg/dL (74-106); Potassium 3.1 mEq/L (3.5-5.1); Protein, Total 8.2 g/dL (6.4-8.2); Sodium Level 129 mEq/L (136-145)
[2022-12-14 02:16] LABS: Blood Morphology Comment NOTED (NOT SEEN); Macrocytosis SLIGHT; Platelet Estimate ADEQ; White Blood Cell Scan OK (OK)
[2022-12-14 03:10] LABS: Lipase 39 U/L (13-75)
[2022-12-14] MEDS ORDERED: POTASSIUM 25 MEQ EFFERV TAB ONE (03:20)
--- NOTE | 2022-12-14 04:32 | EDPHYS ---
Physician Documentation [facility] Name: Roger Peralta Age: 27 yrs Sex: Male : 1995 Arrival Date: 12/14/2022 Time: 00:14 Bed 19 Private MD: ED Physician Jack Marquez HPI: 12/14 00:30 This 27 yrs old Male presents to ER via Ambulatory with complaints of cp Weakness, Dehydrated. 00:30 The patient presents to the emergency department with weakness of the entire body, cp generalized weakness. 00:30 Onset: The symptoms/episode began/occurred last night. cp 00:30 Patient's baseline: Neuro: alert and fully oriented, Motor: no deficits, Ambulation: cp walks without assistance, Speech: normal. Patient admits to daily drinking of alcohol with last use last night. Historical: - Home Meds: 00:31 librium [Active]; kd3 - PMHx: 00:31 Alcohol dependence; fatty liver; Seizure; kd3 - Immunization history:: Adult Immunizations up to date. - Social history:: Smoking status: Patient denies any tobacco usage or history of. ROS: 00:35 Constitutional: Negative for body aches, chills, fever, poor PO intake. cp 00:35 Cardiovascular: Negative for chest pain. cp 00:35 Respiratory: Negative for cough, shortness of breath, wheezing. 00:35 Eyes: Negative for injury, pain, redness, and discharge. cp 00:35 Abdomen/GI: Positive for nausea. 00:35 Neuro: Positive for weakness, Negative for altered mental status, headache. cp 00:35 All other systems are negative. cp Exam: 00:45 Constitutional: The patient appears in no acute distress, alert, awake, non-toxic, well cp developed, well nourished, smells of alcohol. 00:45 Head/Face: Normocephalic, atraumatic. cp 00:45 Eyes: Periorbital structures: appear normal, Conjunctiva: normal, no exudate, no injection, Sclera: no appreciated abnormality, Lids and lashes: appear normal, bilaterally. 00:45 ENT: External ear(s): are unremarkable, Nose: is normal, Mouth: Lips: moist, Oral mucosa: pink and intact, moist, Posterior pharynx: is normal, airway is patent, no erythema, no exudate. 00:45 Neck: ROM/movement: is normal, is supple, without pain, no range of motions limitations. 00:45 Chest/axilla: Inspection: normal, Palpation: is normal, no crepitus, no tenderness. 00:45 Cardiovascular: Rate: tachycardic, Rhythm: regular, Edema: is not appreciated, JVD: is not appreciated. 00:45 Respiratory: the patient does not display signs of respiratory distress, Respirations: normal, no use of accessory muscles, no retractions, labored breathing, is not present, Breath sounds: are clear throughout, no decreased breath sounds, no stridor, no wheezing. 00:45 Abdomen/GI: Inspection: abdomen appears normal, Bowel sounds: active, all quadrants, Palpation: soft, in all quadrants, mild abdominal tenderness, in the mid abdomen, rebound tenderness, is not appreciated, involuntary guarding, is not appreciated. 00:45 Back: pain, is absent, ROM is normal. 00:45 Neuro: Orientation: to person, place \T\ time. Mentation: able to follow commands, slow to respond, Motor: moves all fours, strength is normal, Sensation: no obvious gross deficits. 00:49 ECG was reviewed by the Attending Physician. cp Vital Signs: 00:28 BP 116 / 84; Pulse 109; Resp 19; Temp 98.4(O); Pulse Ox 97% on R/A; Weight 65.77 kg; kd3 Height 5 ft. 5 in. ; 00:37 BP 113 / 84 Supine; Pulse 105; Resp 16; Pulse Ox 97% on R/A; jl10 00:37 BP 122 / 85 Sitting; Pulse 104; Resp 16; Pulse Ox 96% on R/A; jl10 00:37 BP 125 / 90 Standing; Pulse 106; Resp 16; Pulse Ox 98% on R/A; jl10 01:35 BP 104 / 70; Pulse 93; Resp 16; Pulse Ox 100% ; jj7 02:30 BP 102 / 70; Pulse 110; Resp 17; Pulse Ox 98% ; jj7 03:14 BP 112 / 68; Pulse 101; Resp 16; Pulse Ox 100% ; jj7 03:37 BP 102 / 67; Pulse 105; Resp 18 S; Pulse Ox 98% on R/A; ha1 04:30 BP 108 / 76; Pulse 100; Resp 18 S; Pulse Ox 98% on R/A; ha1 00:28 Body Mass Index 24.13 (65.77 kg, 165.1 cm) kd3 MDM: 00:24 Patient medically screened. cp 04:30 Data reviewed: vital signs, nurses notes, lab test result(s), radiologic studies. ED sp3 course: CT demonstrates mild enteritis. WBC count is mildly elevated as well. Remainder of labs are at baseline or near baseline. Alcohol at 185. Patient feels much better now with IV fluids. We will safely discharge patient home on oral antibiotics at this time.. 12/14 00:37 Order name: Acetaminophen; Complete Time: 03:24 cp 12/14 00:37 Order name: Basic Metabolic Panel; Complete Time: 03:24 cp 12/14 02:33 Interpretation: Normal except: NA 129; K 3.1; CL 92; BUN < 3; CA 7.9. cp 12/14 00:37 Order name: CBC with Diff; Complete Time: 02:33 cp 12/14 02:33 Interpretation: Reviewed. cp 12/14 00:37 Order name: ETOH Level; Complete Time: 02:33 cp 12/14 02:33 Interpretation: Abnormal: ETOH 195. cp 12/14 00:37 Order name: Hepatic Function; Complete Time: 03:24 cp 12/14 02:34 Interpretation: Normal except: AST 233; ALK 281; BILIT 2.4; BILID 1.2; IBILI, CALC 1.2; cp ALB 3.0; GLOB 5.2; A/G 0.6. 12/14 00:37 Order name: PT-INR; Complete Time: 01:25 cp 12/14 00:37 Order name: Ptt, Activated; Complete Time: 02: cp 12/14 00:37 Order name: Salicylate; Complete Time: 02:33 cp 12/14 00:37 Order name: Urinalysis w/ reflexes; Complete Time: 02: cp 12/14 02:34 Interpretation: Normal except: UCLA Turbid; Urine SG < 1.005. cp 12/14 00:37 Order name: Urine Drug Screen; Complete Time: 02:33 cp 12/14 02:34 Interpretation: Normal except: BZO POSITIVE; THC POSITIVE. cp 12/14 00:37 Order name: CK; Complete Time: 03:24 cp 12/14 01:24 Order name: CBC Smear Scan; Complete Time: 02:33 EDMS 12/14 03:04 Order name: LAB Add On 12/14 03:06 Order name: Lipase; Complete Time: 03:24 EDAR 12/14 02:54 Order name: CT Abd/Pelvis - IV Contrast Only cp 12/14 00:37 Order name: EKG; Complete Time: 00:38 cp 12/14 00:24 Order name: Orthostatics; Complete Time: 00:38 12/14 00:37 Order name: EKG - Nurse/Tech; Complete Time: 00:47 cp 12/14 00:37 Order name: IV Saline Lock; Complete Time: 01:22 cp 12/14 00:37 Order name: Labs collected and sent; Complete Time: :22 EC:49 Rate is 103 beats/min. Rhythm is regular. MN interval is normal. QRS interval is cp normal. QT interval is normal. T waves are Inverted in lead aVR. Interpreted by me. Reviewed by me. Administered Medications: 01:22 Drug: NS 0.9% IV 1000 ml Route: IV; Rate: 1 bolus; Site: right antecubital; jj7 02:20 Follow up: IV Status: Completed infusion jj7 01:22 Drug: Banana Bag - (NS 0.9% IV 1000 ml, foLIC Acid IVPB 1 mg, Thiamine IV 100 mg, jj7 Multivitamin IV 1 amp) Route: IV; Rate: 500 ml/hr; Site: right antecubital; 05:01 Follow up: Response: No adverse reaction; IV Status: Completed infusion; IV Intake: ha1 1000ml 03:16 Drug: Potassium PO Effervescent Tablet 50 mEq Route: PO; jj7 05:01 Follow up: Response: No adverse reaction ha1 Disposition: 04:30 Co-signature as Attending Physician, Jack Marquez MD I agree with the assessment and sp3 plan of care. I reviewed the patient's care provided by Advanced Practice Provider \T\ agree w/ the diagnosis \T\ care plan. I personally saw the pt \T\ performed a substantive portion of the visit, incldng all aspects of the (History/Exam/Medical Decision Making). . Disposition Summary: 12/14/22 04:32 Discharge Ordered Location: Home sp3 Condition: Stable sp3 Diagnosis - Enteritis, alcoholism, alcohol intoxication, abdominal pain, hypokalemia sp3 Followup: sp3 - With: Private Physician - When: Upon discharge from the Emergency Department - Reason: Continuance of care Discharge Instructions: - Discharge Summary Sheet sp3 - Alcohol Intoxication sp3 - Campylobacter Gastroenteritis sp3 Forms: - Medication Reconciliation Form sp3 - Thank You Letter sp3 - Antibiotic Education sp3 - Prescription Opioid Use sp3 - Patient Portal Instructions sp3 Prescriptions: - Flagyl 500 mg Oral Tablet - take 1 tablet by ORAL route every 8 hours for 5 days; 15 tablet; Refills: 0, sp3 Product Selection Permitted - Cipro 500 mg Oral Tablet - take 1 tablet by ORAL route every 12 hours for 7 days; 14 tablet; Refills: 0, sp3 Product Selection Permitted Signatures: Dispatcher [employer] EDMS Samir Garcia, EMMANUELLE-C GRADUATE ADVISOR-Cla1 Davey Luke PA PA cp Patel, Setul, MD MD sp3 Kandy He RN RN kd3 Thais Grayson RN RN jj7 Betty Mchugh RN ha1 Corrections: (The following items were deleted from the chart) 02:26 00:37 Suicide Screening ([place]) ordered. laxmi cp 03:17 03:04 LIPASE+C.LAB.BRZ ordered. EDAR EDMS
--- NOTE | 2022-12-14 04:32 | ER ---
Nurse's Notes [facility] Name: Roger Peralta Age: 27 yrs Sex: Male : 1995 Arrival Date: 12/14/2022 Time: 00:14 Bed 19 Private MD: Diagnosis: Enteritis, alcoholism, alcohol intoxication, abdominal pain, hypokalemia Presentation: 12/14 00:28 Chief complaint: Patient states: I think i am dehydrated. I drink a 6 or 8 pack a day kd3 and i had my last drink a couple of hours ago. I have also been in the heat and have not been eating very well. I noticed earlier that my left leg was also tightening up on me. Coronavirus screen: Vaccine status: Patient reports receiving the 2nd dose of the covid vaccine. Ebola Screen: No symptoms or risks identified at this time. 00:28 Method Of Arrival: Ambulatory kd3 00:30 Initial Sepsis Screen: Does the patient meet any 2 criteria? No. Patient's initial kd3 sepsis screen is negative. Does the patient have a suspected source of infection? No. Patient's initial sepsis screen is negative. Risk Assessment: Do you want to hurt yourself or someone else? Patient reports no desire to harm self or others. Onset of symptoms was December 14, 2022. 00:30 Acuity: LAVON 3 kd3 Triage Assessment: 00:31 General: Appears uncomfortable, Behavior is calm, cooperative. kd3 Historical: - Home Meds: 00:31 librium [Active]; kd3 - PMHx: 00:31 Alcohol dependence; fatty liver; Seizure; kd3 - Immunization history:: Adult Immunizations up to date. - Social history:: Smoking status: Patient denies any tobacco usage or history of. Screenin:38 [facility] ED Fall Risk Assessment (Adult) History of falling in the last 3 months, ha1 including since admission No falls in past 3 months (0 pts) Confusion or Disorientation No (0 pts) Intoxicated or Sedated No (0 pts) Impaired Gait No (0 pts) Mobility Assist Device Used No (0 pt) Altered Elimination No (0 pt) Score/Fall Risk Level 0 - 2 = Low Risk Oriented to surroundings, Maintained a safe environment, Educated pt \T\ family on fall prevention, incl call for assistance when getting out of bed, Hourly rounding (assess needs \T\ fall precautionary measures) done. Abuse screen: Denies threats or abuse. Denies injuries from another. Nutritional screening: No deficits noted. Tuberculosis screening: No symptoms or risk factors identified. Assessment: 00:30 Pain: Denies pain. kd3 03:32 Reassessment: PT REPORT GIVEN TO BYRON TAMAYO. jj7 03:36 Reassessment: Patient and/or family updated on plan of care and expected duration. Pain ha1 level reassessed. Patient is alert, oriented x 3, equal unlabored respirations, skin warm/dry/pink. Patient states symptoms have improved. General: Appears comfortable, Behavior is calm, cooperative. Respiratory:. Musculoskeletal: Circulation, motion, and sensation intact. Range of motion: intact in all extremities. 04:30 Reassessment: Patient and/or family updated on plan of care and expected duration. Pain ha1 level reassessed. Patient is alert, oriented x 3, equal unlabored respirations, skin warm/dry/pink. Vital Signs: 00:28 BP 116 / 84; Pulse 109; Resp 19; Temp 98.4(O); Pulse Ox 97% on R/A; Weight 65.77 kg; kd3 Height 5 ft. 5 in. ; 00:37 BP 113 / 84 Supine; Pulse 105; Resp 16; Pulse Ox 97% on R/A; jl10 00:37 BP 122 / 85 Sitting; Pulse 104; Resp 16; Pulse Ox 96% on R/A; jl10 00:37 BP 125 / 90 Standing; Pulse 106; Resp 16; Pulse Ox 98% on R/A; jl10 01:35 BP 104 / 70; Pulse 93; Resp 16; Pulse Ox 100% ; jj7 02:30 BP 102 / 70; Pulse 110; Resp 17; Pulse Ox 98% ; jj7 03:14 BP 112 / 68; Pulse 101; Resp 16; Pulse Ox 100% ; jj7 03:37 BP 102 / 67; Pulse 105; Resp 18 S; Pulse Ox 98% on R/A; ha1 04:30 BP 108 / 76; Pulse 100; Resp 18 S; Pulse Ox 98% on R/A; ha1 00:28 Body Mass Index 24.13 (65.77 kg, 165.1 cm) kd3 ED Course: 00:17 Patient arrived in ED. mr 00:20 Patient has correct armband on for positive identification. Placed in gown. Bed in low ha1 position. Call light in reach. Adult w/ patient. 00:24 Davey Luke PA is PHCP. cp 00:24 Jack Marquez MD is Attending Physician. cp 00:25 Thais Grayson RN is Primary Nurse. jj7 00:30 Triage completed. kd3 00:31 Arm band placed on right wrist. kd3 01:15 Inserted saline lock: 20 gauge in right antecubital area, using aseptic technique. jj7 Blood collected. 03:19 LAB Add On Sent. jj7 03:35 CT Abd/Pelvis - IV Contrast Only In Process Unspecified. EDCO 05:02 Provided Education on: alcohol intoxication. ha1 05:02 No provider procedures requiring assistance completed. IV discontinued, intact, ha1 bleeding controlled, No redness/swelling at site. Pressure dressing applied. Administered Medications: 01:22 Drug: NS 0.9% IV 1000 ml Route: IV; Rate: 1 bolus; Site: right antecubital; jj7 02:20 Follow up: IV Status: Completed infusion jj7 01:22 Drug: Banana Bag - (NS 0.9% IV 1000 ml, foLIC Acid IVPB 1 mg, Thiamine IV 100 mg, jj7 Multivitamin IV 1 amp) Route: IV; Rate: 500 ml/hr; Site: right antecubital; 05:01 Follow up: Response: No adverse reaction; IV Status: Completed infusion; IV Intake: ha1 1000ml 03:16 Drug: Potassium PO Effervescent Tablet 50 mEq Route: PO; jj7 05:01 Follow up: Response: No adverse reaction ha1 Medication: 03:39 VIS not applicable for this client. ha1 Intake: 05:01 IV: 1000ml; Total: 1000ml. ha1 Outcome: 04:32 Discharge ordered by . sp3 05:02 Discharged to home ambulatory, with family. ha1 05:02 Condition: stable 05:02 Discharge instructions given to patient, family, Instructed on discharge instructions, follow up and referral plans. medication usage, Demonstrated understanding of instructions, follow-up care, medications, Prescriptions given X 2. 05:03 Patient left the ED. ha1 Signatures: Dispatcher [facility] Liliana sanchez Page, DaveyFRANKIE garcia cp, Setul, MD MD sp3 Kandy He, RN RN kd3 Byron Mchugh, RN RN ha1 Thais Grayson RN RN jj7 Rich Loera jl10
[2022-12-14 05:21] VITALS: TEMP 98.4
[2022-12-14 05:32] VITALS: O2SAT 98
[2022-12-14 05:33] VITALS: BP 108/76
--- NOTE | 2022-12-14 13:16 | EKG ---
Test Date: 2022-12-14 Test Time: 00:44:17 Garment Alteration Examiner: DAVID MEASUREMENT RESULTS: Intervals: Rate: 103 NV: 130 QRSD: 76 QT: 372 QTc: 487 Martinez: P: 62 NV: 130 QRS: 68 T: 24 INTERPRETIVE STATEMENTS: Sinus tachycardia Otherwise normal ECG Compared to ECG 11/14/2022 23:08:47 Sinus rhythm no longer present Prolonged QT interval no longer present Electronically Signed On 12-14-22 13:15:04 CDT by Ken Donahue
--- NOTE | 2022-12-14 14:23 | RAD REPORT ---
EXAM DESCRIPTION: Abdomen Pelvis W Contrast CLINICAL HISTORY: 27 years Male abd pain, dehydration COMPARISON: CT abdomen pelvis 09/22/2022. TECHNIQUE: CT of the abdomen and pelvis with intravenous contrast. All CT scans at this facility use dose modulation, iterative reconstruction, and/or weight based dosi ng when appropriate to reduce radiation dose to as low as reasonably achievable. FINDINGS: Lower thorax: Right basilar atelectasis. Abdomen: Stomach: Within normal limits Liver: No focal lesions. Enlarged. No intrahepatic ductal distention. Gallbladder: Nondistended Pancreas: Within normal limits Spleen: Enlarged. Right kidney: No hydronephrosis. No focal lesion. Left kidney: No hydronephrosis. No focal lesion. Adrenal glands: Within normal limits Vascular structures: Within normal limits Nodes: No lymphadenopathy by size criteria Pelvis: Small bowel: Fluid-filled loops of small bowel with mild segmental wall thickening. Appendix: Within normal limits Colon: No distention or acute pericolonic edema. Peritoneum: No free intraperitoneal fluid or air. Bones: No acute bone findings. Bladder: Unremarkable. Reproductive organs: No acute findings. Soft tissues: Small fat-containing left inguinal hernia. IMPRESSION: 1. Fluid-filled loops of small bowel with mild segmental wall thickening, can be seen in setting of enteritis. Correlate with clinical presentation. 2. Hepatosplenomegaly, grossly unchanged compared to 09/22/2022. Electronically signed by: Bakari Guevara MD 12/14/2022 3:55 AM CDT Due to temporary technical issues with the PACS/Fluency reporting system, reports are being signed by the in house radiologists without review as a courtesy to insure prompt reporting. The interpreting radiologist is fully responsible for the content of the report.
== END 2022-12-14 05:03 | disposition home or self-care (01) ==
LOC: ER 00:14
DX: E87.6 Hypokalemia (principal); K52.9 Noninfective gastroenteritis and colitis, unspecified; F10.229 Alcohol dependence with intoxication, unspecified; R10.9 Unspecified abdominal pain
CPT/HCPCS: 93005; 85025; 81001; 80048; 36415; 82550; 85610; 80076; 85730; 83690; 80307; 74177; 80143; 80179; 82077; Q9967; J3411; J7030; 96365; 96366; 99284

== ENCOUNTER 2023-01-06 22:50 | Emergency (ER) | payer OTHER ==
--- OUTSIDE RECORDS SUMMARY | 2023-01-06 22:57 | XMS REPORT | Continuity of Care Document ---
:1995 Author Organization [facility] t Address [address] [place] [address] Care Team Providers Name Role Phone No, Pcp [facility] Primary Care Physician Unavailable ALEX MODI Attending Clinician Unavailable MICHAEL NIEVES Attending Clinician Unavailable Michael Nieves MD Attending Clinician Danna Conley PA-C Attending Clinician [phone] DANNA CONLEY Attending Clinician Unavailable Antonio Jaime MD Attending Clinician [phone] Zach Grady MD Attending Clinician Noemy Crowell MD Attending Clinician NOEMY CROWELL Attending Clinician Unavailable KAYLENE MONTAÑO Attending Clinician Unavailable Kaylene Montaño DO Attending Clinician Doctor Unassigned, [place] Attending Clinician Unavailable Estrellita Campbell RN Attending [...] Policy Number Effective Date Expiration Date Gin adams [facility] FROM [id number] 2022 [facility]00[facility]00 [id number] 2022 00:00:00 Problems Condition Condition Condition Status Onset Resolution Last Treating Co mments Source Name Details Category Date Date Treatment Clinician Date Alcoholic Alcoholic Disease Active [facility] hepatitis 4-28 [facility] s 00:00: Medical 00 [place] Seizure Seizure Disease Active Univers 8-16 ity of 00:00: [address] Branch Nausea and Nausea and Disease [...] Active Univers ALLERGIE Class ity of S [facility] Social History Social Habit Start Date Stop Date Quantity Comments Source History of Passive smoker University of tobacco use [facility] History SDOH [facility] [...] ter Exposure to 2022-09-11 2022-09-21 Not sure [facility] SARS-CoV-2 00:00:00 17:21:00 [facility] (event) Branch Tobacco use and 2022-01-09 2022-01-09 Smokeless tobacco Un iversity of exposure 00:00:00 00:00:00 non-user [facility] Sex Assigned At [birth year] M GULSHAN Goodman 00:00:00 00:00:00 Medical Center Smoking Status Start Date Stop Date Source Tobacco smoking consumption [facility] Branch Never smoked tobacco [facility] Medications Ordered Filled Start Stop Current Ordering Indication Dosage Frequency Signature Comments Components Source Medication Medication Date Date Medication? Clinician (SIG) Name Name NaCl 0.9% 2022- Yes 1000mL at 999 Uni vers (NS) IV 11-2530 mL/hr, ity of infusion 05:30: 17:29 Intravenou [...] KCL No 20meq 20 mEq, Univers (KLOR-CON 11-25-30 Oral, ity of M20) tablet 05:15: 05:16 [place]CE[place] 20 mEq 00 :00 dose, On Medical Fri Branch 11/25/22 at 0015, CELESTE ondansetron 0 Yes [id number] 4mg Take 1 Univers (ZOFRAN) 4 -30 tablet by ity of mg tablet 00:00: mouth [place] 00 every 8 Medical (eight) Branch hours as needed for Nausea and Vomiting (N/V). chlordiazeP No Take [address] [facility] [address] OXIDE -23 09-30 capsule Lukes (LIBRIUM) 00:00: 23:59 (25 mg Medic al 25 MG 00 :00 total) by Center capsule mouth 2 (two) times daily for 1 day, THEN 1 capsule (25 mg total) nightly for 1 day. Max Daily Amount: 50 mg. chlordiazeP No Take [address] [facility] [address] OXIDE 09-23-30 capsule [facility]ukes (LIBRIUM) 00:00: 23:59 (25 mg Medic al 25 MG 00 :00 total) by Center capsule mouth 2 (two) times daily for 1 day, THEN 1 capsule (25 mg total) nightly for 1 day. Max Daily Amount: 50 mg. chlordiazeP No Take [address] [facility] [address] OXIDE 09-23-30 capsule Lukes (LIBRIUM) 00:00: 23:59 (25 mg Medic al 25 MG 00 :00 total) by Center capsule mouth 2 (two) times daily for 1 day, THEN 1 capsule (25 mg total) nightly for 1 day. Max Daily Amount: 50 mg. chlordiazeP No Take [address] [facility] [address] OXIDE 4-23 09-30 capsule [facility]ukes (LIBRIUM) 00:00: 23:59 (25 mg [...] Wed Branch 09/21/22 at 2015, CELESTE magnesium 2022-2022- No 2g 2 g, IV Univ ers sulfate in 09-22 Piggyback, it y of water 2 00:00: 00:32 Administer Rian as gram/50 mL 00 :00 over 60 Medica l (4 %) Minutes, Branch infusion 2 ONCE, 1 g dose, On Mon09/21/22 at 1900, Routine iopamidol 2022- No [id number] 74mL 74 mL, U nivers (ISOVUE 09-21 Intravenou ity o f 370-500 mL) 23:30: 23:45 s, ONCE, 1 [place] injection 00 :00 dose, On Medica l 74 mL [facility] Branch 09/21/22 at 1845, Routine NaCl 0.9% [...] 00 :00 dose, On Medi bill mg Mon Branch 09/21/22 at 1730, CELESTE ondansetron 2022-0 Yes [id number] 4mg Take 1 Univers 4 mg 4-26 tablet by ity of disintegrat 00:00: mouth [place] ing tablet 00 every 8 Medica l (eight) Branch hours as needed for Nausea and Vomiting (N/V). levETIRAcet 2022-0 Yes [id number] 500mg Take 1 Univers am (KEPPRA) 4-26 tablet by ity of 500 mg 00:00: mouth in [place] tablet 00 the Medical morning Branch and 1 tablet in the evening. ondansetron 2022-0 Yes [id number] 4mg Take 1 Univers 4 mg 4-26 tablet by ity of disintegrat 00:00: mouth [place] ing tablet 00 every 8 Medica l (eight) Branch hours as needed for Nausea and Vomiting (N/V). levETIRAcet 0 Yes [id number] 500mg Take 1 Univers am (KEPPRA) 4-26 tablet by ity of 500 mg 00:00: mouth in [place] tablet 00 the Medical morning Branch and 1 tablet in the evening. multivitami 0 Yes [id number] 1{tbl} Take 1 Univers n tablet 8-19 tablet by ity of 00:00: mouth in [place] 00 the Medical morning. [place] multivitami 0 Yes [id number] 1{tbl} Take 1 Univers n tablet 8-19 tablet by ity of 00:00: mouth in [place] 00 the morning. [place] multivitami 0 Yes [id number] 1{tbl} Take 1 Univers n tablet 8-19 tablet by ity of 00:00: mouth in [place] 00 the morning. [place] multivitami 0 Yes [id number] 1{tbl} Take 1 Univers n tablet 8-19 tablet by ity of 00:00: mouth in [place] 00 the morning. [place] multivitami 0 Yes [id number] 1{tbl} Take 1 Univers n tablet 8-19 tablet by ity of 00:00: mouth in [place] 00 the morning. [place] ergocalcife 0 Yes [id number] 50,000 Un sheri rol 8-18 Units, ity [...] Until Discontinu ed, Routine levETIRAcet 2021-0 Yes [id number] 500mg Take 1 Univers am 500 mg 8-18 tablet by ity o f tablet 00:00: mouth in [place] 00 the Medical morning Branch and 1 tablet in the evening. levETIRAcet 2021-0 Yes [id number] 500mg Take 1 Univers am 500 mg 8-18 tablet by ity o f tablet 00:00: mouth in [place] [address] the [facility] morning [place] and 1 tablet in the evening. levETIRAcet 2021-0 Yes [id number] 500mg Take 1 Univers am 500 mg 8-18 tablet by ity o f tablet 00:00: mouth in [place] the [facility] morning [place] and 1 tablet in the evening. levETIRAcet 2021-0 Yes [id number] 500mg Take 1 Univers am 500 mg 8-18 tablet by ity o f tablet 00:00: mouth in [place] [address] the [facility] morning [place] and 1 tablet in the evening. levETIRAcet 2021-0 Yes [id number] 500mg Take 1 Univers am 500 mg 8-18 tablet by ity o f tablet 00:00: mouth in [place] the [facility] and 1 tablet in the evening. LORazepam [...] Starting Medic al % solution on Mon [place] 15 mL 01/12/22 at 1315, Until Discontinu ed, Routine, Oral mucosal pain melatonin 0 Yes 6mg 6 mg, Univers (MELATIN) 01-12 Oral, QHS, ity of tablet 6 mg 06:30: First dose [place] 00 on Mon01/12/22 at Branch 0130, Until Discontinu ed, Routine potassium 0 2021- No 15mmol 15 mmol, U nivers phosphate 01-12 IV ity of 15 mmol in 00:30: 05:[facility] [place] NaCl 0.9% 00 :00 ONCE, 1 Medical (NS) 150 mL dose, On ch piggyback 01/11/22 at 1930, 150 mL simethicone 0 Yes 125mg 125 mg, Un sheri (MYLICON) 01-11 Oral, ity of chewable 19:30: QIDPRN, [place] tablet 125 03 Starting Medic al mg on [facility] Branch 01/11/22 at 1430, Until Discontinu ed, Routine, Gas NaCl 0.9% No 1000mL at 999 Uni vers (NS) bolus 01-11 mL/hr, ity of infusion 15:15: 15:47 1,000 mL, Rian as 1,000 mL 00 :00 IV Medical Infusion, Branch ONCE, 1 dose, On [facility] 01/11/22 at 1015, STAT levETIRAcet 2021- No 500mg 500 mg, IV Univers am (KEPPRA) 01-11 Piggyback, i ty of in NACL 13:00: 18:16 Q12H, [place] (ISO-OS) 00 :11 First dose Medic al 500 mg/100 on [facility] Branch mL RTU 01/11/22 at 0800, Until Discontinu ed, Administer over 15 Minutes, 100 mL LORazepam No 1mg 1 mg, Slow U nivers (ATIVAN) 01-11 IV Push, ity of injection 1 11:00: 13:10 Q6H, First [place] mg 00 :40 dose on [facility] 01/11/22 at 0600, Until Discontinu ed, Routine
Is the medication being used for status epilepticu s? No LORazepam 2021- No 1mg 1 mg, Slow U nivers (ATIVAN) 01-11 IV Push, ity of injection 1 07:45: 06:25 ONCE, 1 [place] mg 00 :00 dose, On [facility] Branch 01/11/22 at 0245, Routine
Is the medication being used for status epilepticu s? Yes thiamine 2021- No IV Univers (VITAMIN 01-11 Infusion, ity o f B1) 100 mg, 07:30: 14:54 at 150 Rian as foLIC acid 00 :00 mL/hr, Medical (FOLATE) 1 ONCE, 1 Branch mg in D5W dose, On 0.45% NaCl [facility] (1/2NS) IV 01/11/22 at Solution 0230, 1,000 mL LORazepam 2021- No 1mg 1 mg, Slow U nivers (ATIVAN) 01-11 IV Push, ity of injection 1 07:30: 07:06 ONCE, 1 [place] mg 00 :00 dose, On Medical Mon Branch 01/11/22 at 0230, Routine
Is the [...] Rian as mg 50 Starting Medical on Mon Branch 01/11/22 at 0127, Until Discontinu ed, [...] 01 Starting Medical NaCl 0.9% on Mon Branch (NS) 50 mL 01/10/22 at IV 0946, piggyback Until Discontinu ed, Routine, N/V unresponsi ve to Ondansetro n guaiFENesin Yes 100mg 100 mg, Un sheri 100 mg/5 mL 8-15 Oral, ity of solution 14:44: Q6HPRN, [place] 100 mg 48 Starting Medical on [facility] 01/10/22 at 0944, Until Discontinu ed, Routine, Cough melatonin 2021- No 6mg 6 mg, Univer s (MELATIN) 01-1016 Oral, QHS, ity of tablet 6 mg 04:45: 05:03 First dose [place] 00 :30 on [facility] 01/09/22 at Branch 2345, Until Discontinu ed, Routine magnesium 2021- No 2g 2 g, IV Univ ers sulfate in 01-09 Piggyback, it y of water 2 23:15: 23:20 Administer Rian as gram/50 mL 00 :00 over 60 Medica l (4 %) Minutes, Branch infusion 2 ONCE, 1 g dose, On [place] 01/09/22 at 1815, Routine enoxaparin 0 Yes 40mg 40 mg, Unive rs (LOVENOX) 01-09 Subcutaneo ity of injection 22:00: [place], DAILY, [place] 40 mg 00 First dose Medical on [facility] 01/09/22 at 1700, Until Discontinu ed, Routine benzocaine- 0 Yes 1{lozen 1 Lozenge, Univers menthoL 01-09 ge} Oral, ity of (CEPACOL 21:48: Q4HPRN, [place] SORE THROAT 11 Starting Medi bill (CADENCE-MEN)) on [facility] lozenge 1 01/09/22 at Lozenge 1648, Until Discontinu ed, Routine, Sore throat foLIC acid 0 Yes 1mg 1 mg, Univer s (FOLATE) 01-09 Oral, ity of tablet 1 mg 21:00: DAILY, [place] 00 First dose Medical on [facility] 01/09/22 at 1600, Until Discontinu ed, Routine thiamine 0 Yes 100mg 100 mg, Unive rs (VITAMIN 01-09 Oral, ity of B1) tablet 21:00: DAILY, [place] 100 mg 00 First dose Medical on [facility] 01/09/22 at 1600, Until Discontinu ed, Routine NaCl 0.9% 2021- No 1000mL at 125 Uni vers (NS) IV 01-09-16 mL/hr, IV ity of infusion 21:00: 06:29 Infusion, Rian as 1,000 mL 00 :07 CONTINUOUS Medic al , Starting Branch on [place] 01/09/22 at 1600, Until Mon01/11/22 at 0129, Routine ondansetron Yes 4mg 4 mg, Slow Univers (ZOFRAN 01-09 IV Push, ity of (PF)) 20:53: Q6HPRN, [place] injection 4 51 Starting Medi bill mg on [facility] 01/09/22 at 1553, Until Discontinu ed, Routine, Nausea and Vomiting (N/V) morpHINE (4 2021- No 4mg 4 mg, Slow Univers mg/mL) 01-09 IV Push, ity of injection 4 20:53: 20:52 Q4HPRN, [place] mg 48 :48 Starting Medical on [facility] 01/09/22 at 1553, Until 01/10/22 at 1552, Routine, Pain (scale 7-10) acetaminoph Yes 650mg 650 mg, Un sheri en 01-09 Oral, ity of (TYLENOL) 20:53: Q6HPRN, [place] tablet 650 39 Starting Medic al mg on [facility] 01/09/22 at 1553, Until Discontinu ed, Routine, Pain (scale 1-3), Temp > 38.5 C NaCl 0.9% 2021- No 1000mL at 999 Uni vers (NS) bolus 01-09 08-16 mL/hr, ity of infusion 20:00: 07:34 1,000 mL, Rian as 1,000 mL 00 :00 IV Medical Infusion, Branch ONCE, 1 dose, On [place] 01/09/22 at 1500, STAT NaCl 0.9% 0 2021- No 1000mL at 999 Uni vers (NS) bolus 01-09 08-14 mL/hr, ity of infusion 18:15: 19:24 1,000 mL, Rian as 1,000 mL 00 :00 IV Medical Infusion, Branch ONCE, 1 dose, On [place] 01/09/22 at 1315, STAT iopamidol 0 2021- No [id number] 60mL 60 mL, U nivers (ISOVUE 01-0914 Intravenou ity o f 370-500 mL) 18:00: 18:00 s, ONCE, 1 [place] injection 00 :00 dose, On Medica l 60 mL [place] Branch 01/09/22 at 1300, Routine piperacilli 2021- No [...] 00 :00 dose, On Medi bill mg [facility] 01/09/22 at 1230, CELESTE NaCl 0.9% 2021- No 1000mL at 999 Uni vers (NS) bolus 01-09 mL/hr, ity of infusion 17:30: 19:14 1,000 mL, Rian as 1,000 mL 00 :00 IV Medical Infusion, Branch ONCE, 1 dose, On [place] 01/09/22 at 1230, STAT Vital Signs Vital Name Observation Time Observation Value Comments Source Systolic blood 2022-11-25 05:00:00 108 mm[Hg] Univer sity of pressure [facility] Diastolic blood 2022-11-25 05:00:00 73 mm[Hg] Unive rsity of pressure [facility] Heart rate 2022-11-25 05:00:00 82 /min [facility] Respiratory rate 2022-11-25 05:00:00 14 /min [facility] Oxygen saturation in 2022-11-25 05:00:00 99 /min [facility] Arterial blood by [place] Medi bill Pulse oximetry Branch Body temperature 2022-11-25 04:06:00 37.22 Mayra [facility] Body height 2022-11-25 04:06:00 167.6 cm Universi ty of [facility] Body weight 2022-11-25 04:06:00 66.497 kg Universi ty of [facility] BMI 2022-11-25 04:06:00 23.66 kg/m2 Universi ty of [facility] HEIGHT 2022-10-13 10:15:00 167.6 cm WEIGHT 2022-10-13 10:15:00 69.854 kg HEIGHT 2022-10-13 10:15:00 167.6 cm WEIGHT 2022-10-13 10:15:00 69.854 kg HEIGHT 2022-10-13 10:15:00 167.6 cm WEIGHT 2022-10-13 10:15:00 69.854 kg WEIGHT 2022-09-22 09:25:00 67.314 kg WEIGHT 2022-09-22 09:25:00 67.314 kg WEIGHT 2022-09-22 09:25:00 67.314 kg Systolic blood 2022-09-22 00:00:00 106 mm[Hg] Univer sity of pressure [facility] Branch Diastolic blood 2022-09-22 00:00:00 72 mm[Hg] Unive rsity of pressure [facility] Heart rate 2022-09-22 00:00:00 90 /min Universi ty of [facility] Respiratory rate 2022-09-22 00:00:00 21 /min Univ ersity of [facility] Oxygen saturation in 2022-09-22 00:00:00 96 /min University of Arterial blood by [facility] Pulse oximetry Branch Body temperature 2022-09-21 22:20:00 37.44 Mayra Univ ersity of [place] [facility] Respiratory rate 2022-01-13 15:00:00 24 /min Univ ersity of [facility] Oxygen saturation in 2022-01-13 15:00:00 93 /min University of Arterial blood by [facility] Pulse oximetry Branch Systolic blood 2022-01-13 15:00:00 113 mm[Hg] Univer sity of pressure [facility] Diastolic blood 2022-01-13 15:00:00 82 mm[Hg] Unive rsity of pressure [facility] Heart rate 2022-01-13 15:00:00 56 /min [facility] Body temperature 2022-01-13 13:12:00 36.89 Mayra [facility] Body weight 2022-01-13 11:03:00 77.973 kg [facility] BMI 2022-01-13 11:03:00 26.92 kg/m2 [facility] Body height 2022-01-09 21:42:00 170.2 cm [facility] Systolic blood 2022-10-13 10:15:00 121 mm[Hg] [facility] Diastolic blood 2022-10-13 10:15:00 79 mm[Hg] [facility] Heart rate 2022-10-13 10:15:00 96 /min [facility] Body temperature 2022-10-13 10:15:00 36.72 Mayra [facility] Respiratory rate 2022-10-13 10:15:00 18 /min [facility] Body height 2022-10-13 10:15:00 167.6 cm [facility] Body weight 2022-10-13 10:15:00 69.854 kg [facility] BMI 2022-10-13 10:15:00 24.86 kg/m2 [facility] Oxygen saturation in 2022-10-13 10:15:00 99 /min [facility] Arterial blood by Medical Ce nter Pulse oximetry Procedures Procedure Date / Time Performing Clinician Source Performed LIPASE 2022-11-25 04:24:00 Michael Nieves [facility] MAGNESIUM 2022-11-25 04:24:00 Michael Nieves [facility] COMP. METABOLIC PANEL 2022-11-25 04:24:00 Michael Nieves [facility] ([id number]) [facility] ETHANOL 2022-11-25 04:24:00 Michael Nieves [facility] CBC WITH DIFF 2022-11-25 04:24:00 Michael Nieves [facility] URINALYSIS 2022-11-25 04:24:00 Michael Nieves [facility] CONSENT/REFUSAL FOR 2022-11-25 03:56:25 Doctor Unassigned, [facility] DIAGNOSIS AND TREATMENT [facility] BASIC METABOLIC PANEL 2022-10-13 11:06:00 Samir [facility] HEPATIC FUNCTION PANEL 2022-10-13 11:06:00 [facility] CBC W/PLT COUNT & AUTO 2022-10-13 11:06:00 Samir [facility] PROTHROMBIN TIME/INR 2022-10-13 11:06:00 [place] [facility] PHOSPHATIDYLETHANOL, 2022-10-13 11:06:00 [facility] [place] BLOOD [place] LIVER-KIDNEY MICROSOME AB 2022-10-13 11:06:00 Samir Cynthia I [facility] SOLUBLE LIVER ANTIGEN 2022-10-13 11:06:00 [facility] [place] [facility] CBC W/PLT COUNT & AUTO 2022-10-13 11:06:00 Samir [facility] DIFFERENTIAL Center CBC W/PLT COUNT & AUTO 2022-09-23 03:53:00 Miguel A [facility] [place] [facility] COMPREHENSIVE METABOLIC 2022-09-23 03:53:00 Miguel A [facility] PANEL Center PHOSPHORUS 2022-09-23 03:53:00 Miguel A [facility] MAGNESIUM 2022-09-23 03:53:00 Miguel A [facility] CBC W/PLT COUNT & AUTO 2022-09-23 03:53:00 Miguel A [facility] DIFFERENTIAL [place] US ABDOMEN LIMITED 2022-09-23 01:22:00 [facility]SMOOTH [facility] 2022-09-22 13:40:00 Harjinder [facility] ANTIBODY, IGG [facility] ANTI-NUCLEAR ANTIBODY 2022-09-22 13:40:00 [facility] CERULOPLASMIN 2022-09-22 13:40:00 Erna Grande [facility] HEPATITIS A ANTIBODY, IGG 2022-09-22 13:40:00 Erna Grande I [facility] HEPATITIS B SURFACE 2022-09-22 13:40:00 AnErna grigsby [facility] ANTIGEN [facility] HEPATITIS B SURFACE 2022-09-22 13:40:00 AnudErna irwin [facility] ANTIBODY [facility] HEPATITIS B CORE 2022-09-22 13:40:00 AnErna grigsby [facility] ANTIBODY, TOTAL [facility] HEPATITIS C ANTIBODY 2022-09-22 13:40:00 [facility] FERRITIN 2022-09-22 13:40:00 [facility]ON, TIBC, % SAT. 2022-09-22 13:40:00 Erna Grande [facility] (WITHOUT FERRITIN) [facility] IMMUNOGLOBULIN G (IGG) 2022-09-22 13:40:00 Erna Grande [facility] [id number]\\, 2022-09-22 13:40:00 [facility] TAMMI TITER AND PATTERN 2022-09-22 13:40:00 [facility] MITOCHONDRIAL AB SCREEN 2022-09-22 13:40:00 [facility]inder [facility] MITOCHONDRIAL AB TITER 2022-09-22 13:40:00 Tramaine Grandegary [facility] LIPASE 2022-09-21 22:33:00 Kaylene Montaño [facility] MAGNESIUM 2022-09-21 22:33:00 Kaylene Montaño [facility] COMP. METABOLIC PANEL 2022-09-21 22:33:00 Kaylene Montaño [facility] ([id number]) [facility] CBC WITH DIFF 2022-09-21 22:33:00 Kaylene Montaño [facility] PROTHROMBIN TIME / INR 2022-09-21 22:33:00 Kaylene [facility] ACTIV[facility] PARTIAL 2022-09-21 22:33:00 [facility] URINALYSIS 2022-09-21 22:33:00 Kaylene Montaño [facility] CONSENT/REFUSAL FOR 2022-09-21 22:13:03 Doctor Unassigned, [facility] DIAGNOSIS AND TREATMENT [facility] PHOSPHORUS 2022-01-12 09:29:00 Prabhu [facility] MAGNESIUM 2022-01-12 09:29:00 Prabhu [facility] COMP. METABOLIC PANEL 2022-01-12 09:29:00 Francois [facility] ([id number]) [facility] CBC WITH DIFF 2022-01-12 09:29:00 Prabhu [facility] LACTIC ACID WHOLE BLOOD 2022-01-11 15:50:00 Fawad Sanz [facility] LACTIC ACID WHOLE BLOOD 2022-01-11 13:25:00 Franc [facility] VITAMIN D, 25-OH 2022-01-11 13:24:00 Franc [facility] CT HEAD WO CONTRAST 2022-01-11 07:22:56 Fawad Sanz [facility] XR CHEST 1 VW 2022-01-11 07:22:33 Franc ana [facility] PHOSPHORUS 2022-01-11 06:58:00 Franc [facility] MAGNESIUM 2022-01-11 06:58:00 Franc ana [facility] FERRITIN SERUM 2022-01-11 06:58:00 Franc [facility] PROLACTIN 2022-01-11 06:58:00 Franc [facility] VITAMIN B12, LEVEL 2022-01-11 06:58:00 Franc ana [facility] FOLATE 2022-01-11 06:58:00 Franc [facility] C-REACTIVE PROTEIN 2022-01-11 06:58:00 Franc [facility] HEPATIC FUNCTION PANEL 2022-01-11 06:58:00 Prabhu Fracnois [facility] ([id number]) (ALB,T.PRO,BILI Medical Branch T,BU/BC,ALT,AST,ALK PHOS) BASIC METABOLIC PANEL 2022-01-11 06:58:00 [facility] (NA, K, CL, CO2, GLUCOSE, Medica l Branch BUN, CREATININE, CA) COMP. METABOLIC PANEL 2022-01-11 06:58:00 Franc [facility] ([id number]) [facility] IRON PANEL 2022-01-11 06:58:00 Franc [facility] ETHANOL 2022-01-11 06:58:00 Franc [facility] SEDIMENTATION RATE 2022-01-11 06:58:00 Franc [facility] PROTHROMBIN TIME / INR 2022-01-11 06:58:00 Franc [facility] N-TERMINAL PRO-BNP 2022-01-11 06:58:00 Franc [facility] PROCALCITONIN 2022-01-11 06:58:00 Franc [facility] AC VBG + LACTIC ACID 2022-01-11 06:58:00 Franc ana [facility] MAGNESIUM 2022-01-10 09:01:00 Prabhu [facility] COMP. METABOLIC PANEL 2022-01-10 09:01:00 Prabhu [facility] ([id number]) [facility] CBC WITH DIFF 2022-01-10 09:01:00 Prabhu [facility] LACTIC ACID WHOLE BLOOD 2022-01-10 09:01:00 Pancho Flores [facility] LACTIC ACID WHOLE BLOOD 2022-01-10 03:20:00 Prabhu [facility] LACTIC ACID WHOLE BLOOD 2022-01-10 01:05:00 Prabhu [facility] PHOSPHORUS 2022-01-09 22:32:00 Prabhu [facility] LACTIC ACID WHOLE BLOOD 2022-01-09 22:32:00 Yahaira Harris [facility] COVID-19 (ID NOW RAPID 2022-01-09 18:15:00 [facility] [place] [facility] TEST[facility]) [facility] LAB ONLY COVID 2022-01-09 18:15:00 Shawn Rich [facility] INTERPRETATION [facility] BLOOD CULTURE SCREEN 2022-01-09 17:51:00 Shawn Rich [facility] LIPASE 2022-01-09 16:59:00 Shawn Rich [facility] MAGNESIUM 2022-01-09 16:59:00 Shawn Rich [facility] COMP. METABOLIC PANEL 2022-01-09 16:59:00 Shawn Rich [facility] ([id number]) [facility] ETHANOL 2022-01-09 16:59:00 Shawn Rich [facility] CT ABDOMEN PELVIS W 2022-01-09 16:49:00 Shawn Rich [facility] CONTRAST [facility] URINALYSIS 2022-01-09 16:27:00 Shawn Rich [facility] URINE DRUG (IMMUNOASSAY) 2022-01-09 16:27:00 Shawn Rich [facility] DRUG Medical [facility] nc SCREEN W/O REFLEX AC PANEL 21 + LACTIC ACID 2022-01-09 16:24:[address] WITH DIFF 2022-01-09 16:23:00 Shawn Rich [facility] PROTHROMBIN TIME / INR 2022-01-09 16:23:00 Shawn Rich [facility] ACTIVATED PARTIAL 2022-01-09 16:23:00 Shawn Rich [facility] THRMPLAS [facility] THROAT CULTURE 2022-01-09 16:23:00 Shawn Rich [facility] RAPID STREP SCREEN FOR 2022-01-09 16:23:00 Shawn Rich [facility] GROUP A Medical Branch CONSENT/REFUSAL FOR 2022-01-09 15:51:23 Doctor UnassIsrrael blake [facility] DIAGNOSIS AND TREATMENT [facility] Plan of Care Planned Activity Planned Date [...] Screening (12+)] Future Scheduled 2023-01-27 Influenza Vaccine (#1) [facility] 00:[facility]:00 [code = Influenza Vaccine Me dical Center (#1)] Future Scheduled 2023-01-27 Influenza Vaccine (Season [facility] 00:00:00 Ended) [code = Influenza Med ical Center Vaccine (Season Ended)] Future Scheduled 2023-01-27 Influenza Vaccine (Season [facility] Test 00:00:00 Ended) [code = Influenza Med ical Center Vaccine (Season Ended)] Future Scheduled 2023-01-27 Influenza Vaccine (#1) [facility] 00:00:00 [code = Influenza Vaccine Me dical Center (#1)] Future Scheduled 2022-05-29 DEPRESSION SCREENING [...] Test 00:00:00 (12+) [code = DEPRESSION Med [facility] Center SCREENING (12+)] Future Scheduled 2012 DTAP/TDAP/TD [...] screening Medical Cent er (procedure) [code = 272590244] Future Scheduled [address] Human immunodeficiency [facility] 00:00:00 virus screening Medical Cent er (procedure) [code = 848120707] Future Scheduled 1999-08-26 Pneumococcal Vaccine: CH I [...] Date/Time Type Type Clinicians Facility Department ID 2022-12-26 2022-12-26 Emergency E LY, [facility] [address] [facility] 11:24:00 14:23:00 ALEX 2022-11-24 2022-11-25 Emergency X EZEQUIEL, [facility] ERT [id number] Univers 23:11:00 00:43:00 MICHAEL leroy [facility] 2022-11-24 2022-11-25 Emergency Ezequiel, [facility] [id number] [id number] Univers 23:11:00 00:43:00 Michael SINGH 350.1.13.10 rad [facility] 4.2.7.2.686 [facility] [phone] [address] 2022-11-10 2022-11-10 Outpatient EL SLE SLE [id number] [facility] 00:00:00 00:00:00 2022-10-13 2022-10-13 Office KAVITHA Conley [facility] [id number] 10:00:00 11:00:00 Visit [facility] 2022-10-13 2022-10-[address] HennyMichelle [id number] 10:00:00 11:00:00 Visit [facility] 2022-10-13 2022-10-13 Outpatient EL HENNY [facility] [id number] [facility] 10:06:39 10:06:39 [facility] 2022-09-22 2022-09-23 [facility] Antonio Jaime [facility] [id number] [facility] 09:21:00 10:58:00 Encounter Miguel [facility] 2022-09-22 2022-09-23 [facility] Antonio Jaime Tony [facility] [id number] [facility] 09:21:00 10:58:00 Encounter Miguel A olayinka [facility] 2022-09-22 2022-09-23 [facility] [id number] [facility] 09:21:00 10:58:[address] [facility] 2022-09-22 2022-09-[address] [facility] [id number] [facility] 00:[facility]00 00:00:00 [facility] 2022-09-22 2022-09-[address] [facility] [id number] [facility] 00:[facility]:00 00:00:00 [facility] 2022-09-21 2022-09-21 Emergency [facility] [id number] Univers 17:17:00 19:35:00 KAYLENE leroy [facility] 2022-09-21 2022-09-21 [facility] 1.2.840.114 [id number] Univers 17:17:00 19:35:00 Kaylene SINGH 350.1.13.10 ity of [place] 4.2.7.2.686 [facility] [id number] [facility] bill 084 Branch 2022-09-21 2022-09-21 Orders Doctor PRAKASH 1.2.840.114 [id number] Univers 00:00:00 00:00:00 Only Unassigned, JOANIE 350.1.13.10 ity of [place] [facility] 4.2.7.2.686 Rian [id number] [facility] bill 009 Branch 2022-01-14 2022-01-14 Transition MARYJANE Campbell 1.2.840.114 [id number] Univers 00:00:00 00:00:00 of Care Estrellita ATWOOD 350.1.13.10 i ty [place] [id number] [facility] 403 Branch 2022-01-09 2022-01-13 Inpatient X [facility] [id number] Univers 11:04:00 11:49:00 ADNAN ity of [facility] 2022-01-09 2022-01-13 Hospital Shawn Rich [facility] 1.2.840.1 [id number] Univers 11:04:00 11:49:00 Encounter Francois Pelletier 350.1.13.10 ity of [place] 4.2.7.2.686 [facility] [id number] [facility] 080 Branch 2022-01-09 2022-01-09 Orders Doctor PRAKASH 1.2.840.114 [id number] Univers 00:00:00 00:00:00 Only Unassigned, JOANIE 350.1.13.10 ity of [place] [facility] 4.2.7.2.686 Rian as [id number] [facility] 009 Branch 2019-12-21 2019-12-21 Telephone PRAKASH Shelley 1.2.650.184 [id number] Univers 00:00:00 00:00:00 Juliannepaty NAIR 350.1.13.10 it y of HOSPITAL 4.2.7.2.686 Rian as [id number] [facility] 019 Branch 2019-12-19 2019-12-19 Laboratory Lab, Adc Fam Pob I [facility] 1.2. 840.114 [id number] Univers 08:24:39 08:44:39 Only Julianne Shelley 350.1.13.10 ity of [place] 4.2.7.2.686 Rian as Kristel [id number] Ak dical [facility] 044 Branch Office [address] 2019-12-19 2019-12-19 Outpatient R [facility] [id number] Univers 08:20:00 08:20:00 ity of [facility] 2019-12-19 2019-12-19 Letter Doctor PRAKASH 1.2.840.114 [id number] Univers 00:00:00 00:00:00 (Out) Unassigned, JOANIE 350.1.13.10 ity of [place] [facility] 4.2.7.2.686 Rian as [phone] [address] Results Test Description Test Time Test Comments Results Result Comments Source COMP. METABOLIC PANEL (88223) 2022-11-25 04:56:35 Test Item Value Reference Range Interpretation Comme nts NA (test code = 8758743919) 137 mmol/L 135-145 K (test code = 5331335261) 3.4 mmol/L 3.5-5.0 L CL (test code = 2830054230) 91 mmol/L 98-108 L CO2 TOTAL (test code = 9915254341) 31 mmol/L 23-31 AGAP (test code = 2871726839) 15 2-16 BUN (test code = 0505815796) 7-23 L GLUCOSE (test code = 3682965557) 117 mg/dL 70-110 H CREATININE (test code = 0.60 mg/dL 0.60-1.25 4693545043) TOTAL BILI (test code = 2.1 mg/dL 0.1-1.1 H 9537575017) CALCIUM (test code = 4479815732) 8.6 mg/dL 8.6-10.6 T PROTEIN (test code = 5582245097) 8.3 g/dL 6.3-8.2 H ALBUMIN (test code = 2118941632) 4.0 g/dL 3.5-5.0 ALK PHOS (test code = 3175239382) 217 U/L 34-122 H ALTv (test code = 1742-6) 23 U/L 5-50 AST(SGOT) (test code = 7427222528) 128 U/L 13-40 H eGFR (test code = 7650809273) 159.3 mL/min/1.73m2 SHIN (test code = SHIN) [...] tests). Lab Interpretation (test code = Abnormal 59630-4) [facility] 04:50:04 Test Item Value Reference Range Interpretation Comments ALCOHOL (test code = 237 mg/dL 4207772479) SHIN (test code = SHIN) <10 Jtsyqzrf93-623 Toxic>100 Depression of CRM FUNCTIONAL ANALYST>400 Fatalities Reported [facility] 04:49:44 Test Item Value Reference Range Interpretation Comments MAGNESIUM (test code = 1837696682) 1.9 mg/dL 1.7-2.4 Lab Interpretation (test code = Normal 59251-8) [facility]23-[facility]30 04:49:08 Test Item Value Reference Range Interpretation Comments LIPASE (test code = 3438952517) 219 U/L 0-220 Lab Interpretation (test code = Normal 72098-9) [facility] WITH [id number] 04:38:25 Test Item Value Reference Range Interpretation Comments WBC (test code = 14.53 See_Comment H [Xninuzsaa 7924-3) message] The system which generated this result [...] (test code = 58.7 fL 38.5-51.6 H 17581-3) RDW-CV (test code = 15.4 % 12.1-15.4 788-0) PLT (test code = 185 See_Comment [Automated 777-3) message] The system which generated this result transmit pinky reference range : 150 - 328 10*3/ ?L. The reference range was not u sed to interpret th is result as normal/abnormal . MPV (test code = 8.5 fL 9.8-13.0 L 77392-9) NRBC/100 WBC (test 0.0 See_Comment [Automat ed code = 8751218888) message] The system which generated this result transmit pinky reference range : 0.0 - 10.0 /100 WBCs. The reference range was not used to interpret this result as normal/abnormal . NRBC x10^3 (test code See_Comment [Auto mated = 4124789484) message] The system which generated this result transmit pinky reference range : 10*3/?L. The reference range was not used to interpret this result as normal/abnormal . GRAN MAT (NEUT) % 70.4 % (test code = 770-8) IMM GRAN % (test code 0.30 % = 2048321506) LYMPH % (test code = 21.0 % 736-9) MONO % (test code = 4.9 % 5905-5) EOS % (test code = 2.3 % 713-8) BASO % (test code = 1.1 % 706-2) GRAN MAT x10^3(ANC) 10.24 10*3/uL 1.99-6.95 H (test code = 9453776637) IMM GRAN x10^3 (test 0.04 10*3/uL 0.00-0.06 code = 8504638997) LYMPH x10^3 (test code 3.05 10*3/uL 1.09-3.23 = 731-0) MONO x10^3 (test code 0.71 10*3/uL 0.36-1.02 = 742-7) EOS x10^3 (test code = 0.33 10*3/uL 0.06-0.53 711-2) BASO x10^3 (test code 0.16 10*3/uL 0.01-0.09 H = 704-7) Lab Interpretation Abnormal (test code = 08231-7) [facility] METABOLIC [id number] 13:21:47 Test Item Value Reference Range Interpretation [...] not as accur ate as Creatinine Nat mcguire in predicting glom erular filtration rate . Estimated GFR is not appl icable for dialysis patien ts Frame Catcher ID - ADMINHEPATIC FUNCTION [id number] 13:09:39 Test Item Value Reference Range Interpretation [...] (test code = 30 U/L 6-55 347) Frame Catcher ID - ADMINPROTHROMBIN TIME/[id number] 12:40:51 Test Item Value Reference Range Interpretation [...] mechanical heart valves.CBC W/PLT COUNT & AUTO [id number] 12:32:47 Test Item Value Reference Range Interpretation [...] (test code = 2801) TAMMI TITER AND [id number] 12:47:50 Test Item Value Reference Range Interpretation [...] Reference Range Interpretation Comments ANTI-NUCLEAR ANTIBODY (TAMMI) (BABITA) Negative Negative (test code = 418) Test performed by IFA method.U/S, ABDOMINAL, [id number] 10:28:00Abdomen limited area? Add comment if clarification is needed.->LiverReason for exam:- >etoh hepatitis [facility] : 1995 Sex: MFINAL REPORT Right Upper Quadrant Ultrasound History: Alcoholic hepatitis Comparison: none Findings:Liver is echogenic. Unremarkable hepatic contour. No hepatic mass or intrahepatic biliary dilation. Gallbladder without shadowing gallstones, wall thickening, or pericholecystic fluid. No sonographic Medina's sign. Common bile duct measures 3.5mm. The main portal vein appears patent, with expected hepatopedal flow. The main portal vein .6mm in diameter. Pancreas not well seen due tooverlying bowel gas. Right kidney demonstrates no hydronephrosis, shadowing calculus, or mass lesion. Right kidney measures 10.8 x 3.9 x 4.9cm. Impression:Diffuse hepatic steatosis. Signed: Brandon Pearson MDReport Verified Date/Time: 09/23/2022 10:28:23 Electronically signed by: BRANDON PEARSON MD on09/23/2022 10:28 [id number] 05:30:41 Test Item Value Reference Range Interpretation Comments PHOSPHORUS (BEAKER) (test code = 2.9 mg/dL 2.3-4.7 604) Frame Catcher ID - ADMINCOMPREHENSIVE METABOLIC [id number] 05:30:41 Test Item Value Reference Range Interpretation [...] 30-44 G4 Severl y decreased 15-29 G5 Kidne y failure <15Reported eGF R is based on the CKD-EPI 2020 equation that d oes not use a race coefficientEsti mated GFR is not as accur ate as Creatinine Nat mcguire in predicting glom erular filtration rate . Estimated GFR is not appl icable for dialysis patien ts Frame Catcher ID - ADMINSpecimen slightly [id number] 05:30:40 Test Item Value Reference Range Interpretation Comments MAGNESIUM (BEAKER) (test code = 2.0 mg/dL 1.6-2.6 627) Frame Catcher ID - ADMINCBC W/PLT COUNT & AUTO [id number] 05:11:17 Test Item Value Reference Range Interpretation [...] 0.00-1.00 PERCENT (BEAKER) (test code = 2801) [id number] 16:05:26 Test Item Value Reference Range Interpretation Comments FERRITIN (BEAKER) (test code = 420.05 ng/mL 5.00-275.00 H 361) Frame Catcher ID - BSIRON, TIBC, % SAT. (WITHOUT FERRITIN)2022-09-22 15:43:01 Test Item Value Reference Range Interpretation Comments IRON (BEAKER) (test code = 547) 58.0 ug/dL 40.0-160.0 TOTAL IRON BINDING CAPACITY 166 ug/dL 250-450 L (BEAKER) (test code = 769) IRON % SATURATION (2) (BEAKER) 35 % 20-55 (test code = 2590) Frame Catcher ID - ADMINIMMUNOGLOBULIN G (IGG)2022-09-22 15:43:00 Test Item Value Reference Range Interpretation Comments IMMUNOGLOBULIN G (IGG) (BEAKER) 1780 mg/dL 540-1822 (test code = 427) Frame Catcher ID - ADMINHEPATITIS B SURFACE [id number] 14:45:04 Test Item Value Reference Range Interpretation Comments HEPATITIS B SURFACE ANTIBODY < mIU/mL <8.0 (BEAKER) (test code = 647) Frame Catcher ID - ADMINHEPATITIS A ANTIBODY, [id number] 14:44:36 Test Item Value Reference Range Interpretation Comments HEPATITIS A IGG ANTIBODY (BEAKER) Reactive Nonreactive A (test code = 2797) Frame Catcher ID - ADMINHEPATITIS C [id number] 14:39:41 Test Item Value Reference Range Interpretation Comments HEPATITIS C ANTIBODY (BEAKER) Nonreactive Nonreactive (test code = 367) Frame Catcher ID - ADMINHEPATITIS B CORE ANTIBODY, [id number] 14:39:41 Test Item Value Reference Range Interpretation Comments HEPATITIS B CORE TOTAL ANTIBODY Nonreactive Nonreactive (BEAKER) (test code = 497) Frame Catcher ID - ADMINHEPATITIS B SURFACE [id number] 14:39:36 Test Item Value Reference Range Interpretation Comments HEPATITIS B SURFACE ANTIGEN (2) Nonreactive Nonreactive (BABITA) (test code = 2585) Specimen is considered negative for HBsAg.GKKDH-2-XQMUCBESWVM7723-04-27 14:18:11 Test Item Value Reference Range Interpretation Comments ALPHA-1 ANTITRYPSIN (BABITA) 215.00 mg/dL 90.00-200.00 H (test code = 502) Frame Catcher ID - ADMINACTIVATED PARTIAL THRMPLAS [id number] 23:04:38 Test Item Value Reference Range Interpretation Comments APTT Patient (test 35 See_Comment [Automat ed code = 3173-2) message] The system which generated this result transmitted reference range : 23 - 38 Seconds . The reference range was not used to interpr et this result as normal/abnormal . SHIN (test code = SHIN) The [facility] patient population mean normal value for aPTT is 30 seconds. Lab Interpretation Normal (test code = 69740-0) [facility] Paso[facility]HROMBIN TIME / [id number] 23:02:33 Test Item Value Reference Range Interpretation Comments PROTIME PATIENT (test 15.5 See_Comment H [Auto mated message] code = 5964-2) The system [employer] generated this result transmitted ref erence range: 12.0 - 1 4.7 Seconds. The reference range was not used to int erpret this result as normal/abnormal . INR (test code = 6301-6) 1.3 Nor mal INR <1.1; Warfarin Therap eutic range 2.0 to 3. 0 or 2.5 to 3.5, dep ending upon the indica tions. Lab Interpretation (test Abnormal code = 14193-9) [facility] Paso[facility]thrombin Time / [id number] 07:41:00 Test Item Value Reference Range Interpretation Comments PROTIME PATIENT (test See_Comment H [Auto mated message] code = 5964-2) The system [employer] generated this result transmitted ref erence range: 12.0 - 1 4.7 Seconds. The reference range was not used to int erpret this result as normal/abnormal . INR (test code = 6301-6) Nor mal INR <1.1; Warfarin Therap eutic range 2.0 to 3. 0 or 2.5 to 3.5, dep ending upon the indica tions. Lab Interpretation (test Abnormal code = 86832-4) [facility]2022-08-14 17:59:50 ALCOHOL<10mg/dL01/09/2022 12:59 PM [facility]<10 Cdndosla80-684 Toxic>100 Depression of CRM FUNCTIONAL ANALYST>400 Fatalities [facility]ortedUnBallinger [facility] DistrictCOMP. METABOLIC PANEL (92828) 2022-01-09 17:59:30 Test Item Value Reference Range Interpretation Comments NA (test code = 142 mmol/L 135-145 8196672293) K (test code = 3.4 mmol/L 3.5-5 L 2860747264) CL (test code = 97 mmol/L 98-108 L 4427299879) CO2 TOTAL (test code = 22 mmol/L 23-31 L 6743680119) AGAP (test code = 2-16 H 6589388470) BUN (test code = 7-23 L 9709711141) GLUCOSE (test code = 159 mg/dL 70-110 H 8688258928) CREATININE (test code = 0.80 mg/dL 0.6-1.25 4039581155) TOTAL BILI (test code = 2.6 mg/dL 0.1-1.1 H 4486777817) CALCIUM (test code = 9.4 mg/dL 8.6-10.6 6349931285) T PROTEIN (test code = 8.0 g/dL 6.3-8.2 5384699096) ALBUMIN (test code = 4.3 g/dL 3.5-5 6039931421) ALK PHOS (test code = 195 U/L 34-122 H 4867810484) ALTv (test code = 52 U/L 5-50 H 1742-6) AST(SGOT) (test code = 130 U/L 13-40 H 5152988327) eGFR (test code = mL/min/1.73m2 2665926769) SHIN (test code = SHIN) Association of [...] tests). Lab Interpretation Abnormal (test code = 43848-5) [facility]2022-08-14 17:42:36 Test Item Value Reference Range Interpretation Comments MAGNESIUM (test code = 8976454356) 1.5 mg/dL 1.7-2.4 L Lab Interpretation (test code = Abnormal 69504-5) [facility] Pas[facility]IPASE2022-08-14 17:42:16 Test Item Value Reference Range Interpretation Comments LIPASE (test code = 3927541449) 117 U/L 0-220 Lab Interpretation (test code = Normal 58423-5) [facility] WITH [id number] 17:38:24 Test Item Value Reference Range Interpretation Comments WBC (test code = See_Comment H [Automated 8590-2) message] The system which generated this result [...] (test code = 54.8 fL 38.5-51.6 H 46955-4) RDW-CV (test code = 14.6 % 12.1-15.4 788-0) PLT (test code = See_Comment H [Automated 777-3) message] The system which generated this result transmit pinky reference range : 150 - 328 10*3/ ?L. The reference range was not u sed to interpret th is result as normal/abnormal . MPV (test code = 8.4 fL 9.8-13 L 51507-8) NRBC/100 WBC (test See_Comment [Automat ed code = 9762028939) message] The system which generated this result transmit pinky reference range : 0.0 - 10.0 /100 WBCs. The reference range was not used to interpret this result as normal/abnormal . NRBC x10^3 (test code See_Comment [Auto mated = 7686892612) message] The system which generated this result transmit pinky reference range : 10*3/?L. The reference range was not used to interpret this result as normal/abnormal . GRAN MAT (NEUT) % 91.7 % (test code = 770-8) IMM GRAN % (test code 0.40 % = 8841802774) LYMPH % (test code = 3.1 % 736-9) MONO % (test code = 4.4 % 5905-5) EOS % (test code = 0.0 % 713-8) BASO % (test code = 0.4 % 706-2) GRAN MAT x10^3(ANC) 23.92 10*3/uL 1.99-6.95 H (test code = 6253123007) IMM GRAN x10^3 (test 0.10 10*3/uL 0-0.06 H code = 3374600054) LYMPH x10^3 (test code 0.80 10*3/uL 1.09-3.23 L = 731-0) MONO x10^3 (test code 1.16 10*3/uL 0.36-1.02 H = 742-7) EOS x10^3 (test code = 0.06-0.53 L 711-2) BASO x10^3 (test code 0.10 10*3/uL 0.01-0.09 H = 704-7) BANDS (test code = Increased A 3429149985) GIANT PLATELETS (test Present See_Comment A [Auto mated code = 5908-9) message] The system which generated this result transmit pinyk reference range : (none). The reference range was not used to interpret this result as normal/abnormal . Lab Interpretation Abnormal (test code = 13781-2) [facility] PasoACTIVATED PARTIAL THRMPLAS [id number] 16:54:32 Test Item Value Reference Range Interpretation Comments APTT Patient (test See_Comment [Automat ed code = 3173-2) message] The system which generated this result transmitted reference range : 23 - 38 Seconds . The reference range was not used to interpr et this result as normal/abnormal . SHIN (test code = SHIN) The [facility] patient population mean normal value for aPTT is 30 seconds. Lab Interpretation Normal (test code = 42352-2) [facility] PasoPROTHROMBIN TIME / [id number] 16:52:31 Test Item Value Reference Range Interpretation [...] tions. Lab Interpretation (test Normal code = 97225-4) [facility] PasoPOCT-GLUCOSE [id number] 12:43:00 Test Item Value Reference Range Interpretation Comments POC-GLUCOSE METER 88 mg/dL 70-[address] [facility] (BEAKER) (test code = DANK Maxwell [facility] [address] 1538) BASIC METABOLIC [id number] 09:10:00 Test Item Value Reference Range Interpretation [...] NOT APPLICABLE FOR DIALYSIS PATIEN TS. POCT-GLUCOSE [id number] 05:26:00 Test Item Value Reference Range Interpretation Comments POC-GLUCOSE METER 87 mg/dL 70-110 TESTED AT [place] [address] (BEAKER) (test code = DANK Maxwell [facility] [address] 1538) [id number] 04:43:00 Test Item Value Reference Range Interpretation Comments PHOSPHORUS (BEAKER) (test code = 3.5 mg/dL 2.3-4.7 604) [id number] 04:43:00 Test Item Value Reference Range Interpretation Comments MAGNESIUM (BEAKER) (test code = 2.1 mg/dL 1.6-2.6 627) CBC W/PLT COUNT & AUTO [id number] 04:13:00 Test Item Value Reference Range Interpretation [...] PERCENT (BEAKER) (test code = 2801) POCT-GLUCOSE [id number] 01:04:00 Test Item Value Reference Range Interpretation Comments POC-GLUCOSE METER 94 mg/dL 70-110 TESTED AT [place] [address] ([facility]) (test code = DANK Maxwell [facility] [address] 1538) POCT-GLUCOSE [id number] 17:19:00 Test Item Value Reference Range Interpretation Comments POC-GLUCOSE METER 89 mg/dL 70-110 TESTED AT [place] [address] ([facility]) (test code = DANK Maxwell [facility] [address] 1538) [id number] 12:13:00 Test Item Value Reference Range Interpretation Comments [facility] (test code = 2.6 mg/dL 2.3-4.7 604) POCT-GLUCOSE [id number] 11:47:00 Test Item Value Reference Range Interpretation Comments POC-GLUCOSE METER 107 mg/dL 70-110 TESTED AT [place] [address] ([facility]) (test code = DIANWA Hans [facility] 1538) [address] CBC W/PLT COUNT & AUTO [id number] 06:53:00 Test Item Value Reference Range Interpretation [...] 0-1 PERCENT (BEAKER) (test code = 2801) [id number] 06:49:00 Test Item Value Reference Range Interpretation Comments PHOSPHORUS (BEAKER) (test code = 3.5 mg/dL 2.3-4.7 604) [id number] 06:49:00 Test Item Value Reference Range Interpretation Comments MAGNESIUM (BEAKER) (test code = 2.3 mg/dL 1.6-2.6 627) COMPREHENSIVE METABOLIC [id number] 06:49:00 Test Item Value Reference Range Interpretation [...] NOT APPLICABLE FOR DIALYSIS PATIEN TS. POCT-GLUCOSE [id number] 00:36:00 Test Item Value Reference Range Interpretation Comments POC-GLUCOSE METER 123 mg/dL 70-[address] [facility] (BEAKER) (test code = DANK Maxwell [place] 1538) [address] CBC W/PLT COUNT & AUTO [id number] 00:14:00 Test Item Value Reference Range Interpretation [...] 0-1 PERCENT (BEAKER) (test code = 2801) [id number] 00:11:00 Test Item Value Reference Range Interpretation Comments PHOSPHORUS (BEAKER) (test code = 1.8 mg/dL 2.3-4.7 L 604) [id number] 00:11:00 Test Item Value Reference Range Interpretation Comments MAGNESIUM (BEAKER) (test code = 2.5 mg/dL 1.6-2.6 627) COMPREHENSIVE METABOLIC [id number] 00:11:00 Test Item Value Reference Range Interpretation [...] U/L 29-200 H code = 380) PROTHROMBIN [id number] 23:57:00 Test Item Value Reference Range Interpretation [...]
[2023-01-07 00:06] LABS: Absolute Lymphocytes (CBC) 2.3 K/uL (0.7-4.9); Hematocrit 29.1 % (39.6-49.0); Lymphocytes % 16.3 % (15.3-44.8); MCV 112.4 fL (80-100); Platelets 181 thou/uL (152-406); RBC Red Blood Cell Count 2.59 M/uL (4.33-5.43)
[2023-01-07 00:09] LABS: Protime INR 1.5
[2023-01-07] MEDS ORDERED: THIAMINE 200 MG/2 ML INJ ONE (00:47)
[2023-01-07] MEDS ORDERED: FAMOTIDINE 20 MG/2 ML VIAL IV ONE (00:47)
[2023-01-07] MEDS ORDERED: ONDANSETRON 4 MG/2 ML VIAL ONE (00:47)
[2023-01-07 00:48] LABS: Albumin 2.8 g/dL (3.4-5.0); Bilirubin Direct 1.9 mg/dL (0-0.2); Bilirubin Indirect, Calculated 3.1 mg/dL (0.2-0.8); Magnesium 2.2 mg/dL (1.6-2.4); Potassium 3.5 mEq/L (3.5-5.1); Troponin High Sensitivity 7.6 pg/mL (<58.9)
[2023-01-07] MEDS ORDERED: MULTIVITAMINS 10 ML VIAL (INJ) IV ONE (00:48)
[2023-01-07] MEDS ORDERED: FOLIC ACID 5 MG/ML VIAL ONE (00:49)
[2023-01-07] MEDS ORDERED: NA CHLORIDE 0.9% 2,000 ML ONE (00:50)
--- NOTE | 2023-01-07 00:55 | EDPHYS ---
Physician Documentation [facility] Name: Roger Peralta Age: 27 yrs Sex: Male : 1995 Arrival Date: 01/06/2023 Time: 22:50 Bed 7 Private MD: ED Physician Davey Anderson HPI: 01/07 00:00 This 27 yrs old Male presents to ER via Ambulatory with complaints of Alcohol leonel Withdrawal. 00:00 heat exposure. Onset: The symptoms/episode began/occurred 1 day(s) ago. Severity of leonel symptoms: At their worst the symptoms were mild in the emergency department the symptoms are unchanged. The patient has experienced similar episodes in the past, a few times. Historical: - Allergies: 01/06 23:30 No Known Allergies; kl - Home Meds: 23:30 librium [Active]; kl - PMHx: 23:30 Alcohol dependence; fatty liver; Seizure; kl - Immunization history:: Adult Immunizations not immunized. - Social history:: Smoking status: Patient denies any tobacco usage or history of. ROS: 01/07 00:02 Constitutional: Negative for fever, chills, and weight loss, Eyes: Negative for injury, leonel pain, redness, and discharge, ENT: Negative for injury, pain, and discharge, Neck: Negative for injury, pain, and swelling, Cardiovascular: Negative for chest pain, palpitations, and edema, Respiratory: Negative for shortness of breath, cough, wheezing, and pleuritic chest pain, Abdomen/GI: Negative for abdominal pain, nausea, vomiting, diarrhea, and constipation, Back: Negative for injury and pain, : Negative for injury, bleeding, discharge, and swelling, MS/Extremity: Negative for injury and deformity, Skin: Negative for injury, rash, and discoloration, Neuro: Negative for headache, weakness, numbness, tingling, and seizure, Psych: Negative for depression, anxiety, suicide ideation, homicidal ideation, and hallucinations, Allergy/Immunology: Negative for hives, rash, and allergies, Endocrine: Negative for neck swelling, polydipsia, polyuria, polyphagia, and marked weight changes, Hematologic/Lymphatic: Negative for swollen nodes, abnormal bleeding, and unusual bruising. Exam: 00:02 Constitutional: This is a well developed, well nourished patient who is awake, alert, leonel and in no acute distress. Head/Face: Normocephalic, atraumatic. ENT: Nares patent. No nasal discharge, no septal abnormalities noted. Tympanic membranes are normal and external auditory canals are clear. Oropharynx with no redness, swelling, or masses, exudates, or evidence of obstruction, uvula midline. Mucous membranes moist. Neck: Trachea midline, no thyromegaly or masses palpated, and no cervical lymphadenopathy. Supple, full range of motion without nuchal rigidity, or vertebral point tenderness. No Meningismus. Chest/axilla: Normal chest wall appearance and motion. Nontender with no deformity. No lesions are appreciated. Cardiovascular: Regular rate and rhythm with a normal S1 and S2. No gallops, murmurs, or rubs. Normal PMI, no JVD. No pulse deficits. Respiratory: Lungs have equal breath sounds bilaterally, clear to auscultation and percussion. No rales, rhonchi or wheezes noted. No increased work of breathing, no retractions or nasal flaring. Abdomen/GI: Soft, non-tender, with normal bowel sounds. No distension or tympany. No guarding or rebound. No evidence of tenderness throughout. Back: No spinal tenderness. No costovertebral tenderness. Full range of motion. Male : Normal genitalia with no discharge or lesions. Skin: Warm, dry with normal turgor. Normal color with no rashes, no lesions, and no evidence of cellulitis. MS/ Extremity: Pulses equal, no cyanosis. Neurovascular intact. Full, normal range of motion. Neuro: Awake and alert, GCS 15, oriented to person, place, time, and situation. Cranial nerves II-XII grossly intact. Motor strength 5/5 in all extremities. Sensory grossly intact. Cerebellar exam normal. Normal gait. Psych: Awake, alert, with orientation to person, place and time. Behavior, mood, and affect are within normal limits. 00:02 Eyes: Pupils: no acute changes, equal, round, and reactive to light and accomodation, Extraocular movements: no acute changes, Conjunctiva: normal, Corneas: are normal, no acute changes, Sclera: icterus, Lids and lashes: appear normal, no acute changes, Nystagmus: is not appreciated. 00:33 ECG was reviewed by the Attending Physician. [facility] Vital Signs: 01/06 23:28 BP 103 / 65; Pulse 88; Resp 16; Temp 98(O); Pulse Ox 99% ; Weight 68.04 kg (M); Height kl 5 ft. 5 in. ; 01/07 00:00 BP 96 / 64; Pulse 84; Resp 17 S; Pulse Ox 98% on R/A; jw7 00:30 BP 93 / 59; Pulse 86; Resp 25 S; Pulse Ox 97% on R/A; jw7 01:00 BP 94 / 63; Pulse 83; Resp 15 S; Pulse Ox 98% on R/A; jw7 02:00 BP 97 / 64; Pulse 76; Resp 15 S; Pulse Ox 98% on R/A; jw7 03:00 BP 102 / 70; Pulse 77; Resp 16 S; Pulse Ox 100% on R/A; jw7 03:30 BP 99 / 70; Pulse 82; Resp 16; Pulse Ox 100% ; vc1 01/06 23:28 Body Mass Index 24.96 (68.04 kg, 165.1 cm) kl MDM: 01/06 23:23 Patient medically screened. [facility] 01/07 00:03 Differential Diagnosis altered mental status. Differential diagnosis: gastritis, leonel gastroesophageal reflux disease, Hepatitis, non-specific abd pain, pancreatitis, Peptic Ulcer Disease, Pyelonephritis, urinary tract infection. Data reviewed: vital signs, nurses notes, lab test result(s), EKG, radiologic studies, plain films. Consideration of Admission/Observation Escalation of care including admission/observation considered. I considered the following discharge prescriptions or medication management in the emergency department Medications were administered in the Emergency Department. See MAR. Independent interpretation of the following test(s) in the Emergency Department EKG: See my EKG interpretation above. Test considered but Not performed: Ultrasound no abd usg. Care significantly affected by the following chronic conditions: Liver Disease, etoh abuse, fatty liver. 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 01/06 23:30 Order name: Basic Metabolic Panel; Complete Time: 00:[address] [facility] 01/06 23:30 Order name: CBC with Diff; Complete Time: 00:[address] [facility] 01/06 23:30 Order name: LFT's; Complete Time: 00:[address] [facility] 01/06 23:30 Order name: Magnesium; Complete Time: 00:[address] [facility] 01/06 23:30 Order name: NT PRO-BNP; Complete Time: 00:[address] [facility] 01/06 23:30 Order name: PT-INR; Complete Time: 00:[address] [facility] 01/06 23:30 Order name: Troponin HS; Complete Time: 00:[address] [facility] 01/06 23:30 Order name: Lipase; Complete Time: 00:[address] [facility] 01/06 23:30 Order name: AMMONIA; Complete Time: 00:[address] [facility] 01/06 23:30 Order name: CPK; Complete Time: 00:[address] [facility] 01/07 00:50 Order name: Urinalysis w/ reflexes; Complete Time: 02:19 vc 01/07 00:53 Order name: Blood Culture Adult (2) [facility] 01/07 00:53 Order name: Lactate w/ 2H reflex if indic.; Complete Time: 02:[address] [facility] 01/07 00:55 Order name: Tylenol Level; Complete Time: 02:[address] [facility] 01/06 23:30 Order name: XRAY Chest (1 view) [facility] 01/07 00:31 Order name: CT Abd/Pelvis - Without Contrast [facility] 01/06 23:30 Order name: EKG; Complete Time: 23:[address] [facility] 01/06 23:30 Order name: Cardiac monitoring; Complete Time: 00:[address] [facility] 01/06 23:30 Order name: EKG - Nurse/Tech; Complete Time: 00:[address] [facility] 01/06 23:30 Order name: IV Saline Lock; Complete Time: 00:[address] [facility] 01/06 23:30 Order name: Labs collected and sent; Complete Time: 00: [facility] 01/06 23:30 Order name: O2 Per Protocol; Complete Time: 00:[address] [facility] 01/06 23:30 Order name: O2 Sat Monitoring; Complete Time: 00:[address] [facility] 01/07 00:01 Order name: Misc. Order: RECOLLECT AMMONIA; Complete Time: 00:11 rv1 EC:33 Rate is 83 beats/min. Rhythm is regular. QRS [place] is Normal. IA interval is normal. QRS leonel interval is normal. QT interval is prolonged at 505 msec. No Q waves. T waves are Normal. No ST changes noted. Clinical impression: NSR w/ Non-specific ST/T Changes and No evidence of ischemia. Interpreted by me. Reviewed by me. Administered Medications: 01:12 Drug: NS 0.9% IV 1000 ml Route: IV; Rate: 1 bolus; Site: right antecubital; jw7 01:38 Follow up: Response: No adverse reaction; IV Status: Completed infusion; IV Intake: jw7 1000ml 01:12 Drug: Famotidine IVP 20 mg Route: IVP; Site: right antecubital; jw7 02:34 Follow up: Response: No adverse reaction jw7 01:12 Drug: Ondansetron IVP 4 mg Route: IVP; Site: right antecubital; jw7 02:34 Follow up: Response: No adverse reaction; Marked relief of symptoms jw7 01:12 Drug: Thiamine IV 100 mg Route: IV; Rate: per protocol; Site: right antecubital; jw7 02:35 Follow up: Response: No adverse reaction; IV Status: Completed infusion; IV Intake: 5ml jw7 01:12 Drug: Banana Bag - (NS 0.9% IV 1000 ml, foLIC Acid IVPB 1 mg, Thiamine IV 100 mg, jw7 Multivitamin IV 1 amp) Route: IV; Rate: 500 ml/hr; Site: right antecubital; 03:42 Follow up: Response: No adverse reaction; Marked relief of symptoms; IV Status: jw7 Completed infusion; IV Intake: 1000ml 02:25 Drug: NS 0.9% IV 1000 ml Route: IV; Rate: 1 bolus; Site: left antecubital; jw7 03:20 Follow up: Response: No adverse reaction; IV Status: Completed infusion; IV Intake: jw7 1000ml 02:25 Drug: Phytonadione Sub-Q 10 mg Route: Sub-Q; Site: abdomen; jw7 03:20 Follow up: Response: No adverse reaction jw7 02:34 Drug: Rocephin IV 1 grams Route: IV; Rate: per protocol; Site: left antecubital; jw7 03:42 Follow up: Response: No adverse reaction; IV Status: Completed infusion; IV Intake: [id number] Disposition Summary: 01/07/23 00:54 Transfer Ordered Reason: Higher level of care leonel Condition: Fair leonel Problem: new leonel Symptoms: have improved leonel Transfer Location: [facility](01/07/23 01:26) leonel Accepting Physician: to [facility](01/07/23 04:23) vc1 Diagnosis - Hepatic failure, unspecified without coma leonel - Anemia, unspecified leonel - Encephalopathy, unspecified - hepatic leonel - Alcohol abuse leonel - Alcoholic cirrhosis of liver leonel - Alcoholic cirrhosis of liver without ascites leonel - Hepatomegaly, not elsewhere classified leonel - Splenomegaly, not elsewhere classified leonel Discharge Instructions: - Discharge Summary Sheet leonel - Anemia leonel - Cirrhosis leonel - Alcoholic Liver Disease, [id number] leonel - Heat Exhaustion leonel - Alcoholic Liver Disease leonel - Preventing Heat Exhaustion, Adult leonel Forms: - Medication Reconciliation Form leonel - SBAR form leonel Prescriptions: - ondansetron 4 mg Oral Tablet,disintegrating - take 1 tablet by ORAL route every 12 hours for 5 days as needed for nausea and leonel vomiting; 20 tablet; Refills: 0, Product Selection Permitted - Pepcid 20 mg Oral Tablet - take 1 tablet by ORAL route every 12 hours for 30 days; 60 tablet; Refills: 0, leonel Product Selection Permitted Signatures: Dispatcher [employer] EDFlora Rubio RN RN kl Anderson, Corey, MD MD cha Calcote, Vanessa RN RN vc1 Lucrecia Mccoy RN RN [email or web address] Dory Waite rv1 Corrections: (The following items were deleted from the chart) 00:55 00:54 to [facility] leonel leonel 01: 00:54 [facility] leonel leonel 01: 00:55 to [facility] leonel leonel 03:21 01:26 to [facility] leonel leonel 04:23 03:21 to [facility] leonel vc1
--- NOTE | 2023-01-07 00:55 | ER ---
Nurse's Notes [facility] Name: Roger Peralta Age: 27 yrs Sex: Male : 1995 Arrival Date: 01/06/2023 Time: 22:50 Bed 7 Private MD: Diagnosis: Hepatic failure, unspecified without coma;Anemia, unspecified;Encephalopathy, unspecified-hepatic;Alcohol abuse;Alcoholic cirrhosis of liver;Alcoholic cirrhosis of liver without ascites;Hepatomegaly, not elsewhere classified;Splenomegaly, not elsewhere classified Presentation: 01/06 23:28 Chief complaint: Patient states: weakness abdominal discomfort working all day outside kl went to lay down family concerned he didn't look well last drank on Monday. Coronavirus screen: Vaccine status: Patient reports being unvaccinated. Ebola Screen: Patient negative for fever greater than or equal to 101.5 degrees Fahrenheit, and additional compatible Ebola Virus Disease symptoms. Initial Sepsis Screen: Does the patient meet any 2 criteria? No. Patient's initial sepsis screen is negative. Does the patient have a suspected source of infection? No. Patient's initial sepsis screen is negative. Risk Assessment: Do you want to hurt yourself or someone else? Patient reports no desire to harm self or others. 23:28 Method Of Arrival: Ambulatory 23:28 Acuity: LAVON 3 01/07 00:24 Onset of symptoms was January 06, 2023. jw7 Triage Assessment: 01/06 23:30 General: Appears in no apparent distress. Behavior is calm, cooperative. Pain: Complains of pain in left lower quadrant Pain currently is 3 out of 10 on a pain scale. Historical: - Allergies: 23:30 No Known Allergies; - Home Meds: 23:30 librium [Active]; - PMHx: 23:30 Alcohol dependence; fatty liver; Seizure; kl - Immunization history:: Adult Immunizations not immunized. - Social history:: Smoking status: Patient denies any tobacco usage or history of. Screenin/12 00:23 [facility] ED Fall Risk Assessment (Adult) History of falling in the last 3 months, 7 including since admission No falls in past 3 months (0 pts) Score/Fall Risk Level 0 - 2 = Low Risk. Abuse screen: Denies threats or abuse. Denies injuries from another. Nutritional screening: No deficits noted. Tuberculosis screening: No symptoms or risk factors identified. Assessment: 00:20 General: Appears in no apparent distress. comfortable, Behavior is calm, cooperative, jw7 appropriate for age, quiet. Neuro: No deficits noted. Villanueva Agitation-Sedation Scale (RASS): 0 - Alert and Calm Level of Consciousness is awake, alert, obeys commands, Oriented to person, place, time, situation. Cardiovascular: No deficits noted. Capillary refill < 3 seconds Clubbing of nail beds is absent JVD is absent Patient's skin is warm and dry. Respiratory: No deficits noted. Airway is patent Trachea midline Respiratory effort is even, unlabored, Respiratory pattern is regular, symmetrical. GI: No deficits noted. No signs and/or symptoms were reported involving the gastrointestinal system. Abdomen is flat, non-distended. : No deficits noted. No signs and/or symptoms were reported regarding the genitourinary system. EENT: No deficits noted. No signs and/or symptoms were reported regarding the EENT system. Derm: No deficits noted. No signs and/or symptoms reported regarding the dermatologic system. Skin is intact, is healthy with good turgor, Skin is dry, Skin is normal, Skin temperature is warm. Musculoskeletal: No deficits noted. No signs and/or symptoms reported regarding the musculoskeletal system. Circulation, motion, and sensation intact. Capillary refill < 3 seconds, Range of motion: intact in all extremities. 01:40 Reassessment: Patient appears in no apparent distress at this time. No changes from jw7 previously documented assessment. Patient and/or family updated on plan of care and expected duration. Pain level reassessed. Patient is alert, oriented x 3, equal unlabored respirations, skin warm/dry/pink. 02:36 Reassessment: Patient appears in no apparent distress at this time. No changes from jw7 previously documented assessment. Patient and/or family updated on plan of care and expected duration. Pain level reassessed. Patient is alert, oriented x 3, equal unlabored respirations, skin warm/dry/pink. 03:18 Reassessment: Patient appears in no apparent distress at this time. No changes from jw7 previously documented assessment. Patient and/or family updated on plan of care and expected duration. Pain level reassessed. Patient is alert, oriented x 3, equal unlabored respirations, skin warm/dry/pink. Patient states feeling better. 03:19 General: Report given to RONI Lopez at [facility] . jw7 Vital Signs: 01/06 23:28 BP 103 / 65; Pulse 88; Resp 16; Temp 98(O); Pulse Ox 99% ; Weight 68.04 kg (M); Height kl 5 ft. 5 in. ; 01/07 00:00 BP 96 / 64; Pulse 84; Resp 17 S; Pulse Ox 98% on R/A; jw7 00:30 BP 93 / 59; Pulse 86; Resp 25 S; Pulse Ox 97% on R/A; jw7 01:00 BP 94 / 63; Pulse 83; Resp 15 S; Pulse Ox 98% on R/A; jw7 02:00 BP 97 / 64; Pulse 76; Resp 15 S; Pulse Ox 98% on R/A; jw7 03:00 BP 102 / 70; Pulse 77; Resp 16 S; Pulse Ox 100% on R/A; jw7 03:30 BP 99 / 70; Pulse 82; Resp 16; Pulse Ox 100% ; vc1 01/06 23:28 Body Mass Index 24.96 (68.04 kg, 165.1 cm) ED Course: 01/06 22:51 Patient arrived in ED. jj6 23:23 Davey Anderson MD is Attending Physician. [facility] 23:30 Triage completed. 23:55 XRAY Chest (1 view) In Process Unspecified. EDMS 01/07 00:11 Lucrecia Mccoy RN is Primary Nurse. jw7 00:11 Initial lab(s) drawn, by vt, sent to lab. EKG done, by ED staff, reviewed by Davey Anderson MD. Inserted saline lock: 20 gauge in right antecubital area, using aseptic technique. Blood collected. 00:23 Patient has correct armband on for positive identification. Bed in low position. Call jw light in reach. Side rails up X2. Family accompanied patient. 00:23 Door closed. Noise minimized. Warm blanket given. jw7 00:25 Arm band placed on. jw7 01:37 Tylenol Level Sent. jw7 01:38 Lactate w/ 2H reflex if indic. Sent. jw7 01:38 Urinalysis w/ reflexes Sent. jw7 01:38 First set of blood cultures drawn by ED staff. jw7 01:53 CT Abd/Pelvis - Without Contrast In Process Unspecified. EDMS 02:20 Second set of blood cultures drawn by ED staff. jw7 04:08 No provider procedures requiring assistance completed. Patient transferred, IV remains vc1 in place. Administered Medications: 01:12 Drug: NS 0.9% IV 1000 ml Route: IV; Rate: 1 bolus; Site: right antecubital; jw7 01:38 Follow up: Response: No adverse reaction; IV Status: Completed infusion; IV Intake: jw7 1000ml 01:12 Drug: Famotidine IVP 20 mg Route: IVP; Site: right antecubital; jw7 02:34 Follow up: Response: No adverse reaction jw7 01:12 Drug: Ondansetron IVP 4 mg Route: IVP; Site: right antecubital; jw7 02:34 Follow up: Response: No adverse reaction; Marked relief of symptoms jw7 01:12 Drug: Thiamine IV 100 mg Route: IV; Rate: per protocol; Site: right antecubital; jw7 02:35 Follow up: Response: No adverse reaction; IV Status: Completed infusion; IV Intake: 5ml jw7 01:12 Drug: Banana Bag - (NS 0.9% IV 1000 ml, foLIC Acid IVPB 1 mg, Thiamine IV 100 mg, jw7 Multivitamin IV 1 amp) Route: IV; Rate: 500 ml/hr; Site: right antecubital; 03:42 Follow up: Response: No adverse reaction; Marked relief of symptoms; IV Status: jw7 Completed infusion; IV Intake: 1000ml 02:25 Drug: NS 0.9% IV 1000 ml Route: IV; Rate: 1 bolus; Site: left antecubital; jw7 03:20 Follow up: Response: No adverse reaction; IV Status: Completed infusion; IV Intake: jw7 1000ml 02:25 Drug: Phytonadione Sub-Q 10 mg Route: Sub-Q; Site: abdomen; jw7 03:20 Follow up: Response: No adverse reaction jw7 02:34 Drug: Rocephin IV 1 grams Route: IV; Rate: per protocol; Site: left antecubital; jw7 03:42 Follow up: Response: No adverse reaction; IV Status: Completed infusion; IV Intake: [id number] Medication: 04:22 VIS not applicable for this client. vc1 Intake: :38 IV: 1000ml; Total: 1000ml. jw7 02:35 IV: 5ml; Total: 1005ml. jw7 03:20 IV: 1000ml; Total: 2005ml. jw7 03:42 IV: 10ml; Total: 2015ml. jw7 03:42 IV: 1000ml; Total: 3015ml. jw7 Outcome: 00:54 ER care complete, transfer ordered by MD. castaneda 04:02 Transferred by ground EMS to [facility], Transfer form vc1 completed. X-rays sent w/ patient. 04:02 Condition: good 04:02 Instructed on the need for transfer. vc1 04:23 Patient left the ED. vc1 Signatures: Dispatcher [employer] EDFlora Rubio RN RN kl Anderson, Corey, MD MD cha Jeffries, Jennifer jj6 Calcote, Vanessa RN RONI vc1 Lucrecia Mccoy RN RN jw7 Corrections: (The following items were deleted from the chart) 02:27 02:25 BLOOD CULTURE*+[email or web address] drawn and sent. jwTim jw7
[2023-01-07 01:43] LABS: Specific Gravity < 1.005 (1.005-1.030); Urine Bilirubin NEGATIVE (Negative); Urine Blood Negative (Negative); Urine Clarity Clear (Clear); Urine Color Yellow (Yellow); Urine Glucose NEGATIVE (Negative); Urine Protein NEGATIVE (Negative); Urine Urobilinogen Normal (Normal)
[2023-01-07] MEDS ORDERED: VITAMIN K (ADULT) 10 MG/ML ONE ×2 (02:02→02:05)
[2023-01-07] MEDS ORDERED: CEFTRIAXONE 1000 MG/VIAL ONE (02:02)
[2023-01-07] MEDS ORDERED: NA CHLORIDE 0.9% 1,000 ML ONE (02:02)
[2023-01-07 04:27] VITALS: TEMP 98
[2023-01-07 04:35] VITALS: O2SAT 100
[2023-01-07 04:37] VITALS: BP 99/70
--- NOTE | 2023-01-08 15:29 | EKG ---
Test Date: 2023-01-07 Test Time: 00:15:20 Help Desk Technician: VANESA MEASUREMENT RESULTS: Intervals: Rate: 83 PA: 130 QRSD: 80 QT: 430 QTc: 505 [place]: P: 48 PA: 130 QRS: 78 T: 49 INTERPRETIVE STATEMENTS: Normal sinus rhythm with sinus arrhythmia Prolonged QT Abnormal ECG Compared to ECG 12/14/2022 00:44:17 Prolonged QT interval now present Sinus tachycardia no longer present Electronically Signed On 01-08-23 15:28:30 CDT by Ken Donahue
--- NOTE | 2023-01-08 18:19 | RAD REPORT ---
EXAM DESCRIPTION: RAD - Chest Single View - 01/06/2023 11:53 pm CLINICAL HISTORY: The patient is 27 years old and is Male; COUGH TECHNIQUE: Frontal view of the chest. COMPARISON: No relevant prior studies available. FINDINGS: Lungs: Unremarkable. No consolidation. Pleural space: Unremarkable. No pneumothorax. Heart: Unremarkable. Mediastinum: Unremarkable. Bones/joints: Unremarkable. IMPRESSION: No acute findings in the chest. Electronically signed by: Glen Sanchez MD 01/07/2023 12:55 AM CDT Due to temporary technical issues with the PACS/Fluency reporting system, reports are being signed by the in house radiologists without review as a courtesy to insure prompt reporting. The interpreting radiologist is fully responsible for the content of the report.
--- NOTE | 2023-01-08 18:21 | RAD REPORT ---
EXAM DESCRIPTION: CT - Abdomen Pelvis Wo Contrast - 01/07/2023 6:49 am CLINICAL HISTORY: The patient is 27 years old and is Male; ABD PAIN TECHNIQUE: Axial computed tomography images of the abdomen and pelvis without intravenous contrast. Sagittal and coronal reformatted images were created and reviewed. This CT exam was performed usi ng one or more of the following dose reduction techniques: automated exposure control, adjustment o f the mA and/or kV according to patient size, and/or use of iterative reconstruction technique. COMPARISON: No relevant prior studies available. FINDINGS: Lung bases: Unremarkable. No mass. No consolidation. ABDOMEN: Liver: Marked hepatomegaly and diffuse hepatic steatosis. Gallbladder and bile ducts: Unremarkable. No calcified stones. No ductal dilation. Pancreas: Unremarkable. No ductal dilation. Spleen: Splenomegaly. Adrenals: Unremarkable. No mass. Kidneys and ureters: Unremarkable. No obstructing stones. No hydronephrosis. Stomach and bowel: Unremarkable. No obstruction. No mucosal thickening. PELVIS: Appendix: The appendix is normal. Bladder: Unremarkable. Reproductive: Unremarkable as visualized. ABDOMEN and PELVIS: Intraperitoneal space: Unremarkable. No free air. No significant fluid collection. Bones/joints: No acute fracture. No dislocation. Soft tissues: Unremarkable. Vasculature: Unremarkable. No abdominal aortic aneurysm. Lymph nodes: Unremarkable. No enlarged lymph nodes. IMPRESSION: 1. Marked hepatomegaly and diffuse hepatic steatosis. 2. Splenomegaly. Electronically signed by: Glen Sanchez MD 01/07/2023 2:29 AM CDT Due to temporary technical issues with the PACS/Fluency reporting system, reports are being signed by the in house radiologists without review as a courtesy to insure prompt reporting. The interpreting radiologist is fully responsible for the content of the report.
== END 2023-01-07 04:23 | disposition short-term general hospital (02) ==
LOC: ER 22:50
DX: K72.90 Hepatic failure, unspecified without coma (principal); K76.82 Hepatic encephalopathy; D64.9 Anemia, unspecified; K70.30 Alcoholic cirrhosis of liver without ascites; F10.20 Alcohol dependence, uncomplicated; R16.2 Hepatomegaly with splenomegaly, not elsewhere classified
CPT/HCPCS: 93005; 87040 ×2; 85025; 80048; 36415; 82140; 83735; 82550; 85610; 80076; 83605; 81003; 84484; 83690; 83880; 74176; 71045; 96372; 99285; 80143; J3411; J3430; J2405; J7030 ×2; J0696

== ENCOUNTER 2024-10-21 15:18 | Emergency (ER) | payer OTHER ==
[2024-10-21] MEDS ORDERED: HYDROCODONE/APAP 5/325 MG TAB ONE (15:28)
[2024-10-21] MEDS ORDERED: KETOROLAC 30 MG/ML INJ ONE (15:29)
--- NOTE | 2024-10-21 16:23 | RAD REPORT ---
Procedure: Chest Pa And Lat (2 Views) HISTORY: Chest pain COMPARISON: 2022 FINDINGS: The lungs appear clear of acute infiltrate. No significant pleural effusion noted. The heart is normal size. IMPRESSION: No acute abnormality is displayed.
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
[2024-10-21 18:20] VITALS: TEMP 97.7
[2024-10-21 18:30] VITALS: BP 146/83; O2SAT 100
== END 2024-10-21 18:08 | disposition home or self-care (01) ==
LOC: ER 15:18
DX: S01.81XA Laceration without foreign body of other part of head, initial encounter (principal); Y04.8XXA Assault by other bodily force, initial encounter
CPT/HCPCS: 12002; 70450; 71046; 96372; 99284